=== PATIENT | female | born 1940 | race Caucasian/White ===

== ENCOUNTER 2023-10-02 14:07 | Inpatient (IN) | payer MEDICARE, SELFPAY ==
[2023-10-02] VITALS (11 sets, daily range): BP systolic 123–158; BP diastolic 64–101; PULSE 69–107; RESP 19–26; TEMP 35.8–36.5; O2SAT 94–100; BMI 35.7; BMI 34.8
--- NOTE | 2023-10-02 14:15 | EKG12_ITS ---
Test Reason : Blood Pressure : / mmHG Vent. Rate : 092 BPM Atrial Rate : 092 BPM P-R Int : 188 ms QRS Dur : 082 ms QT Int : 416 ms P-R-T Axes : 043 000 048 degrees QTc Int : 514 ms Normal sinus rhythm Low voltage QRS Prolonged QT Abnormal ECG When compared with ECG of 26-JAN-2012 13:55, QRS voltage has decreased QT has lengthened Confirmed by MELLY BRUCE, MAYA ([id number]), film editor RAOUL MOREAU ([id number]) on 10/04/2023 11:21:30 AM Referred By: ALIYA Confirmed By:MAYA PICKARD MD
--- NOTE | 2023-10-02 14:15 | RAD_ITS ---
STUDY: XR Chest 1 View 10/02/2023 2:32 PM REASON FOR EXAM: Female, 83 years old. chest pain COMPARISON: None TECHNIQUE: XR Chest 1 View FINDINGS: There is a left pleural effusion. Normal heart size. Normal mediastinum. Normal agnieszka. Prominent appearing increased interstitial lung markings. Normal visualized pulmonary arteries. There is atherosclerotic calcification of the aortic arch with tortuosity. There are diffuse degenerative changes of the visualized thoracic spine. There is degenerative osteoarthritis of the bilateral shoulders. There are no acute findings of the upper abdomen. RAD/Chest 1 View (Portable) IMPRESSION: Large left pleural effusion. Electronically Signed: Oc Oleary MD at 15:08 EST ,
[2023-10-02 14:45] LABS: Absolute Lymphocyte Count 1.22 X10^3/uL (0.83-4.51); Absolute Neutrophil Count 2.1 X10^3/uL (2.0-7.7); Basophil# 0.02 X10^3/uL; Basophil% 0.5 % (0-1); Eosinophil# 0.06 X10^3/uL; Eosinophils% 1.6 % (0-5); Hematocrit 40.4 % (37-47); Lymphocyte # 1.22 X10^3/ul (0.83-4.51); Lymphocyte % 32.1 % (19-41); Mean Corp Hgb Conc 32.2 g/dL (32-36); Mean Corpuscular Hgb 32.9 pg (27.0-32.0); Mean Corpuscular Volume 102.3 fL (81-99); Mean Platelet Vol. 9.7 fl (6.2-12.0); Monocyte# 0.35 X10^3/uL; Monocyte% 9.2 % (0-10); NRBC Flagged by Analyzer 0 % (0-5); Neutrophil # 2.14 X10^3/uL (2.7-7.7); Neutrophil % 56.3 % (47-70); POSITIVE MORPHOLOGY YES; Platelet Count 106 K/mm3 (150-450); RBC Distribution Width SD 67.1 fl (35.1-43.9); Red Blood Count 3.95 M/mm3 (4.2-5.4); White Blood Count 3.8 K/mm3 (4.4-11.0)
[2023-10-02 14:46] LABS: Differential Indicated SCAN CRITERIA MET
[2023-10-02 15:11] LABS: Anion Gap 12 (5-15); BUN 20 mg/dL (7-18); BUN/Creat Ratio 14.4 RATIO (10-20); Calcium,Total 8.3 mg/dL (8.5-10.1); Chloride 104 mmol/L (98-107); Creatinine, Serum 1.39 mg/dL (0.55-1.02); EST Glomerular Filtration Rate 39 mL/min (>60); Est Glom Filt Rate - Afr Amer 47 mL/min (>60); Estimated Creatinine Clearance 26.26 ml/min; Glucose 110 mg/dL (74-106); Potassium 3.1 mmol/L (3.5-5.1); Sodium Level 143 mmol/L (136-145); Troponin-I HS (w/2H Reflex) 21 pg/mL (3.0-54.0)
--- NOTE | 2023-10-02 15:14 | EDS_ITS ---
HPI History of Present Illness Chief Complaint: Shortness of Breath Informant: patient Onset/Context/Timing Onset: Weeks (2) Context: gradual Timing: Continuous Quality: Positive for Dyspnea on exertion Worsened by: Exertion and Lying flat Relieved by: Rest Associated Symptoms cough, subjective and chills; Negative for rhinorrhea, post nasal drip, ear pain, fever, sore throat, sweats, clear sputum, white sputum, yellow sputum or green sputum Chest Pain: Positive for Tightness (Left chest) Narrative Narrative: Patient presents with shortness of breath that has been getting worse over the past 2 weeks. Patient states her breathing is worse with any exertion. Patient states it has been constant for the past 2 weeks. Patient admits to a cough but denies any sputum production. Patient admits to some subjective chills. Patient admits to some tightness in the left side of her chest. Patient admits to some nausea and vomiting. Patient states her pain radiates into her back. PE Risk Factors: Negative for Cancer, OCP + Smoking + > 35, Prior DVT or PE, Recent immobilization, Recent surgery or Recent travel [facility] Medical History (Updated 10/02/23 @ 17:[address] Anish Carrasquillo, ) DM2 (diabetes mellitus, type 2) HTN (hypertension) Home Medications amlodipine 2.5 mg tablet 2.5 mg PO DAILY 07/30/16 [History Last Taken 08/17/16 05:00] enalapril maleate 10 mg tablet (Vasotec) 10 mg PO BID 07/30/16 [History Last Taken 08/17/16 05:00] glipizide 2.5 mg tablet, extended release 24 hr 2.5 mg PO DAILY 07/30/16 [History Last Taken Unknown] hydrochlorothiazide 25 mg tablet 25 mg PO DAILY 07/30/16 [History Last Taken Unknown] lovastatin 10 mg tablet 10 mg PO DAILY 07/30/16 [History Last Taken Unknown] metformin 500 mg tablet 500 mg PO BIDCM 07/30/16 [History Last Taken Unknown] ranitidine HCl 150 mg tablet (Acid Control (ranitidine)) 300 mg PO DAILY 07/30/16 [History Last Taken Unknown] sertraline 50 mg tablet 50 mg PO DAILY 07/30/16 [History Last Taken Unknown] aspirin 325 mg tablet 325 mg PO BID ##30 08/19/16 [Rx Last Taken Unknown] calcium carbonate 600 mg-vitamin D3 12.5 mcg (500 unit) capsule 1 ea PO DAILY 08/09/17 [History Last Taken Unknown] oxycodone-acetaminophen 5 mg-325 mg tablet 1 - 2 tab PO Q4H PRN PRN Pain #12 tabs 08/09/17 [Rx Last Taken Unknown] Allergy/AdvReac Type Severity Reaction Status Date / Time No Known Allergies Allergy Verified 10/02/23 14:08 Surgical History (Updated 10/02/23 @ 14:46 by Abby Mckinney) H/O: hysterectomy History of bilateral knee replacement Social History Smoking Status: Never smoker ROS ROS ED Constitutional Constitutional ED: Denies chills or fever(s) Eyes Eyes: Denies blurry vision or change in vision ENT ENT ED: Denies rhinorrhea or sore throat Cardiovascular Cardiovascular: Reports chest pain; Denies palpitations Respiratory/Chest Respiratory/Chest: Reports cough and dyspnea Gastrointestinal Gastrointestinal: Reports nausea and vomiting Genitourinary Genitourinary ED: Denies dysuria or hematuria Musculoskeletal Musculoskeletal: Reports back pain; Denies neck pain Integumentary Denies abscess or rash Neurologic Neurologic: Denies headache(s) or weakness Allergic/Immunologic Allergic/Immunologic ED: Denies mouth swelling or urticaria EXAM Physical Exam Const Vital Signs: 10/02/23 14:09 10/02/23 14:39 10/02/23 14:48 Temperature 96.4 F L 97.6 F L Temperature Source Temporal Oral Pulse Rate 102 H 83 Respiratory Rate 24 H 19 H Respiratory Effort Short of Breath Respiratory Depth Respiratory Pattern Blood Pressure 158/88 H 131/74 H Blood Pressure Mean 111 93 Pulse Ox 96 96 Oxygen Delivery Method Room Air Room Air 10/02/23 14:50 10/02/23 15:31 Temperature Temperature Source Pulse Rate 85 Respiratory Rate 20 H Respiratory Effort Short of Breath Respiratory Depth Shallow Respiratory Pattern Normal Normal Blood Pressure Blood Pressure Mean Pulse Ox Oxygen Delivery Method Room Air Positive well nourished and well developed General Appearance ED: well developed and NAD HEENT Reports moist mucous membranes Neck supple and no JVD Resp normal respiratory effort Auscultation: wheezes and diminished lung sounds left Cardio regular rate and regular rhythm GI non-tender and non-distended Palpation: soft Neuro oriented x3, CN's II-XII intact bilaterally and no sensory deficits noted N[place]inx Coma Scale: document GCS findings Spontaneous Obeys Commands Oriented 15 Sensorium / Orientation: alert Motor Exam: strength 5/5 throughout Psych mental status grossly normal MDM MDM MDM Narrative Medical decision making narrative: Differential diagnosis includes pneumonia, pneumothorax, pulmonary embolism, congestive heart failure, cardiac dysrhythmia, cardiac ischemia, pleural effusion, and COPD exacerbation. Chest x-ray will be obtained to assess for pneumonia, pneumothorax, and congestive heart failure. CBC will be obtained to assess for leukocytosis and anemia. Basic metabolic profile will be obtained to assess for electrolyte abnormality and renal function. High-sensitivity troponin will be obtained to assess for cardiac ischemia. 2-hour repeat high- sensitivity troponin will be obtained to assess for ongoing cardiac ischemia. D-dimer will be obtained to assess for pulmonary embolism. Lab Data Attestation: I reviewed the patient's lab results. Lab results narrative: CBC was reviewed. White blood cell count was slightly low at 3.8. Platelets were slightly low at 106. Basic metabolic profile was reviewed. BUN was 20 and creatinine was 1.39. Potassium was slightly low at 3.1. High-sensitivity troponin was reviewed and was normal at 21. D-dimer was reviewed and was elevated at 11.88. 2-hour repeat high-sensitivity troponin was reviewed and was normal at 15. Labs: Laboratory Results - last 24 hr 10/02/23 10/02/23 14:20 16:43 WBC 3.8 L RBC 3.95 L Hgb 13.0 Hct 40.4 MCV 102.3 H MCH 32.9 H MCHC 32.2 RDW Std Deviation 67.1 H RDW Coeff of Katherine 18.0 H Plt Count 106 L MPV 9.7 Immature Gran % (Auto) 0.300 Neut % (Auto) 56.3 Lymph % (Auto) 32.1 [place] % (Auto) 9.2 Eos % (Auto) 1.6 Baso % (Auto) 0.5 Absolute Neuts (auto) 2.1 Absolute Lymphs (auto) 1.22 Nucleated RBC % 0 Anisocytosis 2+ Microcytosis 1+ Macrocytosis 1+ D-Dimer Quant (PE/DVT) 11.88 H* Sodium 143 Potassium 3.1 L Chloride 104 Carbon Dioxide 27.0 Anion Gap 12 BUN 20 H Creatinine 1.39 H Estim Creat Clear Calc 26.26 Est GFR (MDRD) Af Amer 47 L Est GFR (MDRD) Non-Af 39 L BUN/Creatinine Ratio 14.4 Glucose 110 H Calcium 8.3 L Troponin I High Sens 21 15 Radiography Chest X-Ray - ED: 1 View, Read by ED Physician, Read by Radiologist and Left Effusion CTA PE Study: No Evidence of PE and No Evidence of Dissection Diagnostic Testing: Clinical Impression(s) from Imaging Studies Chest X-Ray 10/02/23 14:15 IMPRESSION: Large left pleural effusion. Electronically Signed: Oc Oleary MD at 15:08 EST , Chest CTA 10/02/23 15:18 IMPRESSION: No demonstrated pulmonary embolism or arterial dissection. Large left effusion. Small right pleural effusion. Diffuse atelectasis of the left lung. Very minimal aeration of the left lung Ascites. There is diffuse subcutaneous edema. This can suggest anasarca when combined with pleural effusions and ascites. Electronically Signed: Oc Oleary MD at 16:15 EST , Portable 1 view chest x-ray was obtained. On my independent interpretation, lung lux show a large left pleural effusion. There is normal cardiac silhouette. Bony thorax is normal. Radiologist also interpreted the x-ray and agrees. Because of the elevated D-dimer, CTA of the chest was obtained. There is no evidence of pulmonary embolism or aortic dissection. There is a large left pleural effusion and atelectasis of the left lung. EKG Initial EKG: Attestation: I personally reviewed and interpreted this EKG as follows: Interpretation: Sinus Rhythm (92) and No Acute Injury Pattern Comments: EKG was obtained. On my independent interpretation, shows normal sinus rhythm with a rate of 92. SD interval was normal at 188 ms. QRS interval was normal at 82 ms. QTc interval was slightly prolonged at 514 ms. [place] was normal. There is low voltage QRS noted. There are no acute ST or T wave changes noted. Prior EKG tracings: not available for review Prior: No Prior Treatment and Re-Evaluation :: Patient was given a dose of oral potassium. Because of the patient's GFR, patient was given IV fluids prior to the CTA of the chest. Because of the large effusion, patient was given a dose of Lasix. Patient was advised of her findings. Patient advised of the need for admission. Patient will is agreeable with this. Case will be discussed with the hospitalist. Discharge Plan Triage Chief Complaint: Shortness of Breath Other Complaint: Chest Pain ED Provider: Anish Carrasquillo Dx/Rx/DC Orders Clinical Impression: DM2 (diabetes mellitus, type 2), Dyspnea, Pleural effusion, left, HTN (hypertension) Prescriptions: No Action metformin 500 MG tablet 500 mg PO BIDCM Patient Comments: DIABETES enalapril maleate [Vasotec] 10 MG tablet 10 mg PO BID Patient Comments: BP amlodipine 2.5 MG tablet 2.5 mg PO DAILY Patient Comments: BP lovastatin 10 MG tablet 10 mg PO DAILY Patient Comments: CHOLESTEROL glipizide 2.5 MG tablet extended release 24hr 2.5 mg PO DAILY Patient Comments: DIABETES ranitidine HCl [Acid Control (ranitidine)] 150 MG tablet 300 mg PO DAILY Patient Comments: [employer] hydrochlorothiazide 25 MG tablet 25 mg PO DAILY Patient Comments: BP sertraline 50 MG tablet 50 mg PO DAILY Patient Comments: ANTIDEPRESSANT aspirin 325 MG tablet 325 mg PO BID Qty: 30 0RF calcium carbonate-vitamin D3 1 EACH capsule 1 ea PO DAILY oxycodone-acetaminophen 1 TABLET tablet 1 - 2 tab PO Q4H PRN PRN (Reason: Pain) Qty: 12 0RF Primary Care Provider: Sameer Cope Referrals: Sameer Cope MD [Primary Care Provider] - Disposition Disposition: Acute Care Hospital [facility]
[2023-10-02 15:16] LABS: D-Dimer Quantitative (DVT/PE) 11.88 FEU/ug/m (0.27-0.49)
--- NOTE | 2023-10-02 15:18 | CT_ITS ---
STUDY: CTA Chest WO/W Contrast Injection 10/02/2023 4:12 PM REASON FOR EXAM: Female, 83 years old. Shortness of breath for 2 weeks Elevated D-dimer TECHNIQUE: The examination was performed with the intravenous administration of IV 100mL Isovue-370 contrast material. Post-processing of the angiographic images was performed, with axial imaging and 3D reconstruction. MIPS images were obtained. Individualized dose optimization techniques were used for this CT. COMPARISON: None. FINDINGS: There are degenerative changes of the shoulders. There is no pneumothorax. Large left effusion. Small right pleural effusion. Diffuse atelectasis of the left lung. Very minimal aeration of the left lung. There are calcifications of the coronary arteries. Mild shift of the mediastinum to the right side. Normal hilar regions. Normal pulmonary arteries. There is atherosclerotic calcification of the aortic arch with tortuosity and elongation of the aortic arch and descending thoracic aorta. There are multi-level degenerative changes of the thoracic spine. Abdominal ascites. There is subcutaneous edema. CT/CTA Chest W/WO Contrast IMPRESSION: No demonstrated pulmonary embolism or arterial dissection. Large left effusion. Small right pleural effusion. Diffuse atelectasis of the left lung. Very minimal aeration of the left lung Ascites. There is diffuse subcutaneous edema. This can suggest anasarca when combined with pleural effusions and ascites. Electronically Signed: Oc Oleary MD at 16:15 RUST ,
--- OUTSIDE RECORDS SUMMARY | 2023-10-02 15:18 | XMS RPT_ITS | CCD ---
Author Name Unknown Address [address] [place] [address] Organization [facility] Care Team Providers Care Stars Specialist Name Role Phone RUBÉN WERNER) Unavailable Unavailable RUBÉN WERNER) Unavailable Unavailable RANCHO WILLIAM Consulting Unavailable RANCHO WILLIAM Referring Unavailable YUAN ALAN DO Admitting Unavailable YUAN ALAN DO Primary Care Unavailable YUAN ALAN DO Attending Unavailable PROVIDER, UNKNOWN Consulting Unavailable PROVIDER, UNKNOWN Consulting Unavailable PROVIDER, UNKNOWN Consulting Unavailable TIMO CRONIN Admitting Unavailable TIMO CRONIN Primary Care Unavailable TIMO RCONIN Attending Unavailable ANA RUBIN MD Consulting Unavailable PROVIDER, UNKNOWN Consulting Unavailable PROVIDER, UNKNOWN Consulting Unavailable PROVIDER, UNKNOWN Consulting Unavailable Allie BRUCE, Sameer Parks Primary Care Provider [phone] Allie BRUCE, Sameer Parks Primary Care Provider [phone] Allie BRUCE, Sameer Parks Primary Care Provider [phone] SAMEER KELLEY Primary Care Unavailable SAMEER KELLEY Primary Care Unavailable DELMY FERMIN Attending Unavailable SAMEER KELLEY Referring Unavailable SAMEER KELLEY Primary Care Unavailable SAMEER KELLEY Referring Unavailable SAMEER KELLEY Primary Care Unavailable DELMY FERMIN Referring Unavailable SAMEER KELLEY Primary Care Unavailable SAMEER KELLEY Referring Unavailable SAMEER KELLEY Primary Care Unavailable DELMY FERMIN Referring Unavailable SAMEER KELLEY Primary Care Unavailable SAMEER KELLEY Primary Care Unavailable SAMEER KELLEY Attending Unavailable SAMEER KELLEY Referring Unavailable ALLIE, SAMEER Parks Primary Care Unavailable SAMEER KELLEY Referring Unavailable ALLIE, SAMEER Parks Primary Care Unavailable SAMEER KELLEY Referring Unavailable KELLEYSAMEER MCCARTY H Primary Care Unavailable SAMEER KELLEY H Attending Unavailable ALLIE, SAMEER Parks Referring Unavailable ALLIE, HAYLEY Primary Care Unavailable LUX SINGH Referring Unavail able KELLEY, HAYLEY Primary Care Unavailable KELLEY, HAYLEY Referring Unavailable KELLEY, HAYLEY Primary Care Unavailable SAMEER KELLEY H Attending Unavailable ALLIE, HAYLEY Referring Unavailable KELLEY, HAYLEY Primary Care Unavailable Medications Current Medications Medication Drug Class(es) Dates Sig (Normalized) Sig (Original) metoprolol tartrate 25 mg oral tablet (8 sources) beta-Adrenergic Gracia Start: 02-09-2023 End: 06-02-2024 take 1 tablet by mouth twice daily metoprolol tartrate, short acting, (LOPRESSOR) 25 mg tablet Indications: PSVT (paroxysmal supraventricular tachycardia) Take 1 tablet by mouth twice daily. 60 tablet 5 06/03/2023 06/02/2024 Active Completed/Discontinued Medications Medication Drug Class(es) Dates Sig (Normalized) Sig (Original) amLODIPine 2.5 mg oral tablet (14 sources) Dihydropyridine Calcium Channel Gracia Start: 08-26-2021 End: 06-03-2023 take 1 tablet by mouth once daily amLODIPine (NORVASC) 2.5 mg tablet Indications: Essential hypertension Take 1 tablet by mouth once daily. 90 tablet 3 08/26/2021 06/03/2023 Discontinued (Non-Compliance) Problems Active Problems Problem Classification Problem Date Documented Date Episodic/Chronic Adjustment disorders (17 sources) Adjustment disorder with depressed mood; Translations: [Adjustment disorder with depressed mood] Onset: 12-26-2014 12-26-2014 Chronic Cardiac dysrhythmias (2 sources) Paroxysmal supraventricular tachycardia; Translations: [PSVT (paroxysmal supraventricular tachycardia)] Onset: 06-03-2023 06-03-2023 Chronic Diabetes mellitus with complications (3 sources) Type 2 diabetes mellitus; Translations: [Type 2 diabetes mellitus with diabetic nephropathy] Onset: 06-03-2023 09-02-2023 Chronic Diabetes mellitus without complication (19 sources) Type 2 diabetes mellitus without complication; Translations: [Type 2 diabetes mellitus without complications] Onset: 09-20-2006 08-11-2015 Chronic Disorders of lipid metabolism (1 source) Hyperlipidemia; Translations: [Hyperlipidemia, unspecified] Chronic Esophageal disorders (17 sources) Esophageal varices without bleeding; Translations: [Secondary esophageal varices without bleeding] Onset: 09-04-2019 09-04-2019 Chronic Essential hypertension (19 sources) Essential hypertension; Translations: [Essential (primary) hypertension] Onset: 09-20-2006 02-27-2016 Chronic Genitourinary symptoms and ill-defined conditions (15 sources) Genuine stress incontinence; Translations: [Stress incontinence (female) (male)] Onset: 01-13-2011 01-13-2011 Chronic Heart valve disorders (15 sources) Rheumatic mitral valve disease, unspecified; Translations: [Mitral valve disorders] Onset: 09-20-2006 11-07-2006 Chronic Immunizations and screening for infectious disease (7 sources) Contact with or exposure to other viral diseases; Translations: [Exposure to COVID-19 virus] Onset: 09-02-2023 Episodic Osteoarthritis (20 sources) Degenerative joint disease involving multiple joints; Translations: [Polyosteoarthritis, unspecified] Onset: 09-20-2006 06-23-2017 Chronic Other hereditary and degenerative nervous system conditions (17 sources) Impaired cognition; Translations: [Mild cognitive impairment, so stated] Onset: 12-07-2021 12-07-2021 Chronic Other hereditary and degenerative nervous system conditions (1 source) Mild cognitive impairment, so stated; Translations: [Mild cognitive impairment] Onset: 12-07-2021 Chronic Other liver diseases (18 sources) Cirrhosis of liver; Translations: [Unspecified cirrhosis of liver] Onset: 06-30-2017 06-30-2017 Chronic Other liver diseases (16 sources) Portal hypertensive gastropathy; Translations: [Portal hypertension] Onset: 09-04-2019 09-04-2019 Chronic Other liver diseases (2 sources) Unspecified cirrhosis of liver; Translations: [Cirrhosis of liver without ascites, unspecified hepatic cirrhosis type (HCC)] Onset: 06-30-2017 Chronic Other liver diseases (1 source) Portal hypertension; Translations: [Portal hypertensive gastropathy (HCC)] Onset: 09-04-2019 Chronic Other lower respiratory disease (2 sources) Dyspnea on exertion; Translations: [Other forms of dyspnea] Episodic Other nutritional; endocrine; and metabolic disorders (16 sources) Obese class I; Translations: [Obesity, unspecified] Onset: 06-27-2018 06-27-2018 Chronic Other nutritional; endocrine; and metabolic disorders (1 source) Abnormal weight gain; Translations: [Abnormal weight gain] 09-02-2023 Episodic Other nutritional; endocrine; and metabolic disorders (1 source) Abnormal weight gain; Translations: [Abnormal weight gain] Onset: 09-02-2023 Episodic Residual codes; unclassified (16 sources) Obstructive sleep apnea syndrome; Translations: [Obstructive sleep apnea (adult) (pediatric)] Onset: 01-23-2019 04-18-2019 Chronic Residual codes; unclassified (1 source) Edema; Translations: [Edema, unspecified] 09-02-2023 Episodic Residual codes; unclassified (1 source) Edema, unspecified; Translations: [Edema, unspecified type] Onset: 09-02-2023 Episodic Spondylosis; intervertebral disc disorders; other back problems (4 sources) Degeneration of lumbosacral intervertebral disc; Translations: [Other intervertebral disc degeneration, lumbosacral region] Onset: 06-26-2014 06-26-2014 Chronic Unclassified (1 source) Unknown / UNK(Unknown) Onset: 08-18-2017 Viral infection (1 source) Viral disease; Translations: [Viral infection, unspecified] Episodic Past or Other Problems Problem Classification Problem Date Documented Da te Episodic/Chronic Allergic reactions (15 sources) Inflammatory dermatosis; Translations: [Dermatitis, unspecified] Onset: 10-31-2018 10-31-2018 Episodic Cardiac dysrhythmias (3 sources) Palpitations; Translations: [Palpitations] Onset: 02-10-2023 Episodic Conditions associated with dizziness or vertigo (3 sources) Lightheadedness; Translations: [Dizziness and giddiness] Onset: 02-10-2023 Episodic Esophageal disorders (15 sources) Esophagitis; Translations: [Esophagitis] Onset: 06-14-2012 06-23-2017 Episodic Malaise and fatigue (3 sources) Fatigue; Translations: [Other fatigue] Onset: 02-10-2023 Episodic Nonspecific chest pain (3 sources) Chest pain; Translations: [Chest pain, unspecified] Onset: 01-24-2023 Episodic Other disorders of stomach and duodenum (1 source) Other diseases of stomach and duodenum; Translations: [Portal hypertensive gastropathy (HCC)] Onset: 09-04-2019 Episodic Other lower respiratory disease (1 source) Other forms of dyspnea; Translations: [ALLAN (dyspnea on exertion)] Onset: 02-10-2023 Episodic Other non-epithelial cancer of skin (15 sources) History of malignant basal cell neoplasm of skin; Translations: [Personal history of other malignant neoplasm of skin] Onset: 06-27-2018 06-27-2018 Episodic Results Test Name Value Interpretation Reference Range Facil ity Vital Signs Date Time Vital Sign Value Performing Clinician Faci lity 09-02-2023 15:51-0500 Body weight 89.36 kg Sameer Kelley MD Work Phone: [facility] 09-02-2023 15:51-0500 Diastolic blood pressure 70 mm[Hg] Sameer Kelley MD Work Phone: [facility] 09-02-2023 15:51-0500 Heart rate 78 /min Sameer Kelley MD Work Phone: [facility] 09-02-2023 15:51-0500 Respiratory rate 16 /min Sameer Kelley MD Work Phone: [facility] 09-02-2023 15:51-0500 SaO2% (BldA) [Mass fraction] 100 % Sameer Kelley MD Work Phone: [facility] 09-02-2023 15:51-0500 Systolic blood pressure 116 mm[Hg] Sameer Kelley MD Work Phone: [facility] 01-24-2023 12:49-0400 Body weight 80.74 kg Delmy Fermin APRN.CDL B DRIVER Work Phone: [facility] 01-24-2023 12:49-0400 Diastolic blood pressure 78 mm[Hg] Delmy Fermin APRN.CDL B DRIVER Work Phone: [facility] 01-24-2023 12:49-0400 Heart rate 76 /min Delmy Fermin APRN.CDL B DRIVER Work Phone: [facility] 01-24-2023 12:49-0400 SaO2% (BldA) [Mass fraction] 99 % Delmy Fermin APRN.CDL B DRIVER Work Phone: [facility] 01-24-2023 12:49-0400 Systolic blood pressure 134 mm[Hg] Delmy Letha HEARN.CDL B DRIVER Work Phone: [facility] 12-09-2022 17:12-0500 Body height 157.5 cm Sameer Kelley MD Work Phone: [facility] 12-09-2022 17:12-0500 Body temperature 97.7 [degF] Sameer Kelley MD Work Phone: [facility] 12-09-2022 17:12-0500 Body weight 78.47 kg Sameer Kelley MD Work Phone: [facility] 12-09-2022 17:12-0500 Diastolic blood pressure 62 mm[Hg] Sameer Kelley MD Work Phone: [facility] 12-09-2022 17:12-0500 Heart rate 96 /min Sameer Kelley MD Work Phone: [facility] 12-09-2022 17:12-0500 Respiratory rate 16 /min Sameer Kelley MD Work Phone: [facility] 12-09-2022 17:12-0500 SaO2% (BldA) [Mass fraction] 98 % Sameer Kelley MD Work Phone: [facility] 12-09-2022 17:12-0500 Systolic blood pressure 124 mm[Hg] Sameer Kelley MD Work Phone: [facility] 06-07-2022 14:02-0400 Diastolic blood pressure 64 mm[Hg] Sameer Kelley MD Work Phone: [facility] 06-07-2022 14:02-0400 Systolic blood pressure 124 mm[Hg] Sameer Kelley MD Work Phone: [facility] 06-07-2022 13:37-0400 Body temperature 97 [degF] Sameer Kelley MD Work Phone: [facility] 06-07-2022 13:37-0400 Body weight 78.93 kg Sameer Kelley MD Work Phone: [facility] 06-07-2022 13:37-0400 Heart rate 68 /min Sameer Kelley MD Work Phone: [facility] 06-07-2022 13:37-0400 Respiratory rate 12 /min Sameer Kelley MD Work Phone: [facility] 04-23-2022 16:35-0400 Body temperature 98.91 [degF] Delmy Painter CITY TAX AUDITOR.CDL B DRIVER Work Phone: [facility] 04-23-2022 16:35-0400 Body weight 82.37 kg Delmy Painter CITY TAX AUDITOR.CDL B DRIVER Work Phone: [facility] 04-23-2022 16:35-0400 Diastolic blood pressure 80 mm[Hg] Delmy Painter CITY TAX AUDITOR.CDL B DRIVER Work Phone: [facility] 04-23-2022 16:35-0400 Heart rate 115 /min Delmy Painter CITY TAX AUDITOR.CDL B DRIVER Work Phone: [facility] 04-23-2022 16:35-0400 Respiratory rate 20 /min Delmy Painter CITY TAX AUDITOR.CDL B DRIVER Work Phone: [facility] 04-23-2022 16:35-0400 SaO2% (BldA) [Mass fraction] 98 % Delmy Painter CITY TAX AUDITOR.CDL B DRIVER Work Phone: [facility] 04-23-2022 16:35-0400 Systolic blood pressure 150 mm[Hg] Delmy Painter CITY TAX AUDITOR.CDL B DRIVER Work Phone: [facility] Encounters Encounter Date Encounter Type Care Provider Facility Start: 09-02-2023 End: 09-03-2023 ambulatory SAMEER KELLEY Facility:[facility] Start: 09-02-2023 End: 09-02-2023 Patient encounter procedure Sameer Kelley MD Work Phone: [facility] Procedures Date Procedure Procedure Detail Performing Clinician Start: 09-02-2023 [employer] COVI D-19 VACCINE ( SEASON) AGE 12+ YR Sameer Kelley MD Work Phone: Start: 09-02-2023 INFLUENZA VACCINE, P RSV FREE, AGE 65+ YR, HIGH DOSE, QUADRIVALENT (FLUZONE HIGH-DOSE) Sameer Kelley MD Work Phone: Start: 02-10-2023 Echo tthrc r-t 2d w/wom-mode compl spec&colr d Delmy Fermin CITY TAX AUDITOR.CDL B DRIVER Work Phone: Start: 02-10-2023 Duplex scan extracra nial art compl bi study Delmy Fermin CITY TAX AUDITOR.CDL B DRIVER Work Phone: Start: 01-06-2023 Us abdominal real ti me w/image documentation Lux Singh MD Work Phone: Start: 12-09-2022 Ecg routine ecg w/le ast 12 lds i&r only [facility] Provider Start: 12-09-2022 INFLUENZA SEASONAL QUADRIVALENT HIGH DOSE AGE 65+ Sameer Kelley MD Work Phone: Start: 06-07-2022 P[employer]ER[email or web address] COVI D-19 VACCINE, AGE 12+ YR (LEA TOP) Sameer Kelley MD Work Phone: Start: 02-25-2022 Us abdominal real ti me w/image documentation Lux Singh MD Work Phone: Start: 12-07-2021 Adult depression scr eening assessment Us 1 Work Phone: Plan of Treatment Date Care Activity Detail Author Start: 06-03-2024 Hepatitis B screening Urine Albumin:Creatinine Ratio [facility] Start: 05-31-2024 Hepatitis B surface antibody level LDL Cholesterol [facility] Start: 02-20-2024 Hemoglobin A1c/Hemoglobin.total in Blood HbA1C [facility] Start: 12-09-2023 3 comp foot exam completed DIABETIC FOOT EXAM [facility] Start: 12-09-2023 ANNUAL PCP TEAM CHRONIC DISEASE VISIT ANNUAL PCP TEAM CHRONIC DISEASE VISIT [facility] Start: 12-09-2023 BP CONTROLLED (<130/80) BP CONTROLLED (<130/80) [facility] Start: 12-03-2023 End: 03-03-2024 Comprehensive metabolic 2000 panel - Serum or Plasma COMP METABOLIC PANEL Lab Routine Cirrhosis of liver without ascites, unspecified hepatic cirrhosis type (HCC) Expected: 12/03/2023, Expires: 03/03/2024 [facility] Work Phone: Immunizations Immunization Date Immunization Notes Care Provider Fa cili 09-02-2023 COVID-19 vaccine, ag e 12+ yr, season (Aidin) Sameer Kelley MD Work Phone: [facility] 09-02-2023 influenza (HD-IIV4) vaccine, age 65+ yr, high dose, quadrivalent, PF (FLUZONE HIGH-DOSE) Sameer Kelley MD Work Phone: [facility] 12-09-2022 influenza, high-dose , quadrivalent vaccine (FLUZONE HIGH DOSE QUADRIVALENT) Sameer Kelley MD Work Phone: [facility] Work Phone: 12-09-2022 influenza virus vacc ine, unspecified formulation Us 2 Work Phone: [facility] 06-07-2022 COVID-19 vaccine, ag e 12+ yr (Sapheneia-BIONTECH - LEA TOP) Sameer Kelley MD Work Phone: [facility] Work Phone: 01-18-2022 pneumococcal (PCV20) vaccine, 20 valent (PREVNAR 20) Sameer Kelley MD Work Phone: [facility] Work Phone: 08-26-2021 influenza, high-dose , quadrivalent vaccine (FLUZONE HIGH DOSE QUADRIVALENT) Us 1 Work Phone: [facility] Work Phone: 02-24-2021 COVID-19 vaccine, fu ll dose (MODERNA) Us 1 Work Phone: [facility] Work Phone: 10-15-2020 influenza, high-dose , quadrivalent vaccine (FLUZONE HIGH DOSE QUADRIVALENT) Us 1 Work Phone: [facility] Work Phone: 12-18-2019 hepatitis A and hepatitis B vaccine Us 1 Work Phone: [facility] Work Phone: 09-04-2019 hepatitis A and hepatitis B vaccine Us 1 Work Phone: [facility] Work Phone: 09-04-2019 influenza, high dose seasonal, preservative-free Us 1 Work Phone: [facility] Work Phone: 08-24-2018 hepatitis B vaccine, adult dosage Us 1 Work Phone: [facility] Work Phone: 06-27-2018 influenza, high dose seasonal, preservative-free Us 1 Work Phone: [facility] Work Phone: 03-01-2018 hepatitis B vaccine, adult dosage Us 1 Work Phone: [facility] 01-23-2018 hepatitis B vaccine, adult dosage Us 1 Work Phone: [facility] Work Phone: 06-23-2017 influenza, high dose seasonal, preservative-free Us 1 Work Phone: [facility] 09-29-2016 influenza, high dose seasonal, preservative-free Us 1 Work Phone: [facility] 08-18-2016 influenza, seasonal, injectable, preservative free Us 1 Work Phone: [facility] Work Phone: 12-26-2014 pneumococcal conjuga te vaccine, 13 valent Us 1 Work Phone: [facility] 07-11-2013 influenza virus vacc ine, unspecified formulation Us 1 Work Phone: [facility] 07-31-2009 influenza virus vacc ine, unspecified formulation Us 1 Work Phone: [facility] 08-29-2008 influenza virus vacc ine, unspecified formulation Us 1 Work Phone: [facility] Work Phone: 04-23-2008 tetanus and diphther ia toxoids, adsorbed, preservative free, for adult use (2 Lf of tetanus toxoid and 2 Lf of diphtheria toxoid) Us 1 Work Phone: [facility] Work Phone: 10-24-2007 pneumococcal polysaccharide vaccine, 23 valent Us 1 Work Phone: [facility] Work Phone: 08-17-2006 influenza virus vacc ine, unspecified formulation Us 1 Work Phone: [facility] Work Phone: Payers Date Payer Category Payer Unknown [id number] 2021 Unknown [facility] ANTHEM MED[employer]LUE HMO [id number] 2021-Present [phone] [address] [place] [address] HMO [id number] 2021 Unknown HOSPITAL/MEDICAL GENERIC MEDICAL GENERIC [id number] 2021-Present [phone] [address] [place] [address] Indemnity [id number] 2021 Unknown [id number] 2021 Unknown [id number] 1940 Unknown [id number] 1940 Unknown [id number] Medicare [id number] Social History Date Type Detail Facility Start: 06-07-2022 Tobacco smoking stat us MEIS Ex-smoker [facility] Work Phone: End: [birth year]17-1960 History of tobacco use Current smoker [facility] Work Phone: Start: 12-07-2021 End: 06-03-2023 Alcohol intake Current drinker of alcohol (finding) [facility] Start: 12-07-2021 End: 12-09-2022 History SDOH Alcohol Frequency 2 [facility] Start: 03-18-2021 End: 12-07-2021 History SDOH Alcohol Std Drinks 1 [facility] Start: 12-07-2021 History SDOH Alcohol Comment 1 glass of wine per year [facility] Start: 12-07-2021 History SDOH Social Connections Phone 5 [facility] Start: 03-18-2021 End: 12-07-2021 History SDOH Social Connections Get Together 4 [facility] Start: 12-07-2021 End: 12-09-2022 History SDOH Social Connections Ep[employer] 3 [facility] Start: 03-18-2021 Education 15 [facility] Start: 1940 Sex Assigned At Female [facility] Start: 04-13-2022 End: 06-07-2022 Exposure to SARS-CoV-2 (event) Not sure [facility] End: [birth year]17-1960 History of tobacco use Cigarette Smoker [facility] Work Phone: Start: 06-07-2022 Tobacco use and exposure Smoke less tobacco non-user [facility] Work Phone: Start: 06-07-2022 Tobacco Comment quit 40 yrs ago [facility] Start: 09-21-2020 End: 12-07-2021 History of Social function [facility] Work Phone: Start: 09-21-2020 End: 12-07-2021 Social connection and isolation panel [facility] Work Phone: Do you belong to any clubs or organizations such as faith groups, unions, fraternal or athletic groups, or school groups? No [facility] Work Phone: Are you now , , , , never or living with a partner? [facility] Work Phone: How often to you hav e a drink containing alcohol? Monthly or less [facility] Work Phone: How many standard dr inks containing alcohol do you have on a typical day? 1 or 2 [facility] Work Phone: How often do you hav e 6 or more drinks on 1 occasion? Less than monthly [facility] Work Phone: How hard is it for y ou to pay for the very basics like food, housing, medical care, and heating Not very hard [facility] Adult Depression Screening Assessment 0 [facility] Work Phone: Do you feel stress - tense, restless, nervous, or anxious, or unable to sleep at night because your mind is troubled all the time - these days [OSQ] Not at all [facility] Work Phone: (I/We) worried wheth er (my/our) food would run out before (I/we) got money to buy more. Never true [facility] Start: 04-12-2021 Gender identity Identifies as female gender (finding) [facility] Do you belong to any clubs or organizations such as faith groups, unions, fraternal or athletic groups, or school groups? Yes [facility] How often to you hav e a drink containing alcohol? Never [facility] Medical Equipment Procedure Code Equipment Code Equipment Origin al Text Equipment Identifier Dates Start: 08-26-2021 End: 06-03-2023 Clinical Notes 01-23-2019 to 09-02-2023 Sameer Kelley MD - 09/02/2023 4:07 PM ESTTelephone Encounter - Kathia Pedraza APRN.CNP - 05/23/2023 2:39 PM EDTTelephone Encounter - Liss Coto LPN - 05/23/2023 2:03 PM EDTPatient Instructions Note Date & Type Note Facility 09-02-2023 Note HNO ID: [id number] Author: Sameer Kelley MD Service: ? Author Type: Physician Type: Progress Notes Filed: 09/04/2023 11:24 AM Note Text: This note was created using [employer]. Subjective Carmina Bonds is a 83 year old female. We were concerned about cognitive decline last visit, but she was dealing with significant stressors. She felt she was managing okay. She still managed her bills and finances. She still drove. She had confusion coordinating her medications, and was doing better now that [facility] was packaging them. We stopped her diuretics due to low blood pressure and was showing fluid retention now. Review of Systems Constitutional: Positive for unexpected weight change. Negative for fatigue and fever. HENT: Negative for congestion. Respiratory: Negative for cough, shortness of breath and wheezing. Gastrointestinal: Negative for abdominal distention and abdominal pain. Genitourinary: Negative for difficulty urinating and dysuria. Neurological: Negative for dizziness and headaches. 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 Stress Incontinence Esophagitis Adjustment Disorder With Depressed Mood Primary Osteoarthritis of Left Knee Cirrhosis of Liver Without Ascites (Hcc) Obesity, Class I, Bmi 30-34.9 History of Basal Cell Carcinoma (Bcc) of Skin Dermatitis Jayda (Obstructive Sleep Apnea) Secondary Esophageal Varices Without Bleeding (Hcc) Portal Hypertensive Gastropathy (Hcc) Mild Cognitive Impairment Psvt (Paroxysmal Supraventricular Tachycardia) Type 2 Diabetes Mellitus With Diabetic Nephropathy, Without Long-Term Current Use of Insulin (Hcc) Social History Tobacco Use Smoking status: Former Years: .5 Types: Cigarettes Quit date: 10/17/1962 Years since quittin.9 Smokeless tobacco: Never Tobacco comments: quit 40 yrs ago Substance Use Topics Alcohol use: Yes Comment: 1 glass of wine per year Drug use: No Current Outpatient Medications Medication Sig liraglutide (VICTOZA) 0.6 mg/ 0.1 ml subcutaneous pen injector Inject 1.2 mg subcutaneously once daily. metoprolol tartrate, short acting, (LOPRESSOR) 25 mg tablet Take 1 tablet by mouth twice daily. insulin needles, DISPOSABLE, (PEN NEEDLE) 31 gauge x 5/16 1 Each once daily. metFORMIN (GLUCOPHAGE) 500 mg tablet Take 1 tablet by mouth twice daily with meals. blood sugar diagnostic (BLOOD GLUCOSE TEST) test strip Test blood sugar(s) 2 times daily. Dx: Type 2 DM - Controlled E11.9 Insulin: Yes CPAP Service machine. Settings changed in office 5 - 13 cm H2O, Send heated tubing (WILLIAM) suitable mask per pt preference (nasal pillow), chin strap, head gear, humidity, heated tubing, filters, lifetime supplies. G47.33 JAYDA CALCIUM + D 600 MG-200 UNIT TAB Take one(1) tablet daily. No current facility-administered medications for this visit. Objective BP 116/70 (BP Site: Left Arm, BP Position: Sitting, BP Cuff Size: Large Adult) Pulse 78 Resp 16 Wt 89.4 kg (197 lb) SpO2 100% BMI 36.03 kg/m? Physical Exam Constitutional: Appearance: She is not ill-appearing. HENT: Head: Normocephalic. Eyes: General: No scleral icterus. Conjunctiva/sclera: Conjunctivae normal. Cardiovascular: Rate and Rhythm: Normal rate and regular rhythm. Pulmonary: Breath sounds: No wheezing or rales. Abdominal: General: There is no distension. Palpations: There is no fluid wave. Tenderness: There is no abdominal tenderness. Musculoskeletal: Right lower le+ Pitting Edema present. Left lower le+ Pitting Edema present. Neurological: General: No focal deficit present. Mental Status: She is oriented to person, place, and time. [facility] 09/02/[address] 5 REGISTRATION 3 ATTENTION AND CALCULATION 2 RECALL 2 LANGUAGE 2 REPEAT 1 FOLLOW 3-STEP COMMAND 2 READ AND OBEY 1 WRITE A SENTENCE 1 COPY 1 SCORE 25 HEARING IMPAIRED Component Latest Ref Rng AND Units 08/22/2023 WBC 3.70 - 11.00 k/uL 4.31 RBC 3.90 - 5.20 m/uL 4.10 Hemoglobin 11.5 - 15.5 g/dL 13.1 Hematocrit 36.0 - 46.0 % 41.4 MCV 80.0 - 100.0 fL 101.0 (H) MCH 26.0 - 34.0 pg 32.0 MCHC 30.5 - 36.0 g/dL 31.6 RDW-CV 11.5 - 15.0 % 15.2 (H) Platelet Count 150 - 400 k/uL 123 (L) MPV 9.0 - 12.7 fL 10.9 Absolute nRBC <0.01 k/uL <0.01 Glucose 74 - 99 mg/dL 106 (H) BUN 7 - 21 mg/dL 13 Creatinine 0.58 - 0.96 mg/dL 1.01 (H) Sodium 136 - 144 mmol/L 143 Potassium 3.7 - 5.1 mmol/L 3.6 (L) Chloride 97 - 105 mmol/L 102 CO2 22 - 30 mmol/L 27 Anion Gap 9 - 18 mmol/L 14 Calcium 8.5 - 10.2 mg/dL 8.8 eGFR >=60 mL/min/1.73mA? 56 (L) Hemoglobin A1C 4.3 - 5.6 % 5.2 Estimated Average Glucose mg/dL 103 Vitamin B12 232 - 1,245 pg/mL Assessment and Plan 1. Mild cognitive impairment - ICD9: 331.83, ICD10: G31.84 (primary diagnosis) Risk factor modification. 2. Need for influenza vaccination - IC (more content not included)... [facility] 09-02-2023 History of Presen t illness Narrative This note was created using [employer]. Subjective Carmina Bonds is a 83 year old female. We were concerned about cognitive decline last visit, but she was dealing with significant stressors. She felt she was managing okay. She still managed her bills and finances. She still drove. She had confusion coordinating her medications, and was doing better now that [facility] was packaging them. We stopped her diuretics due to low blood pressure and was showing fluid retention now. Review of Systems Constitutional: Positive for unexpected weight change. Negative for fatigue and fever. HENT: Negative for congestion. Respiratory: Negative for cough, shortness of breath and wheezing. Gastrointestinal: Negative for abdominal distention and abdominal pain. Genitourinary: Negative for difficulty urinating and dysuria. Neurological: Negative for dizziness and headaches. 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 Stress Incontinence Esophagitis Adjustment Disorder With Depressed Mood Primary Osteoarthritis of Left Knee Cirrhosis of Liver Without Ascites (Hcc) Obesity, Class I, Bmi 30-34.9 History of Basal Cell Carcinoma (Bcc) of Skin Dermatitis Jayda (Obstructive Sleep Apnea) Secondary Esophageal Varices Without Bleeding (Hcc) Portal Hypertensive Gastropathy (Hcc) Mild Cognitive Impairment Psvt (Paroxysmal Supraventricular Tachycardia) Type 2 Diabetes Mellitus With Diabetic Nephropathy, Without Long-Term Current Use of Insulin (Hcc) Social History Tobacco Use Smoking status: Former Years: .5 Types: Cigarettes Quit date: 10/17/1962 Years since quittin.9 Smokeless tobacco: Never Tobacco comments: quit 40 yrs ago Substance Use Topics Alcohol use: Yes Comment: 1 glass of wine per year Drug use: No Current Outpatient Medications Medication Sig liraglutide (VICTOZA) 0.6 mg/ 0.1 ml subcutaneous pen injector Inject 1.2 mg subcutaneously once daily. metoprolol tartrate, short acting, (LOPRESSOR) 25 mg tablet Take 1 tablet by mouth twice daily. insulin needles, DISPOSABLE, (PEN NEEDLE) 31 gauge x 5/16 1 Each once daily. metFORMIN (GLUCOPHAGE) 500 mg tablet Take 1 tablet by mouth twice daily with meals. blood sugar diagnostic (BLOOD GLUCOSE TEST) test strip Test blood sugar(s) 2 times daily. Dx: Type 2 DM - Controlled E11.9 Insulin: Yes CPAP Service machine. Settings changed in office 5 - 13 cm H2O, Send heated tubing (WILLIAM) suitable mask per pt preference (nasal pillow), chin strap, head gear, humidity, heated tubing, filters, lifetime supplies. G47.33 JAYDA CALCIUM + D 600 MG-200 UNIT TAB Take one(1) tablet daily. No current facility-administered medications for this visit. Objective BP 116/70 (BP Site: Left Arm, BP Position: Sitting, BP Cuff Size: Large Adult) Pulse 78 Resp 16 Wt 89.4 kg (197 lb) SpO2 100% BMI 36.03 kg/m Physical Exam Constitutional: Appearance: She is not ill-appearing. HENT: Head: Normocephalic. Eyes: General: No scleral icterus. Conjunctiva/sclera: Conjunctivae normal. Cardiovascular: Rate and Rhythm: Normal rate and regular rhythm. Pulmonary: Breath sounds: No wheezing or rales. Abdominal: General: There is no distension. Palpations: There is no fluid wave. Tenderness: There is no abdominal tenderness. Musculoskeletal: Right lower le+ Pitting Edema present. Left lower le+ Pitting Edema present. Neurological: General: No focal deficit present. Mental Status: She is oriented to person, place, and time. [facility] 09/02/[address] 5 REGISTRATION 3 ATTENTION & CALCULATION 2 RECALL 2 LANGUAGE 2 REPEAT 1 FOLLOW 3-STEP COMMAND 2 READ AND OBEY 1 WRITE A SENTENCE 1 COPY 1 SCORE 25 HEARING IMPAIRED Component Latest Ref Rng & Units 08/22/2023 WBC 3.70 - 11.00 k/uL 4.31 RBC 3.90 - 5.20 m/uL 4.10 Hemoglobin 11.5 - 15.5 g/dL 13.1 Hematocrit 36.0 - 46.0 % 41.4 MCV 80.0 - 100.0 fL 101.0 (H) MCH 26.0 - 34.0 pg 32.0 MCHC 30.5 - 36.0 g/dL 31.6 RDW-CV 11.5 - 15.0 % 15.2 (H) Platelet Count 150 - 400 k/uL 123 (L) MPV 9.0 - 12.7 fL 10.9 Absolute nRBC <0.01 k/uL <0.01 Glucose 74 - 99 mg/dL 106 (H) BUN 7 - 21 mg/dL 13 Creatinine 0.58 - 0.96 mg/dL 1.01 (H) Sodium 136 - 144 mmol/L 143 Potassium 3.7 - 5.1 mmol/L 3.6 (L) Chloride 97 - 105 mmol/L 102 CO2 22 - 30 mmol/L 27 Anion Gap 9 - 18 mmol/L 14 Calcium 8.5 - 10.2 mg/dL 8.8 eGFR >=60 mL/min/1.73m 56 (L) Hemoglobin A1C 4.3 - 5.6 % 5.2 Estimated Average Glucose mg/dL 103 Vitamin B12 232 - 1,245 pg/mL Assessment and Plan 1. Mild cognitive impairment - ICD9: 331.83, ICD10: G31.84 (primary diagnosis) Risk factor modification. 2. Need for influenza vaccination - ICD9: V04.81, ICD10: Z23 - INFLUENZA VACCINE, PRSV FREE, AGE 65+ YR, HIGH DOSE, QUADRIVALENT (FLUZONE HIGH-DOSE) 3. Edema, unspecified type - ICD9: 782.3, ICD10: R60.9 Restart furosemide, but not spironolactone. - FUROSEMIDE 20 MG TABLET 4. Abnormal weight gain - ICD9: 783.1, ICD10: R63.5 See above. 5. Type 2 diabetes mellitus with diabetic nephropathy, without long-term current use of insulin (HCC) - ICD9: 250.40, 583.81, ICD10: E11.21 - Controlled - Continue current medications 6. Need for COVID-19 vaccine - ICD9: V04.89, ICD10: Z23 - PFIZER-BIONTECH COVID-19 VACCINE (2022- [place]) AGE 12+ YR 7. Cirrhosis of liver without ascites, unspecified hepatic cirrhosis type (HCC) - ICD9: 571.5, ICD10: K74.60 Followed by GI. - COMP METABOLIC PANEL Sameer Kelley MD documented in this encounter [facility] 06-03-2023 Note HNO ID: [id number] Author: Sameer Kelley MD Service: ? Author Type: Physician Type: Progress Notes Filed: 06/03/2023 3:00 PM Note Text: This note was created using [employer]. Elma Bonds is a 82 year old female with son. She lived alone and inconsistencies in medications were noted. We are now sending prescriptions to [facility] for packaging. Overall condition is consistent with dementia. She saw cardiology and beta gracia was added. Review of Systems Constitutional: Negative for appetite change and fever. Respiratory: Negative for shortness of breath. Cardiovascular: Positive for chest pain and palpitations. Negative for leg swelling. Gastrointestinal: Negative for abdominal distention, abdominal pain, diarrhea, nausea and vomiting. Genitourinary: Negative for difficulty urinating. Neurological: Negative for dizziness and headaches. Psychiatric/Behavioral: Positive for confusion. 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 blood sugar diagnostic (BLOOD GLUCOSE TEST) test strip Test blood sugar(s) 2 times daily. Dx: Type 2 DM - Controlled E11.9 Insulin: Yes metFORMIN (GLUCOPHAGE) 500 mg tablet TAKE 2 TABLETS BY MOUTH TWICE A DAY WITH MEALS metoprolol tartrate, short acting, (LOPRESSOR) 25 mg tablet Take 1 tablet by mouth twice daily. insulin needles, DISPOSABLE, (PEN NEEDLE) 31 gauge x 5/16 1 Each twice daily. sertraline (ZOLOFT) 50 mg tablet Take 1 tablet by mouth once daily. amLODIPine (NORVASC) 2.5 mg tablet Take 1 tablet by mouth once daily. lovastatin (MEVACOR) 10 mg tablet Take 1 tablet by mouth once daily. enalapril (VASOTEC) 20 mg tablet Take 1 tablet by mouth twice daily. CPAP Service machine. Settings changed in office 5 - 13 cm H2O, Send heated tubing (WILLIAM) suitable mask per pt preference (nasal pillow), chin strap, head gear, humidity, heated tubing, filters, lifetime supplies. G47.33 JAYDA furosemide (LASIX) 20 mg tablet Take 40 mg by mouth once daily. spironolactone (ALDACTONE) 50 mg tablet Take 100 mg by mouth once daily. clotrimazole (LOTRIMIN, CLOTRIM) 1 % cream Apply 1 application to affected area twice daily as needed. CALCIUM + D 600 MG-200 UNIT TAB Take one(1) tablet daily. rifAXIMin (XIFAXAN) 550 mg tablet Take 550 mg by mouth twice daily. Omeprazole 40 mg capsule Take 40 mg by mouth twice daily. (Patient not taking: Reported on 06/03/2023) Current Facility-Administered Medications Medication Dose Route Frequency perflutren lipid microspheres 1.3 mL in NaCl (PF) 0.9% 10 mL injection (DEFINITY) INTRAVENOUS DIRECTED PRN sodium chloride 0.9 % (flush) 10 mL (BD POSIFLUSH) 10 mL INTRAVENOUS DIRECTED PRN Objective BP 98/58 Pulse 73 Resp 16 Wt 75.8 kg (167 lb) SpO2 97% BMI 30.54 kg/m? Physical Exam Constitutional: General: She is not in acute distress. Eyes: Conjunctiva/sclera: Conjunctivae normal. Cardiovascular: Rate and Rhythm: Rhythm irregular. Heart sounds: S1 normal and S2 normal. No murmur heard. Pulmonary: Breath sounds: Normal breath sounds. No wheezing or rales. Abdominal: General: There is no distension. Palpations: Abdomen is soft. There is no mass. Tenderness: There is no abdominal tenderness. Musculoskeletal: Cervical back: Neck supple. Right lower leg: No edema. Left lower leg: No edema. Neurological: General: No focal deficit present. Mental Status: She is alert. Mental status is at baseline. Psychiatric: Mood and Affect: Mood normal. Component Latest Ref Rng AND Units 05/31/2023 WBC 3.70 - 11.00 k/uL 4.29 RBC 3.90 - 5.20 m/uL 3.89 (L) Hemoglobin 11.5 - 15.5 g/dL 12.5 Hematocrit 36.0 - 46.0 % 39.5 MCV 80.0 - 100.0 fL 101.5 (H) MCH 26.0 - 34.0 pg 32.1 MCHC 30.5 - 36.0 g/dL 31.6 RDW-CV 11.5 - 15.0 % 15.3 (H) Platelet Count 150 - 400 k/uL 115 (L) MPV 9.0 - 12.7 fL 11.0 Neut% % 38.0 Abs Neut (ANC) 1.45 - 7.50 k/uL 1.63 Lymph% % 48.5 Abs Lymph 1.00 - 4.00 k/uL 2.08 Lipscomb% % 10.5 Abs Lipscomb <0.87 k/uL 0.45 Eosin% % 2.3 Abs Eosin <0.46 k/uL 0.10 Baso% % 0.5 Abs Baso <0.11 k/uL <0.03 Immature Gran % % 0.2 IMMATURE GRANS (ABS) <0.10 k/uL <0.03 NRBC /100 WBC 0.0 Absolute nRBC <0.01 k/uL <0.01 DTYPE Auto Protein, Total 6.3 - 8.0 g/dL 6.8 Albumin 3.9 - 4.9 g/dL 3.4 (L) (more content not included)... [facility] 05-23-2023 Miscellaneous Notes The following approved medication requests have been transmitted electronically. Requested Prescriptions Signed Prescriptions Disp Refills liraglutide (VICTOZA) 0.6 mg/ 0.1 ml subcutaneous pen injector 2 Each 5 Sig: Inject 1.2 mg subcutaneously once daily. Authorizing Provider: KATHIA PEDRAZA APRN.CNP Called pt again and she needed the victoza to [facility]. She will review everything else at 06/03/23 appt. Sw spoke with both patient and patient son. Patient reports that she used her last victoza pen last night. Wanting to know status of refill on Victoza. Sw notes that she will send message to Dr. Kelley to see what status of patient victoza refill. Patient son and Sw discussed [facility]. Patient had told this Sw to talk with son about pre pill pack. Ray notes that his plan is to bring patient to her appt on 06/[address] Kelley with her medications. Mc states that the plan was to then update medications in system and send information to [facility] to see about pre pill pack. Mc notes that he feels that patient would benefit from the pre pill pack. Mc also notes that the nurse he spoke with noted that [facility] would do home delivery to [place]. Sw called and left patient message to return Sw call. Not sure if it would be better to speak with son. Sw received message in regards to questions about pre pack pills and medication cost issues. Called pt back to let her know that I spoke with her son Fabian and that he will come over and look over her meds and write everything down. Instructed her to take her BP daily and keep track of it. And then notified her of new appt date and time and that I was going to forward this msg to our social group worker as well to help them get started with maybe getting her medications set up with [facility]. Pt verbalizes understanding. Pt also concerned because her insulin keeps going up in cost. Was $44, then $165 and now she was told it was going to be $200. Pt called asking for refills on two medications Enalapril and Lovastatin. In looking at medications, the last time these two meds were filled was 08/26/2021. Had patient look at the bottles and the date on the one bottle was 02/2022. Then I had her look for other medications and she couldn't find the Amlodipine. That was last ordered on 08/26/21 as well. Pt very alert and appears very oriented. States she feels she has been taking her meds daily. Another bottle she found for a daily med was dated 08/2022. Pt states she lost her 49 y/o son in March-a tree fell on him broke his ankles and then he from blood clots. She also states her younger brother just got diagnosed with a form of cancer and has 2 months to live. It appears in talking with patient and having her look at her med bottles that somehow she has not been taking them correctly. Asked pt if she knows what her BP has been running and she said it has been great. Also spoke with pt to see if she had anyone that can help her out with her pills. She said her other son Fabian lives right down the road from her. I asked her if it was okay to speak with Fabian about any of her medical information and she said yes. Added note to appt desk. Called and spoke with her son about the medication problems. He will go over this weekend and write down all her medications she has, dosages, and how she is to take them. He will look at all the bottles for out dates. Spoke with both he and his mom about using something like [facility] to help them out with her medications. Pt also concerned about finding a new wash driller. She had an appt on 06/07. Spoke with son Fabian and encouraged for him to come with her to next appt, bring a copy of her medications and BP's. Appt changed to 06/03 to accomodate his schedule. documented in this encounter [facility] 03-24-2023 Miscellaneous Notes Patient has been identified by name and date of : Patient phones for refill(s): Requested Prescriptions Pending Prescriptions Disp Refills blood sugar diagnostic (BLOOD GLUCOSE TEST) test strip 100 Strip 5 Sig: Test blood sugar(s) 2 times daily. Dx: Type 2 DM - Controlled E11.9 Insulin: Yes Date of last office visit in primary care: 12/09/2022, has appt 06/07/2023 Last 2 Encounter Wt Readings: Date: Wt: 01/24/2023 80.7 kg (178 lb) 12/09/2022 78.5 kg (173 lb) Previous labs/tests for medication: Blood Pressure: BUN (mg/dL) Date Value 03/15/2023 22 12/02/2021 11 Sodium (mmol/L) Date Value 03/15/2023 139 12/02/2021 138 Last 1 Encounter BP Readings: Date: BP: 01/24/2023 134/78 Please advise. Thank you. Radha Mendoza LPN documented in this encounter [facility] 03-16-2023 Miscellaneous Notes Called and left detailed message on verified VM giving the below results. Malika Jaime RN ----- Message from Delmy Fermin APRN.CDL B DRIVER sent at 03/16/2023 9:35 AM EDT ----- Please call patient and notify her of lab results. TSH within normal limits. Thank you! documented in this encounter [facility] 02-11-2023 Miscellaneous Notes Left detailed message on son's identified voicemail to inform. Results also on mychart result note. Elizabeth Shaw ----- Message from Delmy Fermin APRN.CNP sent at 02/11/2023 12:52 PM EDT ----- Please call patient and notify her of results. Echo looks good. Normal LV function, EF 63%, normal chamber sizes, mild aortic stenosis. Thank you! Spoke with patient's child Fabian about test results. Fabian verbalizes understanding, will relay msg to patient. Hemalatha Wiseman LPN ----- Message from Delmy Fermin APRN.CNP sent at 02/10/2023 9:55 AM EDT ----- Please call patient and notify her of carotid US results. No significant blockage on either side. Thank you! documented in this encounter [facility] 02-11-2023 Miscellaneous Notes Please call patient and notify her of results. Echo looks good. Normal LV function, EF 63%, normal chamber sizes, mild aortic stenosis. Thank you! documented in this encounter [facility] 02-10-2023 Miscellaneous Notes Please call patient and notify her of carotid US results. No significant blockage on either side. Thank you! documented in this encounter [facility] 02-09-2023 Miscellaneous Notes Called and left detailed message on verified VM giving the below message from Delmy Fermin. Malika Jaime RN ----- Message from Delmy Fermin APRN.CNP sent at 02/09/2023 9:09 AM EDT ----- Please call patient and notify her of monitor results. Monitor captured many runs of SVT. She would benefit from taking a low dose beta gracia such as metoprolol 25 mg BID to suppress episodes. I will send to her pharmacy. Complete echocardiogram as planned for further evaluation. Thank you! documented in this encounter [facility] 01-24-2023 Note HNO ID: [id number] Author: Trina Troy RN Service: ? Author Type: Registered Nurse Type: Progress Notes Filed: 01/24/2023 1:40 PM Note Text: EVENT MONITOR DISPOSABLE PATCH INSTRUCTIONS Patient Name: Carmina Bonds Clinic Number: [id number] Skin prepped and cleansed with alcohol Patch secured to prepped area Monitor Activated Serial #: [id number] Patient Instructed: Prescribed order timeframe Bathing guidelines Usage of event button and diary documentation Return of monitor at the end of prescribed order Call with problems [phone] or [phone]. [phone] Patient expresses a good understanding of instructions Trina Troy RN [facility] 01-24-2023 Note HNO ID: [id number] Author: Delmy Fermin APRN.CNP Service: ? Author Type: Nurse Practitioner Type: Progress Notes Filed: 01/24/2023 1:40 PM Note Text: [facility] ([facility]) [address] [facility] [id number] OUTPATIENT VISIT January 24, 2023 1:00 PM Chief Complaint Patient presents with: Consult Chest Pain Shortness of Breath History of Present Illness: Carmina Bonds is a 82 year old female who presents for cardiology evaluation. She has a PMhx of CAD (seen on CT scan), HTN, HLD, MVP, DM2. Today, she explains her primary care physician referred her for further evaluation of shortness of breath, fatigue and palpitations she has been experiencing. She states she has been very fatigued spends most of her days napping. Her fatigue has been progressive over the past year or more. She does continue to live independently with the help of her sons who live close nearby. She is able to run errands and is independent in housework and ADLs. She has more energy some days more than others. She has not experienced exertional chest pain. She does have intermittent lightheadedness. She walks with a cane to avoid falls. We reviewed cardiac risk factors and modifications. She has several risk factors for heart disease that appear well controlled. She has a family history of heart disease as well. I recommend we start evaluation with an echocardiogram, Holter monitor and carotid ultrasound. She is agreeable. 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 Generalized osteoarthrosis, unspecified site History of basal cell carcinoma (BCC) of skin 06/27/2018 Dr. Najera, [facility]. Internal hemorrhoids without mention of complication Lumbago Chronic low back pain Mild cognitive impairment 12/07/2021 Mitral valve disorders(424.0) 09/20/2006 MVP with regurgitation Nocturnal hypoxemia 01/23/2019 JAYDA (obstructive sleep apnea) NOLAN Parry Other dyspnea and respiratory abnormality Reactive airway Other malignant neoplasm of skin, site unspecified Basal cell Ca, nose, back Portal hypertensive gastropathy (HCC) 09/04/2019 Secondary esophageal varices without bleeding (HCC) 09/04/2019 Traumatic closed displaced fracture of left shoulder with anterior dislocation with delayed healing 08/09/2017 Dr. 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 test reactor Type 2 diabetes mellitus (HCC) Type II or unspecified type diabetes mellitus without mention of complication, uncontrolled 09/20/2006 Unspecified asthma(493.90) 09/20/2006 Unspecified essential hypertension 09/20/2006 PAST SURGICAL HISTORY Procedure Laterality Date ANTERIOR COLPORRAPHY RPR CYSTOCELE W/CYSTO 02/03/2012 ARTHROSCOPY KNEE DIAGNOSTIC W/WO SYNOVIAL BX SPX 09/22/2007 Arthroscopy, knee ARTHRP KNE CONDYLEANDPLATU MEDIALANDLAT COMPARTMENTS Left 03/19/2019 BX BREAST NEEDLE CORE W/O IMAGING GUIDANCE SPX 1992 COLONOSCOPY FLX DX W/COLLJ SPEC WHEN PFRMD 05/17/2007 COLONOSCOPY FLX DX W/COLLJ SPEC WHEN PFRMD 06/15/2017 Colonoscopy EGD 07/23/2019 EGD 12/25/2019 EGD 05/06/2020 EGD BANDING 03/31/2020 ESOPHAGOGASTRODUODENOSCOPY TRANSORAL DIAGNOSTIC 1995 EGD ESOPHAGOGASTRODUODENOSCOPY TRANSORAL DIAGNOSTIC 06/14/2012 EGD ESOPHAGOGASTRODUODENOSCOPY TRANSORAL DIAGNOSTIC 06/15/2017 EGD ESOPHAGUS ENDOSCOPY W VARICES BANDING 08/13/2019 NEUROPLASTY AND/TRANSPOS MEDIAN NRV CARPAL TUNNE 08/29/1999 Carpal tunnel decomp, bilateral PAST SURGICAL HISTORY OF 04/15/1999 Skin and back basal cell REPAIR PRIMARY OPEN/PRQ RUPTURED ACHILLES TENDON 05/2008 Right ankle KISHAN W/WO REMOVAL TUBE OVARY 1979 ruptured tubal TONSILLECTOMY PRIMARY/SECONDARY Tonsillectomy TOTAL ABDOMINAL HYSTERECT W/WO RMVL TUBE OVARY 1982 KISHAN, LSO, Yehuda Kaylen FAMILY HISTORY Problem Relation Age of Onset Diabetes Mother Cancer Mother skin Stroke Mother Heart Mother Coronary Artery Disease Mother Heart Father MD Diabetes Brother None Brother None Sister Emphysema Paternal Grandmother Di (more content not included)... [facility] 01-24-2023 Note HNO ID: [id number] Author: Kailyn Gilliland MD Service: Cardiovascular Surgery Author Type: Physician Type: Procedures Filed: 02/08/2023 1:34 PM Note Text: Patient Name: Carmina Bonds : 1940 Ordering Provider: DELMY FERMIN Indication: R06.09 Other forms of dyspnea Type of Monitor: Extended Monitoring-Zio Patch Enrollment Dates: 01/24/2023-01/31/2023 [facility] 01-24-2023 History of Presen t illness Narrative EVENT MONITOR DISPOSABLE PATCH INSTRUCTIONS Patient Name: Carmina Bonds Clinic Number: [id number] Skin prepped and cleansed with alcohol Patch secured to prepped area Monitor Activated Serial #: [id number] Patient Instructed: Prescribed order timeframe Bathing guidelines Usage of event button and diary documentation Return of monitor at the end of prescribed order Call with problems [phone] or [phone] ext. [phone] Patient expresses a good understanding of instructions Trina Troy RN Images from the original note were not included. [facility] Card[facility] [address] [facility] [id number] OUTPATIENT VISIT January 24, 2023 1:00 PM Chief Complaint Patient presents with: Consult Chest Pain Shortness of Breath History of Present Illness: Carmina Bonds is a 82 year old female who presents for cardiology evaluation. She has a PMhx of CAD (seen on CT scan), HTN, HLD, MVP, DM2. Today, she explains her primary care physician referred her for further evaluation of shortness of breath, fatigue and palpitations she has been experiencing. She states she has been very fatigued spends most of her days napping. Her fatigue has been progressive over the past year or more. She does continue to live independently with the help of her sons who live close nearby. She is able to run errands and is independent in housework and ADLs. She has more energy some days more than others. She has not experienced exertional chest pain. She does have intermittent lightheadedness. She walks with a cane to avoid falls. We reviewed cardiac risk factors and modifications. She has several risk factors for heart disease that appear well controlled. She has a family history of heart disease as well. I recommend we start evaluation with an echocardiogram, Holter monitor and carotid ultrasound. She is agreeable. 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 Generalized osteoarthrosis, unspecified site History of basal cell carcinoma (BCC) of skin 06/27/2018 Dr. Najera, [facility] D[facility]. Internal hemorrhoids without mention of complication Lumbago Chronic low back pain Mild cognitive impairment 12/07/2021 Mitral valve disorders(424.0) 09/20/2006 MVP with regurgitation Nocturnal hypoxemia 01/23/2019 JAYDA (obstructive sleep apnea) D[facility] Other dyspnea and respiratory abnormality Reactive airway Other malignant neoplasm of skin, site unspecified Basal cell Ca, nose, back Portal hypertensive gastropathy (HCC) 09/04/2019 Secondary esophageal varices without bleeding (HCC) 09/04/2019 Traumatic closed displaced fracture of left shoulder with anterior dislocation with delayed healing 08/09/2017 Dr. 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 test reactor Type 2 diabetes mellitus (HCC) Type II or unspecified type diabetes mellitus without mention of complication, uncontrolled 09/20/2006 Unspecified asthma(493.90) 09/20/2006 Unspecified essential hypertension 09/20/2006 PAST SURGICAL HISTORY Procedure Laterality Date ANTERIOR COLPORRAPHY RPR CYSTOCELE W/CYSTO 02/03/2012 ARTHROSCOPY KNEE DIAGNOSTIC W/WO SYNOVIAL BX SPX 09/22/2007 Arthroscopy, knee ARTHRP KNE CONDYLE&PLATU MEDIAL&LAT COMPARTMENTS Left 03/19/2019 BX BREAST NEEDLE CORE W/O IMAGING GUIDANCE SPX 1992 COLONOSCOPY FLX DX W/COLLJ SPEC WHEN PFRMD 05/17/2007 COLONOSCOPY FLX DX W/COLLJ SPEC WHEN PFRMD 06/15/2017 Colonoscopy EGD 07/23/2019 EGD 12/25/2019 EGD 05/06/2020 EGD BANDING 03/31/2020 ESOPHAGOGASTRODUODENOSCOPY TRANSORAL DIAGNOSTIC 1995 EGD ESOPHAGOGASTRODUODENOSCOPY TRANSORAL DIAGNOSTIC 06/14/2012 EGD ESOPHAGOGASTRODUODENOSCOPY TRANSORAL DIAGNOSTIC 06/15/2017 EGD ESOPHAGUS ENDOSCOPY W VARICES BANDING 08/13/2019 NEUROPLASTY &/TRANSPOS MEDIAN NRV CARPAL TUNNE 08/29/1999 Carpal tunnel decomp, bilateral PAST SURGICAL HISTORY OF 04/15/1999 Skin and back basal cell REPAIR PRIMARY OPEN/PRQ RUPTURED ACHILLES TENDON 05/2008 Right ankle KISHAN W/WO REMOVAL TUBE OVARY 1979 ruptured tubal TONSILLECTOMY PRIMARY/SECONDARY <AGE 14 1951 Tonsillectomy TOTAL ABDOMINAL HYSTERECT W/WO RMVL TUBE OVARY 1982 KISHAN, LSO, Yehuda Abdullahi FAMILY HISTORY Problem Relation Age of Onset Diabetes Mother Cancer Mother skin Stroke Mother Heart Mother Coronary Artery Disease Mother Heart Father MD Diabetes Brother None Brother None Sister Emphysema Paternal Grandmother Diabetes Paternal Grandmother Diabetes Maternal Aunt Cancer Maternal Uncle Cancer Maternal Aunt Social History Tobacco Use Smoking status: Former Years: 0.50 Types: Cigarettes Quit date: 10/17/1962 Years since quittin.3 Smokeless tobacco: Never Tobacco comments: quit 40 yrs ago Substance Use Topics Alcohol use: Yes Comment: 1 glass of wine per year Drug use: No Cardiac Risk Factors: age (male over 45, female over 55), hyperlipidemia, obesity, diabetes, hypertension, family history of CAD ALLERGIES No Known Allergies Medications: Current Outpatient Medications Medication Sig Dispense Refill insulin needles, DISPOSABLE, (PEN NEEDLE) 31 gauge x 5/16 1 Each twice daily. 100 Each 1 liraglutide (VICTOZA) 0.6 mg/ 0.1 ml subcutaneous pen injector Inject 1.2 mg subcutaneously once daily. 2 Each 5 blood sugar diagnostic (BLOOD GLUCOSE TEST) test strip Test blood sugar(s) 2 times daily. Dx: Type 2 DM - Controlled E11.9 Insulin: Yes 100 Strip 5 sertraline (ZOLOFT) 50 mg tablet Take 1 tablet by mouth once daily. 90 tablet 3 amLODIPine (NORVASC) 2.5 mg tablet Take 1 tablet by mouth once daily. 90 tablet 3 lovastatin (MEVACOR) 10 mg tablet Take 1 tablet by mouth once daily. 90 tablet 3 metFORMIN (GLUCOPHAGE) 500 mg tablet TAKE 2 TABLETS BY MOUTH TWICE A DAY WITH MEALS 360 tablet 3 enalapril (VASOTEC) 20 mg tablet Take 1 tablet by mouth twice daily. 180 tablet 3 CPAP Service machine. Settings changed in office 5 - 13 cm H2O, Send heated tubing (WILLIAM) suitable mask per pt preference (nasal pillow), chin strap, head gear, humidity, heated tubing, filters, lifetime supplies. G47.33 JAYDA 1 Device 11 Omeprazole 40 mg capsule Take 40 mg by mouth twice daily. furosemide (LASIX) 20 mg tablet Take 40 mg by mouth once daily. spironolactone (ALDACTONE) 50 mg tablet Take 100 mg by mouth once daily. clotrimazole (LOTRIMIN, CLOTRIM) 1 % cream Apply 1 application to affected area twice daily as needed. 45 g 3 CALCIUM + D 600 MG-200 UNIT TAB Take one(1) tablet daily. 0 rifAXIMin (XIFAXAN) 550 mg tablet Take 550 mg by mouth twice daily. Current Facility-Administered Medications Medication Dose Route Frequency Provider Last Rate Last Admin perflutren lipid microspheres 1.3 mL in NaCl (PF) 0.9% 10 mL injection (DEFINITY) INTRAVENOUS DIRECTED PRN Delmy Fermin APRN.CDL B DRIVER sodium chloride 0.9 % (flush) 10 mL (BD POSIFLUSH) 10 mL INTRAVENOUS DIRECTED PRN Demly Fermin, [employer] AUDITOR.CDL B DRIVER Review of Systems Constitutional: Positive for malaise/fatigue. Negative for chills, diaphoresis, fever and weight loss. HENT: Negative for congestion, ear pain, nosebleeds, sinus pain and sore throat. Eyes: Negative for pain. Respiratory: Positive for shortness of breath. Negative for cough and wheezing. Cardiovascular: Positive for palpitations. Negative for chest pain and leg swelling. Gastrointestinal: Negative for abdominal pain, blood in stool and melena. Genitourinary: Negative for hematuria. Musculoskeletal: Positive for joint pain. Negative for falls. Neurological: Positive for dizziness (lightheadedness). Negative for tingling, sensory change, speech change, focal weakness, loss of consciousness, weakness and headaches. Endo/Heme/Allergies: Does not bruise/bleed easily. Psychiatric/Behavioral: Negative for depression, memory loss and suicidal ideas. The patient is not nervous/anxious and does not have insomnia. Physical Examination: Vitals:BP 134/78 Pulse 76 Wt 178 lb (80.7kg) SpO2 99% Last 2 Encounter Wt Readings: Date: Wt: 12/09/2022 173 lb (78.5 kg) 06/07/2022 174 lb (78.9 kg) Physical Exam HENT: Head: Normocephalic. Eyes: Pupils: Pupils are equal, round, and reactive to light. Cardiovascular: Rate and Rhythm: Normal rate and regular rhythm. Pulses: Radial pulses are 2+ on the right side and 2+ on the left side. Dorsalis pedis pulses are 2+ on the right side and 2+ on the left side. Heart sounds: S1 normal and S2 normal. Murmur heard. Systolic murmur is present. Pulmonary: Effort: Pulmonary effort is normal. No accessory muscle usage or respiratory distress. Breath sounds: Normal breath sounds. Abdominal: General: Bowel sounds are normal. Palpations: Abdomen is soft. Musculoskeletal: General: Normal range of motion. Cervical back: Normal range of motion. Right lower leg: No edema. Left lower leg: No edema. Skin: General: Skin is warm and dry. Neurological: Mental Status: She is alert and oriented to person, place, and time. Gait: Gait is intact. Psychiatric: Mood and Affect: Affect normal. Cognition and Memory: Memory normal. Judgment: Judgment normal. Most Recent Cardiac Testing Echo 07/15/2016 CONCLUSIONS: - Exam indication: Pre Op - The left ventricle is normal in size. There is moderate left ventricular hypertrophy. Left ventricular systolic function is normal. EF = 59 5% (2D biplane) Baseline left ventricular diastolic function is consistent with abnormal relaxation (stage 1). - The right ventricle is normal in size. Right ventricular systolic function is normal. - Trivial MR, no stenosis. - Trivial TR RVSP 19mmHg C/W normal pulmonary pressure. - Mild aortic sclerosis, no AI,no stenosis. - The patient has not had a prior CC echocardiographic exam for comparison. Assessment and Plan: Palpitations -intermittent, brief, daily feels on the left side of her chest -check echocardiogram -7 day monitor -not currently on bb or ccb -recommended conservative measures: stay hydrated, limit stimulants/caffeine, limit stress ALLAN/Murmur -noted on exam, most recent echocardiogram 2016 without significant valve disease. Moderate LVH -repeat echocardiogram Fatigue -TSH Lightheadedness -carotid US CAD -seen on CT scan -without chest discomfort angina -continue statin -encouraged routine activity and heart healthy diet for risk factor modification HTN -134/78 -Continue current medication(s) -Encouraged dietary sodium restriction/DASH diet -Recommended regular aerobic exercise. -Recommend home blood pressure monitoring, to bring results in on next visit -Discussed need and benefit for weight loss. -Goal of BP <130/80 HLD -lipid panel May 2022 LDL 52 -continue Lovastatin DM2 -A1C November 2022 5.5 Obesity -lifestyle modifications -encouraged a heart healthy diet, routine exercise and weight loss Follow up in 6 months. Sooner for abnormal testing results. Patient to call with any issues or concerns prior to then. Electronically signed by Delmy Fermin APRN.CNP on January 24, 2023, 12:50 PM documented in this encounter [facility] 01-24-2023 Instructions Delmy Fermin APRN.CNP - 01/24/2023 1:15 PM EDT Heart Disease in Women Is heart disease a problem for women? Heart disease is the leading cause of of [place] women. More women from heart disease than from cancer. A heart attack can happen when there are problems with the blood vessels that bring blood to the heart (the coronary arteries). For example, fatty deposits called plaque may build up in the coronary arteries and make them narrower. The narrowing decreases blood flow to the heart. Plaque also increases the chance that blood clots may form and block a blood vessel, which can cause a heart attack or stroke. In the first year after a heart attack, women have an increased risk of . In the first 6 years after a heart attack, they also have a higher risk of a second heart attack. Women are at high risk often because they are older at the time of the heart attack and have other medical problems. Not everyone has the same symptoms. The most common symptoms of a heart attack include: Chest pain or pressure, squeezing, or fullness in the center of your chest that lasts more than a few minutes, or goes away and comes back (may feel like indigestion or heartburn) Pain or discomfort in one or both arms or shoulders, or in your back, neck, jaw, or stomach Trouble breathing Breaking out in a cold sweat for no known reason Along with these symptoms, you may also feel very tired, faint, or be sick to your stomach. Sometimes you can be having a heart attack and not know it. Many women have chest pain or pressure, but sometimes symptoms in women are different from men s symptoms. Or women may have additional symptoms, such as: Unexplained anxiety and nervousness Swelling of the ankles or lower legs Because they may not feel the typical pain in the left side of their chest, many women may ignore the symptoms of a heart attack. Call 911 for emergency help right away if you have these symptoms. Do not drive yourself to the hospital. Immediate emergency care improves your chances of survival and may help avoid damage to your heart. How can women lower their risk for heart disease? If you have high blood pressure, carefully follow your healthcare provider's instructions for keeping it under control. If you are a smoker, stop smoking. Try to keep a healthy weight. If you are overweight, talk to your provider about ways to lose weight. Eat a healthy diet that includes: ?Avoiding salty foods and not adding salt to food ?Increasing fiber, fruits, and vegetables ?Avoiding foods high in fat, cholesterol, and sugar Exercise according to your healthcare provider's instructions. Get enough rest and learn to use relaxation methods to help reduce stress. Treat and control medical conditions such as diabetes and high cholesterol. If you are taking hormone therapy, you and your healthcare provider should discuss the risks and benefits. Hormone therapy may increase the risk for heart disease or stroke. Talk with your provider about taking aspirin. Low-dose aspirin therapy reduces the risk of stroke for women. But it helps to lower a woman s risk of heart attack and other heart problems only if she is 65 or older. Make sure that your provider knows about any other medicines you are taking. If you decide you need to make changes in the way you live, you probably won't be able to turn your life around all at once. Try to develop healthy habits that incorporate your lifestyle goals. If you do, you will greatly decrease your chances for developing heart disease. You can get more information from: [place] [facility] Bgvrgfgypqm6-603-TOH-USA-1 ( )www.heart.org Developed by [employer]. Published by [employer]. Copyright 2014 [employer] and/or one of its subsidiaries. All rights reserved. documented in this encounter [facility] 01-06-2023 Note HNO ID: [id number] Author: Marivel Dailey RDMS Service: ? Author Type: Load Dropper Type: Progress Notes Filed: 01/06/2023 1:42 PM Note Text: Radiology Service Progress Note PATIENT NAME: Carmina Bonds DATE OF SERVICE: January 06, 2023 TIME: 1:42 PM PATIENT IDENTITY VERIFICATION COMPLETED USING TWO (2) IDENTIFIERS: Name and Date of confirmed by patient verbally. FALL SCREENING: Has the patient had 2 falls in the last year or 1 fall with injury or currently using an Ambulatory Assistive Device (Walker, Cane, Wheelchair, Crutches, etc.)? No PATIENT GENDER DATA: Female. status: : No status: NO. PATIENT RELEVANT IMPLANT DATA REVIEWED: Not Applicable RADIOLOGY DEPARTMENT: Ultrasound PERIPHERAL IV DATA: Not applicable SIGNED BY: Marivel Dailey RDMS January 06, 2023 1:42 PM [facility] 01-06-2023 History of Presen t illness Narrative Radiology Service Progress Note PATIENT NAME: Carmina Bonds DATE OF SERVICE: January 06, 2023 TIME: 1:42 PM PATIENT IDENTITY VERIFICATION COMPLETED USING TWO (2) IDENTIFIERS: Name and Date of confirmed by patient verbally. FALL SCREENING: Has the patient had 2 falls in the last year or 1 fall with injury or currently using an Ambulatory Assistive Device (Walker, Cane, Wheelchair, Crutches, etc.)? No PATIENT GENDER DATA: Female. status: : No status: NO. PATIENT RELEVANT IMPLANT DATA REVIEWED: Not Applicable RADIOLOGY DEPARTMENT: Ultrasound PERIPHERAL IV DATA: Not applicable SIGNED BY: Marivel Dailey RDMS January 06, 2023 1:42 PM documented in this encounter [facility] 12-23-2022 Note HNO ID: [id number] Author: Raoul [employer]) Service: ? Author Type: ? Type: Progress Notes Filed: 12/23/2022 12:54 PM Note Text: Carmina Bonds is identified through a medication adherence outreach initiative based on pharmacy claims data from [employer] (insurer) for Non-insulin DM medication(s). Patient is reviewed 12/23/22 due to medication adherence concerns with the following medications (name, strength, sig): Victoza 18mg/3ml; Inject 1.2 mg daily. Per reconcile dispense, last fill date and days supply: Filled 12/15/22 for 30 day supply Outcome of review/outreach: (choose outcome source and status) - Filled before Next fill date per reconcile dispense Raoul Nam ([employer]) [facility] 12-23-2022 Note Patient Outreach ([facility]) CARMINA BONDS ([id number]) 1940 F Date Time Provider Department 12/23/22 SAMEER KELLEY During your visit today, we recorded the following information about you: Raoul Nam ([employer]) 12/23/2022 12:54 PM Signed Carmina Bonds is identified through a medication adherence outreach initiative based on pharmacy claims data from [employer] (insurer) for Non-insulin DM medication(s). Patient is reviewed 12/23/22 due to medication adherence concerns with the following medications (name, strength, sig): Victoza 18mg/3ml; Inject 1.2 mg daily. Per reconcile dispense, last fill date and days supply: Filled 12/15/22 for 30 day supply Outcome of review/outreach: (choose outcome source and status) - Filled before Next fill date per reconcile dispense Raoul Nam [employer]) Allergies As of Date: 12/23/2022 (No Known Allergies) Date Reviewed: 12/09/2022 Reviewed by: Talita Lal LPN - Fully Assessed Reason for Visit: Allied Health Visit [5] Cmt: Medication Adherence Outreach Prescriptions as of 12/23/2022 - insulin needles, DISPOSABLE, (PEN NEEDLE) 31 gauge x 5/16 1 Each twice daily. - liraglutide (VICTOZA) 0.6 mg/ 0.1 ml subcutaneous pen injector Inject 1.2 mg subcutaneously once daily. - blood sugar diagnostic (BLOOD GLUCOSE TEST) test strip Test blood sugar(s) 2 times daily. Dx: Type 2 DM - Controlled E11.9 Insulin: Yes - sertraline (ZOLOFT) 50 mg tablet Take 1 tablet by mouth once daily. - amLODIPine (NORVASC) 2.5 mg tablet Take 1 tablet by mouth once daily. - lovastatin (MEVACOR) 10 mg tablet Take 1 tablet by mouth once daily. - metFORMIN (GLUCOPHAGE) 500 mg tablet TAKE 2 TABLETS BY MOUTH TWICE A DAY WITH MEALS - enalapril (VASOTEC) 20 mg tablet Take 1 tablet by mouth twice daily. - rifAXIMin (XIFAXAN) 550 mg tablet Take 550 mg by mouth twice daily. - CPAP Service machine. Settings changed in office 5 - 13 cm H2O, Send heated tubing (WILLIAM) suitable mask per pt preference (nasal pillow), chin strap, head gear, humidity, heated tubing, filters, lifetime supplies. G47.33 JAYDA - Omeprazole 40 mg capsule Take 40 mg by mouth twice daily. - furosemide (LASIX) 20 mg tablet Take 20 mg by mouth once daily. - spironolactone (ALDACTONE) 50 mg tablet Take 50 mg by mouth once daily. - clotrimazole (LOTRIMIN, CLOTRIM) 1 % cream Apply 1 application to affected area twice daily as needed. - CALCIUM + D 600 MG-200 UNIT TAB Take one(1) tablet daily. Problem List As Of Date 12/23/2022 Noted Resolved Essential hypertension [I10] 09/20/2006 Diabetes mellitus type 2, controlled, without c*09/20/2006 Unspecified asthma [J45.909] 09/20/2006 12/16/2010 Diaphragmatic hernia without mention of obstruc*09/20/2006 01/23/2018 MITRAL VALVE DISORDER [I05.9] 09/20/2006 Generalized osteoarthritis [M15.9] 09/20/2006 Contact dermatitis and other eczema, due to uns*02/27/2008 12/16/2010 Adjustment disorder with mixed anxiety and depr*06/23/2010 12/16/2010 Stress incontinence [N39.3] 01/13/2011 Urgency incontinence [N39.41] 01/13/2011 01/23/2018 Urinary frequency [R35.0] 01/13/2011 01/23/2018 Cystocele, unspecified (CODE) [N81.10] 01/13/2011 01/23/2018 Esophagitis [K20.90] 06/14/2012 Degeneration of lumbar or lumbosacral intervert*06/26/2014 12/09/2022 Adjustment disorder with depressed mood [F43.21]12/26/2014 Primary osteoarthritis of left knee [M17.12] 06/27/2018 Colon cancer screening [Z12.11] 06/03/2017 01/23/2018 Dysphagia [R13.10] 06/03/2017 01/23/2018 Cirrhosis of liver without ascites (HCC) [K74.6*06/30/2017 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.*08/25/2017 01/23/2018 Obesity, Class I, BMI 30-34.9 [E66.9] 06/27/2018 History of basal cell carcinoma (BCC) of skin [*06/27/2018 Dermatitis [L30.9] 10/31/2018 Cervicogenic headache [G44.86] 01/20/2019 09/04/2019 JAYDA (obstructive sleep apnea) [G47.33] 01/23/2019 Nocturnal hypoxemia [G47.34] 01/23/2019 09/04/2019 Secondary esophageal varices without bleeding (*09/04/2019 Portal hypertensive gastropathy (HCC) [K76.6, K*09/04/2019 Mild cognitive impairment [G31.84] 12/07/2021 Encounter Status:Closed by BERTA ([email or web address])RAOUL on 12/23/22 [facility] 12-09-2022 Note HNO ID: [id number] Author: Sameer Kelley MD Service: ? Author Type: Physician Type: Progress Notes Filed: 12/09/2022 6:42 PM Note Text: This note was created using [employer]. Elma Bonds is a 82 year old female. She was doing reasonably well and had no new concerns. Her diabetes mellitus was controlled. Her memory was about the same, and she still drove to familiar places, and still managed her finances with some assistance from her children. On ROS, she noted intermittent chest pains, depending on her activity, but not concerning to her. Review of Systems Constitutional: Negative for appetite change, fatigue and unexpected weight change. HENT: Negative. Eyes: Negative. Respiratory: Negative for cough, chest tightness, shortness of breath and wheezing. Cardiovascular: Positive for chest pain and leg swelling. Negative for palpitations. Gastrointestinal: Negative for abdominal pain. Genitourinary: Positive for urgency. Negative for difficulty urinating and dysuria. ACTIVE PROBLEM LIST Essential Hypertension Diabetes Mellitus Type 2, Controlled, Without Complications (Hcc) Mitral Valve Disorders(424.0) Generalized Osteoarthritis Stress Incontinence Esophagitis Adjustment Disorder With Depressed Mood Primary Osteoarthritis of Left Knee Cirrhosis of Liver Without Ascites (Hcc) Obesity, Class I, Bmi 30-34.9 History of Basal Cell Carcinoma (Bcc) of Skin Dermatitis Jayda (Obstructive Sleep Apnea) Secondary Esophageal Varices Without Bleeding (Hcc) Portal Hypertensive Gastropathy (Hcc) Mild Cognitive Impairment Current Outpatient Medications Medication Sig insulin needles, DISPOSABLE, (PEN NEEDLE) 31 gauge x 5/16 1 Each twice daily. liraglutide (VICTOZA) 0.6 mg/ 0.1 ml subcutaneous pen injector Inject 1.2 mg subcutaneously once daily. blood sugar diagnostic (BLOOD GLUCOSE TEST) test strip Test blood sugar(s) 2 times daily. Dx: Type 2 DM - Controlled E11.9 Insulin: Yes sertraline (ZOLOFT) 50 mg tablet Take 1 tablet by mouth once daily. amLODIPine (NORVASC) 2.5 mg tablet Take 1 tablet by mouth once daily. lovastatin (MEVACOR) 10 mg tablet Take 1 tablet by mouth once daily. metFORMIN (GLUCOPHAGE) 500 mg tablet TAKE 2 TABLETS BY MOUTH TWICE A DAY WITH MEALS enalapril (VASOTEC) 20 mg tablet Take 1 tablet by mouth twice daily. rifAXIMin (XIFAXAN) 550 mg tablet Take 550 mg by mouth twice daily. CPAP Service machine. Settings changed in office 5 - 13 cm H2O, Send heated tubing (WILLIAM) suitable mask per pt preference (nasal pillow), chin strap, head gear, humidity, heated tubing, filters, lifetime supplies. G47.33 JAYDA Omeprazole 40 mg capsule Take 40 mg by mouth twice daily. furosemide (LASIX) 20 mg tablet Take 20 mg by mouth once daily. spironolactone (ALDACTONE) 50 mg tablet Take 50 mg by mouth once daily. clotrimazole (LOTRIMIN, CLOTRIM) 1 % cream Apply 1 application to affected area twice daily as needed. CALCIUM + D 600 MG-200 UNIT TAB Take one(1) tablet daily. No current facility-administered medications for this visit. Objective BP 124/62 Pulse 96 Temp 36.5 ?C (97.7 ?F) Resp 16 Ht 157.5 cm (5' 2 ) Wt 78.5 kg (173 lb) SpO2 98% BMI 31.64 kg/m? Physical Exam Constitutional: General: She is not in acute distress. Appearance: She is not ill-appearing. Comments: Less groomed. HENT: Head: Normocephalic. Eyes: Extraocular Movements: Extraocular movements intact. Conjunctiva/sclera: Conjunctivae normal. Neck: Vascular: No carotid bruit. Cardiovascular: Rate and Rhythm: Normal rate and regular rhythm. Heart sounds: No murmur heard. No gallop. Pulmonary: Effort: Pulmonary effort is normal. Breath sounds: Normal breath sounds. No wheezing or rales. Abdominal: General: There is no distension. Palpations: Abdomen is soft. Tenderness: There is no abdominal tenderness. Musculoskeletal: Right lower leg: No edema. Left lower leg: No edema. Lymphadenopathy: Cervical: No cervical adenopathy. Neurological: General: No focal deficit present. Mental Status: She is alert and oriented to person, place, and time. Comments: Occasional word finding difficulty. Psychiatric: Attention and Perception: Attention normal. Mood and Affect: Mood normal. Speech: Speech is delayed. Behavior: Behavior normal. Thought Content: Thought content normal. Feet:Shoes and socks removed, No ulcers, calluses, normal distal pulses, not sensitive to monofilament in the toes and forefeet, and nails notable for Deformed or Hypertrophic Component Latest Ref Rng AND Units 12/08/2022 Glucose 74 - 99 mg/dL 108 (H) BUN 7 - 21 mg/dL 12 Creatinine 0.58 - 0.96 mg/dL 0.76 Sodium 136 - 144 mmol/L 142 Potassium 3.7 - 5.1 mmol/L 4.5 Chloride 97 - 105 mmol/L 108 (H) CO2 22 - 30 mmol/L 24 Anion Gap 9 - 18 mmol/L 10 Calcium 8.5 - 10.2 mg/dL 9.2 eGFR >=60 mL/min/1.73mA? 79 Hemoglobin A1C 4.3 - 5.6 % 5.5 Estima (more content not included)... [facility] 12-09-2022 Note HNO ID: [id number] Author: Sameer Kelley MD Service: ? Author Type: Physician Type: Progress Notes Filed: 12/09/2022 6:42 PM Note Text: Carmina Bonds is a 82 year old female here for a Medicare Subsequent Annual Wellness Visit Health Risk Assessment In general, health is: Good Concerns with balance:Not at all Concerns with teeth or dentures:Not at all Concerns with sexual function:Not at all [place] anxious, stressed, angry, irritable, lonely, isolated, or had thoughts of hurting themself: Not at all Has little interest or pleasure in doing things: Not at all Bothered by feeling down, depressed, or hopeless: Not at all Needs help with grocery shopping, cooking, housework, bathing, grooming, dressing, eating, sitting or standing, walking, using the toilet, handling finances, taking medications, using the telephone, or driving: No Following safety precautions in the home environment and vehicle: removed throw rugs from floors, installed grab bars in the bathroom, handrails in stairwells, having adequate lighting, wearing seatbelt at all times?: Yes Smokes cigarettes, vapes, or chew tobacco: No Eats healthy foods including fruits, vegetables, whole grains, and fiber-rich foods: Nearly every day Number of days per week engages in exercise: 3 days Average alcohol consumption: Monthly or less Current Providers Specialists: I have reviewed specialist-related care of the patient in the medical record. Current care team: Patient Care Team: Sameer Kelley MD as PCP - General Outside specialists seen: Dr. Lux Singh, [facility]. Dr. Cristian Parra, ophthalmology. Medical/Family history review Reviewed and updated problem list, medical/surgical/family/social history, medications, and allergies. Opioid use review Patient is not currently using opioids. Depression screening Depression Screening PHQ-2 Score BRAYDON-2 Total Score 12/07/2021 0 - Depression screening tool completed and reviewed. Based on score and interview, patient is not at risk for depression. Screening tool discussed with patient, and I recommended no further intervention at this time. Cognitive screening Mini Cog Score: Score: 5 Cognitive screening reviewed and no further action needed (score 3-5) Functional Observation Was the patient's timed Up AND Go test unsteady or ? 12 seconds? No Advance Care Planning End of Life planning discussed, including patient's advanced directive wishes: Yes Copy needed. Measurements BP 124/62 Pulse 96 Temp 97.7 Resp 16 Ht 5' 2 (1.58m) Wt 173 lb (78.5kg) SpO2 98% BMI 31.63 kg/(m2). Visual acuity (required for Welcome to Medicare): follows with optometry/ophthalmology and Right: 20/40 Left: 20/ 40 Both: 20/40 Hearing Evaluation: wears hearing aids Assessment/Plan - Counseled on healthy diet and regular exercise - Fall avoidance - Vaccines recommended COVID-19, Influenza, and Tdap at pharmacy - Depression screening [facility] 12-09-2022 Instructions Sameer Kelley MD - 12/09/2022 6:04 PM EST VACCINES TO GET AT YOUR PHARMACY SHINGRIX VACCINE(1 of 2) Never done DTAP,TDAP,TD(1 - Tdap) due on 04/24/2008 COVID-19 VACCINE(4 - Booster for Moderna series) due on 08/02/2022 COPY OF YOUR ADVANCED DIRECTIVE FOR YOUR FILE HERE. documented in this encounter [facility] 12-09-2022 History of Presen t illness Narrative This note was created using [employer]. Elma Bonds is a 82 year old female. She was doing reasonably well and had no new concerns. Her diabetes mellitus was controlled. Her memory was about the same, and she still drove to familiar places, and still managed her finances with some assistance from her children. On ROS, she noted intermittent chest pains, depending on her activity, but not concerning to her. Review of Systems Constitutional: Negative for appetite change, fatigue and unexpected weight change. HENT: Negative. Eyes: Negative. Respiratory: Negative for cough, chest tightness, shortness of breath and wheezing. Cardiovascular: Positive for chest pain and leg swelling. Negative for palpitations. Gastrointestinal: Negative for abdominal pain. Genitourinary: Positive for urgency. Negative for difficulty urinating and dysuria. ACTIVE PROBLEM LIST Essential Hypertension Diabetes Mellitus Type 2, Controlled, Without Complications (Hcc) Mitral Valve Disorders(424.0) Generalized Osteoarthritis Stress Incontinence Esophagitis Adjustment Disorder With Depressed Mood Primary Osteoarthritis of Left Knee Cirrhosis of Liver Without Ascites (Hcc) Obesity, Class I, Bmi 30-34.9 History of Basal Cell Carcinoma (Bcc) of Skin Dermatitis Jayda (Obstructive Sleep Apnea) Secondary Esophageal Varices Without Bleeding (Hcc) Portal Hypertensive Gastropathy (Hcc) Mild Cognitive Impairment Current Outpatient Medications Medication Sig insulin needles, DISPOSABLE, (PEN NEEDLE) 31 gauge x 5/16 1 Each twice daily. liraglutide (VICTOZA) 0.6 mg/ 0.1 ml subcutaneous pen injector Inject 1.2 mg subcutaneously once daily. blood sugar diagnostic (BLOOD GLUCOSE TEST) test strip Test blood sugar(s) 2 times daily. Dx: Type 2 DM - Controlled E11.9 Insulin: Yes sertraline (ZOLOFT) 50 mg tablet Take 1 tablet by mouth once daily. amLODIPine (NORVASC) 2.5 mg tablet Take 1 tablet by mouth once daily. lovastatin (MEVACOR) 10 mg tablet Take 1 tablet by mouth once daily. metFORMIN (GLUCOPHAGE) 500 mg tablet TAKE 2 TABLETS BY MOUTH TWICE A DAY WITH MEALS enalapril (VASOTEC) 20 mg tablet Take 1 tablet by mouth twice daily. rifAXIMin (XIFAXAN) 550 mg tablet Take 550 mg by mouth twice daily. CPAP Service machine. Settings changed in office 5 - 13 cm H2O, Send heated tubing (WILLIAM) suitable mask per pt preference (nasal pillow), chin strap, head gear, humidity, heated tubing, filters, lifetime supplies. G47.33 JAYDA Omeprazole 40 mg capsule Take 40 mg by mouth twice daily. furosemide (LASIX) 20 mg tablet Take 20 mg by mouth once daily. spironolactone (ALDACTONE) 50 mg tablet Take 50 mg by mouth once daily. clotrimazole (LOTRIMIN, CLOTRIM) 1 % cream Apply 1 application to affected area twice daily as needed. CALCIUM + D 600 MG-200 UNIT TAB Take one(1) tablet daily. No current facility-administered medications for this visit. Objective BP 124/62 Pulse 96 Temp 36.5 C (97.7 F) Resp 16 Ht 157.5 cm (5' 2 ) Wt 78.5 kg (173 lb) SpO2 98% BMI 31.64 kg/m Physical Exam Constitutional: General: She is not in acute distress. Appearance: She is not ill-appearing. Comments: Less groomed. HENT: Head: Normocephalic. Eyes: Extraocular Movements: Extraocular movements intact. Conjunctiva/sclera: Conjunctivae normal. Neck: Vascular: No carotid bruit. Cardiovascular: Rate and Rhythm: Normal rate and regular rhythm. Heart sounds: No murmur heard. No gallop. Pulmonary: Effort: Pulmonary effort is normal. Breath sounds: Normal breath sounds. No wheezing or rales. Abdominal: General: There is no distension. Palpations: Abdomen is soft. Tenderness: There is no abdominal tenderness. Musculoskeletal: Right lower leg: No edema. Left lower leg: No edema. Lymphadenopathy: Cervical: No cervical adenopathy. Neurological: General: No focal deficit present. Mental Status: She is alert and oriented to person, place, and time. Comments: Occasional word finding difficulty. Psychiatric: Attention and Perception: Attention normal. Mood and Affect: Mood normal. Speech: Speech is delayed. Behavior: Behavior normal. Thought Content: Thought content normal. Feet:Shoes and socks removed, No ulcers, calluses, normal distal pulses, not sensitive to monofilament in the toes and forefeet, and nails notable for Deformed or Hypertrophic Component Latest Ref Rng & Units 12/08/2022 Glucose 74 - 99 mg/dL 108 (H) BUN 7 - 21 mg/dL 12 Creatinine 0.58 - 0.96 mg/dL 0.76 Sodium 136 - 144 mmol/L 142 Potassium 3.7 - 5.1 mmol/L 4.5 Chloride 97 - 105 mmol/L 108 (H) CO2 22 - 30 mmol/L 24 Anion Gap 9 - 18 mmol/L 10 Calcium 8.5 - 10.2 mg/dL 9.2 eGFR >=60 mL/min/1.73m 79 Hemoglobin A1C 4.3 - 5.6 % 5.5 Estimated Average Glucose mg/dL 111 EKG RESULTS: normal sinus rhythm and LVH, borderline EKG, poor R progression compared to previous EKG. Assessment and Plan 1. Medicare annual wellness visit, subsequent - ICD9: V70.0, ICD10: Z00.00 (primary diagnosis) See wellness note. 2. Need for influenza vaccination - ICD9: V04.81, ICD10: Z23 - INFLUENZA SEASONAL QUADRIVALENT HIGH DOSE AGE 65+ 3. Mild cognitive impairment - ICD9: 331.83, ICD10: G31.84 Reviewed. 4. Cirrhosis of liver without ascites, unspecified hepatic cirrhosis type (HCC) - ICD9: 571.5, ICD10: K74.60 Per GI. 5. Portal hypertensive gastropathy (HCC) - ICD9: 572.3, 537.89, ICD10: K76.6, K31.89 Per GI. 6. Secondary esophageal varices without bleeding (HCC) - ICD9: 456.21, ICD10: I85.10 Per GI. 7. Controlled type 2 diabetes mellitus without complication, without long-term current use of insulin (HCC) - ICD9: 250.00, ICD10: E11.9 Controlled. - Continue current medications - COMP METABOLIC PANEL - LIPID PANEL BASIC - HGB A1C - ALBUMIN/CREAT RATIO RND UR 8. Chest pain, unspecified type - ICD9: 786.50, ICD10: R07.9 Chest pain of unclear etiology, patient with significant risk factor(s) of Diabetes Mellitus, Hypertension, and Hyperlipidemia - ECG COMPLETE - CONSULT TO CARDIOLOGY 9. Adjustment disorder with depressed mood - ICD9: 309.0, ICD10: F43.21 Controlled on medication. 10. Essential hypertension - ICD9: 401.9, ICD10: I10 - good control Sameer Kelley MD Carmina Bonds is a 82 year old female here for a Medicare Subsequent Annual Wellness Visit Health Risk Assessment In general, health is: Good Concerns with balance:Not at all Concerns with teeth or dentures:Not at all Concerns with sexual function:Not at all [place] anxious, stressed, angry, irritable, lonely, isolated, or had thoughts of hurting themself: Not at all Has little interest or pleasure in doing things: Not at all Bothered by feeling down, depressed, or hopeless: Not at all Needs help with grocery shopping, cooking, housework, bathing, grooming, dressing, eating, sitting or standing, walking, using the toilet, handling finances, taking medications, using the telephone, or driving: No Following safety precautions in the home environment and vehicle: removed throw rugs from floors, installed grab bars in the bathroom, handrails in stairwells, having adequate lighting, wearing seatbelt at all times?: Yes Smokes cigarettes, vapes, or chew tobacco: No Eats healthy foods including fruits, vegetables, whole grains, and fiber-rich foods: Nearly every day Number of days per week engages in exercise: 3 days Average alcohol consumption: Monthly or less Current Providers Specialists: I have reviewed specialist-related care of the patient in the medical record. Current care team: Patient Care Team: Sameer Kelley MD as PCP - General Outside specialists seen: Dr. Lux Singh, [facility]. Dr. Cristian Parra, ophthalmology. Medical/Family history review Reviewed and updated problem list, medical/surgical/family/social history, medications, and allergies. Opioid use review Patient is not currently using opioids. Depression screening Depression Screening PHQ-2 Score BRAYDON-2 Total Score 12/07/2021 0 - Depression screening tool completed and reviewed. Based on score and interview, patient is not at risk for depression. Screening tool discussed with patient, and I recommended no further intervention at this time. Cognitive screening Mini Cog Score: Score: 5 Cognitive screening reviewed and no further action needed (score 3-5) Functional Observation Was the patient's timed Up & Go test unsteady or ? 12 seconds? No Advance Care Planning End of Life planning discussed, including patient's advanced directive wishes: Yes Copy needed. Measurements BP 124/62 Pulse 96 Temp 97.7 Resp 16 Ht 5' 2 (1.58m) Wt 173 lb (78.5kg) SpO2 98% BMI 31.63 kg/(m^2). Visual acuity (required for Welcome to Medicare): follows with optometry/ophthalmology and Right: 20/40 Left: 20/ 40 Both: 20/40 Hearing Evaluation: wears hearing aids Assessment/Plan - Counseled on healthy diet and regular exercise - Fall avoidance - Vaccines recommended COVID-19, Influenza, and Tdap at pharmacy - Depression screening documented in this encounter [facility] 06-07-2022 History of Presen t illness Narrative This note was created using [employer]. Elma Bonds is a 81 year old female. She was doing reasonably well and conditions were stable. She had no concerns. Her obstructive sleep apnea was well controlled, and she used her CPAP nightly with a nasal mask with good results. Review of Systems Constitutional: Negative. Respiratory: Negative. Cardiovascular: Negative. Gastrointestinal: Negative. Psychiatric/Behavioral: Negative. Negative for sleep disturbance. 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 Dx: Type 2 DM - Controlled E11.9 Insulin: Yes liraglutide (VICTOZA) 0.6 mg/ 0.1 ml subcutaneous pen injector Inject 1.2 mg subcutaneously once daily. insulin needles, DISPOSABLE, (PEN NEEDLE) 31 gauge x 5/16 1 Each twice daily. sertraline (ZOLOFT) 50 mg tablet Take 1 tablet by mouth once daily. amLODIPine (NORVASC) 2.5 mg tablet Take 1 tablet by mouth once daily. lovastatin (MEVACOR) 10 mg tablet Take 1 tablet by mouth once daily. metFORMIN (GLUCOPHAGE) 500 mg tablet TAKE 2 TABLETS BY MOUTH TWICE A DAY WITH MEALS enalapril (VASOTEC) 20 mg tablet Take 1 tablet by mouth twice daily. rifAXIMin (XIFAXAN) 550 mg tablet Take 550 mg by mouth twice daily. CPAP Service machine. Settings changed in office 5 - 13 cm H2O, Send heated tubing (WILLIAM) suitable mask per pt preference (nasal pillow), chin strap, head gear, humidity, heated tubing, filters, lifetime supplies. G47.33 JAYDA Omeprazole 40 mg capsule Take 40 mg by mouth twice daily. furosemide (LASIX) 20 mg tablet Take 20 mg by mouth once daily. spironolactone (ALDACTONE) 50 mg tablet Take 50 mg by mouth once daily. clotrimazole (LOTRIMIN, CLOTRIM) 1 % cream Apply 1 application to affected area twice daily as needed. CALCIUM + D 600 MG-200 UNIT TAB Take one(1) tablet daily. No current facility-administered medications for this visit. Objective BP 124/64 (BP Site: Left Arm, BP Position: Sitting) Pulse 68 Temp 36.1 C (97 F) (Temporal) Resp 12 Wt 78.9 kg (174 lb) BMI 31.83 kg/m Physical Exam Constitutional: General: She is not in acute distress. Cardiovascular: Rate and Rhythm: Normal rate and regular rhythm. Heart sounds: No murmur heard. No gallop. Neurological: Mental Status: She is alert. Component Latest Ref Rng & Units 05/28/2022 WBC 3.70 - 11.00 k/uL 2.83 (L) RBC 3.90 - 5.20 m/uL 3.52 (L) Hemoglobin 11.5 - 15.5 g/dL 11.1 (L) Hematocrit 36.0 - 46.0 % 35.3 (L) MCV 80.0 - 100.0 fL 100.3 (H) MCH 26.0 - 34.0 pg 31.5 MCHC 30.5 - 36.0 g/dL 31.4 RDW-CV 11.5 - 15.0 % 17.2 (H) Platelet Count 150 - 400 k/uL 102 (L) MPV 9.0 - 12.7 fL 11.2 Neut% % 50.1 Abs Neut (ANC) 1.45 - 7.50 k/uL 1.42 (L) Lymph% % 37.5 Abs Lymph 1.00 - 4.00 k/uL 1.06 Lipscomb% % 8.5 Abs Lipscomb <0.87 k/uL 0.24 Eosin% % 3.2 Abs Eosin <0.46 k/uL 0.09 Baso% % 0.7 Abs Baso <0.11 k/uL <0.03 Immature Gran % % 0.0 IMMATURE GRANS (ABS) <0.10 k/uL <0.03 NRBC /100 WBC 0.0 Absolute nRBC <0.01 k/uL <0.01 DTYPE Auto Protein, Total 6.3 - 8.0 g/dL 6.9 Albumin 3.9 - 4.9 g/dL 2.9 (L) Calcium 8.5 - 10.2 mg/dL 9.3 Bilirubin, Total 0.2 - 1.3 mg/dL 2.2 (H) Alkaline Phosphatase 34 - 123 U/L 156 (H) AST 13 - 35 U/L 61 (H) ALT 7 - 38 U/L 24 Glucose 74 - 99 mg/dL 104 (H) BUN 7 - 21 mg/dL 12 Creatinine 0.58 - 0.96 mg/dL 0.80 Sodium 136 - 144 mmol/L 141 Potassium 3.7 - 5.1 mmol/L 4.2 Chloride 97 - 105 mmol/L 107 (H) CO2 22 - 30 mmol/L 25 Anion Gap 9 - 18 mmol/L 9 eGFR >=60 mL/min/1.73m 75 Cholesterol, Total <200 mg/dL 131 Triglyceride <150 mg/dL 78 HDL Cholesterol >39 mg/dL 63 Non HDL Cholesterol <130 mg/dL 68 Fasting Time hrs 12 VLDL Cholesterol <30 mg/dL 16 TC:HDL Ratio <5.10 2.08 LDL Cholesterol <100 mg/dL 52 LDL:HDL Ratio <2.54 0.83 Creatinine, Ur Random (UCRR) 20.0 - 300.0 mg/dL Albumin, Urine Random mg/L Albumin/Creat Ratio <30 mg/g Protein, Urine Random 0 - 20 mg/dL Protein/Creat Ratio <0.2 Hemoglobin A1C 4.3 - 5.6 % 5.4 Estimated Average Glucose mg/dL 108 PT Sec 9.7 - 13.0 sec 14.4 (H) PT INR 0.9 - 1.3 1.4 (H) Assessment and Plan 1. Controlled type 2 diabetes mellitus without complication, without long-term current use of insulin (HCC) - ICD9: 250.00, ICD10: E11.9 (primary diagnosis) Controlled. - Continue current medications - BASIC METABOLIC PNL - HGB A1C - Diabetic eye exam due. Patient indicated understanding and willingness to follow recommendations. 2. Essential hypertension - ICD9: 401.9, ICD10: I10 - good control - Continue current medication(s) 3. Cirrhosis of liver without ascites, unspecified hepatic cirrhosis type (HCC) - ICD9: 571.5, ICD10: K74.60 Followed by GI. 4. Need for COVID-19 vaccine - ICD9: V04.89, ICD10: Z23 - PFIZER-BIONTECH COVID-19 VACCINE, AGE 12+ YR (LEA TOP) 5. JAYDA (obstructive sleep apnea) - ICD9: 327.23, ICD10: G47.33 Patient using and benefiting from nightly CPAP use. Sameer Kelley MD documented in this encounter [facility] 05-17-2022 Miscellaneous Notes rx from January says not taking insulin. Lets start with an update with a new rx. She is taking victoza daily.since she is taking insulin daily she insurance will cover testing 3 times daily. Noting that update also. Patient calling said she can not get any test strips pharmacy had told her something about part D. I phoned pharmacy and was told PA needs done. Attempted to call patient she has call gracia on her phone could not leave a message. PRIOR AUTHORIZATION Medication for Prior Authorization: Freestyle test strips Other formulary meds available : NO Insurance Company: [x+1] phone number: [phone] Patient insurance ID number: [id number] Radha Mendoza LPN Patient said she tests twice daily. documented in this encounter [facility] 04-23-2022 Instructions Delmy Painter APRN.CDL B DRIVER - 04/23/2022 4:43 PM EDT Beginning Home Isolation Isolation is used to separate people infected with SARS-CoV-2, the virus that causes COVID-19, from people who are not infected. People who are in isolation should stay home until it s safe for them to be around others. In the home, anyone sick or infected should separate themselves from others by staying in a specific sick room or area and using a separate bathroom (if available). Isolation or Quarantine: What's the difference? Quarantine keeps someone who might have been exposed to the virus away from others. Isolation keeps someone who is infected with the virus away from others, even in their home. Who needs to isolate People who have COVID-19 People who have symptoms of COVID-19 and are able to recover at home People who have no symptoms (are asymptomatic) but have tested positive for infection with SARS-CoV-2 Steps to take Stay home except to get medical care Monitor your symptoms. Stay in a separate room from other household members, if possible Use a separate bathroom, if possible Avoid contact with other members of the household and pets Don t share personal household items, like cups, towels, and utensils Wear a mask when around other people, if you are able to When to seek emergency medical attention Look for emergency warning signs* for COVID-19. If someone is showing any of these signs, seek emergency medical care immediately: Trouble breathing Persistent pain or pressure in the chest New confusion Inability to wake or stay awake Bluish lips or face *This list is not all possible symptoms. Please call your medical provider for any other symptoms that are severe or concerning to you. Call 911 or call ahead to your local emergency facility: Notify the blow pit operator that you are seeking care for someone who has or may have COVID-19. Ending Home Isolation - When you can be around others after you had or likely had COVID-19 When you can be around others after you had or likely had COVID-19 If You Test Positive for COVID-19 (Isolation) Everyone, regardless of vaccination status: 1. Stay home for 5 days. Note: Day 0 is your first day of symptoms or the date of collection of a positive viral test if no symptoms. Day 1 is the first full day after symptoms developed or test specimen was collected. 2. If you have no symptoms or your symptoms are resolving after 5 days, you can leave your house. 3. Continue to wear a mask around others for 5 additional days. If you have a fever, continue to stay home until your fever resolves, even if it is longer than 5 days. If You Were Exposed to Someone with COVID-19 (Quarantine) If you: 1. Have been boosted OR 2. Completed the primary series of Pfizer or Moderna vaccine within the last 6 months OR 3. Completed the primary series of J&J vaccine within the last 2 months THEN: 1. Wear a mask around others for 10 days. 2. Test on day 5, if possible. If you develop symptoms get a test and stay home. If You Were Exposed to Someone with COVID-19 (Quarantine) If you: 1. Completed the primary series of Pfizer or Moderna vaccine over 6 months ago and are not boosted OR 2. Completed the primary series of J&J over 2 months ago and are not boosted OR 3. Are unvaccinated THEN: 1. Stay home for 5 days. After that continue to wear a mask around others for 5 additional days. 2. If you can't quarantine you must wear a mask for 10 days. 3. Test on day 5 if possible. If you develop symptoms get a test and stay home. I had COVID-19 or I tested positive for COVID-19 and I have a weakened immune system If you have a weakened immune system (immunocompromised) due to a health condition or medication, you might need to stay home and isolate longer than 10 days. Talk to your healthcare provider for more information. Your doctor may work with an infectious disease expert at your local health department to determine when you can be around others. documented in this encounter [facility] 04-23-2022 History of Presen t illness Narrative This note was created using [employer]. Subjective Carmina Bonds is a 81 year old female. 81 year old female with PMH CAD, HTN, JAYDA, cirrhosis, presents with complaints of think I have COVID Acute onset of symptoms was . States that her son tested positive a week prior. States she had been around him. +headache + chills + fatigue Denies CP. Denies SOB or dyspnea. Denies N/V/D Denies skin rash or lesions. The history is provided by the patient. No mica inspector was used. URI There is no chest tightness, cough, difficulty breathing, frequent throat clearing, hemoptysis, hoarse voice, shortness of breath, sputum production or wheezing. This is a new problem. The current episode started in the past 7 days. The problem occurs constantly. The problem has been unchanged. Associated symptoms include headaches and malaise/fatigue. Pertinent negatives include no appetite change, chest pain, dyspnea on exertion, ear congestion, ear pain, fever, heartburn, myalgias, nasal congestion, orthopnea, PND, postnasal drip, rhinorrhea, sneezing, sore throat, sweats, trouble swallowing or weight loss. Her symptoms are aggravated by nothing. Her symptoms are alleviated by nothing. She reports no improvement on treatment. There are no known risk factors for lung disease. There is no history of asthma, bronchiectasis, bronchitis, COPD, emphysema or pneumonia. 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 Generalized osteoarthrosis, unspecified site History of basal cell carcinoma (BCC) of skin 06/27/2018 Dr. Najera, [facility]. Internal hemorrhoids without mention of complication Lumbago Chronic low back pain Mitral valve disorders(424.0) 09/20/2006 MVP with regurgitation Nocturnal hypoxemia 01/23/2019 JAYDA (obstructive sleep apnea) DME [facility] Other dyspnea and respiratory abnormality Reactive airway Other malignant neoplasm of skin, site unspecified Basal cell Ca, nose, back Portal hypertensive gastropathy (HCC) 09/04/2019 Secondary esophageal varices without bleeding (HCC) 09/04/2019 Traumatic closed displaced fracture of left shoulder with anterior dislocation with delayed healing 08/09/2017 Dr. 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 test reactor Type 2 diabetes mellitus (HCC) Type II or unspecified type diabetes mellitus without mention of complication, uncontrolled 09/20/2006 Unspecified asthma(493.90) 09/20/2006 Unspecified essential hypertension 09/20/2006 PAST SURGICAL HISTORY Procedure Laterality Date ANTERIOR COLPORRAPHY RPR CYSTOCELE W/CYSTO 02/03/2012 ARTHROSCOPY KNEE DIAGNOSTIC W/WO SYNOVIAL BX SPX 09/22/2007 Arthroscopy, knee ARTHRP KNE CONDYLE&PLATU MEDIAL&LAT COMPARTMENTS Left 03/19/2019 BX BREAST NEEDLE CORE W/O IMAGING GUIDANCE SPX 1992 COLONOSCOPY FLX DX W/COLLJ SPEC WHEN PFRMD 05/17/2007 COLONOSCOPY FLX DX W/COLLJ SPEC WHEN PFRMD 06/15/2017 Colonoscopy EGD 07/23/2019 EGD 12/25/2019 EGD 05/06/2020 EGD BANDING 03/31/2020 ESOPHAGOGASTRODUODENOSCOPY TRANSORAL DIAGNOSTIC 1995 EGD ESOPHAGOGASTRODUODENOSCOPY TRANSORAL DIAGNOSTIC 06/14/2012 EGD ESOPHAGOGASTRODUODENOSCOPY TRANSORAL DIAGNOSTIC 06/15/2017 EGD ESOPHAGUS ENDOSCOPY W VARICES BANDING 08/13/2019 NEUROPLASTY &/TRANSPOS MEDIAN NRV CARPAL TUNNE 08/29/1999 Carpal tunnel decomp, bilateral PAST SURGICAL HISTORY OF 04/15/1999 Skin and back basal cell REPAIR PRIMARY OPEN/PRQ RUPTURED ACHILLES TENDON 05/2008 Right ankle KISHAN W/WO REMOVAL TUBE OVARY 1979 ruptured tubal TONSILLECTOMY PRIMARY/SECONDARY <AGE 14 1951 Tonsillectomy TOTAL ABDOMINAL HYSTERECT W/WO RMVL TUBE OVARY 1982 IKSHAN, LSO, Yehuda Kaylen ALLERGIES Patient has no known allergies. MEDICATIONS blood sugar diagnostic (FREESTYLE LITE STRIPS) test strip Test blood sugar(s) 2 times daily. Dx: Type 2 DM - Controlled E11.9 Insulin: No sertraline (ZOLOFT) 50 mg tablet Take 1 tablet by mouth once daily. liraglutide (VICTOZA) 0.6 mg/ 0.1 ml subcutaneous pen injector Inject 1.2 mg subcutaneously once daily. amLODIPine (NORVASC) 2.5 mg tablet Take 1 tablet by mouth once daily. lovastatin (MEVACOR) 10 mg tablet Take 1 tablet by mouth once daily. metFORMIN (GLUCOPHAGE) 500 mg tablet TAKE 2 TABLETS BY MOUTH TWICE A DAY WITH MEALS enalapril (VASOTEC) 20 mg tablet Take 1 tablet by mouth twice daily. insulin needles, DISPOSABLE, (PEN NEEDLE) 31 gauge x 5/16 1 Each twice daily. rifAXIMin (XIFAXAN) 550 mg tablet Take 550 mg by mouth twice daily. CPAP Service machine. Settings changed in office 5 - 13 cm H2O, Send heated tubing (WILLIAM) suitable mask per pt preference (nasal pillow), chin strap, head gear, humidity, heated tubing, filters, lifetime supplies. G47.33 JAYDA Omeprazole 40 mg capsule Take 40 mg by mouth twice daily. furosemide (LASIX) 20 mg tablet Take 20 mg by mouth once daily. spironolactone (ALDACTONE) 50 mg tablet Take 50 mg by mouth once daily. clotrimazole (LOTRIMIN, CLOTRIM) 1 % cream Apply 1 application to affected area twice daily as needed. CALCIUM + D 600 MG-200 UNIT TAB Take one(1) tablet daily. FAMILY HISTORY Problem Relation Age of Onset Diabetes Mother Cancer Mother skin Stroke Mother Heart Mother Coronary Artery Disease Mother Heart Father MD Diabetes Brother None Brother None Sister Emphysema Paternal Grandmother Diabetes Paternal Grandmother Diabetes Maternal Aunt Cancer Maternal Uncle Cancer Maternal Aunt Social History Tobacco Use Smoking status: Former Smoker Years: 0.50 Quit date: 10/17/1962 Years since quittin.5 Smokeless tobacco: Never Used Tobacco comment: quit 40 yrs ago Substance Use Topics Alcohol use: Yes Comment: 1 glass of wine per year Drug use: No Review of Systems Constitutional: Positive for chills, fatigue and malaise/fatigue. Negative for appetite change, diaphoresis, fever and weight loss. HENT: Negative for ear pain, hoarse voice, postnasal drip, rhinorrhea, sneezing, sore throat and trouble swallowing. Eyes: Negative for photophobia, pain, discharge, redness, itching and visual disturbance. Respiratory: Negative for apnea, cough, hemoptysis, sputum production, choking, chest tightness, shortness of breath and wheezing. Cardiovascular: Negative for chest pain, dyspnea on exertion, palpitations, leg swelling and PND. Gastrointestinal: Negative for abdominal pain, diarrhea, heartburn, nausea and vomiting. Musculoskeletal: Negative for arthralgias, back pain and myalgias. Skin: Negative for color change, pallor, rash and wound. Allergic/Immunologic: Negative for environmental allergies, food allergies and immunocompromised state. Neurological: Positive for headaches. Hematological: Negative for adenopathy. Does not bruise/bleed easily. Psychiatric/Behavioral: Negative for agitation and behavioral problems. Objective BP 150/80 Pulse 115 Temp 37.2 C (98.9 F) Resp 20 Wt 82.4 kg (181 lb 9.6 oz) SpO2 98% BMI 33.22 kg/m Physical Exam Vitals and nursing note reviewed. Constitutional: General: She is not in acute distress. Appearance: Normal appearance. She is normal weight. She is not ill-appearing, toxic-appearing or diaphoretic. HENT: Head: Normocephalic and atraumatic. Right Ear: Ear canal and external ear normal. Left Ear: Ear canal and external ear normal. Nose: Nose normal. No congestion or rhinorrhea. Mouth/Throat: Mouth: Mucous membranes are moist. Pharynx: No oropharyngeal exudate or posterior oropharyngeal erythema. Eyes: General: Right eye: No discharge. Left eye: No discharge. Extraocular Movements: Extraocular movements intact. Conjunctiva/sclera: Conjunctivae normal. Pupils: Pupils are equal, round, and reactive to light. Cardiovascular: Rate and Rhythm: Normal rate and regular rhythm. Pulses: Normal pulses. Heart sounds: Normal heart sounds. No murmur heard. No friction rub. Pulmonary: Effort: Pulmonary effort is normal. No respiratory distress. Breath sounds: Normal breath sounds. No stridor. No wheezing, rhonchi or rales. Chest: Chest wall: No tenderness. Abdominal: General: Abdomen is flat. There is no distension. Palpations: Abdomen is soft. There is no mass. Tenderness: There is no abdominal tenderness. There is no right CVA tenderness, left CVA tenderness, guarding or rebound. Hernia: No hernia is present. Musculoskeletal: General: No swelling, tenderness, deformity or signs of injury. Normal range of motion. Cervical back: Normal range of motion and neck supple. No rigidity. Right lower leg: No edema. Left lower leg: No edema. Lymphadenopathy: Cervical: No cervical adenopathy. Skin: General: Skin is warm and dry. Capillary Refill: Capillary refill takes less than 2 seconds. Coloration: Skin is not jaundiced or pale. Findings: No bruising, erythema, lesion or rash. Neurological: General: No focal deficit present. Mental Status: She is alert and oriented to person, place, and time. Cranial Nerves: No cranial nerve deficit. Sensory: No sensory deficit. Motor: No weakness. Coordination: Coordination normal. Gait: Gait normal. Psychiatric: Mood and Affect: Mood normal. Behavior: Behavior normal. Thought Content: Thought content normal. Judgment: Judgment normal. Assessment and Plan ASSESSMENT/PLAN: 1. Viral illness - ICD9: 079.99, ICD10: B34.9 (primary diagnosis) - Discussed viral etiology and rationale for treatment. - Symptomatic treatment with prn analgesia - Supportive care with fluids and rest - The patient may also use OTC cough and cold meds as needed, warm salt water gargles, throat lozenges and/or OTC throat spray as needed and nasal saline gtts and suction prn. - Follow up in 3-5 days if symptoms persist or sooner if worsening of symptoms - COVID WITH FLUA+B, ROUTINE 2. Exposure to COVID-19 virus - ICD9: V01.79, ICD10: Z20.822 Son tested positive Has bee having symptoms since last Tuesday. Delmy Painter APRN.CDL B DRIVER documented in this encounter [facility] 02-25-2022 History of Presen t illness Narrative Radiology Service Progress Note PATIENT NAME: Carmina Bonds DATE OF SERVICE: February 25, 2022 TIME: 11:06 AM PATIENT IDENTITY VERIFICATION COMPLETED USING TWO (2) IDENTIFIERS: Name and Date of confirmed by patient verbally. FALL SCREENING: Has the patient had 2 falls in the last year or 1 fall with injury or currently using an Ambulatory Assistive Device (Walker, Cane, Wheelchair, Crutches, etc.)? No PATIENT GENDER DATA: Female. 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 Colon cancer screening 06/03/2017 8 Overview: Added automatically from request for surgery [id number] Dysphagia 06/03/2017 01/23/2018 Overview: Added automatically from request for surgery [id number] Urgency incontinence 01/13/2011 01/23/2018 Urinary frequency 01/13/2011 01/23/2018 Cystocele, unspecified (CODE) 01/13/2011 Adjustment disorder with mixed anxiety and depre ssed mood 06/23/2010 12/16/2010 Overview: +[facility] Contact dermatitis and other eczema, due to unspecified cause 02/27/2008 12/16/2010 Overview: intertrigo Unspecified asthma(493.90) 09/20/200612/16 Diaphragmatic hernia without mention of obstruction or gangrene 09/20/2006 01/23/2018 documented as of this encounter (statuses as of 04/23/2022) [facility] History of Past illness Narrative* Problem Noted Date Resolved Date Nocturnal hypoxemia 01/23/2019 09/04/2019 Cervicogenic headache 01/20/2019 09/04/2019 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 Colon cancer screening 06/03/2017 8 Overview: Added automatically from request for surgery [id number] Dysphagia 06/03/2017 01/23/2018 Overview: Added automatically from request for surgery [id number] Urgency incontinence 01/13/2011 01/23/2018 Urinary frequency 01/13/2011 01/23/2018 Cystocele, unspecified (CODE) 01/13/2011 Adjustment disorder with mixed anxiety and depre ssed mood 06/23/2010 12/16/2010 Overview: +[facility] Contact dermatitis and other eczema, due to unspecified cause 02/27/2008 12/16/2010 Overview: intertrigo Unspecified asthma(493.90) 09/20/200612/16 Diaphragmatic hernia without mention of obstruction or gangrene 09/20/2006 01/23/2018 documented as of this encounter (statuses as of 05/17/2022) [facility] History of Past illness Narrative* Problem Noted Date Resolved Date Nocturnal hypoxemia 01/23/2019 09/04/2019 Cervicogenic headache 01/20/2019 09/04/2019 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 Colon cancer screening 06/03/2017 8 Overview: Added automatically from request for surgery [id number] Dysphagia 06/03/2017 01/23/2018 Overview: Added automatically from request for surgery [id number] Urgency incontinence 01/13/2011 01/23/2018 Urinary frequency 01/13/2011 01/23/2018 Cystocele, unspecified (CODE) 01/13/2011 Adjustment disorder with mixed anxiety and depre ssed mood 06/23/2010 12/16/2010 Overview: +[facility] Contact dermatitis and other eczema, due to unspecified cause 02/27/2008 12/16/2010 Overview: intertrigo Unspecified asthma(493.90) 09/20/200612/16 Diaphragmatic hernia without mention of obstruction or gangrene 09/20/2006 01/23/2018 documented as of this encounter (statuses as of 06/07/2022) [facility] History of Past illness Narrative* Problem Noted Date Resolved Date Nocturnal hypoxemia 01/23/2019 09/04/2019 Cervicogenic headache 01/20/2019 09/04/2019 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 Colon cancer screening 06/03/2017 8 Overview: Added automatically from request for surgery [id number] Dysphagia 06/03/2017 01/23/2018 Overview: Added automatically from request for surgery [id number] 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 disc 06/26/2014 12/09/2022 Urgency incontinence 01/13/2011 01/23/2018 Urinary frequency 01/13/2011 01/23/2018 Cystocele, unspecified (CODE) 01/13/2011 Adjustment disorder with mixed anxiety and depre ssed mood 06/23/2010 12/16/2010 Overview: +[facility] Contact dermatitis and other eczema, due to unspecified cause 02/27/2008 12/16/2010 Overview: intertrigo Unspecified asthma(493.90) 09/20/200612/16 Diaphragmatic hernia without mention of obstruction or gangrene 09/20/2006 01/23/2018 documented as of this encounter (statuses as of 12/10/2022) [facility] History of Past illness Narrative* Problem Noted Date Resolved Date Nocturnal hypoxemia 01/23/2019 09/04/2019 Cervicogenic headache 01/20/2019 09/04/2019 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 Colon cancer screening 06/03/2017 8 Overview: Added automatically from request for surgery [id number] Dysphagia 06/03/2017 01/23/2018 Overview: Added automatically from request for surgery [id number] 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 disc 06/26/2014 12/09/2022 Urgency incontinence 01/13/2011 01/23/2018 Urinary frequency 01/13/2011 01/23/2018 Cystocele, unspecified (CODE) 01/13/2011 Adjustment disorder with mixed anxiety and depre ssed mood 06/23/2010 12/16/2010 Overview: +[facility] Contact dermatitis and other eczema, due to unspecified cause 02/27/2008 12/16/2010 Overview: intertrigo Unspecified asthma(493.90) 09/20/200612/16 Diaphragmatic hernia without mention of obstruction or gangrene 09/20/2006 01/23/2018 documented as of this encounter (statuses as of 01/24/2023) [facility] History of Past illness Narrative* Problem Noted Date Resolved Date Nocturnal hypoxemia 01/23/2019 09/04/2019 Cervicogenic headache 01/20/2019 09/04/2019 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 Colon cancer screening 06/03/2017 8 Overview: Added automatically from request for surgery [id number] Dysphagia 06/03/2017 01/23/2018 Overview: Added automatically from request for surgery [id number] 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 disc 06/26/2014 12/09/2022 Urgency incontinence 01/13/2011 01/23/2018 Urinary frequency 01/13/2011 01/23/2018 Cystocele, unspecified (CODE) 01/13/2011 Adjustment disorder with mixed anxiety and depre ssed mood 06/23/2010 12/16/2010 Overview: +[facility] Contact dermatitis and other eczema, due to unspecified cause 02/27/2008 12/16/2010 Overview: intertrigo Unspecified asthma(493.90) 09/20/200612/16 Diaphragmatic hernia without mention of obstruction or gangrene 09/20/2006 01/23/2018 documented as of this encounter (statuses as of 02/09/2023) [facility] History of Past illness Narrative* Problem Noted Date Resolved Date Nocturnal hypoxemia 01/23/2019 09/04/2019 Cervicogenic headache 01/20/2019 09/04/2019 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 Colon cancer screening 06/03/2017 8 Overview: Added automatically from request for surgery [id number] Dysphagia 06/03/2017 01/23/2018 Overview: Added automatically from request for surgery [id number] 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 disc 06/26/2014 12/09/2022 Urgency incontinence 01/13/2011 01/23/2018 Urinary frequency 01/13/2011 01/23/2018 Cystocele, unspecified (CODE) 01/13/2011 Adjustment disorder with mixed anxiety and depre ssed mood 06/23/2010 12/16/2010 Overview: +[facility] Contact dermatitis and other eczema, due to unspecified cause 02/27/2008 12/16/2010 Overview: intertrigo Unspecified asthma(493.90) 09/20/200612/16 Diaphragmatic hernia without mention of obstruction or gangrene 09/20/2006 01/23/2018 documented as of this encounter (statuses as of 02/11/2023) [facility] of Past illness Narrative* Problem Noted Date Resolved Date Nocturnal hypoxemia 01/23/2019 09/04/2019 Cervicogenic headache 01/20/2019 09/04/2019 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 Colon cancer screening 06/03/2017 8 Overview: Added automatically from request for surgery [id number] Dysphagia 06/03/2017 01/23/2018 Overview: Added automatically from request for surgery [id number] 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 disc 06/26/2014 12/09/2022 Urgency incontinence 01/13/2011 01/23/2018 Urinary frequency 01/13/2011 01/23/2018 Cystocele, unspecified (CODE) 01/13/2011 Adjustment disorder with mixed anxiety and depre ssed mood 06/23/2010 12/16/2010 Overview: +[facility] Contact dermatitis and other eczema, due to unspecified cause 02/27/2008 12/16/2010 Overview: intertrigo Unspecified asthma(493.90) 09/20/200612/16 Diaphragmatic hernia without mention of obstruction or gangrene 09/20/2006 01/23/2018 documented as of this encounter (statuses as of 02/11/2023) [facility] History of Past illness Narrative* Problem Noted Date Resolved Date Nocturnal hypoxemia 01/23/2019 09/04/2019 Cervicogenic headache 01/20/2019 09/04/2019 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 Colon cancer screening 06/03/2017 8 Overview: Added automatically from request for surgery [id number] Dysphagia 06/03/2017 01/23/2018 Overview: Added automatically from request for surgery [id number] 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 disc 06/26/2014 12/09/2022 Urgency incontinence 01/13/2011 01/23/2018 Urinary frequency 01/13/2011 01/23/2018 Cystocele, unspecified (CODE) 01/13/2011 Adjustment disorder with mixed anxiety and depre ssed mood 06/23/2010 12/16/2010 Overview: +[facility] Contact dermatitis and other eczema, due to unspecified cause 02/27/2008 12/16/2010 Overview: intertrigo Unspecified asthma(493.90) 09/20/200612/16 Diaphragmatic hernia without mention of obstruction or gangrene 09/20/2006 01/23/2018 documented as of this encounter (statuses as of 02/12/2023) [facility]04-09-2019 History of Past illness Narrative* Problem Noted Date Resolved Date Nocturnal hypoxemia 01/23/2019 09/04/2019 Cervicogenic headache 01/20/2019 09/04/2019 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 Colon cancer screening 06/03/2017 8 Overview: Added automatically from request for surgery [id number] Dysphagia 06/03/2017 01/23/2018 Overview: Added automatically from request for surgery [id number] 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 disc 06/26/2014 12/09/2022 Urgency incontinence 01/13/2011 01/23/2018 Urinary frequency 01/13/2011 01/23/2018 Cystocele, unspecified (CODE) 01/13/2011 Adjustment disorder with mixed anxiety and depre ssed mood 06/23/2010 12/16/2010 Overview: +[facility] Contact dermatitis and other eczema, due to unspecified cause 02/27/2008 12/16/2010 Overview: intertrigo Unspecified asthma(493.90) 09/20/200612/16 Diaphragmatic hernia without mention of obstruction or gangrene 09/20/2006 01/23/2018 documented as of this encounter (statuses as of 03/25/2023) [facility] History of Past illness Narrative* Problem Noted Date Resolved Date Nocturnal hypoxemia 01/23/2019 09/04/2019 Cervicogenic headache 01/20/2019 09/04/2019 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 Colon cancer screening 06/03/2017 8 Overview: Added automatically from request for surgery [id number] Dysphagia 06/03/2017 01/23/2018 Overview: Added automatically from request for surgery [id number] 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 disc 06/26/2014 12/09/2022 Urgency incontinence 01/13/2011 01/23/2018 Urinary frequency 01/13/2011 01/23/2018 Cystocele, unspecified (CODE) 01/13/2011 Adjustment disorder with mixed anxiety and depre ssed mood 06/23/2010 12/16/2010 Overview: +[facility] Contact dermatitis and other eczema, due to unspecified cause 02/27/2008 12/16/2010 Overview: intertrigo Unspecified asthma(493.90) 09/20/200612/16 Diaphragmatic hernia without mention of obstruction or gangrene 09/20/2006 01/23/2018 documented as of this encounter (statuses as of 03/16/2023) [facility] History of Past illness Narrative* Problem Noted Date Diagnosed Date Resolved Date Nocturnal hypoxemia 01/23/2019 09/04/20 Cervicogenic headache 01/20/20192018 Nodular regenerative hyperplasia of liver 08/25/2017 01/23/2018 Colon cancer screening 06/03/201701/23 Overview: Added automatically from request for surgery [id number] Dysphagia 06/03/2017 01/23/2018 Overview: Added automatically from request for surgery [id number] 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 06/26/2014 12/09/2022 Urgency incontinence 01/13/2011 018 Urinary frequency 01/13/2011 01/23/2018 Cystocele, unspecified (CODE) 01/13/2011 01/23/2018 Adjustment disorder with mix ed anxiety and depressed mood 06/23/2010 12/16/2010 Overview: +[facility] Contact dermatitis and other eczema, due to unspecified cause 02/27/2008 12/16/2010 Overview: intertrigo Unspecified asthma(493.90) 09/20/2006 0 12/16/2010 Diaphragmatic hernia without mention of obstruction or gangrene 09/20/2006 01/23/2018 documented as of this encounter (statuses as of 05/24/2023) [facility] History of Past illness Narrative* Problem Noted Date Diagnosed Date Resolved Date Nocturnal hypoxemia 01/23/2019 09/04/20 19 Cervicogenic headache 01/20/20192018 Nodular regenerative hyperplasia of liver 08/25/2017 01/23/2018 Colon cancer screening 06/03/201701/23 Overview: Added automatically from request for surgery [id number] Dysphagia 06/03/2017 01/23/2018 Overview: Added automatically from request for surgery [id number] 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 06/26/2014 12/09/2022 Urgency incontinence 01/13/2011 018 Urinary frequency 01/13/2011 01/23/2018 Cystocele, unspecified (CODE) 01/13/2011 01/23/2018 Adjustment disorder with mix ed anxiety and depressed mood 06/23/2010 12/16/2010 Overview: +[facility] Contact dermatitis and other eczema, due to unspecified cause 02/27/2008 12/16/2010 Overview: intertrigo Diabetes mellitus type 2, co ntrolled, without complications 09/20/2006 06/03/2023 Unspecified asthma(493.90) 09/20/2006 0 12/16/2010 Diaphragmatic hernia without mention of obstruction or gangrene 09/20/2006 01/23/2018 documented as of this encounter (statuses as of 08/21/2023) [facility] History of Past illness Narrative* Problem Noted Date Diagnosed Date Resolved Date Nocturnal hypoxemia 01/23/2019 09/04/20 19 Cervicogenic headache 01/20/20192018 Nodular regenerative hyperplasia of liver 08/25/2017 01/23/2018 Colon cancer screening 06/03/201701/23 Overview: Added automatically from request for surgery [id number] Dysphagia 06/03/2017 01/23/2018 Overview: Added automatically from request for surgery [id number] 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 06/26/2014 12/09/2022 Urgency incontinence 01/13/2011 018 Urinary frequency 01/13/2011 01/23/2018 Cystocele, unspecified (CODE) 01/13/2011 01/23/2018 Adjustment disorder with mix ed anxiety and depressed mood 06/23/2010 12/16/2010 Overview: +[facility] issues[facility] Contact dermatitis and other eczema, due to unspecified cause 02/27/2008 12/16/2010 Overview: intertrigo Diabetes mellitus type 2, co ntrolled, without complications 09/20/2006 06/03/2023 Unspecified asthma(493.90) 09/20/2006 0 12/16/2010 Diaphragmatic hernia without mention of obstruction or gangrene 09/20/2006 01/23/2018 documented as of this encounter (statuses as of 09/04/2023) [facility] note* Diagnosis Viral illness- Primary Unspecified viral infection, in conditions classified elsewhere and of unspecified site Exposure to COVID-19 virus documented in this encounter [facility] note* Diagnosis Controlled type 2 diabetes mellitus without complication, without long-term current use of insulin (HCC)- Primary Essential hypertension Unspecified essential hypertension Cirrhosis of liver without ascites, unspecified hepatic cirrhosis type (HCC) Need for COVID-19 vaccine JAYDA (obstructive sleep apnea) Obstructive sleep apnea (adult) (pediatric) documented in this encounter [facility] note* Diagnosis Medicare annual wellness visit, subsequent- Primary Routine general medical examination at a health care facility Need for influenza vaccination Need for prophylactic vaccination and inoculation against influenza Mild cognitive impairment Mild cognitive impairment, so stated Cirrhosis of liver without ascites, unspecified hepatic cirrhosis type (HCC) Portal hypertensive gastropathy (HCC) Other specified disorder of stomach and duodenum Secondary esophageal varices without bleeding (HCC) Esophageal varices without mention of bleeding in diseases classified elsewhere Controlled type 2 diabetes mellitus without complication, without long-term current use of insulin (HCC) Chest pain, unspecified type Adjustment disorder with depressed mood Essential hypertension Unspecified essential hypertension documented in this encounter [facility] note* Diagnosis ALLAN (dyspnea on exertion)- Primary Other dyspnea and respiratory abnormality Chest pain, unspecified type Fatigue, unspecified type Palpitations Lightheadedness Dizziness and giddiness Essential hypertension Unspecified essential hypertension Hyperlipidemia, unspecified hyperlipidemia type Controlled type 2 diabetes mellitus without complication, without long-term current use of insulin (HCC) Obesity, Class I, BMI 30-34.9 Obesity, unspecified [facility] Diagnosis Lightheadedness Dizziness and giddiness documented in this encounter [facility] note* Diagnosis ALLAN (dyspnea on exertion) Other dyspnea and respiratory abnormality Fatigue, unspecified type Palpitations [facility] Diagnosis Controlled type 2 diabetes mellitus without complication, without long-term current use of insulin (HCC) [facility] Diagnosis Controlled type 2 diabetes mellitus without complication, without long-term current use of insulin (HCC) [facility] Diagnosis Mild cognitive impairment- Primary Mild cognitive impairment, so stated Need for influenza vaccination Need for prophylactic vaccination and inoculation against influenza Edema, unspecified type Abnormal weight gain Type 2 diabetes mellitus with diabetic nephropathy, without long-term current use of insulin (HCC) Need for COVID-19 vaccine Cirrhosis of liver without ascites, unspecified hepatic cirrhosis type (HCC) [facility] Outpatient Procedure (Routine) - Authorized Specialty Diagnoses / Procedures Referred By Masha woodard [facility] Diagnoses Lightheadedness Procedures US CAROTID ARTERIES ESTHELA VAS LAB DUPLEX SCAN EXTRACRANIAL ART COMPL BI STUDY Delmy Fermin APRN.CNP [address] [address] [facility] [place] [address] [place] [address] Referral ID Status Reason Start Date Expiration Date Visits Requested Visits Authorized [id number] Authorized Auto-Generat ed Referral 01/24/2023 01/24/2024 1 1 * Outpatient Procedure (Routine) - Authorized Specialty Diagnoses / Procedures Referred By Masha woodard [facility] Diagnoses ALLAN (dyspnea on exertion) Fatigue, unspecified type Palpitations Procedures ECHO ECHO TTHRC R-T 2D W/WOM-MODE COMPL SPEC&COLR D Delmy Fermin APRN.CDL B DRIVER [address] [place] [address] [facility] [place] [address] [place] [address] Referral ID Status Reason Start Date Expiration Date Visits Requested Visits Authorized [id number] Authorized Auto-Generat ed Referral 01/24/2023 01/24/2024 1 1 [facility] for visit Narrative* Outpatient Procedure (Routine) - Closed Specialty Diagnoses / Procedures Referred By Contblake t Referred To Contact [facility] [place] Diagnoses Lightheadedness Procedures US CAROTID ARTERIES ESTHELA VAS LAB DUPLEX SCAN EXTRACRANIAL ART COMPL BI STUDY Delmy Fermin APRN.TRICE [address] [place] [address] [facility] [address] [address] Referral ID Status Reason Start Date Expiration Date V isits Requested Visits Authorized [id number] Closed Auto-Generate d Referral 01/24/2023 01/24/2024 1 1 [facility] for visit Narrative* Outpatient Procedure (Routine) - Closed Specialty Diagnoses / Procedures Referred By Masha woodard Referred To Contact [facility] Diagnoses ALLAN (dyspnea on exertion) Fatigue, unspecified type Palpitations Procedures ECHO ECHO TTHRC R-T 2D W/WOM-MODE COMPL SPEC&COLR D Delmy Fermin APRN.CDL B DRIVER [address] [place] [address] [facility] [place] [address] [place] [address] Referral ID Status Reason Start Date Expiration Date V isits Requested Visits Authorized [id number] Closed Auto-Generate d Referral 01/24/2023 01/24/2024 1 1 [facility] Summary Purpose Family History No Family History Records FoundNo Family History Records FoundNo Family History Records FoundNo Family History Records FoundNo Family History Records FoundNo Family History Records FoundNo Family History Records Found Advance Directives No Advanced Directives Records FoundDocuments on File 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 Advance Directive(s) 06/15/2017 10:37 AM Reason for Referral Specialty Diagnoses / Procedures Referred By Contac t Referred To Contact Cardiology Diagnoses Chest pain, unspecified type Procedures CONSULT TO CARDIOLOGY OFFICE/OUTPATIENT [facility] HIGH MDM 60-74 MINUTES Sameer Kelley MD [address] [place] [address] Referral ID Status Reason Start Date Expiration Date Visits Requested Visits Authorized [id number] Pending Review PCP Requested Referral 12/09/2022 12/09/2023 1 1 Specialty Diagnoses / Procedures Referred By Contac t Referred [facility] Diagnoses Chest pain, unspecified type Procedures ECG COMPLETE ECG ROUTINE ECG W/LEAST 12 LDS W/I&R Sameer Kelley MD [address] [place] [address] [facility] [place] [address] [place] [address] Referral ID Status Reason Start Date Expiration Date V isits Requested Visits Authorized [id number] Closed Auto-Generate d Referral 12/09/2022 12/09/2023 1 1 Additional Source Comments INFORMATION SOURCE (unrecogn ized section and content) DATE CREATED AUTHOR AUTHOR'S ORGANIZ ATION 03/22/2019 [facility] ([place]) DATE CREATED AUTHOR AUTHOR'S ORGANIZ ATION 09/11/2020 [facility] DATE CREATED AUTHOR AUTHOR'S ORGANIZ ATION 12/13/2020 [facility] DATE CREATED AUTHOR AUTHOR'S ORGANIZ ATION 08/16/2021 [facility] DATE CREATED AUTHOR AUTHOR'S ORGANIZ ATION 12/03/2021 [facility] DATE CREATED AUTHOR AUTHOR'S ORGANIZ ATION 09/07/2023 [facility] Source Comments (unrecognize d section and content) In the event this informatio n is protected by the Federal Confidentiality of Alcohol and Drug Abuse Patient Records regulations: The Federal rules restrict any use of the information to criminally investigate or prosecute any alcohol or drug abuse patient.[facility] the event this information is protected by the Federal Confidentiality of Alcohol and Drug Abuse Patient Records regulations: The Federal rules restrict any use of the information to criminally investigate or prosecute any alcohol or drug abuse patient.[facility] the event this information is protected by the Federal Confidentiality of Alcohol and Drug Abuse Patient Records regulations: The Federal rules restrict any use of the information to criminally investigate or prosecute any alcohol or drug abuse patient.[facility] the event this information is protected by the Federal Confidentiality of Alcohol and Drug Abuse Patient Records regulations: The Federal rules restrict any use of the information to criminally investigate or prosecute any alcohol or drug abuse patient.[facility] the event this information is protected by the Federal Confidentiality of Alcohol and Drug Abuse Patient Records regulations: The Federal rules restrict any use of the information to criminally investigate or prosecute any alcohol or drug abuse patient.[facility] Center[facility] the event this information is protected by the Federal Confidentiality of Alcohol and Drug Abuse Patient Records regulations: The Federal rules restrict any use of the information to criminally investigate or prosecute any alcohol or drug abuse patient.[facility] Center[facility] the event this information is protected by the Federal Confidentiality of Alcohol and Drug Abuse Patient Records regulations: The Federal rules restrict any use of the information to criminally investigate or prosecute any alcohol or drug abuse patient.[facility] Center[facility] the event this information is protected by the Federal Confidentiality of Alcohol and Drug Abuse Patient Records regulations: The Federal rules restrict any use of the information to criminally investigate or prosecute any alcohol or drug abuse patient.[facility] Center[facility] the event this information is protected by the Federal Confidentiality of Alcohol and Drug Abuse Patient Records regulations: The Federal rules restrict any use of the information to criminally investigate or prosecute any alcohol or drug abuse patient.[facility] Center[facility] the event this information is protected by the Federal Confidentiality of Alcohol and Drug Abuse Patient Records regulations: The Federal rules restrict any use of the information to criminally investigate or prosecute any alcohol or drug abuse patient.[facility] Center[facility] the event this information is protected by the Federal Confidentiality of Alcohol and Drug Abuse Patient Records regulations: The Federal rules restrict any use of the information to criminally investigate or prosecute any alcohol or drug abuse patient.[facility] Center[facility] the event this information is protected by the Federal Confidentiality of Alcohol and Drug Abuse Patient Records regulations: The Federal rules restrict any use of the information to criminally investigate or prosecute any alcohol or drug abuse patient.[facility] Center[facility] the event this information is protected by the Federal Confidentiality of Alcohol and Drug Abuse Patient Records regulations: The Federal rules restrict any use of the information to criminally investigate or prosecute any alcohol or drug abuse patient.[facility] Center[facility] the event this information is protected by the Federal Confidentiality of Alcohol and Drug Abuse Patient Records regulations: The Federal rules restrict any use of the information to criminally investigate or prosecute any alcohol or drug abuse patient.[facility] Center[facility] the event this information is protected by the Federal Confidentiality of Alcohol and Drug Abuse Patient Records regulations: The Federal rules restrict any use of the information to criminally investigate or prosecute any alcohol or drug abuse patient.[facility] Reason for Visit (unrecogniz ed section and content) Specialty Diagnoses / Procedures Referred By Contac t Referred To Contact Radiology / RADIO ULTRA [facility] Diagnoses unspecified cirrhosis of liver Procedures US ABDOMEN COMPLETE Self Radio Ultra [facility] [address] [place] [address] Referral ID Status Reason Start Date Expiration Date Visits Requested Visits Authorized [id number] Closed Financial Clearance Required - OON Payor OON Notification Letter Patient Cleared - 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 advise to proceed or did not respond 01/06/2023 04/06/2023 1 1 Reason Comments Sore Throat chills, [place], can't sl eep x 3 days Reason Comments Insurance Authorization Freeyle test s trips Reason Comments F/U 6 months Reason Onset Date Comments Medicare Wellness Exam Immunizations 12/09/2022 Flu vaccination Reason Comments Consult Chest Pain Shortness of Breath Specialty Diagnoses / Procedures Referred By Contblake t Referred To Contact Cardiology Diagnoses Chest pain, unspecified type Procedures CONSULT TO CARDIOLOGY OFFICE/OUTPATIENT NEW HIGH MDM 60-74 MINUTES OFFICE/OUTPATIENT NEW MODERATE MDM 45-59 MINUTES Sameer Kelley MD [address] [place] [address] [place] [address] Referral ID Status Reason Start Date Expiration Date V isits Requested Visits Authorized [id number] Closed PCP Requested Referral Financial Clearance Required - OON Payor Patient Cleared - INN Insurance Found 12/09/2022 12/09/2023 1 1 Reason Comments Results Reason Onset Date Comments Refill Request 03/24/2023 Reason Comments Medication Problem Reason Onset Date Comments Recheck 3 month follow u p Immunizations 09/02/2023 Flu vaccination Care Teams (unrecognized sec tion and content) Stars Specialist Relationship Specialty Start Date End Date Sameer Kelley MD [address] [place], [place] [id number] PCP - General 08/23/07 Stars Specialist Relationship Specialty Start Date End Date Smaeer Kelley MD [address] [place], [place] [address] PCP - General 08/23/07 Stars Specialist Relationship Specialty Start Date End Date Sameer Kelley MD [address] [place], [place] [address] PCP - General 08/23/07 Stars Specialist Relationship Specialty Start Date End Date Sameer Kelley MD [address] [place], [place] [address] PCP - General 08/23/07 Stars Specialist Relationship Specialty Start Date End Date Sameer Kelley MD [address] [facility] [place] [address] PCP - General 08/23/07 Stars Specialist Relationship Specialty Start Date End Date Sameer Kelley MD [address] [facility] [place] [address] PCP - General 08/23/07 Stars Specialist Relationship Specialty Start Date End Date Sameer Kelley MD [address] [facility] [place] [address] PCP - General 08/23/07 Stars Specialist Relationship Specialty Start Date End Date Sameer Kelley MD [address] [facility] [address] PCP - General 08/23/07 Stars Specialist Relationship Specialty Start Date End Date Sameer Kelley MD [address] [facility] [place] [address] PCP - General 08/23/07 Stars Specialist Relationship Specialty Start Date End Date Sameer Kelley MD [address] [facility] [address] PCP - General 08/23/07 Stars Specialist Relationship Specialty Start Date End Date Sameer Kelley MD [address] [place] [address] PCP - General 08/23/07 Stars Specialist Relationship Specialty Start Date End Date Sameer Kelley MD [address] [place] [address] PCP - General 08/23/07 FOR RECORDS PERTAINING TO PATIENTS WHO ARE OR HAVE BEEN ENROLLED IN A CHEMICAL DEPENDENCY/SUBSTANCEABUSE PROGRAM, SOME INFORMATION MAY BE OMITTED. This clinical summary was aggregated from multiple sources. Caution should be exercised in using it in the provision of clinical care. This summary normalizes information from multiple sources, and as a consequence, information in this document may materially change the coding, format and clinical context of patient data. In addition, data may be omitted in some cases. CLINICAL DECISIONS SHOULD BE BASED ON THE PRIMARY CLINICAL RECORDS. [facility]. provides no warranty or guarantee of the accuracy or completeness of information in this document.
[2023-10-02 15:25] LABS: Anisocytosis 2+; Macrocytosis 1+; Microcytosis 1+
[2023-10-02] MEDS: 0.9% Normal Saline (1000mL) 1,000 ML 1000 ML IV (15:31)
[2023-10-02] MEDS: Aspirin 81 MG TAB.CHEW 324 MG PO (15:31)
[2023-10-02] MEDS: Ipratropium/Albuterol Sulfate 3 ML AMPUL.NEB INHALATION (15:31)
[2023-10-02] MEDS: Potassium Chloride Oral Tablet 20 MEQ 40 MEQ PO (15:58)
[2023-10-02 16:28] LABS: Reflex Troponin-HS? (from REC) Y
[2023-10-02 17:28] LABS: Troponin-I HS 15 pg/mL (3.0-54.0)
[2023-10-02] MEDS: Furosemide 40 MG/4 ML Vial IV (18:02)
--- NOTE | 2023-10-02 18:29 | PCM.HP.STD ---
HPI - General General Date of Admission: 10/02/23 Date of Service: 10/02/23 Chief Complaint: Progressive increase in shortness of breath for about 2 week. HPI Narrative BLADIMIR KAUR, is a 83 F came to ED for worsening of shortness of breath for about 2 weeks. She felt shortness of breath on exertion progressively getting worse for 2 weeks but last night she felt short of breath even at rest and today even when sitting up she was very short of breath. Patient tried to go to discharge today but she could not go there for came to ED. Patient also has mild left pleuritic chest pain/tightness mainly on coughing and trying to walk with radiation to back. She also has cough but denies any sputum production. Complain of chills but no fever. In ED, her chest x-ray shows left severe pleural effusion filling almost to the apex. She denies any prior history of pleural effusion or thoracocentesis. She states that she follows GI doctor in [place] for a spot in the liver but details not available. She denies chronic liver disease including alcohol intake or cirrhosis. Patient denies any increase in abdominal girth. Patient is hard of hearing and history was contributed by his son who is power of drop man for health near the bedside. Patient also said she has chronic leg swelling almost for about 6 months to 9 months and is on water pill. On med reconciliation patient is on hydrochlorothiazide 25 mg daily. She denies any recent echocardiogram or history of heart failure/CAD. In ED, patient was mildly tachycardic, tachypneic but blood pressure in normal range and not hypoxic. Labs, vitals and imaging reviewed and discussed in assessment and plan. [facility] Medical History DM2 (diabetes mellitus, type 2) HTN (hypertension) Home Medications amlodipine 2.5 mg tablet 2.5 mg PO DAILY 07/30/16 [History Last Taken 08/17/16 05:00] enalapril maleate 10 mg tablet (Vasotec) 10 mg PO BID 07/30/16 [History Last Taken 08/17/16 05:00] glipizide 2.5 mg tablet, extended release 24 hr 2.5 mg PO DAILY 07/30/16 [History Last Taken Unknown] hydrochlorothiazide 25 mg tablet 25 mg PO DAILY 07/30/16 [History Last Taken Unknown] lovastatin 10 mg tablet 10 mg PO DAILY 07/30/16 [History Last Taken Unknown] metformin 500 mg tablet 500 mg PO BIDCM 07/30/16 [History Last Taken Unknown] ranitidine HCl 150 mg tablet (Acid Control (ranitidine)) 300 mg PO DAILY 07/30/16 [History Last Taken Unknown] sertraline 50 mg tablet 50 mg PO DAILY 07/30/16 [History Last Taken Unknown] aspirin 325 mg tablet 325 mg PO BID ##30 08/19/16 [Rx Last Taken Unknown] calcium carbonate 600 mg-vitamin D3 12.5 mcg (500 unit) capsule 1 ea PO DAILY 08/09/17 [History Last Taken Unknown] oxycodone-acetaminophen 5 mg-325 mg tablet 1 - 2 tab PO Q4H PRN PRN Pain #12 tabs 08/09/17 [Rx Last Taken Unknown] Allergy/AdvReac Type Severity Reaction Status Date / Time No Known Allergies Allergy Verified 10/02/23 14:08 Surgical History H/O: hysterectomy History of bilateral knee replacement Social History Smoking Status: Never smoker ROS ROS Narrative Constitutional: Reports fatigue and weakness. No fever. But chills HEENT: Reports systems reviewed and no addt'l complaints, except as documented Respiratory/Chest: As described in HPI. Never been a smoker CVS: Denies CAD. Mild chest tightness on coughing as described in HPI. Gastrointestinal: Denies coffee ground emesis, hematemesis or vomiting Genitourinary: Denies burning urination or new urinary tract symptoms Musculoskeletal: Denies acute joint pain or limited range of motion. No acute injury Neurologic: Denies seizure-like symptoms. skin: No ulcer. No rash Endocrinology: Reports systems reviewed and no addt'l complaints, except as documented Hematologic/Lymphatic: Reports systems reviewed and no addt'l complaints, except as documented Rest 14 ROS are negative except as mentioned in HPI Vital Signs Vital Signs Vital Signs: 10/02/23 14:09 10/02/23 14:39 10/02/23 14:48 Temperature 96.4 F L 97.6 F L Temperature Source Temporal Oral Pulse Rate 102 H 83 Respiratory Rate 24 H 19 H Respiratory Effort Short of Breath Respiratory Depth Respiratory Pattern Blood Pressure 158/88 H 131/74 H Blood Pressure Mean 111 93 Pulse Ox 96 96 Oxygen Delivery Method Room Air Room Air 10/02/23 14:50 10/02/23 15:31 10/02/23 18:13 Temperature 97.7 F L Temperature Source Temporal Pulse Rate 85 69 Respiratory Rate 20 H 26 H Respiratory Effort Short of Breath Respiratory Depth Shallow Respiratory Pattern Normal Normal Blood Pressure 154/101 H Blood Pressure Mean 118 Pulse Ox 95 Oxygen Delivery Method Room Air Room Air 10/02/23 18:14 10/02/23 18:15 Temperature 97.7 F L 97.7 F L Temperature Source Temporal Pulse Rate 101 H 107 H Respiratory Rate 24 H 21 H Respiratory Effort Respiratory Depth Respiratory Pattern Blood Pressure 154/101 H 133/79 H Blood Pressure Mean 118 97 Pulse Ox 95 95 Oxygen Delivery Method Room Air Weight Weight: 201 lb 15.095 oz Body Mass Index (BMI) 35.7 Physical Exam Narrative General: Alert, Oriented x3, Cooperative HEENT: Bilateral hard of hearing. Atraumatic, PERRLA, EOMI, Normocephalic Oral: No Gingival or Mucosal Lesions/ Ulcerations Neck: Supple, No JVD, Negative Carotid Bruits Lungs: Air entry severely diminished almost no air entry on the left side of chest. Large left pleural effusion. No crepitation/rhonchi. No reproducible tenderness. Cardiovascular: Regular rate, Regular Rhythm, Normal S1, Normal S2, No murmurs Abdomen: Bowel Sounds Present, Soft, Non Tender, Non-Distended : No renal angle tenderness. No suprapubic tenderness. Extremities: Bilateral leg edema below knee 2+, Capillary Refill Less than 3 Seconds Skin: No rashes, No breakdown Musculoskeletal: No Tenderness to Palpation of Joints or Extremities Neurological: Cranial nerves II-XII grossly intact, DTR 2+/4. No acute focal neurological deficit. Psych/Mental Status: Flat affect. Results Lab / Micro Data 10/02/23 14:20 10/02/23 16:44 Labs: Laboratory Results - last 24 hr 10/02/23 14:20: WBC 3.8 L, RBC 3.95 L, Hgb 13.0, Hct 40.4, MCV 102.3 H, MCH 32.9 H, MCHC 32.2, RDW Std Deviation 67.1 H, RDW Coeff of Katherine 18.0 H, Plt Count 106 L, MPV 9.7, Immature Gran % (Auto) 0.300, Neut % (Auto) 56.3, Lymph % (Auto) 32.1, Hutchinson % (Auto) 9.2, Eos % (Auto) 1.6, Baso % (Auto) 0.5, Absolute Neuts (auto) 2.1, Absolute Lymphs (auto) 1.22, Nucleated RBC % 0, Anisocytosis 2+, Microcytosis 1+, Macrocytosis 1+, D-Dimer Quant (PE/DVT) 11.88 H*, Sodium 143, Potassium 3.1 L, Chloride 104, Carbon Dioxide 27.0, Anion Gap 12, BUN 20 H, Creatinine 1.39 H, Estim Creat Clear Calc 26.26, Est GFR (MDRD) Af Amer 47 L, Est GFR (MDRD) Non-Af 39 L, BUN/Creatinine Ratio 14.4, Glucose 110 H, Calcium 8.3 L, Troponin I High Sens 21 10/02/23 16:43: Troponin I High Sens 15 Imagaing Radiology Impression Chest X-Ray 10/02/23 14:15 IMPRESSION: Large left pleural effusion. Electronically Signed: Oc Oleary MD at 15:08 EST , Chest CTA 10/02/23 15:18 IMPRESSION: No demonstrated pulmonary embolism or arterial dissection. Large left effusion. Small right pleural effusion. Diffuse atelectasis of the left lung. Very minimal aeration of the left lung Ascites. There is diffuse subcutaneous edema. This can suggest anasarca when combined with pleural effusions and ascites. Electronically Signed: Oc Oleary MD at 16:15 EST , Assessment & Plan Assessment/Plan (1) Pleural effusion, left: PLAN: Plan This 83-year-old female being admitted for progressive worsening shortness of breath for 1 week most likely due to large left pleural effusion. 1. Anasarca, subacute large left pleural effusion, small right pleural effusion, ascites exact etiology unclear: Patient is being admitted in PCU. Chest x-ray initially reviewed and shows large left pleural effusion almost to the apex. Ultrasound-guided therapeutic thoracocentesis ordered. Diagnostic labs ordered. Patient does not have leukocytosis but thrombocytopenia 106,000. DuoNeb as needed. BiPAP as needed for shortness of breath during the night and naps. 2D echo is ordered for suspicion of heart failure as patient having leg swelling 2. BNP ordered. 2 serial troponins are negative therefore ACS unlikely. Clinical history also not suggestive of recent URI or pneumonia. But if patient spikes fever will need antibiotic. D-dimer was elevated but CTA of chest was done which was negative for acute PE but again showed large left pleural effusion with diffuse atelectasis of left lung and minimal aeration, mild right pleural effusion, perihepatic ascites and diffuse subcutaneous edema. 2. Hypertension: Blood pressure is in control. 3. Diabetes melitis type II: Glucose in BMP is 110. Accu-Chek is and cover with Hem-o-martell sliding scale. 4. Kidney dysfunction, unclear acute or chronic but probably CKD stage IIIb: Patient BUNs/creatinine elevated 20/1.39. In our record, last labs available is from 2016 when her BUNs/creatinine was 11/0.52. Patient had IV contrast but had 1 L normal saline given in the ED. For now, hold any diuretic or IV fluid. Reevaluate kidney function tomorrow AM. UA is ordered. Patient denies burning micturition or acute blood related symptoms. 5. Liver spot as per history: Details not available. Rest as mentioned above. Patient states she gets ultrasound for spotting her liver. Advised to continue follow-up with GI in [place]. Liver chemistry ordered. DVT prophylaxis: Enoxaparin 30 mg subcu daily adjusted to creatinine clearance. Living will/advanced directive/end of life care: Patient does have living will or advanced directive. Patient's son near the bedside is power of drop man for health. After discussion of benefits/risks procedures involved with full code, DNR CC arrest and DNR CC, the patient opted for full code and wants to try intubation or all possible resuscitation but if it is prolonged on ventilator or irreversible or terminal, convert to DNR CC arrest Patient does want artificial life support including intubation, tube feed, ventilator and/chest compression, central venous catheter, vasopressor and DC shock if needed Total time spent in [id number] encounter in discussion of advanced directive 17 minutes. Laboratory Results 10/02/23 14:20: WBC 3.8 L, RBC 3.95 L, Hgb 13.0, Hct 40.4, MCV 102.3 H, MCH 32.9 H, MCHC 32.2, RDW Std Deviation 67.1 H, RDW Coeff of Katherine 18.0 H, Plt Count 106 L, MPV 9.7, Immature Gran % (Auto) 0.300, Neut % (Auto) 56.3, Lymph % (Auto) 32.1, Hutchinson % (Auto) 9.2, Eos % (Auto) 1.6, Baso % (Auto) 0.5, Absolute Neuts (auto) 2.1, Absolute Lymphs (auto) 1.22, Nucleated RBC % 0, Anisocytosis 2+, Microcytosis 1+, Macrocytosis 1+, D-Dimer Quant (PE/DVT) 11.88 H*, Sodium 143, Potassium 3.1 L, Chloride 104, Carbon Dioxide 27.0, Anion Gap 12, BUN 20 H, Creatinine 1.39 H, Estim Creat Clear Calc 26.26, Est GFR (MDRD) Af Amer 47 L, Est GFR (MDRD) Non-Af 39 L, BUN/Creatinine Ratio 14.4, Glucose 110 H, Calcium 8.3 L, Troponin I High Sens 21 10/02/23 16:43: Troponin I High Sens 15 Clinical Impression(s) from Imaging Studies Chest X-Ray 10/02/23 14:15 IMPRESSION: Large left pleural effusion. Electronically Signed: Oc Oleary MD at 15:08 EST , Chest CTA 10/02/23 15:18 IMPRESSION: No demonstrated pulmonary embolism or arterial dissection. Large left effusion. Small right pleural effusion. Diffuse atelectasis of the left lung. Very minimal aeration of the left lung Ascites. There is diffuse subcutaneous edema. This can suggest anasarca when combined with pleural effusions and ascites. Charges/Coding Visit Charges Inpatient E&M: 35330 Init Hosp L3 Procedures Hospitalists Procedures: 32592 Advncd Care Plan 30 Min
--- OUTSIDE RECORDS SUMMARY | 2023-10-02 18:59 | XMS RPT_ITS | CCD ---
Author Name Unknown Address [address] [place] [address] Organization [facility] Care Team Providers Care Furniture Associate Name Role Phone RUBÉN WERNER) Unavailable Unavailable RUBÉN WERNER) Unavailable Unavailable RANCHO WILLIAM Consulting Unavailable RANCHO WILLIAM Referring Unavailable YUAN ALAN DO Admitting Unavailable YUAN ALAN DO Primary Care Unavailable YUAN ALAN DO Attending Unavailable PROVIDER, UNKNOWN Consulting Unavailable PROVIDER, UNKNOWN Consulting Unavailable PROVIDER, UNKNOWN Consulting Unavailable TIMO CRONIN Admitting Unavailable TIMO CRONIN Primary Care Unavailable TIMO CRONIN Attending Unavailable ANA RUBIN MD Consulting Unavailable PROVIDER, UNKNOWN Consulting Unavailable PROVIDER, UNKNOWN Consulting Unavailable PROVIDER, UNKNOWN Consulting Unavailable Allie BRUCE, Sameer Parks Primary Care Provider [phone] Allie BRUCE, Sameer Parks Primary Care Provider [phone] Allie BRUCE, Sameer Parks Primary Care Provider [phone] SAMEER KELLEY Primary Care Unavailable SAMEER KELLEY [...] 89.36 kg Sameer Kelley MD Work Phone: [facility] 09-02-2023 15:51-0500 Diastolic blood pressure 70 mm[Hg] Sameer Kelley MD Work Phone: [facility] 09-02-2023 15:51-0500 Heart rate 78 /min Sameer Kelley MD Work Phone: [facility] 09-02-2023 15:51-0500 Respiratory rate 16 /min Sameer Kelley MD Work Phone: [facility] 09-02-2023 15:51-0500 SaO2% (BldA) [Mass fraction] 100 % Sameer Kelley MD Work Phone: [facility] 09-02-2023 15:51-0500 Systolic blood pressure 116 mm[Hg] Sameer Kelley MD Work Phone: [facility] 01-24-2023 12:49-0400 Body weight 80.74 kg Delmy Fermin APRN.REPAIR COIL WINDER Work Phone: [facility] 01-24-2023 12:49-0400 Diastolic blood pressure 78 mm[Hg] Delmy Fermin APRN.REPAIR COIL WINDER Work Phone: [facility] 01-24-2023 12:49-0400 Heart rate 76 /min Delmy Fermin APRN.REPAIR COIL WINDER Work Phone: [facility] 01-24-2023 12:49-0400 SaO2% (BldA) [Mass fraction] 99 % Delmy Fermin APRN.REPAIR COIL WINDER Work Phone: [facility] 01-24-2023 12:49-0400 Systolic blood pressure 134 mm[Hg] Delmy Letha HEARN.REPAIR COIL WINDER Work Phone: [facility] 12-09-2022 17:12-0500 Body height 157.5 cm Sameer Kelley MD Work Phone: [facility] 12-09-2022 17:12-0500 Body temperature 97.7 [degF] Sameer Kelley MD Work Phone: [facility] 12-09-2022 17:12-0500 Body weight 78.47 kg Sameer Kelley MD Work Phone: [facility] 12-09-2022 17:12-0500 Diastolic blood pressure 62 mm[Hg] Sameer Kelley MD Work Phone: [facility] 12-09-2022 17:12-0500 Heart rate 96 /min Sameer Kelley MD Work Phone: [facility] 12-09-2022 17:12-0500 Respiratory rate 16 /min Sameer Kelley MD Work Phone: [facility] 12-09-2022 17:12-0500 SaO2% (BldA) [Mass fraction] 98 % Sameer Kelley MD Work Phone: [facility] 12-09-2022 17:12-0500 Systolic blood pressure 124 mm[Hg] Sameer Kelley MD Work Phone: [facility] 06-07-2022 14:02-0400 Diastolic blood pressure 64 mm[Hg] Sameer Kelley MD Work Phone: [facility] 06-07-2022 14:02-0400 Systolic blood pressure 124 mm[Hg] Sameer Kelley MD Work Phone: [facility] 06-07-2022 13:37-0400 Body temperature 97 [degF] Sameer Kelley MD Work Phone: [facility] 06-07-2022 13:37-0400 Body weight 78.93 kg Sameer Kelley MD Work Phone: [facility] 06-07-2022 13:37-0400 Heart rate 68 /min Sameer Kelley MD Work Phone: [facility] 06-07-2022 13:37-0400 Respiratory rate 12 /min Sameer Kelley MD Work Phone: [facility] 04-23-2022 16:35-0400 Body temperature 98.91 [degF] Delmy Painter SUPERVISOR WHITE SUGAR.REPAIR COIL WINDER Work Phone: [facility] 04-23-2022 16:35-0400 Body weight 82.37 kg Delmy Painter SUPERVISOR WHITE SUGAR.REPAIR COIL WINDER Work Phone: [facility] 04-23-2022 16:35-0400 Diastolic blood pressure 80 mm[Hg] Delmy Painter SUPERVISOR WHITE SUGAR.REPAIR COIL WINDER Work Phone: [facility] 04-23-2022 16:35-0400 Heart rate 115 /min Delmy Painter SUPERVISOR WHITE SUGAR.REPAIR COIL WINDER Work Phone: [facility] 04-23-2022 16:35-0400 Respiratory rate 20 /min Delmy Painter SUPERVISOR WHITE SUGAR.REPAIR COIL WINDER Work Phone: [facility] 04-23-2022 16:35-0400 SaO2% (BldA) [Mass fraction] 98 % Delmy Painter SUPERVISOR WHITE SUGAR.REPAIR COIL WINDER Work Phone: [facility] 04-23-2022 16:35-0400 Systolic blood pressure 150 mm[Hg] Delmy Painter SUPERVISOR WHITE SUGAR.REPAIR COIL WINDER Work Phone: [facility] Encounters Encounter Date Encounter Type Care Provider Facility Start: 09-02-2023 End: 09-03-2023 ambulatory SAMEER KELLEY Facility:[facility] Start: 09-02-2023 End: 09-02-2023 Patient encounter procedure Sameer Kelley MD Work Phone: [facility] Procedures Date Procedure Procedure Detail Performing Clinician Start: 09-02-2023 [employer] COVI D-19 VACCINE ( SEASON) AGE 12+ YR Sameer Kelley MD Work Phone: Start: 09-02-2023 INFLUENZA VACCINE, P RSV FREE, AGE 65+ YR, HIGH DOSE, QUADRIVALENT (FLUZONE HIGH-DOSE) Sameer Kelley MD Work Phone: Start: 02-10-2023 Echo tthrc r-t 2d w/wom-mode compl spec&colr d Delmy Fermin SUPERVISOR WHITE SUGAR.REPAIR COIL WINDER Work Phone: Start: 02-10-2023 Duplex scan extracra nial art compl bi study Delmy Fermin SUPERVISOR WHITE SUGAR.REPAIR COIL WINDER Work Phone: Start: 01-06-2023 Us abdominal real ti me w/image documentation Lux Singh MD Work Phone: Start: 12-09-2022 Ecg routine ecg w/le ast 12 lds i&r only [facility] Provider Start: 12-09-2022 INFLUENZA SEASONAL QUADRIVALENT HIGH DOSE AGE 65+ Sameer Kelley MD Work Phone: Start: 06-07-2022 [employer]ER[employer] COVI D-19 VACCINE, AGE 12+ YR (LEA TOP) Sameer Kelley MD Work Phone: Start: 02-25-2022 Us abdominal real ti me w/image documentation Lux Singh MD Work Phone: Start: 12-07-2021 Adult depression scr eening assessment Us 1 Work Phone: Plan of Treatment Date Care Activity Detail Author Start: 06-03-2024 Hepatitis B screening Urine Albumin:Creatinine Ratio [facility] Start: 05-31-2024 Hepatitis B surface antibody level LDL Cholesterol [facility] Start: 02-20-2024 Hemoglobin A1c/Hemoglobin.total in Blood HbA1C [facility] Start: 12-09-2023 3 comp foot exam completed DIABETIC FOOT EXAM [facility] Start: 12-09-2023 ANNUAL PCP TEAM CHRONIC DISEASE VISIT ANNUAL PCP TEAM CHRONIC DISEASE VISIT [facility] Start: 12-09-2023 BP CONTROLLED (<130/80) BP CONTROLLED (<130/80) [facility] Start: 12-03-2023 End: 03-03-2024 Comprehensive metabolic 2000 panel - Serum or Plasma COMP METABOLIC PANEL Lab Routine Cirrhosis of liver without ascites, unspecified hepatic cirrhosis type (HCC) Expected: 12/03/2023, Expires: 03/03/2024 [facility] Work Phone: Immunizations Immunization Date Immunization Notes Care Provider Fa cili 09-02-2023 COVID-19 vaccine, ag e 12+ yr, season ([place]) Sameer Kelley MD Work Phone: [facility] 09-02-2023 influenza (HD-IIV4) vaccine, age 65+ yr, high dose, quadrivalent, PF (FLUZONE HIGH-DOSE) Sameer Kelley MD Work Phone: [facility] 12-09-2022 influenza, high-dose , quadrivalent vaccine (FLUZONE HIGH DOSE QUADRIVALENT) Sameer Kelley MD Work Phone: [facility] Work Phone: 12-09-2022 influenza virus vacc ine, unspecified formulation Us 2 Work Phone: [facility] 06-07-2022 COVID-19 vaccine, ag e 12+ yr ([employer]-BIONTECH - LEA TOP) Sameer Kelley MD Work Phone: [facility] Work Phone: 01-18-2022 pneumococcal (PCV20) vaccine, 20 valent (PREVNAR 20) Sameer Kelley MD Work Phone: [facility] Work Phone: 08-26-2021 influenza, high-dose , quadrivalent vaccine (FLUZONE HIGH DOSE QUADRIVALENT) Us 1 Work Phone: [facility] Work Phone: 02-24-2021 COVID-19 vaccine, fu ll dose (MODERNA) Us 1 Work Phone: [facility] Work Phone: 10-15-2020 influenza, high-dose , quadrivalent vaccine (FLUZONE HIGH DOSE QUADRIVALENT) Us 1 Work Phone: [facility] Work Phone: 12-18-2019 hepatitis A and hepatitis B vaccine Us 1 Work Phone: [facility] Work Phone: 09-04-2019 hepatitis A and hepatitis B vaccine Us 1 Work Phone: [facility] Work Phone: 09-04-2019 influenza, high dose seasonal, preservative-free Us 1 Work Phone: [facility] Work Phone: 08-24-2018 hepatitis B vaccine, adult dosage Us 1 Work Phone: [facility] Work Phone: 06-27-2018 influenza, high dose seasonal, preservative-free Us 1 Work Phone: [facility] Work Phone: 03-01-2018 hepatitis B vaccine, adult dosage Us 1 Work Phone: [facility] 01-23-2018 hepatitis B vaccine, adult dosage Us 1 Work Phone: [facility] Work Phone: 06-23-2017 influenza, high dose seasonal, preservative-free Us 1 Work Phone: [facility] 09-29-2016 influenza, high dose seasonal, preservative-free Us 1 Work Phone: [facility] 08-18-2016 influenza, seasonal, injectable, preservative free Us 1 Work Phone: [facility] Work Phone: 12-26-2014 pneumococcal conjuga te vaccine, 13 valent Us 1 Work Phone: [facility] 07-11-2013 influenza virus vacc ine, unspecified formulation Us 1 Work Phone: [facility] 07-31-2009 influenza virus vacc ine, unspecified formulation Us 1 Work Phone: [facility] 08-29-2008 influenza virus vacc ine, unspecified formulation Us 1 Work Phone: [facility] Work Phone: 04-23-2008 tetanus and diphther ia toxoids, adsorbed, preservative free, for adult use (2 Lf of tetanus toxoid and 2 Lf of diphtheria toxoid) Us 1 Work Phone: [facility] Work Phone: 10-24-2007 pneumococcal polysaccharide vaccine, 23 valent Us 1 Work Phone: [facility] Work Phone: 08-17-2006 influenza virus vacc ine, unspecified formulation Us 1 Work Phone: [facility] Work Phone: Payers Date Payer Category Payer Unknown [id number] 2021 Unknown ANTHEM BLUE [facility] AND BLUE [facility] ANTHEM MEDIBLUE HMO [id number] 2021-Present [phone] [address] [place] [address] HMO [id number] 2021 Unknown HOSPITAL/MEDICAL GENERIC MEDICAL GENERIC [id number] 2021-Present [phone] [address] [place] [address] Indemnity [id number] 2021 Unknown [id number] 2021 Unknown [id number] 1940 Unknown [id number] 1940 Unknown [id number] Medicare [id number] Social History Date Type Detail Facility Start: 06-07-2022 Tobacco smoking stat us IAIS Ex-smoker [facility] Work Phone: End: 10-17-1962 History of tobacco use Current smoker [facility] Work Phone: Start: 12-07-2021 End: 06-03-2023 Alcohol intake Current drinker of alcohol (finding) [facility] Start: 12-07-2021 End: 12-09-2022 History SDOH Alcohol Frequency 2 [facility] Start: 03-18-2021 End: 12-07-2021 History SDOH Alcohol Std Drinks 1 [facility] Start: 12-07-2021 History SDOH Alcohol Comment 1 glass of wine per year [facility] Start: 12-07-2021 History SDOH Social Connections Phone 5 [facility] Start: 03-18-2021 End: 12-07-2021 History SDOH Social Connections Get Together 4 [facility] Start: 12-07-2021 End: 12-09-2022 History SDOH Social Connections Taoist 3 [facility] Start: 03-18-2021 Education 15 [facility] Start: 1940 Sex Assigned At Female [facility] Start: 04-13-2022 End: 06-07-2022 Exposure to SARS-CoV-2 (event) Not sure [facility] End: 10-17-1962 History of tobacco use Cigarette Smoker [facility] Work Phone: Start: 06-07-2022 Tobacco use and exposure Smoke less tobacco non-user [facility] Work Phone: Start: 06-07-2022 Tobacco Comment quit 40 yrs ago [facility] Start: 09-21-2020 End: 12-07-2021 History of Social function [facility] Work Phone: Start: 09-21-2020 End: 12-07-2021 Social connection and isolation panel [facility] Work Phone: Do you belong to any clubs or organizations such as buddhism groups, unions, fraternal or athletic groups, or school groups? No [facility] Work Phone: Are you now , , , , never or living with a partner? [facility] Work Phone: How often to you hav e a drink containing alcohol? Monthly or less [facility] Work Phone: How many standard dr inks containing alcohol do you have on a typical day? 1 or 2 [facility] Work Phone: How often do you hav e 6 or more drinks on 1 occasion? Less than monthly [facility] Work Phone: How hard is it for y ou to pay for the very basics like food, housing, medical care, and heating Not very hard [facility] Adult Depression Screening Assessment 0 [facility] Work Phone: Do you feel stress - tense, restless, nervous, or anxious, or unable to sleep at night because your mind is troubled all the time - these days [OSQ] Not at all [facility] Work Phone: (I/We) worried wheth er (my/our) food would run out before (I/we) got money to buy more. Never true [facility] Start: 04-12-2021 Gender identity Identifies as female gender (finding) [facility] Do you belong to any clubs or organizations such as buddhism groups, unions, fraternal or athletic groups, or school groups? Yes [facility] How often to you hav e a drink containing alcohol? Never [facility] Medical Equipment Procedure Code Equipment Code Equipment Origin al Text Equipment Identifier Dates Start: 08-26-2021 End: 06-03-2023 Clinical Notes 01-23-2019 to 09-02-2023 Sameer Kelley MD - 09/02/2023 4:07 PM ESTTelephone Encounter - Kathia Pedraza APRN.CNP - 05/23/2023 2:39 PM EDTTelephone Encounter - Liss Coto LPN - 05/23/2023 2:03 PM EDTPatient Instructions Note Date & Type Note Facility 09-02-2023 Note HNO ID: [id number] Author: Sameer Kelley MD Service: ? Author Type: Physician Type: Progress Notes Filed: 09/04/2023 11:24 AM Note Text: This note was created using [employer]. Subjective Carmina Bonds is a 83 year old female. We were concerned about cognitive decline last visit, but she was dealing with significant stressors. She felt she was managing okay. She still managed her bills and finances. She still drove. She had confusion coordinating her medications, and was doing better now that [facility] was packaging them. We stopped her [...] vaccination - IC (more content not included)... [facility] 09-02-2023 History of Presen t illness Narrative This note was created using [employer]. Subjective Carmina Bonds is a 83 year old female. We were concerned about cognitive decline last visit, but she was dealing with significant stressors. She felt she was managing okay. She still managed her bills and finances. She still drove. She had confusion coordinating her medications, and was doing better now that [facility] was packaging them. We stopped her [...] Sameer Kelley MD documented in this encounter [facility] 06-03-2023 Note HNO ID: [id number] Author: Sameer Kelley MD Service: ? Author Type: Physician Type: Progress Notes Filed: 06/03/2023 3:00 PM Note Text: This note was created using [employer]. Elma Bonds is a 82 year old female with son. She lived alone and inconsistencies in medications were noted. We are now sending prescriptions to [facility] for packaging. Overall condition is consistent with [...] Abs Lymph 1.00 - 4.00 k/uL 2.08 Parker% % 10.5 Abs Parker <0.87 k/uL 0.45 Eosin% % 2.3 Abs Eosin <0.46 k/uL 0.10 Baso% % 0.5 Abs Baso <0.11 k/uL <0.03 Immature Gran % % 0.2 IMMATURE GRANS (ABS) <0.10 k/uL <0.03 NRBC /100 WBC 0.0 Absolute nRBC <0.01 k/uL <0.01 DTYPE Auto Protein, Total 6.3 - 8.0 g/dL 6.8 Albumin 3.9 - 4.9 g/dL 3.4 (L) (more content not included)... [facility] 05-23-2023 Miscellaneous Notes The following approved medication requests have been transmitted electronically. Requested Prescriptions Signed Prescriptions Disp Refills liraglutide (VICTOZA) 0.6 mg/ 0.1 ml subcutaneous pen injector 2 Each 5 Sig: Inject 1.2 mg subcutaneously once daily. Authorizing Provider: KATHIA PEDRAZA APRN.CNP Called pt again and she needed the victoza to [facility]. She will review everything else at 06/03/23 appt. Sw spoke with both patient and patient son. Patient reports that she used her last victoza pen last night. Wanting to know status of refill on Victoza. Sw notes that she will send message to Dr. Kelley to see what status of patient victoza refill. Patient son and Sw discussed [facility]. Patient had told this Sw to talk with son about pre pill pack. Ray notes that his plan is to bring patient to her appt on 06/[address] Kelley with her medications. Mc states that the plan was to then update medications in system and send information to [facility] to see about pre pill pack. Mc notes that he feels that patient would benefit from the pre pill pack. Mc also notes that the nurse he spoke with noted that [facility] would do home delivery to [facility]. Sw called and left patient message to [...] going to forward this msg to our high school social studies teacher as well to help them get started with maybe getting her medications set up with [facility]. Pt verbalizes understanding. Pt also concerned [...] and his mom about using something like [facility] to help them out with her medications. Pt also concerned about finding a new parts cataloguer. She had an appt on 06/07. Spoke with son Fabian and encouraged for him to come with her to next appt, bring a copy of her medications and BP's. Appt changed to 06/03 to accomodate his schedule. documented in this encounter [facility] 03-24-2023 Miscellaneous Notes Patient has been identified [...] Radha Mendoza LPN documented in this encounter [facility] 03-16-2023 Miscellaneous Notes Called and left detailed message on verified VM giving the below results. Malika Jaime RN ----- Message from Delmy Fermin APRN.REPAIR COIL WINDER sent at 03/16/2023 9:35 AM EDT ----- Please call patient and notify her of lab results. TSH within normal limits. Thank you! documented in this encounter [facility] 02-11-2023 Miscellaneous Notes Left detailed message on [...] side. Thank you! documented in this encounter [facility] 02-11-2023 Miscellaneous Notes Please call patient and notify her of results. Echo looks good. Normal LV function, EF 63%, normal chamber sizes, mild aortic stenosis. Thank you! documented in this encounter [facility] 02-10-2023 Miscellaneous Notes Please call patient and notify her of carotid US results. No significant blockage on either side. Thank you! documented in this encounter [facility] 02-09-2023 Miscellaneous Notes Called and left detailed [...] evaluation. Thank you! documented in this encounter [facility] 01-24-2023 Note HNO ID: [id number] Author: Trina Troy RN Service: ? Author Type: Registered Nurse Type: Progress Notes Filed: 01/24/2023 1:40 PM Note Text: EVENT MONITOR DISPOSABLE PATCH INSTRUCTIONS Patient Name: Carmina Bonds Clinic Number: [id number] Skin prepped and cleansed with alcohol Patch secured to prepped area Monitor Activated Serial #: [id number] Patient Instructed: Prescribed order timeframe Bathing guidelines Usage of event button and diary documentation Return of monitor at the end of prescribed order Call with problems [phone] or [phone]. [phone] Patient expresses a good understanding of instructions Trina Troy RN [facility] 01-24-2023 Note HNO ID: [id number] Author: Delmy Fermin APRN.CNP Service: ? Author Type: Nurse Practitioner Type: Progress Notes Filed: 01/24/2023 1:40 PM Note Text: [facility] ([facility]) [address] [facility] [address] OUTPATIENT VISIT January 24, 2023 1:00 PM [...] carcinoma (BCC) of skin 06/27/2018 Dr. Najera, [facility] D[facility]. Internal hemorrhoids without mention of complication [...] Mother Coronary Artery Disease Mother Heart Father OR Diabetes Brother None Brother None Sister Emphysema Paternal Grandmother Di (more content not included)... [facility] 01-24-2023 Note HNO ID: [id number] Author: Kailyn Gilliland MD Service: Cardiovascular Surgery Author Type: Physician Type: Procedures Filed: 02/08/2023 1:34 PM Note Text: Patient Name: Carmina Bonds : 1940 Ordering Provider: DELMY FERMIN Indication: R06.09 Other forms of dyspnea Type of Monitor: Extended Monitoring-[employer]io Patch Enrollment Dates: 01/24/2023-01/31/2023 [facility] 01-24-2023 History of Presen t illness Narrative EVENT MONITOR DISPOSABLE PATCH INSTRUCTIONS Patient Name: Carmina Bonds Clinic Number: [id number] Skin prepped and cleansed with alcohol Patch secured to prepped area Monitor Activated Serial #: [id number] Patient Instructed: Prescribed order timeframe Bathing guidelines Usage of event button and diary documentation Return of monitor at the end of prescribed order Call with problems [phone] or [phone]. [phone] Patient expresses a good understanding of instructions Trina Troy RN Images from the original note were not included. [facility] Card[facility] [address] [facility] [address] OUTPATIENT VISIT January 24, 2023 1:00 PM [...] carcinoma (BCC) of skin 06/27/2018 Dr. Najera, [facility]. Internal hemorrhoids without mention of complication Lumbago Chronic low back pain Mild cognitive impairment 12/07/2021 Mitral valve disorders(424.0) 09/20/2006 MVP with regurgitation Nocturnal hypoxemia 01/23/2019 JAYDA (obstructive sleep apnea) DME [facility] Other dyspnea and respiratory abnormality Reactive airway [...] OPEN/PRQ RUPTURED ACHILLES TENDON 05/2008 Right ankle KISAHN W/WO REMOVAL TUBE OVARY 1979 ruptured tubal TONSILLECTOMY PRIMARY/SECONDARY <AGE 12 1951 Tonsillectomy TOTAL ABDOMINAL HYSTERECT W/WO RMVL TUBE OVARY 1982 KISHAN, LSO, Yehuda Abdullahi FAMILY HISTORY Problem Relation Age of Onset Diabetes Mother Cancer Mother skin Stroke Mother Heart Mother Coronary Artery Disease Mother Heart Father OR Diabetes Brother None Brother None Sister Emphysema [...] injection (DEFINITY) INTRAVENOUS DIRECTED PRN Delmy Fermin APRN.REPAIR COIL WINDER sodium chloride 0.9 % (flush) 10 mL (BD POSIFLUSH) 10 mL INTRAVENOUS DIRECTED PRN Delmy Fermin, SUPERVISOR WHITE [employer]GAR.REPAIR COIL WINDER Review of Systems Constitutional: Positive for malaise/fatigue. [...] 2023, 12:50 PM documented in this encounter [facility] 01-24-2023 Instructions Delmy Fermin APRN.CNP - 01/24/2023 1:15 PM EDT Heart Disease in Women Is heart disease a problem for women? Heart disease is the leading cause of of [place] women. More women from heart disease than [...] disease. You can get more information from: [place] Heart [email or web address] ( )www.heart.org Developed by [employer]. Published by [employer]. Copyright 2014 Jaco Solarsi and/or one of its subsidiaries. All rights reserved. documented in this encounter [facility] 01-06-2023 Note HNO ID: [id number] Author: Marivel Dailey RDMS Service: ? Author Type: Direct Support Worker Type: Progress Notes Filed: 01/06/2023 1:42 PM [...] Dailey RDMS January 06, 2023 1:42 PM [facility] 01-06-2023 History of Presen t illness Narrative [...] 2023 1:42 PM documented in this encounter [facility] 12-23-2022 Note HNO ID: [id number] Author: Raoul TrinidadYellowKorner) Service: ? Author Type: ? Type: Progress Notes Filed: 12/23/2022 12:54 PM Note Text: Carmina Bonds is identified through a medication adherence outreach initiative based on pharmacy claims data from [employer] (insurer) for Non-insulin DM medication(s). Patient is reviewed 12/23/22 due to medication adherence concerns with the following medications (name, strength, sig): Victoza 18mg/3ml; Inject 1.2 mg daily. Per reconcile dispense, last fill date and days supply: Filled 12/15/22 for 30 day supply Outcome of review/outreach: (choose outcome source and status) - Filled before Next fill date per reconcile dispense Raoul Nam (YellowKorner) [facility] 12-23-2022 Note Patient Outreach ([facility]) CARMINA BONDS ([id number]) 1940 F Date Time Provider Department 12/23/22 SAMEER KELLEY During your visit today, we recorded the following information about you: Raoul Nam ([employer]orner) 12/23/2022 12:54 PM Signed Carmina Bonds is identified through a medication adherence outreach initiative based on pharmacy claims data from [employer] (insurer) for Non-insulin DM medication(s). Patient is reviewed 12/23/22 due to medication adherence concerns with the following medications (name, strength, sig): Victoza 18mg/3ml; Inject 1.2 mg daily. Per reconcile dispense, last fill date and days supply: Filled 12/15/22 for 30 day supply Outcome of review/outreach: (choose outcome source and status) - Filled before Next fill date per reconcile dispense Raoul Nam [employer]) Allergies As of Date: 12/23/2022 (No Known [...] impairment [G31.84] 12/07/2021 Encounter Status:Closed by BERTA ([place])RAOUL on 12/23/22 [facility] 12-09-2022 Note HNO ID: [id number] Author: Sameer Kelley MD Service: ? Author Type: Physician Type: Progress Notes Filed: 12/09/2022 6:42 PM Note Text: This note was created using [employer]. Elma Bonds is a 82 year old [...] % 5.5 Estima (more content not included)... [facility] 12-09-2022 Note HNO ID: [id number] Author: Sameer Kelley MD Service: ? Author Type: Physician Type: Progress Notes Filed: 12/09/2022 6:42 PM Note Text: Carmina Bonds is a 82 year old female here for a Medicare Subsequent Annual Wellness Visit Health Risk Assessment In general, health is: Good Concerns with balance:Not at all Concerns with teeth or dentures:Not at all Concerns with sexual function:Not at all Howell anxious, stressed, angry, irritable, lonely, isolated, or [...] General Outside specialists seen: Dr. Lux Singh, [facility] Gastroenterology. Dr. Cristian Parra, ophthalmology. [...] and Tdap at pharmacy - Depression screening [facility] 12-09-2022 Instructions Sameer Kelley MD - 12/09/2022 6:04 PM EST VACCINES TO GET AT YOUR PHARMACY SHINGRIX VACCINE(1 of 2) Never done DTAP,TDAP,TD(1 - Tdap) due on 04/24/2008 COVID-19 VACCINE(4 - Booster for Moderna series) due on 08/02/2022 COPY OF YOUR ADVANCED DIRECTIVE FOR YOUR FILE HERE. documented in this encounter [facility] 12-09-2022 History of Presen t illness Narrative This note was created using [employer]. Elma Bonds is a 82 year old [...] all Concerns with sexual function:Not at all Howell anxious, stressed, angry, irritable, lonely, isolated, or [...] General Outside specialists seen: Dr. Lux Singh, [facility] Gastroenterology. Dr. Cristian Parra, ophthalmology. [...] - Depression screening documented in this encounter [facility] 06-07-2022 History of Presen t illness Narrative This note was created using [employer]. Elma Bonds is a 81 year old [...] Abs Lymph 1.00 - 4.00 k/uL 1.06 Parker% % 8.5 Abs Parker <0.87 k/uL 0.24 Eosin% % 3.2 Abs [...] Sameer Kelley MD documented in this encounter [facility] 05-17-2022 Miscellaneous Notes rx from January says [...] formulary meds available : NO Insurance Company: [employer] phone number: [phone] Patient insurance ID number: [id number] Radha Mendoza LPN Patient said she tests twice daily. documented in this encounter [facility] 04-23-2022 Instructions Delmy Painter APRN.REPAIR COIL WINDER - 04/23/2022 4:43 PM EDT Beginning Home [...] to your local emergency facility: Notify the commuter train operator that you are seeking care for [...] be around others. documented in this encounter [facility] 04-23-2022 History of Presen t illness Narrative This note was created using [employer]. Subjective Carmina Bonds is a 81 year [...] history is provided by the patient. No site head was used. URI There is no chest [...] carcinoma (BCC) of skin 06/27/2018 Dr. Najera, [facility]at[facility]. Internal hemorrhoids without mention of complication [...] TUBE OVARY 1982 KISHAN, LSO, Yehuda Kaylen ALLERGIES Patient has no [...] Mother Coronary Artery Disease Mother Heart Father OR Diabetes Brother None Brother None Sister Emphysema [...] having symptoms since last Tuesday. 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 Colon cancer screening 06/03/2017 8 Overview: Added automatically from request for surgery [id number] Dysphagia 06/03/2017 01/23/2018 Overview: Added automatically from request for surgery [id number] Urgency incontinence 01/13/2011 01/23/2018 Urinary frequency 01/13/2011 [...] of this encounter (statuses as of 04/23/2022) [facility] History of Past illness Narrative* Problem Noted Date Resolved Date Nocturnal hypoxemia 01/23/2019 09/04/2019 Cervicogenic headache 01/20/2019 09/04/2019 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 Colon cancer screening 06/03/2017 8 Overview: Added automatically from request for surgery [id number] Dysphagia 06/03/2017 01/23/2018 Overview: Added automatically from request for surgery [id number] Urgency incontinence 01/13/2011 01/23/2018 Urinary frequency 01/13/2011 [...] of this encounter (statuses as of 05/17/2022) [facility] of Past illness Narrative* Problem Noted Date Resolved Date Nocturnal hypoxemia 01/23/2019 09/04/2019 Cervicogenic headache 01/20/2019 09/04/2019 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 Colon cancer screening 06/03/2017 8 Overview: Added automatically from request for surgery [id number] Dysphagia 06/03/2017 01/23/2018 Overview: Added automatically from request for surgery [id number] Urgency incontinence 01/13/2011 01/23/2018 Urinary frequency 01/13/2011 [...] of this encounter (statuses as of 06/07/2022) [facility] of Past illness Narrative* Problem Noted Date Resolved Date Nocturnal hypoxemia 01/23/2019 09/04/2019 Cervicogenic headache 01/20/2019 09/04/2019 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 Colon cancer screening 06/03/2017 8 Overview: Added automatically from request for surgery [id number] Dysphagia 06/03/2017 01/23/2018 Overview: Added automatically from request for surgery [id number] 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 [...] of this encounter (statuses as of 12/10/2022) [facility] of Past illness Narrative* Problem Noted Date Resolved Date Nocturnal hypoxemia 01/23/2019 09/04/2019 Cervicogenic headache 01/20/2019 09/04/2019 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 Colon cancer screening 06/03/2017 8 Overview: Added automatically from request for surgery [id number] Dysphagia 06/03/2017 01/23/2018 Overview: Added automatically from request for surgery [id number] 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 [...] of this encounter (statuses as of 01/24/2023) [facility] of Past illness Narrative* Problem Noted Date Resolved Date Nocturnal hypoxemia 01/23/2019 09/04/2019 Cervicogenic headache 01/20/2019 09/04/2019 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 Colon cancer screening 06/03/2017 8 Overview: Added automatically from request for surgery [id number] Dysphagia 06/03/2017 01/23/2018 Overview: Added automatically from request for surgery [id number] 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 [...] of this encounter (statuses as of 02/09/2023) [facility] of [facility] Narrative* Problem Noted Date Resolved Date Nocturnal hypoxemia 01/23/2019 09/04/2019 Cervicogenic headache 01/20/2019 09/04/2019 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 Colon cancer screening 06/03/2017 8 Overview: Added automatically from request for surgery [id number] Dysphagia 06/03/2017 01/23/2018 Overview: Added automatically from request for surgery [id number] 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 [...] of this encounter (statuses as of 02/11/2023) [facility] of Past illness Narrative* Problem Noted Date Resolved Date Nocturnal hypoxemia 01/23/2019 09/04/2019 Cervicogenic headache 01/20/2019 09/04/2019 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 Colon cancer screening 06/03/2017 8 Overview: Added automatically from request for surgery [id number] Dysphagia 06/03/2017 01/23/2018 Overview: Added automatically from request for surgery [id number] 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 [...] of this encounter (statuses as of 02/11/2023) [facility] of Past illness Narrative* Problem Noted Date Resolved Date Nocturnal hypoxemia 01/23/2019 09/04/2019 Cervicogenic headache 01/20/2019 09/04/2019 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 Colon cancer screening 06/03/2017 8 Overview: Added automatically from request for surgery [id number] Dysphagia 06/03/2017 01/23/2018 Overview: Added automatically from request for surgery [id number] 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 [...] of this encounter (statuses as of 02/12/2023) [facility] of [facility] Narrative* Problem Noted Date Resolved Date Nocturnal hypoxemia 01/23/2019 09/04/2019 Cervicogenic headache 01/20/2019 09/04/2019 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 Colon cancer screening 06/03/2017 8 Overview: Added automatically from request for surgery [id number] Dysphagia 06/03/2017 01/23/2018 Overview: Added automatically from request for surgery [id number] 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 [...] of this encounter (statuses as of 03/25/2023) [facility] of [facility] Narrative* Problem Noted Date Resolved Date Nocturnal hypoxemia 01/23/2019 09/04/2019 Cervicogenic headache 01/20/2019 09/04/2019 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 Colon cancer screening 06/03/2017 8 Overview: Added automatically from request for surgery [id number] Dysphagia 06/03/2017 01/23/2018 Overview: Added automatically from request for surgery [id number] 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 [...] of this encounter (statuses as of 03/16/2023) [facility] of [facility] Narrative* Problem Noted Date Diagnosed Date Resolved Date Nocturnal hypoxemia 01/23/2019 09/04/20 Cervicogenic headache 01/20/20192018 Nodular regenerative hyperplasia of liver 08/25/2017 01/23/2018 Colon cancer screening 06/03/201701/23 Overview: Added automatically from request for surgery [id number] Dysphagia 06/03/2017 01/23/2018 Overview: Added automatically from request for surgery [id number] 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 [...] of this encounter (statuses as of 05/24/2023) [facility] of Past illness Narrative* Problem Noted Date Diagnosed Date Resolved Date Nocturnal hypoxemia 01/23/2019 09/04/20 19 Cervicogenic headache 01/20/20192018 Nodular regenerative hyperplasia of liver 08/25/2017 01/23/2018 Colon cancer screening 06/03/201701/23 Overview: Added automatically from request for surgery [id number] Dysphagia 06/03/2017 01/23/2018 Overview: Added automatically from request for surgery [id number] 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 [...] of this encounter (statuses as of 08/21/2023) [facility] of Past illness Narrative* Problem Noted Date Diagnosed Date Resolved Date Nocturnal hypoxemia 01/23/2019 09/04/20 19 Cervicogenic headache 01/20/20192018 Nodular regenerative hyperplasia of liver 08/25/2017 01/23/2018 Colon cancer screening 06/03/201701/23 Overview: Added automatically from request for surgery [id number] Dysphagia 06/03/2017 01/23/2018 Overview: Added automatically from request for surgery [id number] 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 note* Diagnosis Viral illness- Primary Unspecified viral infection, in conditions classified elsewhere and of unspecified site Exposure to COVID-19 virus documented in this encounter [facility] note* Diagnosis Controlled type 2 diabetes mellitus without complication, without long-term current use of insulin (HCC)- Primary Essential hypertension Unspecified essential hypertension Cirrhosis of liver without ascites, unspecified hepatic cirrhosis type (HCC) Need for COVID-19 vaccine JAYDA (obstructive sleep apnea) Obstructive sleep apnea (adult) (pediatric) documented in this encounter [facility] note* Diagnosis Medicare annual wellness visit, [...] Unspecified essential hypertension documented in this encounter [facility] note* Diagnosis ALLAN (dyspnea on exertion)- Primary Other dyspnea and respiratory abnormality Chest pain, unspecified type Fatigue, unspecified type Palpitations Lightheadedness Dizziness and giddiness Essential hypertension Unspecified essential hypertension Hyperlipidemia, unspecified hyperlipidemia type Controlled type 2 diabetes mellitus without complication, without long-term current use of insulin (HCC) Obesity, Class I, BMI 30-34.9 Obesity, unspecified [facility] Diagnosis Lightheadedness Dizziness and giddiness documented in this encounter [facility] note* Diagnosis ALLAN (dyspnea on exertion) Other dyspnea and respiratory abnormality Fatigue, unspecified type Palpitations [facility]* Diagnosis Controlled type 2 diabetes mellitus without complication, without long-term current use of insulin (HCC) [facility]* Diagnosis Controlled type 2 diabetes mellitus without complication, without long-term current use of insulin (HCC) [facility]* Diagnosis Mild cognitive impairment- Primary Mild cognitive impairment, so stated Need for influenza vaccination Need for prophylactic vaccination and inoculation against influenza Edema, unspecified type Abnormal weight gain Type 2 diabetes mellitus with diabetic nephropathy, without long-term current use of insulin (HCC) Need for COVID-19 vaccine Cirrhosis of liver without ascites, unspecified hepatic cirrhosis type (HCC) [facility] Outpatient Procedure (Routine) - Authorized Specialty Diagnoses / Procedures Referred By Masha woodard [facility] Diagnoses Lightheadedness Procedures US CAROTID ARTERIES ESTHELA V[facility] LAB DUPLEX SCAN EXTRACRANIAL ART COMPL BI STUDY Delmy Fermin APRN.CNP [address] [address] [facility] [place] [address] [place] [address] Referral ID Status Reason Start Date Expiration Date Visits Requested Visits Authorized [id number] Authorized Auto-Generat ed Referral 01/24/2023 01/24/2024 1 1 * Outpatient Procedure (Routine) - Authorized Specialty Diagnoses / Procedures Referred By Masha woodard [facility] Diagnoses ALLAN (dyspnea on exertion) Fatigue, unspecified type Palpitations Procedures ECHO ECHO TTHRC R-T 2D W/WOM-MODE COMPL SPEC&COLR D Delmy Fermin APRN.REPAIR COIL WINDER [address] [place] [address] [place] [address] [facility] [place] [address] [place] [id number] Referral ID Status Reason Start Date Expiration Date Visits Requested Visits Authorized [id number] Authorized Auto-Generat ed Referral 01/24/2023 01/24/2024 1 1 [facility] for visit Narrative* Outpatient Procedure (Routine) - Closed Specialty Diagnoses / Procedures Referred By Contblake t Referred To Contact [facility] Diagnoses Lightheadedness Procedures US CAROTID ARTERIES ESTHELA VAS LAB DUPLEX SCAN EXTRACRANIAL ART COMPL BI STUDY Delmy Fermin APRN.TRICE [address] [place] [address] [place] [address] [facility] [address] [address] Referral ID Status Reason Start Date Expiration Date V isits Requested Visits Authorized [id number] Closed Auto-Generate d Referral 01/24/2023 01/24/2024 1 1 [facility] for visit Narrative* Outpatient Procedure (Routine) - Closed Specialty Diagnoses / Procedures Referred By Masha woodard Referred To Contact [facility] Diagnoses ALLAN (dyspnea on exertion) Fatigue, unspecified type Palpitations Procedures ECHO ECHO TTHRC R-T 2D W/WOM-MODE COMPL SPEC&COLR D Delmy Fermin APRN.REPAIR COIL WINDER [address] [place] [address] [place] [address] 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 Advance Directive(s) 06/15/2017 10:37 AM Reason for Referral Specialty Diagnoses / Procedures Referred By Contac t Referred To Contact Cardiology Diagnoses Chest pain, unspecified type Procedures CONSULT TO CARDIOLOGY OFFICE/OUTPATIENT [facility] HIGH MDM 60-74 MINUTES Sameer Kelley MD [address] [place] [address] Referral ID Status Reason Start Date Expiration Date Visits Requested Visits Authorized [id number] Pending Review PCP Requested Referral 12/09/2022 12/09/2023 1 1 Specialty Diagnoses / Procedures Referred By Contac t Referred [facility] Diagnoses Chest pain, unspecified type Procedures ECG COMPLETE ECG ROUTINE ECG W/LEAST 12 LDS W/I&R Sameer Kelley MD [address] [place] [address] [facility] [address] [place] [address] Referral ID Status Reason Start Date Expiration Date V isits Requested Visits Authorized [id number] Closed Auto-Generate d Referral 12/09/2022 12/09/2023 1 1 Additional Source Comments INFORMATION SOURCE (unrecogn ized section and content) DATE CREATED AUTHOR AUTHOR'S ORGANIZ ATION 03/22/2019 [facility] ([place]) DATE CREATED AUTHOR AUTHOR'S ORGANIZ ATION 09/11/2020 [facility] DATE CREATED AUTHOR AUTHOR'S ORGANIZ ATION 12/13/2020 [facility] DATE CREATED AUTHOR AUTHOR'S ORGANIZ ATION 08/16/2021 [facility] DATE CREATED AUTHOR AUTHOR'S ORGANIZ ATION 12/03/2021 [facility] DATE CREATED AUTHOR AUTHOR'S ORGANIZ ATION 09/07/2023 [facility] Source Comments (unrecognize d section and content) In the event this informatio n is protected by the Federal Confidentiality of Alcohol and Drug Abuse Patient Records regulations: The Federal rules restrict any use of the information to criminally investigate or prosecute any alcohol or drug abuse patient.[facility] the event this information is protected by the Federal Confidentiality of Alcohol and Drug Abuse Patient Records regulations: The Federal rules restrict any use of the information to criminally investigate or prosecute any alcohol or drug abuse patient.[facility] the event this information is protected by the Federal Confidentiality of Alcohol and Drug Abuse Patient Records regulations: The Federal rules restrict any use of the information to criminally investigate or prosecute any alcohol or drug abuse patient.[facility] the event this information is protected by the Federal Confidentiality of Alcohol and Drug Abuse Patient Records regulations: The Federal rules restrict any use of the information to criminally investigate or prosecute any alcohol or drug abuse patient.[facility] the event this information is protected by the Federal Confidentiality of Alcohol and Drug Abuse Patient Records regulations: The Federal rules restrict any use of the information to criminally investigate or prosecute any alcohol or drug abuse patient.[facility] the event this information is protected by the Federal Confidentiality of Alcohol and Drug Abuse Patient Records regulations: The Federal rules restrict any use of the information to criminally investigate or prosecute any alcohol or drug abuse patient.[facility] the event this information is protected by the Federal Confidentiality of Alcohol and Drug Abuse Patient Records regulations: The Federal rules restrict any use of the information to criminally investigate or prosecute any alcohol or drug abuse patient.[facility] the event this information is protected by the Federal Confidentiality of Alcohol and Drug Abuse Patient Records regulations: The Federal rules restrict any use of the information to criminally investigate or prosecute any alcohol or drug abuse patient.[facility] the event this information is protected by the Federal Confidentiality of Alcohol and Drug Abuse Patient Records regulations: The Federal rules restrict any use of the information to criminally investigate or prosecute any alcohol or drug abuse patient.[facility] the event this information is protected by the Federal Confidentiality of Alcohol and Drug Abuse Patient Records regulations: The Federal rules restrict any use of the information to criminally investigate or prosecute any alcohol or drug abuse patient.[facility] the event this information is protected by the Federal Confidentiality of Alcohol and Drug Abuse Patient Records regulations: The Federal rules restrict any use of the information to criminally investigate or prosecute any alcohol or drug abuse patient.[facility] HospitalIn the event this information is protected by the Federal Confidentiality of Alcohol and Drug Abuse Patient Records regulations: The Federal rules restrict any use of the information to criminally investigate or prosecute any alcohol or drug abuse patient.[facility] the event this information is protected by the Federal Confidentiality of Alcohol and Drug Abuse Patient Records regulations: The Federal rules restrict any use of the information to criminally investigate or prosecute any alcohol or drug abuse patient.[facility] the event this information is protected by the Federal Confidentiality of Alcohol and Drug Abuse Patient Records regulations: The Federal rules restrict any use of the information to criminally investigate or prosecute any alcohol or drug abuse patient.[facility] HospitalIn the event this information is protected by the Federal Confidentiality of Alcohol and Drug Abuse Patient Records regulations: The Federal rules restrict any use of the information to criminally investigate or prosecute any alcohol or drug abuse patient.[facility] Reason for Visit (unrecogniz ed section and content) Specialty Diagnoses / Procedures Referred By Contac t Referred To Contact Radiology / RADIO ULTRA [facility] Diagnoses unspecified cirrhosis of liver Procedures US ABDOMEN COMPLETE Self Radio Ultra [facility] [address] [place] [address] Referral ID Status Reason Start Date Expiration Date Visits Requested Visits Authorized [id number] Closed Financial Clearance Required - OON Payor OON Notification Letter Patient Cleared - Admin/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/D irector advise to proceed or [...] MDM 45-59 MINUTES Sameer Kelley MD [address] [place] [address] [place] [address] Referral ID Status Reason Start Date Expiration Date V isits Requested Visits Authorized [id number] Closed PCP Requested Referral Financial Clearance Required - OON Payor Patient Cleared - INN Insurance Found 12/09/2022 12/09/2023 1 1 Reason Comments Results Reason Onset Date Comments Refill Request 03/24/2023 Reason Comments Medication Problem Reason Onset Date Comments Recheck 3 month follow u p Immunizations 09/02/2023 Flu vaccination Care Teams (unrecognized sec tion and content) Furniture Associate Relationship Specialty Start Date End Date Sameer Kelley MD [address], [place] [id number] PCP - General 08/23/07 Furniture Associate Relationship Specialty Start Date End Date Sameer Kelley MD [address], [place] [address] PCP - General 08/23/07 Furniture Associate Relationship Specialty Start Date End Date Sameer Kelley MD [address], [place] [address] PCP - General 08/23/07 Furniture Associate Relationship Specialty Start Date End Date Sameer Kelley MD [address] [place], [place] [id number] PCP - General 08/23/07 Furniture Associate Relationship Specialty Start Date End Date Sameer Kelley MD [address] [place] [address] PCP - General 08/23/07 Furniture Associate Relationship Specialty Start Date End Date Sameer Kelley MD [address] [place] [address] PCP - General 08/23/07 Furniture Associate Relationship Specialty Start Date End Date Sameer Kelley MD [address] [place] [address] PCP - General 08/23/07 Furniture Associate Relationship Specialty Start Date End Date Sameer Kelley MD [address] [place] [address] PCP - General 08/23/07 Furniture Associate Relationship Specialty Start Date End Date Sameer Kelley MD [address] [place] [address] PCP - General 08/23/07 Furniture Associate Relationship Specialty Start Date End Date Sameer Kelley MD [address] [place] [address] PCP - General 08/23/07 Furniture Associate Relationship Specialty Start Date End Date Sameer Kelley MD [address] [place] [address] PCP - General 08/23/07 Furniture Associate Relationship Specialty Start Date End Date Sameer Kelley MD [address] [place] [address] PCP - General 08/23/07 FOR RECORDS PERTAINING [...] BE BASED ON THE PRIMARY CLINICAL RECORDS. [facility] [employer] [facility]. provides no warranty or guarantee of the accuracy or completeness of information in this document.
[2023-10-02 19:20] LABS: ALB/GLOB Ratio 0.5 RATIO (0.9-2.4); AST(SGOT) 94 U/L (15-37); Alanine Aminotransfer ALT/SGPT 43 U/L (13-56); Albumin, Serum 2.4 g/dL (3.2-5.0); Alkaline Phosphatase 121 U/L (45-117); Anion Gap 12 (5-15); BUN 21 mg/dL (7-18); BUN/Creat Ratio 15.2 RATIO (10-20); Calcium,Total 8.6 mg/dL (8.5-10.1); Chloride 103 mmol/L (98-107); Creatinine, Serum 1.38 mg/dL (0.55-1.02); EST Glomerular Filtration Rate 39 mL/min (>60); Est Glom Filt Rate - Afr Amer 47 mL/min (>60); Estimated Creatinine Clearance 26.45 ml/min; Globulin 4.9 g/dL (2.2-4.2); Glucose 112 mg/dL (74-106); Magnesium 1.7 mg/dL (1.6-2.6); Phosphorus 2.7 mg/dL (2.5-4.9); Potassium 3.1 mmol/L (3.5-5.1); Protein, Total 7.3 g/dL (6.4-8.2); Sodium Level 141 mmol/L (136-145)
[2023-10-02 19:22] LABS: BNP,B-Type NATRIURETIC PEPTIDE 151.3 pg/mL (0-100)
[2023-10-02 20:09] LABS: AST(SGOT) 84 U/L (15-37); Alanine Aminotransfer ALT/SGPT 40 U/L (13-56); Albumin, Serum 2.2 g/dL (3.2-5.0); Alkaline Phosphatase 109 U/L (45-117); Bilirubin, Direct 2.23 mg/dL (0.00-0.30); Globulin 4.5 g/dL (2.2-4.2); Protein, Total 6.7 g/dL (6.4-8.2)
[2023-10-02 21:01] LABS: BNP,B-Type NATRIURETIC PEPTIDE 139.8 pg/mL (0-100)
[2023-10-02] MEDS: Metoprolol Tartrate 25 MG Tablet PO (22:47)
[2023-10-02] MEDS: Enoxaparin 30 MG/0.3 ML Syringe SC (22:47)
[2023-10-02 23:21] LABS: Bedside Glucose 76 mg/dL (74-106)
[2023-10-02 23:32] LABS: Bacteria 0 SEEN /hpf (None Seen); Mucous, Urine 0 SEEN /hpf (<or=2+); Red Blood Cells-Urine 0 SEEN /hpf (0-5); Squamous Epithelial Cells - UA 0 SEEN /hpf (5-10)
[2023-10-02 23:34] LABS: Color, Urine Yellow (Yellow); Glucose, Dipstick Normal (Normal); Ketone-Dipstick Negative (Negative); Leukocyte Esterase-Dipstick 500 /ul (Negative); Nitrite-Dipstick Negative (Negative); Occult Blood-Urine 25 /ul (Negative); Protein-Dipstick Negative (Negative); Urine Bilirubin Dipstick Negative (Negative); Urine Clarity Clear (Clear); Urine Urobilinogen Normal (Normal)
[2023-10-02 23:54] LABS: White Blood Cells 0-5 SEEN /hpf (0-5)
[2023-10-03] VITALS (21 sets, daily range): BP systolic 74–133; BP diastolic 35–84; PULSE 66–108; RESP 18–20; TEMP 36.2–36.7; O2SAT 92–99; BMI 34.7
--- NOTE | 2023-10-03 | FLU_PTH ---
PATHOLOGY RESULTS PATIENT: BLADIMIR KAUR LOC: [facility] U#:[id number] AGE/SX: 83/F ROOM: [facility] RE10/02/[address]: Dr. Ludwin Craft MD : 1940 BED: 1 DIS: 10/13/2023 SPEC #: [id number] RECD: 10/03/23 13:05 STATUS: ESTRADA RENATE #: [id number] SILVIA: 10/03/23 00:[address]: Frank Ham DEPT: CYTOLOGY RECD BY: Cassi Marie ENTERED: 10/04/23 08:52 SP TYPE: Fluid OTHR DR: MD Dr. Ludwin Garcia MD Dr. Victor Velasquez, MD Tissues: THORACIC FLUID Procedures: Special Stain Group II Surgery Specimen Level IV Cytospin Fluid HEADER OPERATION: Ultrasound-guided thoracentesis left PRE-OP DIAGNOSIS: Left pleural effusion TISSUE SUBMITTED: Thoracentesis fluid for cytology DIAGNOSIS CYTOLOGY Thoracentesis fluid for cytology (cytospin and cell block): Negative for malignant cells. See comment. JOSE GUADALUPE:christin 10/05/2023 COMMENT Clinical correlation and appropriate follow up are necessary. CYTOLOGY STUDY Slides are reviewed. CYTOLOGY GROSS Received is 85 ml of reddish-orange cloudy fluid labeled with the patient's name and and designated per the requisition as thoracentesis. Submitted for cytology preparation including cell block. / christin 10/04/2023 TC:5 CPT: 76563, 39809
[2023-10-03 05:44] LABS: Absolute Lymphocyte Count 1.51 X10^3/uL (0.83-4.51); Absolute Neutrophil Count 1.4 X10^3/uL (2.0-7.7); Basophil# 0.02 X10^3/uL; Basophil% 0.6 % (0-1); Hematocrit 37.1 % (37-47); Hemoglobin 11.8 g/dL (12.0-15.0); Lymphocyte # 1.51 X10^3/ul (0.83-4.51); Lymphocyte % 45.1 % (19-41); Mean Corp Hgb Conc 31.8 g/dL (32-36); Mean Corpuscular Hgb 32.2 pg (27.0-32.0); Mean Corpuscular Volume 101.1 fL (81-99); Mean Platelet Vol. 9.7 fl (6.2-12.0); Monocyte# 0.32 X10^3/uL; Monocyte% 9.6 % (0-10); NRBC Flagged by Analyzer 0 % (0-5); Neutrophil # 1.39 X10^3/uL (2.7-7.7); Neutrophil % 41.4 % (47-70); POSITIVE COUNT YES; POSITIVE MORPHOLOGY YES; Platelet Count 99 K/mm3 (150-450); RBC Distribution Width CV 18.1 % (11.6-14.6); RBC Distribution Width SD 67.1 fl (35.1-43.9); Red Blood Count 3.67 M/mm3 (4.2-5.4); White Blood Count 3.4 K/mm3 (4.4-11.0)
--- NOTE | 2023-10-03 05:55 | ECHOD_ITS ---
Reason For Study: PLEURAL EFFUSION Procedure This was a 2D Doppler, Color Flow transthoracic echocardiogram. The study was technically difficult. Due to heart arrhythmia (HR varied from 50 to 110 BPM) Exam performed S/P thorocentesis for left pleural effusion. Exam performed portable in patient room. Left Ventricle Normal left ventricle. The estimated ejection fraction is 55-60 %. Right Ventricle Normal right ventricle. Normal systolic function. Atria Normal left atrium. Normal right atrium. Mitral Valve The mitral valve is structurally normal. No prolapse or stenosis seen. Mild (1+) mitral valve insufficiency. Tricuspid Valve Normal tricuspid valve. Mild tricuspid valve insufficiency. Aortic Valve Normal aortic valve. Pulmonic Valve The pulmonic valve is not well visualized. Great Vessels Normal aortic root. Pericardium/Pleural No pericardial effusion. MMode/2D Measurements & Calculations LVIDd: 3.8 cm IVSd: 1.1 cm Ao root diam: 3.2 cm LVIDs: 2.5 cm LVPWd: 1.1 cm RVDd: 3.2 cm FS: 33.7 % LAV(MOD-bp): 45.4 ml LVAd ap4: 23.5 cm2 LVAd ap2: 20.1 cm2 LAV(MOD-bp) Indexed: 23.7 ml/m2 LVLd ap4: 7.7 cm LVLd ap2: 7.1 cm LAV(MOD-sp2): 43.3 ml EDV(MOD-sp4): 58.5 ml EDV(MOD-sp2): 48.0 ml LAV(MOD-sp4): 43.3 ml EDV(sp4-el): 60.4 ml EDV(sp2-el): 48.3 ml LVAs ap4: 12.5 cm2 LVAs ap2: 10.9 cm2 LVLs ap4: 5.9 cm LVLs ap2: 5.5 cm ESV(MOD-sp4): 25.2 ml ESV(MOD-sp2): 17.8 ml ESV(sp4-el): 22.5 ml ESV(sp2-el): 18.3 ml EF(MOD-sp4): 56.9 % EF(MOD-sp2): 63.0 % EF(sp4-el): 62.7 % SV(MOD-sp4): 33.3 ml SV(MOD-sp2): 30.2 ml SV(sp4-el): 37.8 ml LA dimension(2D): 3.6 cm LA A4 area: 16.8 cm2 RA A4 area: 13.4 cm2 TAPSE: 2.2 cm Doppler Measurements & Calculations MV E max lidya: 126.4 cm/sec Ao V2 max: 127.4 cm/sec LV V1 max: 103.8 cm/sec Ao max P.5 mmHg LV V1 max P.3 mmHg Ao V2 mean: 91.8 cm/sec LV V1 mean P.3 mmHg Ao mean P.7 mmHg LV V1 mean: 71.7 cm/sec Ao V2 VTI: 33.7 cm LV V1 VTI: 20.7 cm AV (velocity ratio): 0.61 PA V2 max: 79.5 cm/sec TR max lidya: 224.7 cm/sec PA V2 mean: 64.9 cm/sec TR max P.2 mmHg ECHO/Echo Complete Interpretation Summary The estimated ejection fraction is 55-60 %. Normal LV systolic function No previous study to compare Ordering Physician: Ludwin Craft Referring Physician: Sameer Cope Performed By: Rose Mary Wood RDCS, RVT
[2023-10-03 06:08] LABS: ALB/GLOB Ratio 0.5 RATIO (0.9-2.4); AST(SGOT) 82 U/L (15-37); Alanine Aminotransfer ALT/SGPT 37 U/L (13-56); Alkaline Phosphatase 101 U/L (45-117); Anion Gap 9 (5-15); BUN 19 mg/dL (7-18); BUN/Creat Ratio 16.4 RATIO (10-20); Calcium,Total 7.9 mg/dL (8.5-10.1); Chloride 107 mmol/L (98-107); Cholesterol 108 mg/dL (200); Creatinine, Serum 1.16 mg/dL (0.55-1.02); EST Glomerular Filtration Rate 48 mL/min (>60); Est Glom Filt Rate - Afr Amer 58 mL/min (>60); Estimated Creatinine Clearance 31.46 ml/min; Globulin 4.3 g/dL (2.2-4.2); Glucose 86 mg/dL (74-106); High Density Lipoprotein 22 mg/dL; LDH 405 U/L (84-246); Potassium 3.3 mmol/L (3.5-5.1); Protein, Total 6.3 g/dL (6.4-8.2); Sodium Level 145 mmol/L (136-145); Thyroid Stim Hormone (TSH) 6.69 uIU/mL (0.358-3.74); Triglycerides 89 mg/dL; Very Low Density Lipoprotein 18 mg/dL (5-40)
[2023-10-03 06:16] LABS: Differential Indicated SCAN CRITERIA MET
[2023-10-03 07:03] LABS: Bedside Glucose 85 mg/dL (74-106)
[2023-10-03 08:37] LABS: Anisocytosis 2+; Differential Comment SCANNED
[2023-10-03 08:38] LABS: Hypochromasia 1+; Microcytosis 1+; Platelet Estimate SLT DEC (ADEQ)
[2023-10-03] MEDS: Nystatin Powder 15gm Bottle 1 APPLIC TOPICAL ×2 (08:50→22:46)
[2023-10-03] MEDS: Metoprolol Tartrate 25 MG Tablet PO ×2 (08:50→22:43)
[2023-10-03 11:45] LABS: Bedside Glucose 153 mg/dL (74-106)
--- NOTE | 2023-10-03 12:10 | CASEMGMT ---
KATIE ROE Face to Face with patient for initial transition planning/care coordination assessment. RN JYOTHI introduced self and role at [facility]. Patient lying in bed, alert and oriented. Patient willing to participate in assessment and is able to answer all questions appropriately. Care providers, pharmacy, and demographics verified. Patient wishes to discharge home, will monitor for HHC at discharge pending therapy. Patient states she has no further needs or concerns at this time. CM to follow for discharge planning needs that may arise. 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 Patient states she is independent at home. Transportation: self, son DME/HHC: Patient has shower chair, cane, grab bars, walker, and cpap at home. Patient has been to [facility] in the past. No previous HHC. Disposition Plan: Patient to discharge home with family support and follow-up plans in place. Will monitor for HHC. Sera BISWAS, RN, CM
[2023-10-03] MEDS: Lidocaine 2% (20 ml mdv) 20 ML Vial INFILT (12:53)
--- NOTE | 2023-10-03 13:00 | RAD_ITS ---
STUDY: X-RAY CHEST REASON FOR EXAM: Female, 83 years old. Post thora TECHNIQUE: A PA inspiration and expiration views. COMPARISON: Comparison is made with prior study dated October 02, 2023. FINDINGS: The patient is status post left thoracentesis. No evidence of pneumothorax. Persistent volume loss of the left lower lobe. RAD/Chest Insp/Exp 2 View IMPRESSION: Status post left thoracentesis. No evidence of pneumothorax. Persistent volume loss in the left lower lobe. Electronically Signed: Leonard Beal MD at 13:23 EST ,
[2023-10-03 13:37] LABS: Cytology, Body Fluid / CSF SEE PATHOLOGY REPORT
--- NOTE | 2023-10-03 13:44 | NURSING ---
Pt returned to PCU following thoracentesis. Vital signs stable. Hematoma noted to Left upper back to thoracentesis site. Radiology called and POWER GENERATION EQUIPMENT REPAIRER up to the floor to apply pressure and change dressing. Will continue to monitor.
[2023-10-03 13:53] LABS: Body Fluid Mononuclear WBC # 0.337 10^3/uL; Body Fluid Mononuclear WBC % 96.2 %; Body Fluid Polynuclear WBC # 0.013 10^3/uL; Body Fluid Polynuclear WBC % 3.8 %; Body Fluid Total Cells Counted 0.372 10^3/ul; Red Cell Count/Body Fluid 0.012 10^6/ul
--- NOTE | 2023-10-03 13:54 | PRO.PCM_ITS ---
Procedure Report Date of Procedure: 10/03/23 Assessment & Plan Assessment/Plan (1) Pleural effusion, left: PLAN: PROCEDURE: Ultrasound Guided Thoracentesis ORDERING PROVIDER: Dr. Craft INDICATION: Female, 83 years old. Large left pleural effusion. PROVIDER: HARRIS Benson PROCEDURE: The risks, benefits, and alternatives to the procedure were explained to the patient. The specific risks of bleeding, infection, and pneumothorax requiring chest tube insertion were discussed and accepted. Written informed consent was obtained. The patient was placed in the sitting, upright position. Ultrasonographic evaluation of the bilateral lower pleural spaces was carried out. An adequate pocket was identified in the left lower pleural space.The overlying skin was prepped and draped in sterile fashion. 2% lidocaine was administered subcutaneously for local anesthesia. Under ultrasound guidance, a 5-Lithuanian thoracentesis needle/catheter system was advanced into the left posterior lower pleural fluid collection. 2070 ml of melissa ar yellow colored fluid was drained. 100 mL of this fluid was collected and sent to the laboratory for for analysis, as per requesting physician. The catheter was removed, and a sterile dressing was applied. The patient tolerated the procedure well. A chest x-ray was ordered. IMPRESSION: Successful ultrasound-guided thoracentesis of left pleural effusion. Procedures Radiology Radiology US Procedures: [id number] Thoracentesis
--- NOTE | 2023-10-03 13:55 | PN.HOSP_ITS ---
Subjective Subjective Doing well, she is little bit tachypneic but is not requiring any oxygen Objective Data Objective Data Vital Signs: Vital Signs Temp Pulse Resp BP Pulse Ox O2 Del Method O2 Flow Rate 97.1 F L 66 18 126/53 H 95 Nasal Cannula 2 10/03/23 13:35 10/03/23 13:35 10/03/23 13:35 10/03/23 13:35 10/03/23 13:35 10/03/23 13:35 10/03/23 13:35 Oxygen Flow Rate (L/min) 2 Oxygen Delivery Method Nasal Cannula Weight: 196 lb 3.382 oz Body Mass Index (BMI) 34.7 Intake & Output: Intake and Output for Last 24 Hours 10/02/23 10/03/23 10/04/23 03:59 03:59 03:59 Intake Total 1000 / 1000 400 / 400 Output Total 300 / 300 2360 / 2360 Balance 700 / 700 -1960 / -1960 Lab / Micro Data 10/03/23 03:55 10/03/23 03:55 Labs: Laboratory Results - last 24 hr 10/02/23 14:20: WBC 3.8 L, RBC 3.95 L, Hgb 13.0, Hct 40.4, MCV 102.3 H, MCH 32.9 H, MCHC 32.2, RDW Std Deviation 67.1 H, RDW Coeff of Katherine 18.0 H, Plt Count 106 L , MPV 9.7, Immature Gran % (Auto) 0.300, Neut % (Auto) 56.3, Lymph % (Auto) 32.1, [place] % (Auto) 9.2, Eos % (Auto) 1.6, Baso % (Auto) 0.5, Absolute Neuts (auto) 2.1, Absolute Lymphs (auto) 1.22, Nucleated RBC % 0, Anisocytosis 2+, Microcytosis 1+, Macrocytosis 1+, D-Dimer Quant (PE/DVT) 11.88 H*, Sodium 143, Potassium 3.1 L, Chloride 104, Carbon Dioxide 27.0, Anion Gap 12, BUN 20 H, Creatinine 1.39 H, Estim Creat Clear Calc 26.26, Est GFR (MDRD) Af Amer 47 L, Est GFR (MDRD) Non-Af 39 L, BUN/Creatinine Ratio 14.4, Glucose 110 H, Calcium 8.3 L, Troponin I High Sens 21, B-Natriuretic Peptide 151.3 H 10/02/23 16:43: Troponin I High Sens 15 10/02/23 16:44: Sodium 141, Potassium 3.1 L, Chloride 103, Carbon Dioxide 26.0, Anion Gap 12, BUN 21 H, Creatinine 1.38 H, Estim Creat Clear Calc 26.45, Est GFR (MDRD) Af Amer 47 L, Est GFR (MDRD) Non-Af 39 L, BUN/Creatinine Ratio 15.2, Glucose 112 H, Calcium 8.6, Phosphorus 2.7, Magnesium 1.7, Total Bilirubin 5.60 H 10/02/23 16:44: Total Bilirubin 5.10 H, Direct Bilirubin 2.23 H, AST 94 H 10/02/23 16:44: AST 84 H, ALT 43 10/02/23 16:44: ALT 40, Alkaline Phosphatase 121 H 10/02/23 16:44: Alkaline Phosphatase 109, Total Protein 7.3 10/02/23 16:44: Total Protein 6.7, Albumin 2.4 L 10/02/23 16:44: Albumin 2.2 L, Globulin 4.9 H 10/02/23 16:44: Globulin 4.5 H, Albumin/Globulin Ratio 0.5 L 10/02/23 20:34: B-Natriuretic Peptide 139.8 H 10/02/23 22:46: POC Glucose 76 10/02/23 23:15: Urine Color Yellow, Urine Clarity Clear, Urine pH 7.0, Ur Specific Atlas 1.010, Urine Protein Negative, Urine Glucose (UA) Normal, Urine Ketones Negative, Urine Occult Blood 25 H, Urine Nitrite Negative, Urine Bilirubin Negative, Urine Urobilinogen Normal, Ur Leukocyte Esterase 500 H, Urine RBC 0 SEEN, Urine WBC 0-5 SEEN, Ur Squamous Epith Cells 0 SEEN, Urine Bacteria 0 SEEN, Urine Mucus 0 SEEN 10/03/23 03:55: WBC 3.4 L, RBC 3.67 L, Hgb 11.8 L, Hct 37.1, MCV 101.1 H, MCH 32.2 H, MCHC 31.8 L, RDW Std Deviation 67.1 H, RDW Coeff of Katherine 18.1 H, Plt Count 99 L, MPV 9.7, Immature Gran % (Auto) 0.300, Neut % (Auto) 41.4 L, Lymph % (Auto) 45.1 H, [place] % (Auto) 9.6, Eos % (Auto) 3.0, Baso % (Auto) 0.6, Absolute Neuts (auto) 1.4 L, Absolute Lymphs (auto) 1.51, Nucleated RBC % 0, Differential Comment SCANNED, Platelet Estimate SLT DEC, Hypochromasia 1+, Anisocytosis 2+, Microcytosis 1+, Sodium 145, Potassium 3.3 L, Chloride 107, Carbon Dioxide 29.0, Anion Gap 9, BUN 19 H, Creatinine 1.16 H, Estim Creat Clear Calc 31.46, Est GFR (MDRD) Af Amer 58 L, Est GFR (MDRD) Non-Af 48 L, BUN/Creatinine Ratio 16.4, Glucose 86, Calcium 7.9 L, Total Bilirubin 4.90 H, AST 82 H, ALT 37, Alkaline Phosphatase 101, Lactate Dehydrogenase 405 H, Total Protein 6.3 L, Albumin 2.0 L , Globulin 4.3 H, Albumin/Globulin Ratio 0.5 L, Triglycerides 89, Cholesterol 108, LDL Cholesterol 68, VLDL Cholesterol 18, HDL Cholesterol 22 L, TSH 6.69 H 10/03/23 06:38: POC Glucose 85 10/03/23 11:16: POC Glucose 153 H 10/03/23 13:15: Fluid WBC 0.350, Fluid RBC 0.012, Fluid Tot Cell Count 0.372 H, Fld Polynuclear WBCs # 0.013, Fld Polynuclear WBCs % 3.8, Fluid Mononuclear WBCs 0.337, Fld Mononuclear WBCs % 96.2 Radiography Diagnostic Testing: Radiology Impression Chest X-Ray 10/02/23 14:15 IMPRESSION: Large left pleural effusion. Electronically Signed: Oc Oleary MD at 15:08 EST , Chest CTA 10/02/23 15:18 IMPRESSION: No demonstrated pulmonary embolism or arterial dissection. Large left effusion. Small right pleural effusion. Diffuse atelectasis of the left lung. Very minimal aeration of the left lung Ascites. There is diffuse subcutaneous edema. This can suggest anasarca when combined with pleural effusions and ascites. Electronically Signed: Oc Oleary MD at 16:15 EST , Chest X-Ray 10/03/23 13:00 IMPRESSION: Status post left thoracentesis. No evidence of pneumothorax. Persistent volume loss in the left lower lobe. Electronically Signed: Leonard Beal MD at 13:23 EST , Physical Exam Narrative General: Alert, Oriented x3, Cooperative, No apparent distress HEENT: Atraumatic, PERRLA, EOMI, Normocephalic Oral: Moist Mucosa Neck: Supple, No JVD Lungs: Diminished on the left, Normal air movement, No rhonchi, No wheeze, No rales, tachypneic Cardiovascular: Regular rate, Regular Rhythm, Normal S1, Normal S2, No murmurs Abdomen: Soft, Non Tender, distended, No Hepato-splenomegaly Extremities: Anasarca, Capillary Refill Less than 3 Seconds Skin: No rashes, No breakdown Musculoskeletal: No Tenderness to Palpation of Joints or Extremities Neurological: Cranial nerves II-XII grossly intact, Motor Exam 5/5 strength throughout, Sensory exam intact to light touch and pain Psych/Mental Status: Normal Affect, Appropriate Assessment & Plan Assessment/Plan (1) Pleural effusion, left: PLAN: Plan 1. Anasarca, subacute large left pleural effusion, small right pleural effusion, ascites exact etiology unclear: Patient is being admitted in PCU. Chest x-ray initially reviewed and shows large left pleural effusion almost to the apex. Ultrasound-guided therapeutic thoracocentesis ordered. Diagnostic labs ordered. Patient does not have leukocytosis but thrombocytopenia 106,000. DuoNeb as needed. BiPAP as needed for shortness of breath during the night and naps. 2D echo is ordered for suspicion of heart failure as patient having leg swelling 2. BNP ordered. 2 serial troponins are negative therefore ACS unlikely. Clinical history also not suggestive of recent URI or pneumonia. But if patient spikes fever will need antibiotic. D-dimer was elevated but CTA of chest was done which was negative for acute PE but again showed large left pleural effusion with diffuse atelectasis of left lung and minimal aeration, mild right pleural effusion, perihepatic ascites and diffuse subcutaneous edema. 10/03/2023: Plan for thoracentesis today, fluid studies orders are in. Will continue with diuresis 2. Hypertension: Blood pressure is in control. 3. Diabetes melitis type II: Glucose in BMP is 110. Accu-Chek is and cover with Hem-o-martell sliding scale. 4. Kidney dysfunction, unclear acute or chronic but probably CKD stage IIIb: Patient BUNs/creatinine elevated 20/1.39. In our record, last labs available is from 2015 when her BUNs/creatinine was 11/0.52. Patient had IV contrast but had 1 L normal saline given in the ED. For now, hold any diuretic or IV fluid. Reevaluate kidney function tomorrow AM. UA is ordered. Patient denies burning micturition or acute blood related symptoms. 10/03/2023: Renal function is improving we will monitor 5. Liver spot as per history: Details not available. Rest as mentioned above. Patient states she gets ultrasound for spotting her liver. Advised to continue follow-up with GI in [place]. Liver chemistry ordered. DVT: Lovenox Charges/Coding Visit Charges Inpatient E&M: 66406 Subs Hosp L2
[2023-10-03 14:14] LABS: Glucose, Body Fluid 120 mg/dL (40-70); LDH,Body Fluid 69 Units/L (Not Establ.); Protein, Body Fluid 1.1 g/dL (Not Establ.)
[2023-10-03 14:58] LABS: Auto B Fluid Analyzer BKGD Ct COUNTS W/IN LIMITS (W/IN LIMITS); Lymphocytes 84 %; Macrophages 10 %; Mesothelial Cells 1 %; Neutrophil (Segs) 5 %; Source- Body Fluid THORACENTESIS
[2023-10-03 14:59] LABS: Appearance/Body Fluid CLOUDY; Body Fluid QC Type(s) BF1Q; Color/Body Fluid RED
[2023-10-03 17:56] LABS: Bedside Glucose 100 mg/dL (74-106)
[2023-10-03 23:06] LABS: Bedside Glucose 145 mg/dL (74-106)
[2023-10-04] VITALS (7 sets, daily range): BP systolic 114–129; BP diastolic 67–96; PULSE 74–96; RESP 16–18; TEMP 36.2–36.6; O2SAT 94–99; BMI 34.2
[2023-10-04 06:06] LABS: Absolute Lymphocyte Count 1.02 X10^3/uL (0.83-4.51); Absolute Neutrophil Count 2.6 X10^3/uL (2.0-7.7); Basophil# 0.02 X10^3/uL; Basophil% 0.5 % (0-1); Eosinophil# 0.11 X10^3/uL; Eosinophils% 2.7 % (0-5); Hematocrit 36.6 % (37-47); Hemoglobin 11.7 g/dL (12.0-15.0); Lymphocyte # 1.02 X10^3/ul (0.83-4.51); Lymphocyte % 24.9 % (19-41); Mean Corpuscular Hgb 32.2 pg (27.0-32.0); Mean Corpuscular Volume 100.8 fL (81-99); Mean Platelet Vol. 9.3 fl (6.2-12.0); Monocyte% 7.3 % (0-10); NRBC Flagged by Analyzer 0 % (0-5); Neutrophil # 2.62 X10^3/uL (2.7-7.7); Neutrophil % 64.1 % (47-70); POSITIVE COUNT YES; POSITIVE MORPHOLOGY YES; Platelet Count 76 K/mm3 (150-450); RBC Distribution Width CV 18.3 % (11.6-14.6); RBC Distribution Width SD 65.2 fl (35.1-43.9); Red Blood Count 3.63 M/mm3 (4.2-5.4); White Blood Count 4.1 K/mm3 (4.4-11.0)
[2023-10-04 06:22] LABS: Differential Indicated SCAN CRITERIA MET
[2023-10-04 06:28] LABS: ALB/GLOB Ratio 0.4 RATIO (0.9-2.4); AST(SGOT) 70 U/L (15-37); Alanine Aminotransfer ALT/SGPT 37 U/L (13-56); Albumin, Serum 1.7 g/dL (3.2-5.0); Alkaline Phosphatase 92 U/L (45-117); Anion Gap 4 (5-15); BUN 18 mg/dL (7-18); BUN/Creat Ratio 16.5 RATIO (10-20); Calcium,Total 7.8 mg/dL (8.5-10.1); Chloride 108 mmol/L (98-107); Creatinine, Serum 1.09 mg/dL (0.55-1.02); EST Glomerular Filtration Rate 51 mL/min (>60); Est Glom Filt Rate - Afr Amer 62 mL/min (>60); Estimated Creatinine Clearance 33.48 ml/min; Glucose 105 mg/dL (74-106); Potassium 3.2 mmol/L (3.5-5.1); Protein, Total 5.7 g/dL (6.4-8.2); Sodium Level 142 mmol/L (136-145)
[2023-10-04 07:09] LABS: Bedside Glucose 87 mg/dL (74-106)
[2023-10-04 08:15] LABS: Anisocytosis 2+; Differential Comment SCANNED; Hypochromasia 1+; Macrocytosis 1+; Microcytosis 1+; Platelet Estimate MOD DEC (ADEQ)
[2023-10-04] MEDS: Nystatin Powder 15gm Bottle 1 APPLIC TOPICAL ×2 (09:13→20:55)
[2023-10-04] MEDS: Metoprolol Tartrate 25 MG Tablet PO ×2 (09:13→20:50)
[2023-10-04] MEDS: Furosemide 40 MG/4 ML Vial IV (09:18)
[2023-10-04] MEDS: Potassium Chloride Oral Tablet 20 MEQ 40 MEQ PO (11:28)
[2023-10-04 11:42] LABS: Bedside Glucose 124 mg/dL (74-106)
--- NOTE | 2023-10-04 12:38 | PCM.PN.HOSP ---
Subjective Subjective Doing well, no issues overnight. She is having some soreness at the site of her thoracentesis Objective Data Objective Data Vital Signs: Vital Signs Temp Pulse Resp BP Pulse Ox O2 Del Method O2 Flow Rate 97.7 F L 87 18 126/96 H 97 Room Air 2 10/04/23 09:12 10/04/23 09:13 10/04/23 09:12 10/04/23 09:13 10/04/23 09:12 10/04/23 09:27 10/03/23 13:45 Oxygen Flow Rate (L/min) 2 Oxygen Delivery Method Room Air Weight: 193 lb 5.526 oz Body Mass Index (BMI) 34.2 Intake & Output: Intake and Output for Last 24 Hours 10/03/23 10/04/23 10/05/23 03:59 03:59 03:59 Intake Total 1000 / 1000 800 / 800 Output Total 300 / 300 2360 / 2360 200 / 200 Balance 700 / 700 -1560 / -1560 -200 / -200 Lab / Micro Data 10/04/23 05:35 10/04/23 05:35 Labs: Laboratory Results - last 24 hr 10/03/23 13:15: Fluid Source THORACENTESIS, Fluid Color RED, Fluid Appearance CLOUDY, Fluid WBC 0.350, Fluid RBC 0.012, Fluid Tot Cell Count 0.372 H, Fld Polynuclear WBCs # 0.013, Fld Polynuclear WBCs % 3.8, Fluid Mononuclear WBCs 0.337, Fld Mononuclear WBCs % 96.2, Fluid Neutrophils 5, Fluid Lymphocytes 84, Fluid Macrophages 10, Fld Mesothelial Cells 1, Fl Pathologist Comment May follow, Fluid Glucose 120 H, Fluid Total Protein 1.1, Fluid LDH 69, Fluid Comment 2 SEE COMMENT 10/03/23 16:16: POC Glucose 100 10/03/23 22:45: POC Glucose 145 H 10/04/23 05:35: WBC 4.1 L, RBC 3.63 L, Hgb 11.7 L, Hct 36.6 L, MCV 100.8 H, MCH 32.2 H, MCHC 32.0, RDW Std Deviation 65.2 H, RDW Coeff of Katherine 18.3 H, Plt Count 76 L, MPV 9.3, Immature Gran % (Auto) 0.500, Neut % (Auto) 64.1, Lymph % (Auto) 24.9, [place] % (Auto) 7.3, Eos % (Auto) 2.7, Baso % (Auto) 0.5, Absolute Neuts (auto) 2.6, Absolute Lymphs (auto) 1.02, Nucleated RBC % 0, Differential Comment SCANNED, Platelet Estimate MOD DEC, Hypochromasia 1+, Anisocytosis 2+, Microcytosis 1+, Macrocytosis 1+, Sodium 142, Potassium 3.2 L, Chloride 108 H, Carbon Dioxide 30.0, Anion Gap 4 L, BUN 18, Creatinine 1.09 H, Estim Creat Clear Calc 33.48, Est GFR (MDRD) Af Amer 62, Est GFR (MDRD) Non-Af 51 L, BUN/Creatinine Ratio 16.5, Glucose 105, Calcium 7.8 L, Total Bilirubin 4.20 H, AST 70 H, ALT 37, Alkaline Phosphatase 92, Total Protein 5.7 L, Albumin 1.7 L, Globulin 4.0, Albumin/Globulin Ratio 0.4 L 10/04/23 06:49: POC Glucose 87 10/04/23 11:10: POC Glucose 124 H Micro: Microbiology 10/03/23 13:15 Fluid - Pleural (Lung) Body Fluid Culture - Preliminary No growth-Final to follow 10/02/23 23:15 Urine, Random Urine Culture - Preliminary GNR lactose medical pathologist Radiography Diagnostic Testing: Radiology Impression Echocardiogram 10/03/23 05:55 Interpretation Summary The estimated ejection fraction is 55-60 %. Normal LV systolic function No previous study to compare Ordering Physician: Ludwin Craft Referring Physician: Sameer Cope Performed By: Rose Mary Wood, RAIMUNDO, RVT Chest X-Ray 10/03/23 13:00 IMPRESSION: Status post left thoracentesis. No evidence of pneumothorax. Persistent volume loss in the left lower lobe. Electronically Signed: Leonard Beal MD at 13:23 EST , Physical Exam Narrative General: Alert, Oriented x3, Cooperative, No apparent distress HEENT: Atraumatic, PERRLA, EOMI, Normocephalic Oral: Moist Mucosa Neck: Supple, No JVD Lungs: Diminished on the left, Normal air movement, No rhonchi, No wheeze, No rales Cardiovascular: Regular rate, Regular Rhythm, Normal S1, Normal S2, No murmurs Abdomen: Soft, Non Tender, distended, No Hepato-splenomegaly Extremities: Anasarca, Capillary Refill Less than 3 Seconds Skin: No rashes, No breakdown Musculoskeletal: No Tenderness to Palpation of Joints or Extremities Neurological: Motor Exam 5/5 strength throughout, Sensory exam intact to light touch and pain Psych/Mental Status: Normal Affect, Appropriate Assessment & Plan Assessment/Plan (1) Pleural effusion, left: PLAN: Plan 1. Anasarca, subacute large left pleural effusion, small right pleural effusion, ascites exact etiology unclear: Patient is being admitted in PCU. Chest x-ray initially reviewed and shows large left pleural effusion almost to the apex. Ultrasound-guided therapeutic thoracocentesis ordered. Diagnostic labs ordered. Patient does not have leukocytosis but thrombocytopenia 106,000. DuoNeb as needed. BiPAP as needed for shortness of breath during the night and naps. 2D echo is ordered for suspicion of heart failure as patient having leg swelling 2. BNP ordered. 2 serial troponins are negative therefore ACS unlikely. Clinical history also not suggestive of recent URI or pneumonia. But if patient spikes fever will need antibiotic. D-dimer was elevated but CTA of chest was done which was negative for acute PE but again showed large left pleural effusion with diffuse atelectasis of left lung and minimal aeration, mild right pleural effusion, perihepatic ascites and diffuse subcutaneous edema. 10/03/2023: Plan for thoracentesis today, fluid studies orders are in. Will continue with diuresis 10/04/2023: We will continue with IV diuresis today x 1 and monitor renal function, lab work demonstrates a transudative effusion, echo shows normal systolic function but does not comment on diastolic function and she does also have a low albumin but liver function is stable 2. Hypertension: Blood pressure is in control. 3. Diabetes melitis type II: Glucose in BMP is 110. Accu-Chek is and cover with Hem-o-martell sliding scale. 4. Kidney dysfunction, unclear acute or chronic but probably CKD stage IIIb: Patient BUNs/creatinine elevated 20/1.39. In our record, last labs available is from 2015 when her BUNs/creatinine was 11/0.52. Patient had IV contrast but had 1 L normal saline given in the ED. For now, hold any diuretic or IV fluid. Reevaluate kidney function tomorrow AM. UA is ordered. Patient denies burning micturition or acute blood related symptoms. 10/03/2023: Renal function is improving we will monitor 5. Liver spot as per history: Details not available. Rest as mentioned above. Patient states she gets ultrasound for spotting her liver. Advised to continue follow-up with GI in [place]. Liver chemistry ordered. It is unclear whether the ascites is new as she is being followed by GI at [place]. Would recommend outpatient follow-up with her home certified health education specialist DVT: Elsi Charges/Coding Visit Charges Inpatient E&M: 12195 Subs Hosp L2
--- NOTE | 2023-10-04 14:44 | CASEMGMT ---
Patient has a Healthcare Power of Biomedical Manager and a Healthcare Living Will. Patient is aware they are not on file at [facility] and to bring in copies. Kasia GORDILLO
--- NOTE | 2023-10-04 15:07 | EKG12_ITS ---
Test Reason : Blood Pressure : / mmHG Vent. Rate : 095 BPM Atrial Rate : 095 BPM P-R Int : 172 ms QRS Dur : 078 ms QT Int : 382 ms P-R-T Axes : -02 000 032 degrees QTc Int : 480 ms Normal sinus rhythm Low voltage QRS Cannot rule out Anterior infarct , age undetermined Abnormal ECG Confirmed by MELLY BRUCE, MAYA ([id number]), editor trade journal [employer] ([id number]) on 10/06/2023 10:50:13 AM Referred By: Confirmed By:MAYA PICKARD MD
[2023-10-04 16:22] LABS: Bedside Glucose 131 mg/dL (74-106)
[2023-10-04 16:42] LABS: Free T3 1.6 pg/mL (2.18-3.98); T4 Free Direct 1.43 ng/dL (0.76-1.46)
[2023-10-04 21:20] LABS: Bedside Glucose 172 mg/dL (74-106)
[2023-10-05] VITALS (7 sets, daily range): BP systolic 118–129; BP diastolic 72–85; PULSE 68–96; RESP 16–18; TEMP 36.3–36.4; O2SAT 92–99; BMI 34.2
[2023-10-05 06:20] LABS: Absolute Lymphocyte Count 1.36 X10^3/uL (0.83-4.51); Absolute Neutrophil Count 1.8 X10^3/uL (2.0-7.7); Basophil# 0.01 X10^3/uL; Basophil% 0.3 % (0-1); Eosinophils% 2.7 % (0-5); Hematocrit 37.4 % (37-47); Hemoglobin 11.7 g/dL (12.0-15.0); Lymphocyte # 1.36 X10^3/ul (0.83-4.51); Lymphocyte % 37.3 % (19-41); Mean Corp Hgb Conc 31.3 g/dL (32-36); Mean Corpuscular Hgb 31.9 pg (27.0-32.0); Mean Corpuscular Volume 101.9 fL (81-99); Mean Platelet Vol. 9.8 fl (6.2-12.0); Monocyte# 0.38 X10^3/uL; Monocyte% 10.4 % (0-10); NRBC Flagged by Analyzer 0 % (0-5); Neutrophil # 1.79 X10^3/uL (2.7-7.7); POSITIVE COUNT YES; POSITIVE MORPHOLOGY YES; Platelet Count 67 K/mm3 (150-450); RBC Distribution Width SD 66.6 fl (35.1-43.9); Red Blood Count 3.67 M/mm3 (4.2-5.4); White Blood Count 3.7 K/mm3 (4.4-11.0)
[2023-10-05 06:36] LABS: Differential Indicated SCAN CRITERIA MET
[2023-10-05 06:52] LABS: Bedside Glucose 102 mg/dL (74-106)
[2023-10-05 06:54] LABS: Anion Gap 3 (5-15); BUN 19 mg/dL (7-18); BUN/Creat Ratio 17.6 RATIO (10-20); Chloride 108 mmol/L (98-107); Creatinine, Serum 1.08 mg/dL (0.55-1.02); EST Glomerular Filtration Rate 52 mL/min (>60); Est Glom Filt Rate - Afr Amer 63 mL/min (>60); Estimated Creatinine Clearance 33.79 ml/min; Glucose 94 mg/dL (74-106); Potassium 3.5 mmol/L (3.5-5.1); Sodium Level 140 mmol/L (136-145)
[2023-10-05 07:27] LABS: Anisocytosis 2+; Differential Comment SCANNED; Platelet Estimate MKD DEC (ADEQ)
[2023-10-05] MEDS: Levothyroxine 50 MCG Tablet PO (10:12)
[2023-10-05] MEDS: Furosemide 40 MG/4 ML Vial IV (10:12)
[2023-10-05] MEDS: Metoprolol Tartrate 25 MG Tablet PO ×2 (10:13→20:56)
[2023-10-05] MEDS: 0.9% Saline Lock 10 ML Syringe IV (10:13)
[2023-10-05] MEDS: Nystatin Powder 15gm Bottle 1 APPLIC TOPICAL ×2 (10:14→20:56)
[2023-10-05 10:56] LABS: Pathologist Comment/Body Fluid Reviewed
[2023-10-05 11:39] LABS: Bedside Glucose 119 mg/dL (74-106)
--- NOTE | 2023-10-05 13:15 | PCM.PN.HOSP ---
Subjective Subjective Doing well, no issues overnight. Still having some swelling but breathing is better. Having some diarrhea issues and lab work was ordered yesterday however he remains uncollected unclear why Objective Data Objective Data Vital Signs: Vital Signs Temp Pulse Resp BP Pulse Ox O2 Del Method O2 Flow Rate 97.4 F L 89 16 128/85 H 94 Room Air 2 10/05/23 10:06 10/05/23 10:13 10/05/23 10:06 10/05/23 10:13 10/05/23 10:06 10/05/23 10:06 10/03/23 13:45 Oxygen Flow Rate (L/min) 2 Oxygen Delivery Method Room Air Weight: 193 lb 9.054 oz Body Mass Index (BMI) 34.2 Intake & Output: Intake and Output for Last 24 Hours 10/04/23 10/05/23 10/06/23 03:59 03:59 03:59 Intake Total 800 / 800 1020 / 1020 Output Total 2360 / 2360 1003 / 1003 Balance -1560 / -1560 Lab / Micro Data 10/05/23 05:25 10/05/23 05:25 Labs: Laboratory Results - last 24 hr 10/03/23 13:15: Fl Pathologist Comment Reviewed 10/04/23 05:35: Free T4 1.43, Free T3 pg/dL 1.6 L 10/04/23 16:00: POC Glucose 131 H 10/04/23 20:58: POC Glucose 172 H 10/05/23 05:25: WBC 3.7 L, RBC 3.67 L, Hgb 11.7 L, Hct 37.4, MCV 101.9 H, MCH 31.9, MCHC 31.3 L, RDW Std Deviation 66.6 H, RDW Coeff of Katherine 18.0 H, Plt Count 67 L, MPV 9.8, Immature Gran % (Auto) 0.300, Neut % (Auto) 49.0, Lymph % (Auto) 37.3, [place] % (Auto) 10.4 H, Eos % (Auto) 2.7, Baso % (Auto) 0.3, Absolute Neuts (auto) 1.8 L, Absolute Lymphs (auto) 1.36, Nucleated RBC % 0, Differential Comment SCANNED, Platelet Estimate MKD DEC, Anisocytosis 2+, Sodium 140, Potassium 3.5, Chloride 108 H, Carbon Dioxide 29.0, Anion Gap 3 L, BUN 19 H, Creatinine 1.08 H, Estim Creat Clear Calc 33.79, Est GFR (MDRD) Af Amer 63, Est GFR (MDRD) Non-Af 52 L, BUN/Creatinine Ratio 17.6, Glucose 94, Calcium 8.0 L 10/05/23 06:25: POC Glucose 102 10/05/23 11:15: POC Glucose 119 H Micro: Microbiology 10/03/23 13:15 Fluid - Pleural (Lung) Gram Stain - Final 10/03/23 13:15 Fluid - Pleural (Lung) Body Fluid Culture - Preliminary No growth-Final to follow 10/03/23 13:15 Fluid - Pleural (Lung) Anaerobic Culture - Preliminary No growth in 48 hours. 10/02/23 23:15 Urine, Random Urine Culture - Final Klebsiella pneumoniae sp pneum Physical Exam Narrative General: Alert, Oriented x3, Cooperative, No apparent distress HEENT: Atraumatic, PERRLA, EOMI, Normocephalic Oral: Moist Mucosa Neck: Supple, No JVD Lungs: Diminished on the left, Normal air movement, No rhonchi, No wheeze, No rales Cardiovascular: Regular rate, Regular Rhythm, Normal S1, Normal S2, No murmurs Abdomen: Soft, Non Tender, distended, No Hepato-splenomegaly Extremities: Anasarca, Capillary Refill Less than 3 Seconds Skin: No rashes, No breakdown Musculoskeletal: No Tenderness to Palpation of Joints or Extremities Neurological: Motor Exam 5/5 strength throughout, Sensory exam intact to light touch and pain Psych/Mental Status: Normal Affect, Appropriate Assessment & Plan Assessment/Plan (1) Pleural effusion, left: PLAN: Plan 1. Anasarca, subacute large left pleural effusion, small right pleural effusion, ascites exact etiology unclear: Patient is being admitted in PCU. Chest x-ray initially reviewed and shows large left pleural effusion almost to the apex. Ultrasound-guided therapeutic thoracocentesis ordered. Diagnostic labs ordered. Patient does not have leukocytosis but thrombocytopenia 106,000. DuoNeb as needed. BiPAP as needed for shortness of breath during the night and naps. 2D echo is ordered for suspicion of heart failure as patient having leg swelling 2. BNP ordered. 2 serial troponins are negative therefore ACS unlikely. Clinical history also not suggestive of recent URI or pneumonia. But if patient spikes fever will need antibiotic. D-dimer was elevated but CTA of chest was done which was negative for acute PE but again showed large left pleural effusion with diffuse atelectasis of left lung and minimal aeration, mild right pleural effusion, perihepatic ascites and diffuse subcutaneous edema. 10/03/2023: Plan for thoracentesis today, fluid studies orders are in. Will continue with diuresis 10/04/2023: We will continue with IV diuresis today x 1 and monitor renal function, lab work demonstrates a transudative effusion, echo shows normal systolic function but does not comment on diastolic function and she does also have a low albumin but liver function is stable 10/05/2023: We will continue with daily diuresis stool studies are also pending 2. Hypertension: Blood pressure is in control. 3. Diabetes melitis type II: Glucose in BMP is 110. Accu-Chek is and cover with Hem-o-martell sliding scale. 4. Kidney dysfunction, unclear acute or chronic but probably CKD stage IIIb: Patient BUNs/creatinine elevated 20/1.39. In our record, last labs available is from 2015 when her BUNs/creatinine was 11/0.52. Patient had IV contrast but had 1 L normal saline given in the ED. For now, hold any diuretic or IV fluid. Reevaluate kidney function tomorrow AM. UA is ordered. Patient denies burning micturition or acute blood related symptoms. 10/03/2023: Renal function is improving we will monitor 5. Liver spot as per history: Details not available. Rest as mentioned above. Patient states she gets ultrasound for spotting her liver. Advised to continue follow-up with GI in [place]. Liver chemistry ordered. It is unclear whether the ascites is new as she is being followed by GI at [place]. Would recommend outpatient follow-up with her home midlevel provider DVT: Lovenox Charges/Coding Visit Charges Inpatient E&M: 85265 Subs Hosp L2
[2023-10-05 17:36] LABS: Bedside Glucose 146 mg/dL (74-106)
[2023-10-05 21:26] LABS: Bedside Glucose 125 mg/dL (74-106)
[2023-10-06] VITALS (8 sets, daily range): BP systolic 115–133; BP diastolic 71–77; PULSE 70–95; RESP 12–19; TEMP 36.2–36.6; O2SAT 97–100; BMI 34.4
[2023-10-06 05:10] LABS: Absolute Lymphocyte Count 1.51 X10^3/uL (0.83-4.51); Absolute Neutrophil Count 2.1 X10^3/uL (2.0-7.7); Basophil# 0.03 X10^3/uL; Basophil% 0.7 % (0-1); Eosinophil# 0.12 X10^3/uL; Eosinophils% 2.9 % (0-5); Hematocrit 38.4 % (37-47); Hemoglobin 11.9 g/dL (12.0-15.0); Lymphocyte # 1.51 X10^3/ul (0.83-4.51); Lymphocyte % 36.7 % (19-41); Mean Corpuscular Hgb 31.6 pg (27.0-32.0); Mean Corpuscular Volume 101.9 fL (81-99); Mean Platelet Vol. 10.3 fl (6.2-12.0); Monocyte# 0.36 X10^3/uL; Monocyte% 8.8 % (0-10); NRBC Flagged by Analyzer 0 % (0-5); Neutrophil # 2.07 X10^3/uL (2.7-7.7); Neutrophil % 50.4 % (47-70); POSITIVE COUNT YES; POSITIVE MORPHOLOGY YES; Platelet Count 73 K/mm3 (150-450); RBC Distribution Width SD 66.4 fl (35.1-43.9); Red Blood Count 3.77 M/mm3 (4.2-5.4); White Blood Count 4.1 K/mm3 (4.4-11.0)
[2023-10-06 05:23] LABS: Differential Indicated SCAN CRITERIA MET
[2023-10-06 05:33] LABS: Anion Gap 6 (5-15); BUN 19 mg/dL (7-18); BUN/Creat Ratio 19.7 RATIO (10-20); Calcium,Total 7.4 mg/dL (8.5-10.1); Chloride 110 mmol/L (98-107); Creatinine, Serum 0.97 mg/dL (0.55-1.02); EST Glomerular Filtration Rate 59 mL/min (>60); Est Glom Filt Rate - Afr Amer 71 mL/min (>60); Estimated Creatinine Clearance 37.63 ml/min; Glucose 93 mg/dL (74-106); Potassium 3.8 mmol/L (3.5-5.1); Sodium Level 145 mmol/L (136-145)
[2023-10-06] MEDS: Levothyroxine 50 MCG Tablet PO (06:01)
[2023-10-06 06:20] LABS: Anisocytosis 2+; Differential Comment SCANNED; Platelet Estimate MOD DEC (ADEQ)
[2023-10-06 06:46] LABS: Bedside Glucose 90 mg/dL (74-106)
--- NOTE | 2023-10-06 10:20 | CASEMGMT ---
KATIE ROE NOTE: KATIE ROE to room. Introduced self and role. Pt declines need for HHC or OP therapy @ discharge. She was made aware, if she changes her mind once returning home, to discuss this w/her PCP. She voices understanding. Pt states her son lives next door and states, He can take care of me . Pt denies having other discharge planning needs/concerns at this time. James BISWAS RN, CM
[2023-10-06] MEDS: 0.9% Saline Lock 10 ML Syringe IV (11:17)
[2023-10-06] MEDS: Furosemide 40 MG/4 ML Vial IV (11:17)
[2023-10-06] MEDS: Metoprolol Tartrate 25 MG Tablet PO ×2 (11:17→21:43)
[2023-10-06] MEDS: Nystatin Powder 15gm Bottle 1 APPLIC TOPICAL ×2 (11:18→21:44)
[2023-10-06 11:44] LABS: Bedside Glucose 107 mg/dL (74-106)
--- NOTE | 2023-10-06 15:20 | PCM.PN.HOSP ---
Subjective Subjective Doing well, breathing is much improved. Lower extremity edema Objective Data Objective Data Vital Signs: Vital Signs Temp Pulse Resp BP Pulse Ox O2 Del Method O2 Flow Rate 97.2 F L 95 12 115/77 99 Room Air 2 10/06/23 14:42 10/06/23 14:42 10/06/23 14:42 10/06/23 14:42 10/06/23 14:42 10/06/23 14:42 10/03/23 13:45 Oxygen Flow Rate (L/min) 2 Oxygen Delivery Method Room Air Weight: 194 lb 3.636 oz Body Mass Index (BMI) 34.4 Intake & Output: Intake and Output for Last 24 Hours 10/05/23 10/06/23 10/07/23 03:59 03:59 03:59 Intake Total 1020 / 1020 240 / 240 Output Total 1003 / 1003 350 / 350 250 / 250 Balance -350 / -350 -10 / -10 Lab / Micro Data 10/06/23 04:20 10/06/23 04:20 Labs: Laboratory Results - last 24 hr 10/05/23 16:14: POC Glucose 146 H 10/05/23 20:41: POC Glucose 125 H 10/06/23 04:20: WBC 4.1 L, RBC 3.77 L, Hgb 11.9 L, Hct 38.4, MCV 101.9 H, MCH 31.6, MCHC 31.0 L, RDW Std Deviation 66.4 H, RDW Coeff of Katherine 18.0 H, Plt Count 73 L, MPV 10.3, Immature Gran % (Auto) 0.500, Neut % (Auto) 50.4, Lymph % (Auto) 36.7, [place] % (Auto) 8.8, Eos % (Auto) 2.9, Baso % (Auto) 0.7, Absolute Neuts (auto) 2.1, Absolute Lymphs (auto) 1.51, Nucleated RBC % 0, Differential Comment SCANNED, Platelet Estimate MOD DEC, Anisocytosis 2+, Sodium 145, Potassium 3.8, Chloride 110 H, Carbon Dioxide 29.0, Anion Gap 6, BUN 19 H, Creatinine 0.97, Estim Creat Clear Calc 37.63, Est GFR (MDRD) Af Amer 71, Est GFR (MDRD) Non-Af 59 L, BUN/Creatinine Ratio 19.7, Glucose 93, Calcium 7.4 L 10/06/23 06:04: POC Glucose 90 10/06/23 11:15: POC Glucose 107 H Micro: Microbiology 10/03/23 13:15 Fluid - Pleural (Lung) Gram Stain - Final 10/03/23 13:15 Fluid - Pleural (Lung) Body Fluid Culture - Preliminary No growth-Final to follow 10/03/23 13:15 Fluid - Pleural (Lung) Anaerobic Culture - Preliminary No growth in 48 hours. 10/05/23 15:40 Stool C. difficile GDH Antigen & Toxins - Final 10/05/23 15:40 Stool C. difficile DNA Amplification - Final 10/05/23 15:40 Stool Enteric Bacteriology - Final 10/02/23 23:15 Urine, Random Urine Culture - Final Klebsiella pneumoniae sp pneum Physical Exam Narrative General: Alert, Oriented x3, Cooperative, No apparent distress HEENT: Atraumatic, PERRLA, EOMI, Normocephalic Oral: Moist Mucosa Neck: Supple, No JVD Lungs: Diminished on the left, Normal air movement, No rhonchi, No wheeze, No rales Cardiovascular: Regular rate, Regular Rhythm, Normal S1, Normal S2, No murmurs Abdomen: Soft, Non Tender, distended, No Hepato-splenomegaly Extremities: Anasarca, Capillary Refill Less than 3 Seconds Skin: No rashes, No breakdown Musculoskeletal: No Tenderness to Palpation of Joints or Extremities Neurological: Motor Exam 5/5 strength throughout, Sensory exam intact to light touch and pain Psych/Mental Status: Normal Affect, Appropriate Assessment & Plan Assessment/Plan (1) Pleural effusion, left: PLAN: Plan 1. Anasarca, subacute large left pleural effusion, small right pleural effusion, ascites exact etiology unclear: Patient is being admitted in PCU. Chest x-ray initially reviewed and shows large left pleural effusion almost to the apex. Ultrasound-guided therapeutic thoracocentesis ordered. Diagnostic labs ordered. Patient does not have leukocytosis but thrombocytopenia 106,000. DuoNeb as needed. BiPAP as needed for shortness of breath during the night and naps. 2D echo is ordered for suspicion of heart failure as patient having leg swelling 2. BNP ordered. 2 serial troponins are negative therefore ACS unlikely. Clinical history also not suggestive of recent URI or pneumonia. But if patient spikes fever will need antibiotic. D-dimer was elevated but CTA of chest was done which was negative for acute PE but again showed large left pleural effusion with diffuse atelectasis of left lung and minimal aeration, mild right pleural effusion, perihepatic ascites and diffuse subcutaneous edema. 10/03/2023: Plan for thoracentesis today, fluid studies orders are in. Will continue with diuresis 10/04/2023: We will continue with IV diuresis today x 1 and monitor renal function, lab work demonstrates a transudative effusion, echo shows normal systolic function but does not comment on diastolic function and she does also have a low albumin but liver function is stable 10/05/2023: We will continue with daily diuresis stool studies are also pending 10/06/2023: Continue with scheduled IV diuresis stool studies demonstrated positive antigen and positive DNA for C. difficile but no active toxin production she states that her stools have become firmer and she is not having as frequent bowel movements 2. Hypertension: Blood pressure is in control. 3. Diabetes melitis type II: Glucose in BMP is 110. Accu-Chek is and cover with Hem-o-martell sliding scale. 4. Kidney dysfunction, unclear acute or chronic but probably CKD stage IIIb: Patient BUNs/creatinine elevated 20/1.39. In our record, last labs available is from 2016 when her BUNs/creatinine was 11/0.52. Patient had IV contrast but had 1 L normal saline given in the ED. For now, hold any diuretic or IV fluid. Reevaluate kidney function tomorrow AM. UA is ordered. Patient denies burning micturition or acute blood related symptoms. 10/03/2023: Renal function is improving we will monitor 5. Liver spot as per history: Details not available. Rest as mentioned above. Patient states she gets ultrasound for spotting her liver. Advised to continue follow-up with GI in [place]. Liver chemistry ordered. It is unclear whether the ascites is new as she is being followed by GI at [place]. Would recommend outpatient follow-up with her home catering and events manager DVT: Lovenox Charges/Coding Visit Charges Inpatient E&M: 78196 Subs Hosp L2
[2023-10-06 17:37] LABS: Bedside Glucose 116 mg/dL (74-106)
[2023-10-06 22:24] LABS: Bedside Glucose 124 mg/dL (74-106)
[2023-10-07] VITALS (8 sets, daily range): BP systolic 104–127; BP diastolic 73–101; PULSE 71–100; RESP 16–18; TEMP 36.3–36.5; O2SAT 97–100; BMI 34.3
--- NOTE | 2023-10-07 00:15 | EKG12_ITS ---
Test Reason : CP Blood Pressure : / mmHG Vent. Rate : 100 BPM Atrial Rate : 101 BPM P-R Int : 000 ms QRS Dur : 080 ms QT Int : 376 ms P-R-T Axes : 000 003 039 degrees QTc Int : 485 ms Accelerated Junctional rhythm Low voltage QRS Borderline ECG When compared with ECG of 04-OCT-2023 15:46, Current undetermined rhythm precludes rhythm comparison, needs review Confirmed by MELLY BRUCE, MAYA ([id number]), non linear editor RAOUL MOREAU ([id number]) on 10/07/2023 2:09:40 PM Referred By: Jara Confirmed By:MAYA PICKARD MD
[2023-10-07] MEDS: Nitroglycerin (INPATIENT USE) 0.4 MG TAB.SUBL 0.400000000000000022 MG SL ×2 (00:34→04:15)
[2023-10-07] MEDS: Acetaminophen 325 MG Tablet 650 MG PO (04:20)
--- NOTE | 2023-10-07 04:55 | RAD_ITS ---
EXAM: XR CHEST, 1 VIEW CLINICAL INDICATION: chest pain, reeval effusion TECHNIQUE: Frontal view of the chest. COMPARISON: 10/03/2023. FINDINGS: LUNGS AND PLEURAL SPACES: Persistent large left pleural effusion. Atelectasis of the left lower lobe. No pneumothorax. HEART: Unremarkable. Cardiac silhouette not enlarged. MEDIASTINUM: Central airways and mediastinal contour are unremarkable. BONES/JOINTS: Unremarkable. No acute fracture. SOFT TISSUES: Unremarkable. RAD/Chest 1 View (Portable) IMPRESSION: 1. Persistent large left pleural effusion. 2. Atelectasis of the left lower lobe. Electronically Signed: Sourav Galicia MD at 6:32 EST ,
[2023-10-07 05:16] LABS: Anion Gap 8 (5-15); BUN 19 mg/dL (7-18); BUN/Creat Ratio 19.2 RATIO (10-20); Calcium,Total 7.5 mg/dL (8.5-10.1); Chloride 108 mmol/L (98-107); Creatinine, Serum 0.99 mg/dL (0.55-1.02); EST Glomerular Filtration Rate 57 mL/min (>60); Est Glom Filt Rate - Afr Amer 69 mL/min (>60); Estimated Creatinine Clearance 36.87 ml/min; Glucose 107 mg/dL (74-106); Potassium 3.5 mmol/L (3.5-5.1); Sodium Level 143 mmol/L (136-145)
[2023-10-07 05:24] LABS: Troponin-I HS 14 pg/mL (3.0-54.0)
[2023-10-07] MEDS: Levothyroxine 50 MCG Tablet PO (06:07)
[2023-10-07 06:49] LABS: Bedside Glucose 90 mg/dL (74-106)
[2023-10-07 06:57] LABS: Troponin-I HS 12 pg/mL (3.0-54.0)
[2023-10-07] MEDS: Metoprolol Tartrate 25 MG Tablet PO ×2 (10:24→22:20)
[2023-10-07] MEDS: Miconazole Nitrate 43 GM Bottle 1 APPLIC TOPICAL ×2 (10:25→22:20)
[2023-10-07] MEDS: Furosemide 40 MG/4 ML Vial IV ×2 (10:25→17:11)
[2023-10-07 11:30] LABS: Troponin-I HS 16 pg/mL (3.0-54.0)
[2023-10-07 11:57] LABS: Bedside Glucose 72 mg/dL (74-106)
--- NOTE | 2023-10-07 14:27 | PN.HOSP_ITS ---
Subjective Subjective Did not sleep well overnight, had some chest pain. Chest x-ray demonstrated left pleural effusion which had previously been drained EKG and troponins were unremarkable Objective Data Objective Data Vital Signs: Vital Signs Temp Pulse Resp BP Pulse Ox O2 Del Method O2 Flow Rate 97.7 F L 81 16 127/73 H 97 Room Air 2 10/07/23 10:24 10/07/23 10:24 10/07/23 10:24 10/07/23 10:24 10/07/23 10:24 10/07/23 10:24 10/03/23 13:45 Oxygen Flow Rate (L/min) 2 Oxygen Delivery Method Room Air Weight: 194 lb 0.108 oz Body Mass Index (BMI) 34.3 Intake & Output: Intake and Output for Last 24 Hours 10/06/23 10/07/23 10/08/23 03:59 03:59 03:59 Intake Total 360 / 360 Output Total 350 / 350 250 / 250 300 / 300 Balance -350 / -350 110 / 110 -300 / -300 Lab / Micro Data 10/06/23 04:20 10/07/23 04:10 Labs: Laboratory Results - last 24 hr 10/03/23 13:15: Miscellaneous Cytology SEE PATHOLOGY REPORT 10/06/23 16:51: POC Glucose 116 H 10/06/23 21:38: POC Glucose 124 H 10/07/23 04:10: Sodium 143, Potassium 3.5, Chloride 108 H, Carbon Dioxide 27.0, Anion Gap 8, BUN 19 H, Creatinine 0.99, Estim Creat Clear Calc 36.87, Est GFR (MDRD) Af Amer 69, Est GFR (MDRD) Non-Af 57 L, BUN/Creatinine Ratio 19.2, Glucose 107 H, Calcium 7.5 L, Troponin I High Sens 14 10/07/23 06:06: POC Glucose 90 10/07/23 06:27: Troponin I High Sens 12 10/07/23 11:00: Troponin I High Sens 16 10/07/23 11:35: POC Glucose 72 L Micro: Microbiology 10/03/23 13:15 Fluid - Pleural (Lung) Gram Stain - Final 10/03/23 13:15 Fluid - Pleural (Lung) Body Fluid Culture - Final No growth aerobically. 10/03/23 13:15 Fluid - Pleural (Lung) Anaerobic Culture - Preliminary No growth in 48 hours. 10/05/23 15:40 Stool C. difficile GDH Antigen & Toxins - Final 10/05/23 15:40 Stool C. difficile DNA Amplification - Final 10/05/23 15:40 Stool Enteric Bacteriology - Final 10/02/23 23:15 Urine, Random Urine Culture - Final Klebsiella pneumoniae sp pneum Radiography Diagnostic Testing: Radiology Impression Chest X-Ray 10/07/23 04:55 IMPRESSION: 1. Persistent large left pleural effusion. 2. Atelectasis of the left lower lobe. Electronically Signed: Sourav Galicia MD at 6:32 EST , Physical Exam Narrative General: Alert, Oriented x3, Cooperative, No apparent distress HEENT: Atraumatic, PERRLA, EOMI, Normocephalic Oral: Moist Mucosa Neck: Supple, No JVD Lungs: Diminished on the left, Normal air movement, No rhonchi, No wheeze, No rales Cardiovascular: Regular rate, Regular Rhythm, Normal S1, Normal S2, No murmurs Abdomen: Soft, Non Tender, distended, No Hepato-splenomegaly Extremities: Anasarca, Capillary Refill Less than 3 Seconds Skin: No rashes, No breakdown Musculoskeletal: No Tenderness to Palpation of Joints or Extremities Neurological: Motor Exam 5/5 strength throughout, Sensory exam intact to light touch and pain Psych/Mental Status: Normal Affect, Appropriate Assessment & Plan Assessment/Plan (1) Pleural effusion, left: PLAN: Plan 1. Anasarca, subacute large left pleural effusion, small right pleural effusion, ascites exact etiology unclear: Patient is being admitted in PCU. Chest x-ray initially reviewed and shows large left pleural effusion almost to the apex. Ultrasound-guided therapeutic thoracocentesis ordered. Diagnostic labs ordered. Patient does not have leukocytosis but thrombocytopenia 106,000. DuoNeb as needed. BiPAP as needed for shortness of breath during the night and naps. 2D echo is ordered for suspicion of heart failure as patient having leg swelling 2. BNP ordered. 2 serial troponins are negative therefore ACS unlikely. Clinical history also not suggestive of recent URI or pneumonia. But if patient spikes fever will need antibiotic. D-dimer was elevated but CTA of chest was done which was negative for acute PE but again showed large left pleural effusion with diffuse atelectasis of left lung and minimal aeration, mild right pleural effusion, perihepatic ascites and diffuse subcutaneous edema. 10/03/2023: Plan for thoracentesis today, fluid studies orders are in. Will continue with diuresis 10/04/2023: We will continue with IV diuresis today x 1 and monitor renal function, lab work demonstrates a transudative effusion, echo shows normal systolic function but does not comment on diastolic function and she does also have a low albumin but liver function is stable 10/05/2023: We will continue with daily diuresis stool studies are also pending 10/06/2023: Continue with scheduled IV diuresis stool studies demonstrated positive antigen and positive DNA for C. difficile but no active toxin production she states that her stools have become firmer and she is not having as frequent bowel movements 10/07/2023: She had another episode of loose bowel movements today so we will just empirically start her on p.o. vancomycin and will increase her IV diuresis to twice daily dosing. Chest pain workup was unremarkable unfortunately chest x-ray redemonstrates the left pleural effusion though she states that she is breathing well and does not feel like she had the pleural effusion like she did the last time. It is unclear whether or not her pleural effusion is due to abdominal ascites from liver disease or from a cardiac origin 2. Hypertension: Blood pressure is in control. 3. Diabetes melitis type II: Glucose in BMP is 110. Accu-Chek is and cover with Hem-o-martell sliding scale. 4. Kidney dysfunction, unclear acute or chronic but probably CKD stage IIIb: Patient BUNs/creatinine elevated 20/1.39. In our record, last labs available is from 2016 when her BUNs/creatinine was 11/0.52. Patient had IV contrast but had 1 L normal saline given in the ED. For now, hold any diuretic or IV fluid. Reevaluate kidney function tomorrow AM. UA is ordered. Patient denies burning micturition or acute blood related symptoms. 10/03/2023: Renal function is improving we will monitor 5. Liver spot as per history: Details not available. Rest as mentioned above. Patient states she gets ultrasound for spotting her liver. Advised to continue follow-up with GI in [place]. Liver chemistry ordered. It is unclear whether the ascites is new as she is being followed by GI at [place]. Would recommend outpatient follow-up with her home structural technician 6. Hypothyroidism ? TSH was elevated to 6.69 and while T4 was normal T3 was low indicating difficulties with peripheral conversion so we will continue with 50 of Synthroid DVT: Lovenox Charges/Coding Visit Charges Inpatient E&M: 32411 Subs Hosp L2
[2023-10-07] MEDS: Vancomycin 125 MG/5 ML Susp PO.SYRINGE PO ×2 (17:11→23:32)
[2023-10-07 17:40] LABS: Bedside Glucose 122 mg/dL (74-106)
[2023-10-07 23:43] LABS: Bedside Glucose 131 mg/dL (74-106)
[2023-10-08 01:03] VITALS: BMI 33.9
[2023-10-08 04:03] VITALS: BP 104/49; PULSE 84; RESP 18; TEMP 36.3; O2SAT 98
[2023-10-08] MEDS: Vancomycin 125 MG/5 ML Susp PO.SYRINGE PO ×4 (06:51→23:42)
[2023-10-08] MEDS: Levothyroxine 50 MCG Tablet PO (06:51)
[2023-10-08 07:00] LABS: Absolute Lymphocyte Count 1.21 X10^3/uL (0.83-4.51); Absolute Neutrophil Count 1.8 X10^3/uL (2.0-7.7); Basophil# 0.02 X10^3/uL; Basophil% 0.6 % (0-1); Eosinophil# 0.11 X10^3/uL; Eosinophils% 3.1 % (0-5); Hematocrit 38.1 % (37-47); Hemoglobin 12.4 g/dL (12.0-15.0); Lymphocyte # 1.21 X10^3/ul (0.83-4.51); Lymphocyte % 34.2 % (19-41); Mean Corp Hgb Conc 32.5 g/dL (32-36); Mean Corpuscular Hgb 32.5 pg (27.0-32.0); Mean Corpuscular Volume 99.7 fL (81-99); Mean Platelet Vol. 10.5 fl (6.2-12.0); Monocyte# 0.38 X10^3/uL; Monocyte% 10.7 % (0-10); NRBC Flagged by Analyzer 0.6 % (0-5); Neutrophil % 50.8 % (47-70); POSITIVE COUNT YES; Platelet Count 82 K/mm3 (150-450); RBC Distribution Width CV 17.9 % (11.6-14.6); RBC Distribution Width SD 64.7 fl (35.1-43.9); Red Blood Count 3.82 M/mm3 (4.2-5.4); White Blood Count 3.5 K/mm3 (4.4-11.0)
[2023-10-08 07:04] LABS: Differential Indicated SCAN CRITERIA MET
[2023-10-08 07:14] LABS: Bedside Glucose 95 mg/dL (74-106)
[2023-10-08 07:32] LABS: ALB/GLOB Ratio 0.4 RATIO (0.9-2.4); AST(SGOT) 70 U/L (15-37); Alanine Aminotransfer ALT/SGPT 37 U/L (13-56); Albumin, Serum 1.7 g/dL (3.2-5.0); Alkaline Phosphatase 109 U/L (45-117); Anion Gap 7 (5-15); BUN 18 mg/dL (7-18); BUN/Creat Ratio 18.3 RATIO (10-20); Chloride 107 mmol/L (98-107); Creatinine, Serum 0.98 mg/dL (0.55-1.02); EST Glomerular Filtration Rate 58 mL/min (>60); Est Glom Filt Rate - Afr Amer 70 mL/min (>60); Estimated Creatinine Clearance 37.24 ml/min; Globulin 4.1 g/dL (2.2-4.2); Glucose 111 mg/dL (74-106); Potassium 3.3 mmol/L (3.5-5.1); Protein, Total 5.8 g/dL (6.4-8.2); Sodium Level 141 mmol/L (136-145)
[2023-10-08 09:03] VITALS: BP 130/83; PULSE 77; RESP 16; TEMP 36.3; O2SAT 99
[2023-10-08 09:11] VITALS: PULSE 77
[2023-10-08] MEDS: Metoprolol Tartrate 25 MG Tablet PO ×2 (09:11→21:32)
[2023-10-08] MEDS: Miconazole Nitrate 43 GM Bottle 1 APPLIC TOPICAL ×2 (09:13→21:32)
[2023-10-08] MEDS: Furosemide 40 MG/4 ML Vial IV ×2 (09:20→17:49)
[2023-10-08] MEDS: 0.9% Saline Lock 10 ML Syringe IV (09:21)
--- NOTE | 2023-10-08 10:52 | PCM.PN.HOSP ---
Subjective Subjective Doing well, denies any significant shortness of breath or chest pain continues to have multiple bowel movements Objective Data Objective Data Vital Signs: Vital Signs Temp Pulse Resp BP Pulse Ox O2 Del Method O2 Flow Rate 97.4 F L 77 16 130/83 H 99 Room Air 2 10/08/23 09:03 10/08/23 09:11 10/08/23 09:03 10/08/23 09:03 10/08/23 09:03 10/08/23 09:30 10/03/23 13:45 Oxygen Flow Rate (L/min) 2 Oxygen Delivery Method Room Air Weight: 191 lb 5.78 oz Body Mass Index (BMI) 33.9 Intake & Output: Intake and Output for Last 24 Hours 10/07/23 10/08/23 10/09/23 03:59 03:59 03:59 Intake Total 360 / 360 Output Total 250 / 250 750 / 750 300 / 300 Balance 110 / 110 -750 / -750 -300 / -300 Lab / Micro Data 10/08/23 06:32 10/08/23 06:32 Labs: Laboratory Results - last 24 hr 10/07/23 11:00: Troponin I High Sens 16 10/07/23 11:35: POC Glucose 72 L 10/07/23 17:10: POC Glucose 122 H 10/07/23 22:15: POC Glucose 131 H 10/08/23 06:32: WBC 3.5 L, RBC 3.82 L, Hgb 12.4, Hct 38.1, MCV 99.7 H, MCH 32.5 H, MCHC 32.5, RDW Std Deviation 64.7 H, RDW Coeff of Katherine 17.9 H, Plt Count 82 L, MPV 10.5, Immature Gran % (Auto) 0.600, Neut % (Auto) 50.8, Lymph % (Auto) 34.2, [facility] % (Auto) 10.7 H, Eos % (Auto) 3.1, Baso % (Auto) 0.6, Absolute Neuts (auto) 1.8 L, Absolute Lymphs (auto) 1.21, Nucleated RBC % 0.6, Sodium 141, Potassium 3.3 L, Chloride 107, Carbon Dioxide 27.0, Anion Gap 7, BUN 18, Creatinine 0.98, Estim Creat Clear Calc 37.24, Est GFR (MDRD) Af Amer 70, Est GFR (MDRD) Non-Af 58 L, BUN/Creatinine Ratio 18.3, Glucose 111 H, Calcium 8.0 L, Total Bilirubin 4.50 H, AST 70 H, ALT 37, Alkaline Phosphatase 109, Total Protein 5.8 L, Albumin 1.7 L, Globulin 4.1, Albumin/Globulin Ratio 0.4 L 10/08/23 06:51: POC Glucose 95 Micro: Microbiology 10/03/23 13:15 Fluid - Pleural (Lung) Gram Stain - Final 10/03/23 13:15 Fluid - Pleural (Lung) Body Fluid Culture - Final No growth aerobically. 10/03/23 13:15 Fluid - Pleural (Lung) Anaerobic Culture - Final No growth in 5 days. 10/05/23 15:40 Stool C. difficile GDH Antigen & Toxins - Final 10/05/23 15:40 Stool C. difficile DNA Amplification - Final 10/05/23 15:40 Stool Enteric Bacteriology - Final 10/02/23 23:15 Urine, Random Urine Culture - Final Klebsiella pneumoniae sp pneum Physical Exam Narrative General: Alert, Oriented x3, Cooperative, No apparent distress HEENT: Atraumatic, PERRLA, EOMI, Normocephalic Oral: Moist Mucosa Neck: Supple, No JVD Lungs: Diminished on the left, Normal air movement, No rhonchi, No wheeze, No rales Cardiovascular: Regular rate, Regular Rhythm, Normal S1, Normal S2, No murmurs Abdomen: Soft, Non Tender, distended, No Hepato-splenomegaly Extremities: Anasarca, Capillary Refill Less than 3 Seconds Skin: No rashes, No breakdown Musculoskeletal: No Tenderness to Palpation of Joints or Extremities Neurological: Motor Exam 5/5 strength throughout, Sensory exam intact to light touch and pain Psych/Mental Status: Normal Affect, Appropriate Assessment & Plan Assessment/Plan (1) Pleural effusion, left: PLAN: Plan 1. Anasarca, subacute large left pleural effusion, small right pleural effusion, ascites exact etiology unclear: Patient is being admitted in PCU. Chest x-ray initially reviewed and shows large left pleural effusion almost to the apex. Ultrasound-guided therapeutic thoracocentesis ordered. Diagnostic labs ordered. Patient does not have leukocytosis but thrombocytopenia 106,000. DuoNeb as needed. BiPAP as needed for shortness of breath during the night and naps. 2D echo is ordered for suspicion of heart failure as patient having leg swelling 2. BNP ordered. 2 serial troponins are negative therefore ACS unlikely. Clinical history also not suggestive of recent URI or pneumonia. But if patient spikes fever will need antibiotic. D-dimer was elevated but CTA of chest was done which was negative for acute PE but again showed large left pleural effusion with diffuse atelectasis of left lung and minimal aeration, mild right pleural effusion, perihepatic ascites and diffuse subcutaneous edema. 10/03/2023: Plan for thoracentesis today, fluid studies orders are in. Will continue with diuresis 10/04/2023: We will continue with IV diuresis today x 1 and monitor renal function, lab work demonstrates a transudative effusion, echo shows normal systolic function but does not comment on diastolic function and she does also have a low albumin but liver function is stable 10/05/2023: We will continue with daily diuresis stool studies are also pending 10/06/2023: Continue with scheduled IV diuresis stool studies demonstrated positive antigen and positive DNA for C. difficile but no active toxin production she states that her stools have become firmer and she is not having as frequent bowel movements 10/07/2023: She had another episode of loose bowel movements today so we will just empirically start her on p.o. vancomycin and will increase her IV diuresis to twice daily dosing. Chest pain workup was unremarkable unfortunately chest x-ray redemonstrates the left pleural effusion though she states that she is breathing well and does not feel like she had the pleural effusion like she did the last time. It is unclear whether or not her pleural effusion is due to abdominal ascites from liver disease or from a cardiac origin 10/08/2023: We will continue with aggressive diuresis with twice daily IV Lasix of 40 mg, given the continued distention and left pleural effusion we may need to proceed with a paracentesis followed by thoracentesis to completely resolve her fluid issues, unfortunately this will not happen until Tuesday 2. Hypertension: Blood pressure is in control. 3. Diabetes melitis type II: Glucose in BMP is 110. Accu-Chek is and cover with Hem-o-martell sliding scale. 4. Kidney dysfunction, unclear acute or chronic but probably CKD stage IIIb: Patient BUNs/creatinine elevated 05/11.39. In our record, last labs available is from 2015 when her BUNs/creatinine was 11/0.52. Patient had IV contrast but had 1 L normal saline given in the ED. For now, hold any diuretic or IV fluid. Reevaluate kidney function tomorrow AM. UA is ordered. Patient denies burning micturition or acute blood related symptoms. 10/03/2023: Renal function is improving we will monitor 5. Liver spot as per history: Details not available. Rest as mentioned above. Patient states she gets ultrasound for spotting her liver. Advised to continue follow-up with GI in [place]. Liver chemistry ordered. It is unclear whether the ascites is new as she is being followed by GI at [place]. 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 Hypothyroidism ? TSH was elevated to 6.69 and while T4 was normal T3 was low indicating difficulties with peripheral conversion so we will continue with 50 of Synthroid 7. C. difficile ? Denies any significant abdominal pain however testing did come back positive for PCR and antigen and she is continue to have bowel movements that are loose so we will proceed with treatment for 10 days with p.o. vancomycin DVT: Lovenox Charges/Coding Visit Charges Inpatient E&M: 72785 Subs Hosp L2
[2023-10-08 11:37] LABS: Bedside Glucose 105 mg/dL (74-106)
[2023-10-08 15:43] VITALS: BP 125/87; PULSE 95; RESP 16; TEMP 36.3; O2SAT 88
[2023-10-08 16:06] LABS: Bedside Glucose 129 mg/dL (74-106)
[2023-10-08] MEDS: Potassium Chloride Oral Tablet 20 MEQ 40 MEQ PO (17:49)
[2023-10-08 21:30] VITALS: BP 124/83; PULSE 98; RESP 18; TEMP 36.4; O2SAT 97
[2023-10-08 21:32] VITALS: BP 124/83; PULSE 98
[2023-10-08 22:02] LABS: Bedside Glucose 166 mg/dL (74-106)
[2023-10-09] VITALS (7 sets, daily range): BP systolic 106–130; BP diastolic 56–79; PULSE 72–100; RESP 16–18; TEMP 36.1–36.4; O2SAT 94–96; BMI 33.8
[2023-10-09] MEDS: Levothyroxine 50 MCG Tablet PO (06:12)
[2023-10-09] MEDS: Vancomycin 125 MG/5 ML Susp PO.SYRINGE PO ×4 (06:12→23:41)
[2023-10-09 06:41] LABS: Bedside Glucose 98 mg/dL (74-106)
[2023-10-09 07:22] LABS: ALB/GLOB Ratio 0.4 RATIO (0.9-2.4); AST(SGOT) 67 U/L (15-37); Alanine Aminotransfer ALT/SGPT 36 U/L (13-56); Albumin, Serum 1.6 g/dL (3.2-5.0); Alkaline Phosphatase 101 U/L (45-117); Anion Gap 4 (5-15); BUN 19 mg/dL (7-18); BUN/Creat Ratio 18.4 RATIO (10-20); Calcium,Total 7.8 mg/dL (8.5-10.1); Chloride 108 mmol/L (98-107); Creatinine, Serum 1.03 mg/dL (0.55-1.02); EST Glomerular Filtration Rate 55 mL/min (>60); Est Glom Filt Rate - Afr Amer 66 mL/min (>60); Estimated Creatinine Clearance 35.44 ml/min; Glucose 112 mg/dL (74-106); Magnesium 1.4 mg/dL (1.6-2.6); Phosphorus 2.8 mg/dL (2.5-4.9); Potassium 3.5 mmol/L (3.5-5.1); Protein, Total 5.6 g/dL (6.4-8.2); Sodium Level 141 mmol/L (136-145)
--- NOTE | 2023-10-09 09:28 | PN.HOSP_ITS ---
Subjective Subjective Doing well, no issues overnight. Still with abdominal distention Objective Data Objective Data Vital Signs: Vital Signs Temp Pulse Resp BP Pulse Ox O2 Del Method O2 Flow Rate 97.5 F L 72 18 106/56 L 95 CPAP 2 10/09/23 03:30 10/09/23 03:30 10/09/23 03:30 10/09/23 03:30 10/09/23 03:30 10/09/23 03:30 10/03/23 13:45 Oxygen Flow Rate (L/min) 2 Oxygen Delivery Method CPAP Weight: 191 lb 2.252 oz Body Mass Index (BMI) 33.8 Intake & Output: Intake and Output for Last 24 Hours 10/08/23 10/09/23 10/10/23 03:59 03:59 03:59 Intake Total 480 / 480 75 / 75 Output Total 750 / 750 750 / 750 200 / 200 Balance -750 / -750 -270 / -270 -125 / -125 Lab / Micro Data 10/08/23 06:32 10/09/23 06:35 Labs: Laboratory Results - last 24 hr 10/08/23 11:13: POC Glucose 105 10/08/23 15:40: POC Glucose 129 H 10/08/23 21:27: POC Glucose 166 H 10/09/23 06:11: POC Glucose 98 10/09/23 06:35: Sodium 141, Potassium 3.5, Chloride 108 H, Carbon Dioxide 29.0, Anion Gap 4 L, BUN 19 H, Creatinine 1.03 H, Estim Creat Clear Calc 35.44, Est GFR (MDRD) Af Amer 66, Est GFR (MDRD) Non-Af 55 L, BUN/Creatinine Ratio 18.4, Glucose 112 H, Calcium 7.8 L, Phosphorus 2.8, Magnesium 1.4 L, Total Bilirubin 4.10 H, AST 67 H, ALT 36, Alkaline Phosphatase 101, Total Protein 5.6 L, Albumin 1.6 L, Globulin 4.0, Albumin/Globulin Ratio 0.4 L Micro: Microbiology 10/03/23 13:15 Fluid - Pleural (Lung) Gram Stain - Final 10/03/23 13:15 Fluid - Pleural (Lung) Body Fluid Culture - Final No growth aerobically. 10/03/23 13:15 Fluid - Pleural (Lung) Anaerobic Culture - Final No growth in 5 days. 10/05/23 15:40 Stool C. difficile GDH Antigen & Toxins - Final 10/05/23 15:40 Stool C. difficile DNA Amplification - Final 10/05/23 15:40 Stool Enteric Bacteriology - Final 10/02/23 23:15 Urine, Random Urine Culture - Final Klebsiella pneumoniae sp pneum Physical Exam Narrative General: Alert, Oriented x3, Cooperative, No apparent distress HEENT: Atraumatic, PERRLA, EOMI, Normocephalic Oral: Moist Mucosa Neck: Supple, No JVD Lungs: Diminished on the left, Normal air movement, No rhonchi, No wheeze, No rales Cardiovascular: Regular rate, Regular Rhythm, Normal S1, Normal S2, No murmurs Abdomen: Soft, Non Tender, distended, No Hepato-splenomegaly Extremities: Anasarca, Capillary Refill Less than 3 Seconds Skin: No rashes, No breakdown Musculoskeletal: No Tenderness to Palpation of Joints or Extremities Neurological: Motor Exam 5/5 strength throughout, Sensory exam intact to light touch and pain Psych/Mental Status: Normal Affect, Appropriate Assessment & Plan Assessment/Plan (1) Pleural effusion, left: PLAN: Plan With current 1. Anasarca, subacute large left pleural effusion, small right pleural effusion, ascites exact etiology unclear: Patient is being admitted in PCU. Chest x-ray initially reviewed and shows large left pleural effusion almost to the apex. Ultrasound-guided therapeutic thoracocentesis ordered. Diagnostic labs ordered. Patient does not have leukocytosis but thrombocytopenia 106,000. DuoNeb as needed. BiPAP as needed for shortness of breath during the night and naps. 2D echo is ordered for suspicion of heart failure as patient having leg swelling 2. BNP ordered. 2 serial troponins are negative therefore ACS unli hiral. Clinical history also not suggestive of recent URI or pneumonia. But if patient spikes fever will need antibiotic. D-dimer was elevated but CTA of chest was done which was negative for acute PE but again showed large left pleural effusion with diffuse atelectasis of left lung and minimal aeration, mild right pleural effusion, perihepatic ascites and diffuse subcutaneous edema. 10/03/2023: Plan for thoracentesis today, fluid studies orders are in. Will continue with diuresis 10/04/2023: We will continue with IV diuresis today x 1 and monitor renal function, lab work demonstrates a transudative effusion, echo shows normal systolic function but does not comment on diastolic function and she does also have a low albumin but liver function is stable 10/05/2023: We will continue with daily diuresis stool studies are also pending 10/06/2023: Continue with scheduled IV diuresis stool studies demonstrated positive antigen and positive DNA for C. difficile but no active toxin productio n she states that her stools have become firmer and she is not having as frequent bowel movements 10/07/2023: She had another episode of loose bowel movements today so we will just empirically start her on p.o. vancomycin and will increase her IV diuresis to twice daily dosing. Chest pain workup was unremarkable unfortunately chest x-ray redemonstrates the left pleural effusion though she states that she is breathing well and does not feel like she had the pleural effusion like she did the last time. It is unclear whether or not her pleural effusion is due to abdominal ascites from liver disease or from a cardiac origin 10/08/2023: We will continue with aggressive diuresis with twice daily IV Lasix of 40 mg, given the continued distention and left pleural effusion we may need to proceed with a paracentesis followed by thoracentesis to completely resolve her fluid issues, unfortunately this will not happen until Tuesday10/09/2023: No change interventions 2. Hypertension: Blood pressure is in control. 3. Diabetes melitis type II: Glucose in BMP is 110. Accu-Chek is and cover wi th Hem-o-martell sliding scale. 4. Kidney dysfunction, unclear acute or chronic but probably CKD stage IIIb: Patient BUNs/creatinine elevated 20/1.39. In our record, last labs available is from 2015 when her BUNs/creatinine was 11/0.52. Patient had IV contrast but had 1 L normal saline given in the ED. For now, hold any diuretic or IV fluid. Reevaluate kidney function tomorrow AM. UA is ordered. Patient denies burning micturition or acute blood related symptoms. 10/03/2023: Renal function is improving we will monitor 5. Liver spot as per history: Details not available. Rest as mentioned above. Patient states she gets ultrasound for spotting her liver. Advised to continue follow-up with GI in [place]. Liver chemistry ordered. It is unclear whether the ascites is new as she is being followed by GI at [place]. 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 Hypothyroidism ? TSH was elevated to 6.69 and while T4 was normal T3 was low indicating diffic ulties with peripheral conversion so we will continue with 50 of Synthroid 7. C. difficile ? Denies any significant abdominal pain however testing did come back positive for PCR and antigen and she is continue to have bowel movements that are loose so we will proceed with treatment for 10 days with p.o. vancomycin DVT: Lovenox Charges/Coding Visit Charges Inpatient E&M: 41545 Subs Hosp L2
[2023-10-09] MEDS: Metoprolol Tartrate 25 MG Tablet PO ×2 (09:48→21:44)
[2023-10-09] MEDS: Furosemide 40 MG/4 ML Vial IV ×2 (10:52→18:10)
[2023-10-09] MEDS: Magnesium Sulfate 4gm/100mL 4 GM/100 ML IV.SOLN. IV (10:52)
[2023-10-09] MEDS: 0.9% Saline Lock 10 ML Syringe IV ×2 (10:54→18:10)
[2023-10-09 11:24] LABS: Bedside Glucose 98 mg/dL (74-106)
[2023-10-09 16:46] LABS: Bedside Glucose 155 mg/dL (74-106)
[2023-10-09] MEDS: Benzonatate 100 MG Capsule PO (21:42)
[2023-10-09] MEDS: Miconazole Nitrate 43 GM Bottle 1 APPLIC TOPICAL (21:42)
[2023-10-09] MEDS: Insulin Lispro 100 UNIT/ML INSULN.PEN SC (21:43)
[2023-10-09 22:49] LABS: Bedside Glucose 181 mg/dL (74-106)
[2023-10-10] MEDS: Acetaminophen 325 MG Tablet 650 MG PO (03:11)
[2023-10-10] MEDS: Benzonatate 100 MG Capsule PO ×2 (03:11→20:23)
[2023-10-10 03:45] VITALS: BP 132/81; PULSE 99; RESP 20; TEMP 36.3; O2SAT 95
[2023-10-10 03:52] VITALS: BMI 33.7
[2023-10-10] MEDS: Levothyroxine 50 MCG Tablet PO (06:13)
[2023-10-10] MEDS: Vancomycin 125 MG/5 ML Susp PO.SYRINGE PO ×4 (06:13→23:05)
[2023-10-10 06:40] LABS: Bedside Glucose 125 mg/dL (74-106)
[2023-10-10 07:09] LABS: ALB/GLOB Ratio 0.4 RATIO (0.9-2.4); AST(SGOT) 75 U/L (15-37); Alanine Aminotransfer ALT/SGPT 37 U/L (13-56); Albumin, Serum 1.6 g/dL (3.2-5.0); Alkaline Phosphatase 126 U/L (45-117); Anion Gap 6 (5-15); BUN 20 mg/dL (7-18); BUN/Creat Ratio 19.6 RATIO (10-20); Calcium,Total 7.9 mg/dL (8.5-10.1); Chloride 107 mmol/L (98-107); Creatinine, Serum 1.02 mg/dL (0.55-1.02); EST Glomerular Filtration Rate 55 mL/min (>60); Est Glom Filt Rate - Afr Amer 67 mL/min (>60); Estimated Creatinine Clearance 35.78 ml/min; Glucose 136 mg/dL (74-106); Potassium 3.1 mmol/L (3.5-5.1); Protein, Total 5.6 g/dL (6.4-8.2); Sodium Level 139 mmol/L (136-145)
[2023-10-10 08:14] VITALS: BP 154/88; PULSE 62; RESP 18; TEMP 36.3; O2SAT 95
[2023-10-10] MEDS: Metoprolol Tartrate 25 MG Tablet PO ×2 (08:14→20:23)
[2023-10-10] MEDS: Potassium Chloride Oral Tablet 20 MEQ 40 MEQ PO (08:15)
[2023-10-10] MEDS: Miconazole Nitrate 43 GM Bottle 1 APPLIC TOPICAL ×2 (08:15→20:23)
[2023-10-10] MEDS: 0.9% Saline Lock 10 ML Syringe IV ×2 (08:23→18:05)
[2023-10-10] MEDS: Furosemide 40 MG/4 ML Vial IV ×2 (08:23→18:05)
--- NOTE | 2023-10-10 09:12 | PN.HOSP_ITS ---
Subjective Subjective Had a bit of a rough night last night secondary to a cough. She is still coughing but not hypoxic Objective Data Objective Data Vital Signs: Vital Signs Temp Pulse Resp BP Pulse Ox O2 Del Method O2 Flow Rate 97.4 F L 62 18 154/88 H 95 Room Air 2 10/10/23 08:14 10/10/23 08:14 10/10/23 08:14 10/10/23 08:14 10/10/23 08:14 10/10/23 08:32 10/03/23 13:45 Oxygen Flow Rate (L/min) 2 Oxygen Delivery Method Room Air Weight: 190 lb 11.198 oz Body Mass Index (BMI) 33.7 Intake & Output: Intake and Output for Last 24 Hours 10/09/23 10/10/23 10/11/23 03:59 03:59 03:59 Intake Total 480 / 480 679.58 / 679.58 150 / 150 Output Total 750 / 750 200 / 200 Balance -270 / -270 479.58 / 479.58 150 / 150 Lab / Micro Data 10/08/23 06:32 10/10/23 05:30 Labs: Laboratory Results - last 24 hr 10/09/23 10:57: POC Glucose 98 10/09/23 15:51: POC Glucose 155 H 10/09/23 21:35: POC Glucose 181 H 10/10/23 05:30: Sodium 139, Potassium 3.1 L, Chloride 107, Carbon Dioxide 26.0, Anion Gap 6, BUN 20 H, Creatinine 1.02, Estim Creat Clear Calc 35.78, Est GFR (MDRD) Af Amer 67, Est GFR (MDRD) Non-Af 55 L, BUN/Creatinine Ratio 19.6, Glucose 136 H, Calcium 7.9 L, Total Bilirubin 3.70 H, AST 75 H, ALT 37, Alkaline Phosphatase 126 H, Total Protein 5.6 L, Albumin 1.6 L, Globulin 4.0, Albumin/Globulin Ratio 0.4 L 10/10/23 06:12: POC Glucose 125 H Micro: Microbiology 10/03/23 13:15 Fluid - Pleural (Lung) Gram Stain - Final 10/03/23 13:15 Fluid - Pleural (Lung) Body Fluid Culture - Final No growth aerobically. 10/03/23 13:15 Fluid - Pleural (Lung) Anaerobic Culture - Final No growth in 5 days. 10/05/23 15:40 Stool C. difficile GDH Antigen & Toxins - Final 10/05/23 15:40 Stool C. difficile DNA Amplification - Final 10/05/23 15:40 Stool Enteric Bacteriology - Final 10/02/23 23:15 Urine, Random Urine Culture - Final Klebsiella pneumoniae sp pneum Physical Exam Narrative General: Alert, Oriented x3, Cooperative, No apparent distress HEENT: Atraumatic, PERRLA, EOMI, Normocephalic Oral: Moist Mucosa Neck: Supple, No JVD Lungs: Diminished on the left, Normal air movement, No rhonchi, No wheeze, No rales Cardiovascular: Regular rate, Regular Rhythm, Normal S1, Normal S2, No murmurs Abdomen: Soft, Non Tender, distended, No Hepato-splenomegaly Extremities: Anasarca, Capillary Refill Less than 3 Seconds Skin: No rashes, No breakdown Musculoskeletal: No Tenderness to Palpation of Joints or Extremities Neurological: Motor Exam 5/5 strength throughout, Sensory exam intact to light touch and pain Psych/Mental Status: Normal Affect, Appropriate Assessment & Plan Assessment/Plan (1) Pleural effusion, left: PLAN: Plan With current 1. Anasarca, subacute large left pleural effusion, small right pleural effusion, ascites exact etiology unclear: Patient is being admitted in PCU. Chest x-ray initially reviewed and shows large left pleural effusion almost to the apex. Ultrasound-guided therapeutic thoracocentesis ordered. Diagnostic labs ordered. Patient does not have leukocytosis but thrombocytopenia 106,000. DuoNeb as needed. BiPAP as needed for shortness of breath during the night and naps. 2D echo is ordered for suspicion of heart failure as patient having leg swelling 2. BNP ordered. 2 serial troponins are negative therefore ACS unlikely. Clinical history also not suggestive of recent URI or pneumonia. But if patient spikes fever will need antibiotic. D-dimer was elevated but CTA of chest was done which was negative for acute PE but again showed large left pleural effusion with diffuse atelectasis of left lung and minimal aeration, mild right pleural effusion, perihepatic ascites and diffuse subcutaneous edema. 10/03/2023: Plan for thoracentesis today, fluid studies orders are in. Will continue with diuresis 10/04/2023: We will continue with IV diuresis today x 1 and monitor renal function, lab work demonstrates a transudative effusion, echo shows normal systolic function but does not comment on diastolic function and she does also have a low albumin but liver function is stable 10/05/2023: We will continue with daily diuresis stool studies are also pending 10/06/2023: Continue with scheduled IV diuresis stool studies demonstrated positive antigen and positive DNA for C. difficile but no active toxin production she states that her stools have become firmer and she is not having as frequent bowel movements 10/07/2023: She had another episode of loose bowel movements today so we will just empirically start her on p.o. vancomycin and will increase her IV diuresis to twice daily dosing. Chest pain workup was unremarkable unfortunately chest x-ray redemonstrates the left pleural effusion though she states that she is breathing well and does not feel like she had the pleural effusion like she did the last time. It is unclear whether or not her pleural effusion is due to abdominal ascites from liver disease or from a cardiac origin 10/08/2023: We will continue with aggressive diuresis with twice daily IV Lasix of 40 mg, given the continued distention and left pleural effusion we may need to proceed with a paracentesis followed by thoracentesis to completely resolve her fluid issues, unfortunately this will not happen until Tuesday10/09/2023: No change interventions 10/10/2023: Awaiting for thoracentesis and paracentesis tomorrow, continue with Lasix as her kidney functions handling it in and she is dropping weight 2. Hypertension: Blood pressure is in control. 3. Diabetes melitis type II: Glucose in BMP is 110. Accu-Chek is and cover with Hem-o-martell sliding scale. 4. Kidney dysfunction, unclear acute or chronic but probably CKD stage IIIb: Patient BUNs/creatinine elevated 20/1.39. In our record, last labs available is from 2016 when her BUNs/creatinine was 11/0.52. Patient had IV contrast but had 1 L normal saline given in the ED. For now, hold any diuretic or IV fluid. Reevaluate kidney function tomorrow AM. UA is ordered. Patient denies burning micturition or acute blood related symptoms. 10/03/2023: Renal function is improving we will monitor 5. Liver spot as per history: Details not available. Rest as mentioned above. Patient states she gets ultrasound for spotting her liver. Advised to continue follow-up with GI in [place]. Liver chemistry ordered. It is unclear whether the ascites is new as she is being followed by GI at [place]. Would recommend outpatient follow-up with her home licensed guide 6. Hypothyroidism ? TSH was elevated to 6.69 and while T4 was normal T3 was low indicating difficulties with peripheral conversion so we will continue with 50 of Synthroid 7. C. difficile ? Denies any significant abdominal pain however testing did come back positive for PCR and antigen and she is continue to have bowel movements that are loose so we will proceed with treatment for 10 days with p.o. vancomycin DVT: Lovenox Charges/Coding Visit Charges Inpatient E&M: 87699 Subs Hosp L2
[2023-10-10 11:45] LABS: Bedside Glucose 133 mg/dL (74-106)
[2023-10-10 15:46] VITALS: BP 145/92; PULSE 93; RESP 18; TEMP 36.1; O2SAT 98
[2023-10-10] MEDS: Insulin Lispro 100 UNIT/ML INSULN.PEN SC (15:48)
[2023-10-10 18:16] LABS: Bedside Glucose 179 mg/dL (74-106)
[2023-10-10 20:23] VITALS: BP 136/94; PULSE 100; RESP 18; TEMP 36.8; O2SAT 94
[2023-10-10 21:17] LABS: Bedside Glucose 168 mg/dL (74-106)
[2023-10-11] VITALS (12 sets, daily range): BP systolic 96–131; BP diastolic 62–86; PULSE 64–102; RESP 16–22; TEMP 36.1–36.7; O2SAT 94–98; BMI 33.6
--- NOTE | 2023-10-11 | IMM_PTH ---
PATHOLOGY RESULTS PATIENT: BLADIMIR KAUR LOC: [facility] U#:[id number] AGE/SX: 83/F ROOM: [facility] RE10/02/[address]: Dr. Ludwin Craft MD : 1940 BED: 1 DIS: 10/13/2023 SPEC #: [id number] RECD: 10/13/23 11:52 STATUS: ESTRADA REQ #: [id number] SILVIA: 10/11/23 00:[address]: Frank Ham DEPT: IMMUNOHISTOCHEMISTRY RECD BY: Mirian López ENTERED: 10/13/23 11:54 SP TYPE: IMMUNO OTHR DR: MD Dr. Ludwin Garcia MD Dr. Victor Velasquez, MD Tissues: PARACENTESIS FLUID Procedures: NAPSIN A (add) Orion Ret (add) CD45 (add) CK20 (add) CK5-6 (add) CK7 (add) CK8 (add) KI-67 (add) P53 (add) MO (add) TTF1 (add) Pankeratin (add) P40 (add) CDX2 (add) CD68 (ADD) ER (initial) S-100 (add) PHYSICIAN & [place] [id number] SPECIMEN INFORMATION: Tissue Source: Paracentesis fluid Clinical Info: Ascites Specimen Number: [id number] CPT code: 55899, 30053 x16 METHODOLOGY: Deparaffinized sections of prefer/formalin-fixed tissue or PAP/DQ stained slides are incubated with monoclonal/polyclonal antibodies/oligonucleotide probes. Localization is made via biotin free immunoperoxidase method. Appropriate controls are performed and reacted as expected. Results on target cell population are indicated in the following table: RESULTS: ANTIBODY / CLONE RESULT ER (6F11) negative MO (1E2) negative AE1-3 (AE1/AE3/PCK26) positive CK7 (OV-TL12/30) positive CK8 (47maxcE60) positive CK20 (KS20.8) negative CDX2 ([id number]) negative CD45 (RP2/18) positive, background cells S-100 (4C4.9) negative CALRET (polyclonal) positive CK5-6 (D5 & 1684) positive P40 (BC28) negative P53 (DO-7) negative, null pattern Ki-67 (30-9) positive, low CD68 (KP-1) negative TTF-1 (8G7G3/1) negative Napsin A (Rabbit Polyclonal) negative These tests were developed and their performance characteristics determined by [facility]. They may not have been cleared or approved by the U.S. Food and Drug Administration. The FDA has determined that such clearance or approval is not necessary. The above immunohistochemical/dualISH markers are ordered and reviewed by the Pathologist. INTERPRETATION: Paracentesis fluid (cell block): No evidence of malignancy. AM:christin 10/18/2023
--- NOTE | 2023-10-11 | FLU_PTH ---
PATHOLOGY RESULTS PATIENT: BLADIMIR KAUR LOC: [facility] U#:[id number] AGE/SX: 83/F ROOM: [facility] RE10/02/[address]: Dr. Ludwin Craft MD : 1940 BED: 1 DIS: 10/13/2023 SPEC #: [id number] RECD: 10/11/23 14:15 STATUS: ESTRADA DEWITT #: [id number] SILVIA: 10/11/23 00:[address]: Frank Ham DEPT: CYTOLOGY RECD BY: Cassi Marie ENTERED: 10/12/23 08:35 SP TYPE: Fluid OTHR DR: MD Dr. Ludwin Garcia MD Dr. Victor Velasquez, MD Tissues: PARACENTESIS FLUID Procedures: Special Stain Group II Surgery Specimen Level IV Cytospin Fluid HEADER OPERATION: Paracentesis PRE-OP DIAGNOSIS: Ascites TISSUE SUBMITTED: Paracentesis fluid for cytology DIAGNOSIS CYTOLOGY Paracentesis fluid for cytology (cytospin and cell block): Negative for malignant cells COMMENT Immunohistochemistry ([id number]) supports the above diagnosis. Mucin stain with matched control is negative. Case has been reviewed in consultation with Dr. Sherwood who concurs with the above diagnosis. IDC:SJ CYTOLOGY STUDY Slides are reviewed. CYTOLOGY GROSS Received is 75 ml of reddish-orange cloudy fluid labeled with the patient's name and and designated per the requisition as paracentesis. Submitted for cytology preparation including cell block. / christin 10/12/2023 TC:5 CPT: 99161, 40737 , 16389
[2023-10-11] MEDS: Vancomycin 125 MG/5 ML Susp PO.SYRINGE PO ×3 (05:46→17:18)
[2023-10-11] MEDS: Levothyroxine 50 MCG Tablet PO (05:46)
[2023-10-11 06:03] LABS: Absolute Lymphocyte Count 1.64 X10^3/uL (0.83-4.51); Absolute Neutrophil Count 2.2 X10^3/uL (2.0-7.7); Basophil# 0.03 X10^3/uL; Basophil% 0.7 % (0-1); Eosinophil# 0.12 X10^3/uL; Eosinophils% 2.7 % (0-5); Hematocrit 40.8 % (37-47); Hemoglobin 12.9 g/dL (12.0-15.0); Lymphocyte # 1.64 X10^3/ul (0.83-4.51); Lymphocyte % 36.9 % (19-41); Mean Corp Hgb Conc 31.6 g/dL (32-36); Mean Corpuscular Hgb 31.8 pg (27.0-32.0); Mean Corpuscular Volume 100.5 fL (81-99); Mean Platelet Vol. 10.2 fl (6.2-12.0); Monocyte# 0.46 X10^3/uL; Monocyte% 10.3 % (0-10); NRBC Flagged by Analyzer 0.7 % (0-5); Neutrophil # 2.18 X10^3/uL (2.7-7.7); POSITIVE COUNT YES; POSITIVE MORPHOLOGY YES; Platelet Count 88 K/mm3 (150-450); RBC Distribution Width CV 17.8 % (11.6-14.6); RBC Distribution Width SD 65.4 fl (35.1-43.9); Red Blood Count 4.06 M/mm3 (4.2-5.4); White Blood Count 4.5 K/mm3 (4.4-11.0)
[2023-10-11 06:09] LABS: Differential Indicated SCAN CRITERIA MET
[2023-10-11 06:24] LABS: Anisocytosis 2+; Differential Comment SCANNED; Macrocytosis 1+
[2023-10-11 06:26] LABS: ALB/GLOB Ratio 0.4 RATIO (0.9-2.4); AST(SGOT) 98 U/L (15-37); Alanine Aminotransfer ALT/SGPT 48 U/L (13-56); Albumin, Serum 1.8 g/dL (3.2-5.0); Alkaline Phosphatase 133 U/L (45-117); Anion Gap 3 (5-15); BUN 22 mg/dL (7-18); BUN/Creat Ratio 19.6 RATIO (10-20); Calcium,Total 8.3 mg/dL (8.5-10.1); Chloride 109 mmol/L (98-107); Creatinine, Serum 1.12 mg/dL (0.55-1.02); EST Glomerular Filtration Rate 50 mL/min (>60); Est Glom Filt Rate - Afr Amer 60 mL/min (>60); Estimated Creatinine Clearance 32.59 ml/min; Globulin 4.7 g/dL (2.2-4.2); Glucose 121 mg/dL (74-106); Potassium 3.5 mmol/L (3.5-5.1); Protein, Total 6.5 g/dL (6.4-8.2); Sodium Level 138 mmol/L (136-145)
[2023-10-11] MEDS: Benzonatate 100 MG Capsule PO (06:48)
[2023-10-11 07:01] LABS: Bedside Glucose 99 mg/dL (74-106)
[2023-10-11] MEDS: Metoprolol Tartrate 25 MG Tablet PO ×2 (08:45→22:05)
[2023-10-11] MEDS: Miconazole Nitrate 43 GM Bottle 1 APPLIC TOPICAL ×2 (08:46→22:04)
[2023-10-11] MEDS: 0.9% Saline Lock 10 ML Syringe IV ×2 (08:46→10:58)
--- NOTE | 2023-10-11 10:33 | PN.HOSP_ITS ---
Subjective Subjective Starting to feel little bit more short of breath, awaiting thoracentesis and paracentesis Objective Data Objective Data Vital Signs: Vital Signs Temp Pulse Resp BP Pulse Ox O2 Del Method O2 Flow Rate 97.4 F L 72 18 128/86 H 95 Room Air 2 10/11/23 08:44 10/11/23 08:45 10/11/23 08:44 10/11/23 08:44 10/11/23 08:44 10/11/23 08:44 10/03/23 13:45 Oxygen Flow Rate (L/min) 2 Oxygen Delivery Method Room Air Weight: 190 lb 0.615 oz Body Mass Index (BMI) 33.6 Intake & Output: Intake and Output for Last 24 Hours 10/10/23 10/11/23 10/12/23 03:59 03:59 03:59 Intake Total 679.58 / 679.58 510 / 510 Output Total 200 / 200 Balance 479.58 / 479.58 510 / 510 Lab / Micro Data 10/11/23 05:40 10/11/23 05:40 Labs: Laboratory Results - last 24 hr 10/10/23 10:59: POC Glucose 133 H 10/10/23 15:44: POC Glucose 179 H 10/10/23 20:19: POC Glucose 168 H 10/11/23 05:40: WBC 4.5, RBC 4.06 L, Hgb 12.9, Hct 40.8, MCV 100.5 H, MCH 31.8, MCHC 31.6 L, RDW Std Deviation 65.4 H, RDW Coeff of Katherine 17.8 H, Plt Count 88 L, MPV 10.2, Immature Gran % (Auto) 0.400, Neut % (Auto) 49.0, Lymph % (Auto) 36.9, [place] % (Auto) 10.3 H, Eos % (Auto) 2.7, Baso % (Auto) 0.7, Absolute Neuts (auto) 2.2, Absolute Lymphs (auto) 1.64, Nucleated RBC % 0.7, Differential Comment SCANNED, Anisocytosis 2+, Macrocytosis 1+, Sodium 138, Potassium 3.5, Chloride 109 H, Carbon Dioxide 26.0, Anion Gap 3 L, BUN 22 H, Creatinine 1.12 H, Estim Creat Clear Calc 32.59, Est GFR (MDRD) Af Amer 60, Est GFR (MDRD) Non-Af 50 L, BUN/Creatinine Ratio 19.6, Glucose 121 H, Calcium 8.3 L, Total Bilirubin 4.20 H, AST 98 H, ALT 48, Alkaline Phosphatase 133 H, Total Protein 6.5, Albumin 1.8 L, Globulin 4.7 H, Albumin/Globulin Ratio 0.4 L 10/11/23 06:42: POC Glucose 99 Micro: Microbiology 10/03/23 13:15 Fluid - Pleural (Lung) Gram Stain - Final 10/03/23 13:15 Fluid - Pleural (Lung) Body Fluid Culture - Final No growth aerobically. 10/03/23 13:15 Fluid - Pleural (Lung) Anaerobic Culture - Final No growth in 5 days. 10/05/23 15:40 Stool C. difficile GDH Antigen & Toxins - Final 10/05/23 15:40 Stool C. difficile DNA Amplification - Final 10/05/23 15:40 Stool Enteric Bacteriology - Final 10/02/23 23:15 Urine, Random Urine Culture - Final Klebsiella pneumoniae sp pneum Physical Exam Narrative General: Alert, Oriented x3, Cooperative, No apparent distress HEENT: Atraumatic, PERRLA, EOMI, Normocephalic Oral: Moist Mucosa Neck: Supple, No JVD Lungs: Diminished on the left, Normal air movement, No rhonchi, No wheeze, No rales Cardiovascular: Regular rate, Regular Rhythm, Normal S1, Normal S2, No murmurs Abdomen: Soft, Non Tender, distended, No Hepato-splenomegaly Extremities: Anasarca, Capillary Refill Less than 3 Seconds Skin: No rashes, No breakdown Musculoskeletal: No Tenderness to Palpation of Joints or Extremities Neurological: Motor Exam 5/5 strength throughout, Sensory exam intact to light touch and pain Psych/Mental Status: Normal Affect, Appropriate Assessment & Plan Assessment/Plan (1) Pleural effusion, left: PLAN: Plan With current 1. Anasarca, subacute large left pleural effusion, small right pleural effusion, ascites exact etiology unclear: Patient is being admitted in PCU. Chest x-ray initially reviewed and shows large left pleural effusion almost to the apex. Ultrasound-guided therapeutic thoracocentesis ordered. Diagnostic labs ordered. Patient does not have leukocytosis but thrombocytopenia 106,000. DuoNeb as needed. BiPAP as needed for shortness of breath during the night and naps. 2D echo is ordered for suspicion of heart failure as patient having leg swelling 2. BNP ordered. 2 serial troponins are negative therefore ACS unlikely. Clinical history also not suggestive of recent URI or pneumonia. But if patient spikes fever will need antibiotic. D-dimer was elevated but CTA of chest was done which was negative for acute PE but again showed large left pleural effusion with diffuse atelectasis of left lung and minimal aeration, mild right pleural effusion, perihepatic ascites and diffuse subcutaneous edema. 10/03/2023: Plan for thoracentesis today, fluid studies orders are in. Will continue with diuresis 10/04/2023: We will continue with IV diuresis today x 1 and monitor renal function, lab work demonstrates a transudative effusion, echo shows normal systolic function but does not comment on diastolic function and she does also have a low albumin but liver function is stable 10/05/2023: We will continue with daily diuresis stool studies are also pending 10/06/2023: Continue with scheduled IV diuresis stool studies demonstrated positive antigen and positive DNA for C. difficile but no active toxin production she states that her stools have become firmer and she is not having as frequent bowel movements 10/07/2023: She had another episode of loose bowel movements today so we will just empirically start her on p.o. vancomycin and will increase her IV diuresis to twice daily dosing. Chest pain workup was unremarkable unfortunately chest x-ray redemonstrates the left pleural effusion though she states that she is breathing well and does not feel like she had the pleural effusion like she did the last time. It is unclear whether or not her pleural effusion is due to abdominal ascites from liver disease or from a cardiac origin 10/08/2023: We will continue with aggressive diuresis with twice daily IV Lasix of 40 mg, given the continued distention and left pleural effusion we may need to proceed with a paracentesis followed by thoracentesis to completely resolve her fluid issues, unfortunately this will not happen until Tuesday10/09/2023: No change interventions 10/10/2023: Awaiting for thoracentesis and paracentesis tomorrow, continue with Lasix as her kidney functions handling it in and she is dropping weight 10/11/2023: Thora and para today, continue with Lasix 2. Hypertension: Blood pressure is in control. 3. Diabetes melitis type II: Glucose in BMP is 110. Accu-Chek is and cover with Hem-o-martell sliding scale. 4. Kidney dysfunction, unclear acute or chronic but probably CKD stage IIIb: Patient BUNs/creatinine elevated 20/1.39. In our record, last labs available is from 2015 when her BUNs/creatinine was 11/0.52. Patient had IV contrast but had 1 L normal saline given in the ED. For now, hold any diuretic or IV fluid. Reevaluate kidney function tomorrow AM. UA is ordered. Patient denies burning micturition or acute blood related symptoms. 10/03/2023: Renal function is improving we will monitor 5. Liver spot as per history: Details not available. Rest as mentioned above. Patient states she gets ultrasound for spotting her liver. Advised to continue follow-up with GI in [place]. Liver chemistry ordered. It is unclear whether the ascites is new as she is being followed by GI at [place]. 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 Hypothyroidism ? TSH was elevated to 6.69 and while T4 was normal T3 was low indicating difficulties with peripheral conversion so we will continue with 50 of Synthroid 7. C. difficile ? Denies any significant abdominal pain however testing did come back positive for PCR and antigen and she is continue to have bowel movements that are loose so we will proceed with treatment for 10 days with p.o. vancomycin DVT: Lovenox Charges/Coding Visit Charges Inpatient E&M: 05310 Subs Hosp L2
[2023-10-11 10:53] LABS: Magnesium 1.9 mg/dL (1.6-2.6); Phosphorus 3.7 mg/dL (2.5-4.9)
[2023-10-11] MEDS: Furosemide 40 MG/4 ML Vial IV ×2 (10:58→17:18)
[2023-10-11] MEDS: Insulin Lispro 100 UNIT/ML INSULN.PEN SC (11:39)
[2023-10-11 11:59] LABS: Bedside Glucose 175 mg/dL (74-106)
[2023-10-11] MEDS: Lidocaine 2% (20 ml mdv) 20 ML Vial INFILT (13:38)
--- NOTE | 2023-10-11 14:12 | PCM.OP.PRO ---
Procedure Report Date of Procedure: 10/11/23 Assessment & Plan Assessment/Plan (1) Ascites: QUALIFIERS: Ascites type: other type Qualified Code(s): R18.8 - Other ascites PLAN: PROCEDURE: Ultrasound guided paracentesis ORDERING PROVIDER: Dr. Ham INDICATION: Female, 83 years old. Ascites. PROVIDER: HARRIS Benson TECHNIQUE: The risks, benefits, and alternatives to the procedure were explained to the patient. The specific risks of bleeding, infection, and damage to bowel were detailed and accepted. Witnessed informed consent was obtained. The abdomen was ultrasonographically surveyed. An appropriate pocket of fluid was identified in the left lower quadrant. The skin was prepped with Betadine swabs and sterile field established. 2% lidocaine was used for local anesthetic. Aspiration while anesthetizing the insertion track revealed the return of cloudy yellow ascitic fluid. Using ultrasound guidance, the peritoneal cavity was accessed with a 5-Kiswahili paracentesis needle/catheter system. The trocar was removed. A total of 3100 ml of cloudy yellow colored fluid was removed from the peritoneal cavity. 100 mL of this fluid was sent to the laboratory for analysis, as per requesting physician. The catheter was removed and a sterile dressing was applied. The procedure was well tolerated. IMPRESSION: Successful ultrasound-guided paracentesis with left lower quadrant access site. Procedures Radiology Radiology US Procedures: [id number] Paracentesis
[2023-10-11 14:32] LABS: Body Fluid Mononuclear WBC % 91.5 %; Body Fluid Polynuclear WBC # 0.028 10^3/uL; Body Fluid Polynuclear WBC % 8.5 %; Body Fluid Total Cells Counted 0.377 10^3/ul; White Blood Count/Body Fluid 0.328 10^3/uL
[2023-10-11 14:56] LABS: Glucose, Body Fluid 220 mg/dL (40-70); LDH,Body Fluid 46 Units/L (Not Establ.); Protein, Body Fluid 0.6 g/dL (Not Establ.)
--- NOTE | 2023-10-11 14:58 | CASEMGMT ---
Discharge Planning A list of HH providers including quality and resource use data and consistent with the patient's preferred geographic region, medical needs, and insurance network was created in [employer] Guide.? This list was provided to the RN JYOTHI. Tahmina Duron, Discharge Planning Asst.
[2023-10-11 15:37] LABS: Lymphocytes 54 %; Macrophages 18 %; Mesothelial Cells 14 %; Monocytes 4 %; Neutrophil (Segs) 10 %
[2023-10-11 15:38] LABS: Appearance/Body Fluid CLOUDY; Auto B Fluid Analyzer BKGD Ct COUNTS W/IN LIMITS (W/IN LIMITS); Color/Body Fluid YELLOW; Source- Body Fluid PERITONEAL FLUID
[2023-10-11 15:39] LABS: Body Fluid QC Type(s) BF1Q,BF2Q; Red Cell Count/Body Fluid 1375 /mm3
--- NOTE | 2023-10-11 15:50 | CASEMGMT ---
KATIE ROE NOTE: KATIE ROE to room to f/u re: discharge planning. Pt states she still wishes to discharge home and feels that she will be safe @ home. Pt states would be interested in HHC. Pt provided w/HHC list that was prepared by Tahmina senior program planner. Pt states she has no preference of HHC agency. [facility] and referral made w/Saritha. Tahmina senior program planner, also to send out referrals to other in-network agencies via [employer]. James BISWAS RN, CM
--- NOTE | 2023-10-11 17:19 | CASEMGMT ---
Addendum entered by Tahmina Duron 10/12/23 12:27: Patient has been accepted by [facility], soc 10/14/23. KATIE CM updated. Tahmina Duron, Discharge Planning Asst. Original Note: Discharge Planning HH referral sent to [facility], and [facility]. Tahmina Duron, Discharge Planning Asst.
[2023-10-11 17:33] LABS: Bedside Glucose 149 mg/dL (74-106)
[2023-10-11 22:41] LABS: Bedside Glucose 183 mg/dL (74-106)
[2023-10-12] VITALS (13 sets, daily range): BP systolic 54–116; BP diastolic 27–79; PULSE 68–102; RESP 16–20; TEMP 36.1–36.8; O2SAT 93–98; BMI 25.7
[2023-10-12] MEDS: Vancomycin 125 MG/5 ML Susp PO.SYRINGE PO ×5 (00:19→23:37)
[2023-10-12] MEDS: Menthol/Lanolin/Calamine/Znox 113 GM Tube 1 APPLIC TOPICAL ×3 (01:15→23:23)
[2023-10-12] MEDS: Levothyroxine 50 MCG Tablet PO (05:26)
[2023-10-12] MEDS: Benzonatate 100 MG Capsule PO (06:10)
[2023-10-12 06:36] LABS: Anion Gap 6 (5-15); BUN 20 mg/dL (7-18); BUN/Creat Ratio 18.5 RATIO (10-20); Calcium,Total 7.7 mg/dL (8.5-10.1); Chloride 109 mmol/L (98-107); Creatinine, Serum 1.08 mg/dL (0.55-1.02); EST Glomerular Filtration Rate 52 mL/min (>60); Est Glom Filt Rate - Afr Amer 63 mL/min (>60); Estimated Creatinine Clearance 33.79 ml/min; Glucose 130 mg/dL (74-106); Potassium 3.1 mmol/L (3.5-5.1); Sodium Level 142 mmol/L (136-145)
[2023-10-12 06:37] LABS: Bedside Glucose 111 mg/dL (74-106)
[2023-10-12] MEDS: Lidocaine 2% (20 ml mdv) 20 ML Vial INFILT (08:20)
--- NOTE | 2023-10-12 08:30 | PRO.PCM_ITS ---
Procedure Report Date of Procedure: 10/12/23 Assessment & Plan Assessment/Plan (1) Pleural effusion, left: PLAN: PROCEDURE: Ultrasound Guided Thoracentesis ORDERING PROVIDER: Dr. Ham INDICATION: Female, 83 years old. Left pleural effusion. PROVIDER: HARRIS Benson PROCEDURE: The risks, benefits, and alternatives to the procedure were explained to the patient. The specific risks of bleeding, infection, and pneumothorax requiring chest tube insertion were discussed and accepted. Written informed consent was obtained. The patient was placed in the sitting, upright position. Ultrasonographic evaluation of the bilateral lower pleural spaces was carried out. An adequate pocket was identified in the left lower pleural space.The overlying skin was prepped and draped in sterile fashion. 2% lidocaine was administered subcutaneously for local anesthesia. Under ultrasound guidance, a 5-New Zealander thoracentesis needle/catheter system was advanced into the left posterior lower pleural fluid collection. 1150 ml of clear yellow colored fluid was drained. The patient did have significant coughing during the procedure, so suction pressure was decreased. However, patient continued to cough, complaining of dizziness, and became hypotensive. So despite some fluid still being present on ultrasound, the catheter was removed, and a sterile dressing was applied. The patient was positioned semi- Fowlers in bed and a chest x-ray was ordered. IMPRESSION: Successful ultrasound-guided thoracentesis of left pleural effusion. Procedures Radiology Radiology US Procedures: [id number] Thoracentesis
--- NOTE | 2023-10-12 08:35 | RAD_ITS ---
EXAM: XR CHEST, 2 VIEWS CLINICAL INDICATION: immediately post thoracentesis TECHNIQUE: Frontal and lateral views of the chest. COMPARISON: 10/07/2023. FINDINGS: LUNGS AND PLEURAL SPACES: No pneumothorax following thoracentesis. Moderately large left pleural effusion persists with only minimal change. Compressive atelectasis in the bottom half of the left lung is unchanged. Normal right lung. HEART: Unremarkable. Normal cardiac size. MEDIASTINUM: Central airways and mediastinal contour are unremarkable. BONES/JOINTS: Unremarkable. No acute fracture. SOFT TISSUES: Unremarkable. RAD/Chest Insp/Exp 2 View IMPRESSION: 1. Minimal decrease in large volume left pleural effusion following thoracentesis no pneumothorax. 2. Persistent compressive atelectasis in the bottom half of the left lung. 3. No significant interval change. Electronically Signed: Manuel Villasenor MD at 8:51 EST ,
[2023-10-12] MEDS: Albumin Human 25% (100 mL) 25 GM/100 ML BAG IV (10:40)
[2023-10-12] MEDS: Miconazole Nitrate 43 GM Bottle 1 APPLIC TOPICAL ×2 (10:46→23:24)
[2023-10-12] MEDS: Insulin Lispro 100 UNIT/ML INSULN.PEN SC ×3 (11:52→23:36)
[2023-10-12 12:14] LABS: Bedside Glucose 204 mg/dL (74-106)
--- NOTE | 2023-10-12 12:37 | CASEMGMT ---
KATIE ROE NOTE: Per Tahmina, corporate event planner, [facility] able to accept pt w/SOC slated for Tuesday. Pt made aware and voices appreciation. She feels safe to discharge home and denies having any other discharge planning needs/concerns. James JUNGN RN CM
--- NOTE | 2023-10-12 14:49 | PN.HOSP_ITS ---
Subjective Subjective Had a thoracentesis today and had a liter out, she had 3-1/2 L out yesterday from her paracentesis. She was hypotensive during the procedure and does not feel well today. She was given 25 g of albumin Objective Data Objective Data Vital Signs: Vital Signs Temp Pulse Resp BP Pulse Ox O2 Del Method O2 Flow Rate 97.8 F 96 18 105/67 94 Room Air 2 10/12/23 09:05 10/12/23 09:05 10/12/23 09:05 10/12/23 09:05 10/12/23 09:05 10/12/23 09:05 10/03/23 13:45 Oxygen Flow Rate (L/min) 2 Oxygen Delivery Method Room Air Weight: 145 lb 8.081 oz Body Mass Index (BMI) 25.7 Intake & Output: Intake and Output for Last 24 Hours 10/11/23 10/12/23 10/13/23 03:59 03:59 03:59 Intake Total 510 / 510 850 / 850 420 / 420 Output Total 3250 / 3250 1150 / 1150 Balance 510 / 510 -2400 / -2400 -730 / -730 Lab / Micro Data 10/11/23 05:40 10/12/23 05:56 Labs: Laboratory Results - last 24 hr 10/11/23 13:32: Fluid Source PERITONEAL FLUID, Fluid Color YELLOW, Fluid Appearance CLOUDY, Fluid WBC 0.328, Fluid RBC 1375, Fluid Tot Cell Count 0.377 H , Fld Polynuclear WBCs # 0.028, Fld Polynuclear WBCs % 8.5, Fluid Mononuclear WBCs 0.300, Fld Mononuclear WBCs % 91.5, Fluid Neutrophils 10, Fluid Lymphocytes 54, Fluid Monocytes 4, Fluid Macrophages 18, Fld Mesothelial Cells 14, Fl Pathologist Comment May follow, Fluid Glucose 220 H, Fluid Total Protein 0.6, Fluid LDH 46, Fluid Comment 2 SEE COMMENT 10/11/23 17:14: POC Glucose 149 H 10/11/23 22:01: POC Glucose 183 H 10/12/23 05:56: Sodium 142, Potassium 3.1 L, Chloride 109 H, Carbon Dioxide 27.0, Anion Gap 6, BUN 20 H, Creatinine 1.08 H, Estim Creat Clear Calc 33.79, Est GFR (MDRD) Af Amer 63, Est GFR (MDRD) Non-Af 52 L, BUN/Creatinine Ratio 18.5, Glucose 130 H, Calcium 7.7 L 10/12/23 06:14: POC Glucose 111 H 10/12/23 11:51: POC Glucose 204 H Micro: Microbiology 10/03/23 13:15 Fluid - Pleural (Lung) Gram Stain - Final 10/03/23 13:15 Fluid - Pleural (Lung) Body Fluid Culture - Final No growth aerobically. 10/03/23 13:15 Fluid - Pleural (Lung) Anaerobic Culture - Final No growth in 5 days. 10/05/23 15:40 Stool C. difficile GDH Antigen & Toxins - Final 10/05/23 15:40 Stool C. difficile DNA Amplification - Final 10/05/23 15:40 Stool Enteric Bacteriology - Final 10/02/23 23:15 Urine, Random Urine Culture - Final Klebsiella pneumoniae sp pneum Radiography Diagnostic Testing: Radiology Impression Chest X-Ray 10/12/23 08:35 IMPRESSION: 1. Minimal decrease in large volume left pleural effusion following thoracentesis no pneumothorax. 2. Persistent compressive atelectasis in the bottom half of the left lung. 3. No significant interval change. Electronically Signed: Manuel Villasenor MD at 8:51 EST , Physical Exam Narrative General: Alert, Oriented x3, Cooperative, No apparent distress, appears more fatigued today HEENT: Atraumatic, PERRLA, EOMI, Normocephalic Oral: Moist Mucosa Neck: Supple, No JVD Lungs: Diminished, Normal air movement, No rhonchi, No wheeze, No rales Cardiovascular: Regular rate, Regular Rhythm, Normal S1, Normal S2, No murmurs Abdomen: Soft, Non Tender, nondistended, No Hepato-splenomegaly Extremities: Anasarca, Capillary Refill Less than 3 Seconds Skin: No rashes, No breakdown Musculoskeletal: No Tenderness to Palpation of Joints or Extremities Neurological: Motor Exam 5/5 strength throughout, Sensory exam intact to light touch and pain Psych/Mental Status: Normal Affect, Appropriate Assessment & Plan Assessment/Plan (1) Pleural effusion, left: PLAN: Plan With current 1. Anasarca, subacute large left pleural effusion, small right pleural effusion, ascites exact etiology unclear: Patient is being admitted in PCU. Chest x-ray initially reviewed and shows large left pleural effusion almost to the apex. Ultrasound-guided therapeutic thoracocentesis ordered. Diagnostic labs ordered. Patient does not have leukocytosis but thrombocytopenia 106,000. DuoNeb as needed. BiPAP as needed for shortness of breath during the night and naps. 2D echo is ordered for suspicion of heart failure as patient having leg swelling 2. BNP ordered. 2 serial troponins are negative therefore ACS unlikely. Clinical history also not suggestive of recent URI or pneumonia. But if patient spikes fever will need antibiotic. D-dimer was elevated but CTA of chest was done which was negative for acute PE but again showed large left pleural effusion with diffuse atelectasis of left lung and minimal aeration, mild right pleural effusion, perihepatic ascites and diffuse subcutaneous edema. 10/03/2023: Plan for thoracentesis today, fluid studies orders are in. Will continue with diuresis 10/04/2023: We will continue with IV diuresis today x 1 and monitor renal function, lab work demonstrates a transudative effusion, echo shows normal systolic function but does not comment on diastolic function and she does also have a low albumin but liver function is stable 10/05/2023: We will continue with daily diuresis stool studies are also pending 10/06/2023: Continue with scheduled IV diuresis stool studies demonstrated positive antigen and positive DNA for C. difficile but no active toxin production she states that her stools have become firmer and she is not having as frequent bowel movements 10/07/2023: She had another episode of loose bowel movements today so we will just empirically start her on p.o. vancomycin and will increase her IV diuresis to twice daily dosing. Chest pain workup was unremarkable unfortunately chest x-ray redemonstrates the left pleural effusion though she states that she is breathing well and does not feel like she had the pleural effusion like she did the last time. It is unclear whether or not her pleural effusion is due to abdominal ascites from liver disease or from a cardiac origin 10/08/2023: We will continue with aggressive diuresis with twice daily IV Lasix of 40 mg, given the continued distention and left pleural effusion we may need to proceed with a paracentesis followed by thoracentesis to completely resolve her fluid issues, unfortunately this will not happen until Tuesday10/09/2023: No change interventions 10/10/2023: Awaiting for thoracentesis and paracentesis tomorrow, continue with Lasix as her kidney functions handling it in and she is dropping weight 10/11/2023: Thora and para today, continue with Lasix 10/12/2023: Paracentesis yesterday with with around 3 L of fluid removed, fluid albumin is still pending to do an SA-AG eval, thoracentesis today removed a little bit over a liter she was given a dose of 25 g of albumin given hypotension after the procedure and and just not feeling well we will hold off on her IV Lasix today and transition her to oral Lasix, her home dose is 20 mg we will increase this to 40 mg and will restart her Aldactone tomorrow 2. Hypertension: Blood pressure is in control. 3. Diabetes melitis type II: Glucose in BMP is 110. Accu-Chek is and cover w ith Hem-o-martell sliding scale. 4. Kidney dysfunction, unclear acute or chronic but probably CKD stage IIIb: Patient BUNs/creatinine elevated 20/1.39. In our record, last labs available is from 2015 when her BUNs/creatinine was 11/0.52. Patient had IV contrast but had 1 L normal saline given in the ED. For now, hold any diuretic or IV fluid. Reevaluate kidney function tomorrow AM. UA is ordered. Patient denies burning micturition or acute blood related symptoms. 10/03/2023: Renal function is improving we will monitor 5. Liver spot as per history: Details not available. Rest as mentioned above. Patient states she gets ultrasound for spotting her liver. Advised to continue follow-up with GI in [place]. Liver chemistry ordered. It is unclear whether the ascites is new as she is being followed by GI at [place]. 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 Hypothyroidism ? TSH was elevated to 6.69 and while T4 was normal T3 was low indicating diffi culties with peripheral conversion so we will continue with 50 of Synthroid ? She will need outpatient evaluation for dose adjustment on discharge 7. C. difficile ? Denies any significant abdominal pain however testing did come back positive for PCR and antigen and she is continue to have bowel movements that are loose so we will proceed with treatment for 10 days with p.o. vancomycin DVT: Lovenox Charges/Coding Visit Charges Inpatient E&M: 04061 Subs Hosp L2
[2023-10-12 17:47] LABS: Bedside Glucose 179 mg/dL (74-106)
--- NOTE | 2023-10-12 20:33 | CPS ---
Pt set up with own bipap machine for the night.
[2023-10-12] MEDS: Metoprolol Tartrate 25 MG Tablet PO (23:24)
[2023-10-13 00:46] LABS: Bedside Glucose 222 mg/dL (74-106)
[2023-10-13 03:32] VITALS: BMI 32.1
[2023-10-13 06:03] LABS: Absolute Lymphocyte Count 1.28 X10^3/uL (0.83-4.51); Absolute Neutrophil Count 2.1 X10^3/uL (2.0-7.7); Basophil# 0.02 X10^3/uL; Basophil% 0.5 % (0-1); Eosinophil# 0.07 X10^3/uL; Eosinophils% 1.8 % (0-5); Hematocrit 35.5 % (37-47); Hemoglobin 11.4 g/dL (12.0-15.0); Lymphocyte # 1.28 X10^3/ul (0.83-4.51); Lymphocyte % 33.4 % (19-41); Mean Corp Hgb Conc 32.1 g/dL (32-36); Mean Corpuscular Hgb 32.1 pg (27.0-32.0); Mean Platelet Vol. 10.3 fl (6.2-12.0); Monocyte# 0.32 X10^3/uL; Monocyte% 8.4 % (0-10); NRBC Flagged by Analyzer 0 % (0-5); Neutrophil # 2.13 X10^3/uL (2.7-7.7); Neutrophil % 55.6 % (47-70); POSITIVE COUNT YES; Platelet Count 78 K/mm3 (150-450); RBC Distribution Width CV 17.6 % (11.6-14.6); RBC Distribution Width SD 63.7 fl (35.1-43.9); Red Blood Count 3.55 M/mm3 (4.2-5.4); White Blood Count 3.8 K/mm3 (4.4-11.0)
[2023-10-13 06:15] VITALS: BP 106/77; PULSE 92; RESP 18; TEMP 36.8; O2SAT 97
[2023-10-13] MEDS: Levothyroxine 50 MCG Tablet PO (06:24)
[2023-10-13] MEDS: Vancomycin 125 MG/5 ML Susp PO.SYRINGE PO ×2 (06:24→11:36)
[2023-10-13 07:01] LABS: Anion Gap 3 (5-15); BUN 22 mg/dL (7-18); BUN/Creat Ratio 23.4 RATIO (10-20); Calcium,Total 8.3 mg/dL (8.5-10.1); Chloride 109 mmol/L (98-107); Creatinine, Serum 0.94 mg/dL (0.55-1.02); EST Glomerular Filtration Rate 61 mL/min (>60); Est Glom Filt Rate - Afr Amer 73 mL/min (>60); Estimated Creatinine Clearance 38.83 ml/min; Glucose 134 mg/dL (74-106); Potassium 2.8 mmol/L (3.5-5.1); Sodium Level 140 mmol/L (136-145)
[2023-10-13 07:10] LABS: Bedside Glucose 102 mg/dL (74-106)
--- NOTE | 2023-10-13 08:13 | DCINST_ITS ---
Discharge Instructions Diet Discharge Diet: No restrictions Activity Discharge Activity: Return to Normal Activity Weight Bearing Status: Weight bearing as tolerated Dressing / Incision Call your doctor if you observe: Fever of 101 or Higher, Coldness, Increased Pain, Numbness or Tingling, Change in Color, Inability to urinate, Inability to have a bowel movement, Shortness of breath, Dizziness, Fainting spells, Swelling in the ankles, Chest pain, Prolonged hiccupping, Increased palpitations (irregular heartbeat) and Calf discomfort Follow Up Care When: IN 2 WEEKS Test Results: Test results from this visit will be discussed in further detail at your follow- up appointment, if applicable. Discharge Plan Admission Admit Date/Time: 10/02/23 18:29 Attending Provider: Ludwin Craft Primary Care Provider: Sameer Cope Consulting Providers: Ludwin Craft; Juan Goodson; Frank Ham Instructions Patient Instructions: JENNIFER RN Thoracentesis Dc Additional Instructions / Restrictions: Continue to follow-up with GI in [place]. Discharge Orders/Prescriptions Prescriptions: New furosemide 40 mg Tablet 40 mg PO DAILY 30 Days Qty: 30 2RF vancomycin [Firvanq] 25 mg/mL Recon Soln 125 mg PO Q6 10 Days Qty: 200 0RF levothyroxine 25 mcg tablet 25 mcg PO DAILY Qty: 30 2RF Continued metformin 500 MG tablet 500 mg PO BIDCM Patient Comments: DIABETES metoprolol tartrate 25 mg tablet 25 mg PO BID omeprazole 20 mg capsule,delayed release(DR/EC) 20 mg PO DAILY Patient Comments: TAKE 1 CAPSULE BY MOUTH ONCE DAILY 30 MINUTES BEFORE BREAKFAST Changed spironolactone 50 mg tablet 75 mg PO DAILY 30 Days Qty: 45 2RF Patient Comments: TAKE 1 TABLET BY MOUTH ONCE DAILY Rx Instructions: Hold if serum potassium more than 5.0. Discontinued furosemide 20 mg tablet 20 mg PO DAILY Referrals / Follow Up: Sameer Cope MD [Primary Care Provider] - Within 2 Weeks Thu Leggett MD [Med Staff - Consulting] - Within 1 Month (For CKD) Disposition Disposition (needs filled in before D/C Order can be placed): Home Health Service
[2023-10-13 10:15] VITALS: BP 116/61; PULSE 85; RESP 16; TEMP 36.4; O2SAT 98
[2023-10-13 10:20] VITALS: BP 116/61; PULSE 85
[2023-10-13] MEDS: Menthol/Lanolin/Calamine/Znox 113 GM Tube 1 APPLIC TOPICAL (10:20)
[2023-10-13] MEDS: Furosemide 40 MG Tablet PO (10:20)
[2023-10-13] MEDS: Metoprolol Tartrate 25 MG Tablet PO (10:20)
[2023-10-13] MEDS: Spironolactone 50 MG Tablet PO ×2 (10:21→13:21)
[2023-10-13] MEDS: Miconazole Nitrate 43 GM Bottle 1 APPLIC TOPICAL (10:21)
[2023-10-13] MEDS: Insulin Lispro 100 UNIT/ML INSULN.PEN SC (11:35)
[2023-10-13 11:57] LABS: Bedside Glucose 233 mg/dL (74-106)
[2023-10-13 12:08] LABS: Albumin, Body Fluid 0.3 g/dL (Not Estab.)
--- NOTE | 2023-10-13 12:30 | DS.PCM_ITS ---
Providers Date of Admission: 10/02/23 Date of Discharge: 10/13/23 Primary Care Physician: Dr. Sameer Cope MD Reason For Visit: LARGE LEFT EFFUSION Diagnosis Discharge Diagnosis (1) Pleural effusion, left: Status: Acute Code(s): J90 - Pleural effusion, not elsewhere classified Plan This 83-year-old female being admitted for progressive worsening shortness of breath for 1 week most likely due to large left pleural effusion. 1. Anasarca, subacute large left pleural effusion, small right pleural effusion, ascites exact etiology unclear: Patient is being admitted in PCU. Chest x-ray initially reviewed and shows large left pleural effusion almost to the apex. Ultrasound-guided therapeutic thoracocentesis ordered. Diagnostic labs ordered. Patient does not have leukocytosis but thrombocytopenia 106,000. DuoNeb as needed. BiPAP as needed for shortness of breath during the night and naps. D-dimer was elevated but CTA of chest was done which was negative for acute PE but again showed large left pleural effusion with diffuse atelectasis of left lung and minimal aeration, mild right pleural effusion, perihepatic ascites and diffuse subcutaneous edema. 10/13 patient had thoracocentesis twice which was transudative in nature. 2D echo shows normal systolic function. Patient was treated with IV Lasix and spironolactone. Patient again had refill of pleural effusion and required paracentesis and thoracocentesis both. IV albumin was given. Patient discharged on furosemide 40 mg daily and spironolactone dose increased to 75 mg daily as patient had low potassium/hypokalemia. Advised to continue follow-up with GI in [place]. 2. C. difficile infection/colitis: Patient had episodes of loose bowel movement. Stool for C. difficile was positive for A/P antigen but negative for toxin. Vancomycin 125 mg 4 times daily started with prescription given to complete a course of total of 2 weeks. Asymptomatic bacteriuria: Hypertension: Blood pressure is in control. 3. Diabetes melitis type II: Glucose in BMP is 110. Accu-Chek is and cover with Hem-o-martell sliding scale. 4. CKD stage IIIb: Patient BUNs/creatinine elevated 20/1.39. In our record, last labs available is from 2015 when her BUNs/creatinine was 11/0.52. Patient had IV contrast but had 1 L normal saline given in the ED. For now, hold any diuretic or IV fluid. Patient denies burning micturition or acute blood related symptoms. Asymptomatic bacteriuria Klebsiella: Patient urine culture shows Klebsiella pneumoniae more than 100,000 colonies but patient does not have acute symptoms of lower urinary tract symptoms or dysuria. Follow-up with nephrology as an outpatient. 5. Liver spot as per history: Details not available. Rest as mentioned above. Patient states she gets ultrasound for spotting her liver. Advised to continue follow-up with GI in [place]. Liver chemistry ordered. DVT prophylaxis: Enoxaparin 30 mg subcu daily adjusted to creatinine clearance. Living will/advanced directive/end of life care: Patient does have living will or advanced directive. Patient's son near the bedside is power of document review attorney for health. After discussion of benefits/risks procedures involved with full code, DNR CC arrest and DNR CC, the patient opted for full code and wants to try intubation or all possible resuscitation but if it is prolonged on ventilator or irreversible or terminal, convert to DNR CC arrest Patient does want artificial life support including intubation, tube feed, pamela tilator and/chest compression, central venous catheter, vasopressor and DC shock if needed Discharge medication reconciliation done. Discharge follow-up instructions completed. Discharge process discussed with the patient and all questions were answered to patient's satisfaction. Follow with PCP in 1 to 2 weeks Total time spent, exact 35 minutes on discharge meds reconciliation, examinatio n, coordination of care with nurses and ancillary staff, review of imaging and blood test and discussion with the patient on follow-up instructions. Laboratory Results 10/02/23 14:20: WBC 3.8 L, RBC 3.95 L, Hgb 13.0, Hct 40.4, MCV 102.3 H, MCH 32.9 H, MCHC 32.2, RDW Std Deviation 67.1 H, RDW Coeff of Katherine 18.0 H, Plt Count 106 L , MPV 9.7, Immature Gran % (Auto) 0.300, Neut % (Auto) 56.3, Lymph % (Auto) 32.1, Davis % (Auto) 9.2, Eos % (Auto) 1.6, Baso % (Auto) 0.5, Absolute Neuts (auto) 2.1, Absolute Lymphs (auto) 1.22, Nucleated RBC % 0, Anisocytosis 2+, Microcytosis 1+, Macrocytosis 1+, D-Dimer Quant (PE/DVT) 11.88 H*, Sodium 143, Potassium 3.1 L, Chloride 104, Carbon Dioxide 27.0, Anion Gap 12, BUN 20 H, Creatinine 1.39 H, Estim Creat Clear Calc 26.26, Est GFR (MDRD) Af Amer 47 L, Est GFR (MDRD) Non-Af 39 L, BUN/Creatinine Ratio 14.4, Glucose 110 H, Calcium 8.3 L, Troponin I High Sens 21 10/02/23 16:43: Troponin I High Sens 15 Clinical Impression(s) from Imaging Studies Chest X-Ray 10/02/23 14:15 IMPRESSION: Large left pleural effusion. Electronically Signed: Oc Oleary MD at 15:08 EST Reading Location ID and State: [facility] / [place] , Service support , Chest CTA 10/02/23 15:18 IMPRESSION: No demonstrated pulmonary embolism or arterial dissection. Large left effusion. Small right pleural effusion. Diffuse atelectasis of the left lung. Very minimal aeration of the left lung Ascites. There is diffuse subcutaneous edema. This can suggest anasarca when combined with pleural effusions and ascites. Medications at Discharge Home Medications metformin 500 mg tablet 500 mg PO BIDCM DIABETTES 07/30/16 metoprolol tartrate 25 mg tablet 25 mg PO BID BP 10/02/23 omeprazole 20 mg capsule,delayed release 20 mg PO DAILY GERD 10/03/23 furosemide 40 mg tablet 40 mg PO DAILY 30 days #30 tabs 10/13/23 levothyroxine 25 mcg tablet 25 mcg PO DAILY #30 tabs 10/13/23 spironolactone 50 mg tablet 75 mg (1.5 x 50 mg) PO DAILY BP/DIURETIC 30 days #45 tabs 10/13/23 vancomycin 25 mg/mL oral solution (Firvanq) 125 mg (5 mL) PO Q6 10 days #200 mL 10/13/23 Physical Exam Narrative The patient had repeat thoracocentesis on 10/12 and paracentesis on 10/11. At rest, no short of breath. Physical exam: General: Alert, Oriented x3, Cooperative HEENT: Bilateral hard of hearing. Atraumatic, PERRLA, EOMI, Normocephalic Oral: No Gingival or Mucosal Lesions/ Ulcerations Neck: Supple, No JVD, Negative Carotid Bruits Lungs: Air entry diminished on left side. No crepitation/rhonchi. Cardiovascular: Regular rate, Regular Rhythm, Normal S1, Normal S2, No murmurs Abdomen: Status post paracentesis. Mild ascites bowel Sounds Present, Soft, Non Tender, Non-Distended : No renal angle tenderness. No suprapubic tenderness. Extremities: Bilateral leg edema, 1+, Capillary Refill Less than 3 Seconds Skin: No rashes, No breakdown Musculoskeletal: No Tenderness to Palpation of Joints or Extremities Neurological: Cranial nerves II-XII grossly intact, DTR 2+/4. No acute focal neurological deficit. Psych/Mental Status: Flat affect. Weight / BMI Weight Weight: 181 lb 10.574 oz Body Mass Index (BMI) 32.1 ABG / Lab / Microbiology Data 10/13/23 05:11 10/13/23 05:11 Laboratory: Laboratory Results - last 24 hr 10/11/23 13:32: Fluid Albumin 0.3 10/12/23 17:25: POC Glucose 179 H 10/12/23 23:34: POC Glucose 222 H 10/13/23 05:11: WBC 3.8 L, RBC 3.55 L, Hgb 11.4 L, Hct 35.5 L, MCV 100.0 H, MCH 32.1 H, MCHC 32.1, RDW Std Deviation 63.7 H, RDW Coeff of Katherine 17.6 H, Plt Count 78 L, MPV 10.3, Immature Gran % (Auto) 0.300, Neut % (Auto) 55.6, Lymph % (Auto) 33.4, Davis % (Auto) 8.4, Eos % (Auto) 1.8, Baso % (Auto) 0.5, Absolute Neuts (auto) 2.1, Absolute Lymphs (auto) 1.28, Nucleated RBC % 0, Sodium 140, Potassium 2.8 L, Chloride 109 H, Carbon Dioxide 28.0, Anion Gap 3 L, BUN 22 H, Creatinine 0.94, Estim Creat Clear Calc 38.83, Est GFR (MDRD) Af Amer 73, Est GFR (MDRD) Non-Af 61, BUN/Creatinine Ratio 23.4 H, Glucose 134 H, Calcium 8.3 L 10/13/23 06:37: POC Glucose 102 10/13/23 11:32: POC Glucose 233 H Microbiology: Microbiology 10/03/23 13:15 Fluid - Pleural (Lung) Gram Stain - Final 10/03/23 13:15 Fluid - Pleural (Lung) Body Fluid Culture - Final No growth aerobically. 10/03/23 13:15 Fluid - Pleural (Lung) Anaerobic Culture - Final No growth in 5 days. 10/05/23 15:40 Stool C. difficile GDH Antigen & Toxins - Final 10/05/23 15:40 Stool C. difficile DNA Amplification - Final 10/05/23 15:40 Stool Enteric Bacteriology - Final 10/02/23 23:15 Urine, Random Urine Culture - Final Klebsiella pneumoniae sp pneum D/C Instructions Discharge Diet: No restrictions Weight Bearing Status: Weight bearing as tolerated Call your doctor if you observe: Fever of 101 or Higher, Coldness, Increased Pain, Numbness or Tingling, Change in Color, Inability to urinate, Inability to have a bowel movement, Shortness of breath, Dizziness, Fainting spells, Swelling in the ankles, Chest pain, Prolonged hiccupping, Increased palpitations (irregular heartbeat) and Calf discomfort When: IN 2 WEEKS Meaningful Use Info Meaningful Use Diagnoses (Choose all that apply): None applicable Discharge Plan Admission Admit Date/Time: 10/02/23 18:29 Attending Provider: Ludwin Craft Primary Care Provider: Sameer Cope Consulting Providers: Ludwin Craft; Juan Goodson; Frank Ham Instructions Patient Instructions: RAD RN Thoracentesis Dc Additional Instructions / Restrictions: Continue to follow-up with GI in [place]. Discharge Orders/Prescriptions Prescriptions: New furosemide 40 mg Tablet 40 mg PO DAILY 30 Days Qty: 30 2RF vancomycin [Firvanq] 25 mg/mL Recon Soln 125 mg PO Q6 10 Days Qty: 200 0RF levothyroxine 25 mcg tablet 25 mcg PO DAILY Qty: 30 2RF Continued metformin 500 MG tablet 500 mg PO BIDCM Patient Comments: DIABETES metoprolol tartrate 25 mg tablet 25 mg PO BID omeprazole 20 mg capsule,delayed release(DR/EC) 20 mg PO DAILY Patient Comments: TAKE 1 CAPSULE BY MOUTH ONCE DAILY 30 MINUTES BEFORE BREAKFAST Changed spironolactone 50 mg tablet 75 mg PO DAILY 30 Days Qty: 45 2RF Patient Comments: TAKE 1 TABLET BY MOUTH ONCE DAILY Rx Instructions: Hold if serum potassium more than 5.0. Discontinued furosemide 20 mg tablet 20 mg PO DAILY Referrals / Follow Up: Thu Leggett MD [Med Staff - Consulting] - Within 1 Month (For CKD) Sameer Cope MD [Primary Care Provider] - Within 2 Weeks Disposition Disposition (needs filled in before D/C Order can be placed): Home Health Service Charges/Coding Visit Charges Inpatient E&M: 75502 Disch Hosp >30min
--- NOTE | 2023-10-13 12:38 | CASEMGMT ---
Discharge Planning Discharge instructions faxed to [facility]. Tahmina Duron, Discharge Planning Asst.
[2023-10-13 12:45] LABS: Pathologist Comment/Body Fluid Reviewed
[2023-10-13 13:27] VITALS: BP 117/67; PULSE 96; RESP 18; TEMP 36.3; O2SAT 96
--- NOTE | 2023-10-13 14:51 | NURSING ---
1430 PT'S SON CALLED FOR GROUNDS/MAINTENANCE SPECIALIST. DC INSTRUCTIONS WENT OVER PHONE IN DETAIL WITH AND NO QUESTIONS VOICED. PT ALSO GIVEN SAME INSTRUCTIONS. PT DRESSED AND UP IN CHAIR WITH ALL BELONGINGS PACKED AND WITH PT
--- NOTE | 2023-10-13 16:27 | PHA.DC.MR.R ---
Pharmacy [place] Med Reconciliation Pharmacy Service has performed discharge medication reconciliation for this patient. Medication education papers prepared, patient discharged before I was able to vocational guidance counselor. This [facility] asked RN JYOTHI if vancomycin pricing was okay, she was going to call. The patient's discharge medication list was reviewed for discrepancies and discrepancies were resolved. Medications at Discharge Home Medications metformin 500 mg tablet 500 mg PO BIDCM DIABETTES 07/30/16 metoprolol tartrate 25 mg tablet 25 mg PO BID BP 10/02/23 omeprazole 20 mg capsule,delayed release 20 mg PO DAILY GERD 10/03/23 furosemide 40 mg tablet 40 mg PO DAILY 30 days #30 tabs 10/13/23 levothyroxine 25 mcg tablet 25 mcg PO DAILY #30 tabs 10/13/23 liraglutide 0.6 mg/0.1 mL (18 mg/3 mL) subcutaneous pen injector (Victoza 2-Johnny) mg subcut DIABETES 10/13/23 spironolactone 50 mg tablet 100 mg (2 x 50 mg) PO DAILY BP/DIURETIC 30 days #60 tabs 10/13/23 vancomycin 25 mg/mL oral solution (Firvanq) 125 mg (5 mL) PO Q6 10 days #200 mL 10/13/23
--- NOTE | 2023-10-13 16:28 | CASEMGMT ---
Addendum entered by Kina Morrison 10/13/23 17:30: Rx for Vanco capsules have been e-scribed to [facility] pharmacy. Call placed to Nallely @ [facility]. She states the capsules also require a prior auth. She applied the Good Rx card and cost is $73. Call placed to pt's son, Mc, and he was made aware of cost and states this is affordable. He states he has picked up the other new medications @ [facility], but states he is able to go back to [facility] this evening to pick up truck driver the vanco. Call placed back to Nallely @ [facility] and she was made aware. She states she will get it ready for pick up truck driver this evening. Original Note: ?KATIE ROE note: Pt discharged home on Vanco/firvanq liquid. KATIE ROE called for serna check, cost is $126.10, as prior auth required.? Prior-auth initiated nani/Wiliam @ and requested it be expedited.? He said it may take up to 24 hrs, but he stated most likely determination will be sooner.? ?Ref #: [id number] Call placed to [facility] to let them know PA initiated for Firvanq. She states they do not have this in stock and will need to order it in and the earliest it would be in is tomorrow around noon. She states they do have vanco capsules in stock. Dr Craft made aware of above and states he will go ahead and do vanco capsules. James BISWAS RN, CM
[2023-10-18 16:09] LABS: Amylase Body Fluid 42 U/L (.); pH, Body Fluid 11254 7.5 (Not Estab.)
== END 2023-10-13 15:27 | disposition home health service (06) | DRG 187 ==
LOC: ED 17:46 → PCU 18:55
PROVIDERS: Family Medicine; Internal Medicine; Admitting Provider Internal Medicine; Emergency Provider Emergency Medicine; PCP Internal Medicine; Visit Provider Internal Medicine
DX: J90 Pleural effusion, not elsewhere classified (principal); R18.8 Other ascites; A04.72 Enterocolitis due to Clostridium difficile, not specified as recurrent; E11.22 Type 2 diabetes mellitus with diabetic chronic kidney disease; N18.32 Chronic kidney disease, stage 3b; E03.9 Hypothyroidism, unspecified; I12.9 Hypertensive chronic kidney disease with stage 1 through stage 4 chronic kidney disease, or unspecified chronic kidney disease; K76.89 Other specified diseases of liver; E87.6 Hypokalemia; I95.81 Postprocedural hypotension; R82.71 Bacteriuria; Z79.82 Long term (current) use of aspirin; Z79.84 Long term (current) use of oral hypoglycemic drugs; Z79.899 Other long term (current) drug therapy
CPT/HCPCS: 32555; 36415; 49083; 71045; 71046; 71275; 80048; 80053; 80061; 80076; 81001; 82042; 82150; 82945; 82962; 83615; 83735; 83880; 83986; 84100; 84157; 84439; 84443; 84481; 84484; 85025; 85379; 87070; 87075; 87077; 87086; 87088; 87186; 87205; 87493; 87506; 88108; 88305; 88313; 88341; 88342; 89050; 93005; 93306; 94640; 94668; 97110; 97116; 97162; 97166; 97530; 97535; 97802; 99285; P9047; Q9967; A4216; J1940

== ENCOUNTER 2023-10-19 12:48 | Inpatient (IN) | payer MEDICARE, SELFPAY ==
[2023-10-19] VITALS (14 sets, daily range): BP systolic 111–145; BP diastolic 64–93; PULSE 73–100; RESP 14–22; TEMP 35.6–36.8; O2SAT 93–97; BMI 32.3; BMI 31.3
--- NOTE | 2023-10-19 13:38 | ED.VIS.DYS ---
HPI History of Present Illness Chief Complaint: Shortness of Breath Narrative Narrative: History and physical is limited secondary to patient condition/shortness of breath. Patient presents with her son for increasing shortness of breath. He relates history that she was brought in a few weeks ago for shortness of breath. She was found to have a left-sided pleural effusion that was very large. He states that she had a thoracentesis. Additionally, she has history of nonalcoholic cirrhosis, and had a paracentesis and fluid drained from her abdomen as well. He states that her left lung had to be drained a second time. She was sent home after the second thoracentesis and has been home for approximately 1 week. She has had increasing shortness of breath over the last few days. She had a follow-up appointment with her primary care provider, Dr. Cope, who sent her back to the emergency department because of decreased breath sounds on her left side with suspicion of reaccumulation of her pleural effusion. Patient denies any fever or chills, no nausea or vomiting, no other symptoms. Her son confirms this, and was concerned about the pleural effusion because he states that they are unsure as to where the fluid is coming from . [facility] Medical History Ascites DM2 (diabetes mellitus, type 2) HTN (hypertension) Pleural effusion, left Home Medications metformin 500 mg tablet 500 mg PO BIDCM DIABETTES 07/30/16 [History Last Taken 10/19/23] metoprolol tartrate 25 mg tablet 25 mg PO BID BLOOD PRESSURE 10/02/23 [History Last Taken 10/19/23] furosemide 40 mg tablet 40 mg PO DAILY FLUID 30 days #30 tabs 10/13/23 [Rx Last Taken 10/19/23] levothyroxine 25 mcg tablet 25 mcg PO DAILY THYROID #30 tabs 10/13/23 [Rx Last Taken 10/19/23] liraglutide 0.6 mg/0.1 mL (18 mg/3 mL) subcutaneous pen injector (Victoza 2-Johnny) 1.2 mg subcut DAILY DIABETES 10/13/23 [History Last Taken 10/19/23] spironolactone 50 mg tablet 100 mg (2 x 50 mg) PO DAILY BP/DIURETIC 30 days #60 tabs 10/13/23 [Rx Last Taken 10/19/23] vancomycin 125 mg capsule (Vancocin) 125 mg PO Q6H ANTIBIOTIC 10 days #40 caps 10/13/23 [Rx Last Taken 10/19/23] Allergy/AdvReac Type Severity Reaction Status Date / Time No Known Allergies Allergy Verified 10/19/23 12:58 Surgical History H/O: hysterectomy History of bilateral knee replacement Social History household members: none housing: house Smoking Status: Never smoker ROS ROS ED ROS Narrative Constitutional: No fever, no chills. HEENT: No sore throat. No neck pain. No loss of vision. No rhinorrhea. Cardiovascular: No chest pain. No palpitations. No pedal edema. Respiratory: Today cough, positive increasing dyspnea on exertion and shortness of breath. Creased breath sounds left according to patient's primary care provider. Abdominal: No abdominal pain. No nausea. No vomiting. Genitourinary: No dysuria. No hematuria. Musculoskeletal: No myalgias. No arthralgias. Neurologic: No headaches. No dizziness. No lightheadedness. Skin: No rash. No change in color. Psychiatric: No depression. No anxiety. EXAM Physical Exam Narrative Exam Narrative: Afebrile. Vital signs noted. HEENT: Normocephalic. Atraumatic. PERRL, EOMI. Neck soft and supple. No point tenderness or step off. Cardiovascular: Regular rate and rhythm. No murmurs, rubs, or gallops appreciated. Respiratory: Decreased breath sounds left lung. Moving a good amount of air. Intermittent tachypnea. Gastrointestinal: Abdomen soft, nontender, with normoactive bowel sounds. No rebound or guarding. Neurological: Awake. Alert. Nonfocal, nonlateralizing. Skin: No rash. Normal color. No pallor. Musculoskeletal: No pedal edema. Full range of motion extremities. Const Vital Signs: 10/19/23 12:49 10/19/23 13:35 10/19/23 13:37 Temperature 96.1 F L Temperature Source Temporal Pulse Rate 100 73 Respiratory Rate 14 22 H Respiratory Effort Short of Breath Respiratory Pattern Tachypnea Blood Pressure 145/87 H Blood Pressure Mean 106 Pulse Ox 95 94 Oxygen Delivery Method Room Air Room Air Room Air 10/19/23 13:38 10/19/23 15:00 10/19/23 14:51 Temperature 98.2 F Temperature Source Temporal Pulse Rate 93 79 Respiratory Rate 20 H 19 H Respiratory Effort Respiratory Pattern Blood Pressure 115/90 H 115/90 H Blood Pressure Mean 98 98 Pulse Ox 94 93 Oxygen Delivery Method Room Air Room Air 10/19/23 16:00 10/19/23 16:00 10/19/23 16:30 Temperature 98 F Temperature Source Temporal Pulse Rate 92 92 85 Respiratory Rate 22 H 22 H 18 Respiratory Effort Respiratory Pattern Blood Pressure 128/93 H 128/93 H 134/87 H Blood Pressure Mean 104 104 102 Pulse Ox 95 95 96 Oxygen Delivery Method Room Air MDM MDM MDM Narrative Medical decision making narrative: I reviewed the patient's prior records. She did have a left-sided pleural effusion that was very large, almost to the apex. With her history of hypertension and diabetes, and NAIR, I will obtain a CBC and CMP. She is not necessarily more confused according to her son, but I will add an ammonia level. Chest x-ray in 1 view will be obtained. Currently she is 94 to 95% on room air. While she does not have an official diagnosis of CHF, she is on furosemide and spironolactone. Her son mentions something about her having to see a crushed stone grader for her kidney disease. EKG was obtained and interpreted by myself independently as a rate controlled atrial fibrillation at [address] changes. No STEMI. I reviewed her laboratory work and she has a normal white count of 6.1, hemoglobin normal at 12.0, hematocrit 38.8, with platelet low at 122. This is a chronic thrombocytopenia for her, but improved over previous results. I reviewed her CMP which is significant for a chloride of 109, and creatinine elevated at 2.56. This is a new kidney injury. As it was normal previously. Glucose is appropriately elevated at 151 with a normal anion gap of 5. AST is slightly elevated at 93 with ALT 57 consistent with her reported NAIR. Her son states that she has been more drowsy and sleepy so I did obtain an ammonia which is slightly elevated at 34. I will defer lactulose for now. High-sensitivity troponin is 24 and BNP also normal. Chest x-ray in 1 view interpreted by myself shows reaccumulation of the fluid on the left side with almost total opacification of the left lung field. I did review her CTA and there was no obstructing mass noted. At this point in time, given her acute kidney injury and reaccumulation of fluid, I discussed the patient with Dr. Briana Gabriel for admission. They were told of the possibility of her requiring transfer to a place that has CT surgery as she has rapidly reaccumulated fluid in her left lung field. I discussed the patient with Dr. Briana Gabriel, and after discussion with the family it was felt that she would need a more definitive place. That has CT surgery available for more of a definitive type treatment for her large pleural effusion. I discussed patient with the [facility] transfer line states that it would most likely be 3 to 4 days before an open bed is available. At this point in time, patient will be signed out to the oncoming physician, Dr. Mat Palacio to continue speaking with the transfer line and speaking with the hospitalist to be put on a waiting list at [facility]. Then afterwards, she will be admitted here under observation as she awaits a bed. Patient is in stable condition. History & Record Review Discussion w/independent historian: Patient and Family (Son) Additional record(s) reviewed:: Prior inpatient record, Prior ED visit and Prior labs Lab Data Attestation: I reviewed the patient's lab results. Labs: Laboratory Results - last 24 hr 10/19/23 10/19/23 13:55 14:22 WBC 6.1 RBC 3.76 L Hgb 12.0 Hct 38.8 MCV 103.2 H MCH 31.9 MCHC 30.9 L RDW Std Deviation 73.4 H RDW Coeff of Katherine 19.9 H Plt Count 122 L MPV 9.4 Immature Gran % (Auto) 0.500 Neut % (Auto) 64.8 Lymph % (Auto) 21.5 [place] % (Auto) 10.3 H Eos % (Auto) 2.1 Baso % (Auto) 0.8 Absolute Neuts (auto) 4.0 Absolute Lymphs (auto) 1.32 Nucleated RBC % 0 Differential Comment SCANNED Anisocytosis 2+ Microcytosis 1+ Macrocytosis 1+ Sodium 139 Potassium 3.6 Chloride 109 H Carbon Dioxide 25.0 Anion Gap 5 BUN 37 H Creatinine 2.56 H Estim Creat Clear Calc 14.26 Est GFR (MDRD) Af Amer 23 L Est GFR (MDRD) Non-Af 19 L BUN/Creatinine Ratio 14.5 Glucose 151 H Calcium 9.2 Total Bilirubin 4.50 H AST 93 H ALT 57 H Alkaline Phosphatase 131 H Ammonia 34.0 H Troponin I High Sens 24 B-Natriuretic Peptide 92.5 Total Protein 7.0 Albumin 2.4 L Globulin 4.6 H Albumin/Globulin Ratio 0.5 L Radiography Diagnostic Testing: Clinical Impression(s) from Imaging Studies Chest X-Ray 10/19/23 14:04 IMPRESSION: Complete opacification of the left hemithorax concerning for increased large left pleural effusion with collapse or consolidation of the left lung. Centrally obstructing mass not excluded. Electronically Signed: Trina Villanueva MD at 15:03 EST , Discharge Plan Dx/Rx/DC Orders Clinical Impression: Acute kidney injury, Pleural effusion, left, Increased ammonia level Disposition Disposition: Acute Care Hospital [facility]
--- NOTE | 2023-10-19 14:04 | RAD_ITS ---
HISTORY: Shortness of breath, left pleural effusion. TECHNIQUE: XR Chest 1 View. COMPARISON: 10/12/2023. FINDINGS: CARDIOMEDIASTINAL BORDERS: Cardiac silhouette and mediastinal contour obscured and shifted to the right by large left pleural effusion. LUNGS/PLEURA: Complete opacification of the left hemithorax. OSSEOUS STRUCTURES: Degenerative change. RAD/Chest 1 View (Portable) IMPRESSION: Complete opacification of the left hemithorax concerning for increased large left pleural effusion with collapse or consolidation of the left lung. Centrally obstructing mass not excluded. Electronically Signed: Trina Villanueva MD at 15:03 EST ,
[2023-10-19 14:20] LABS: Absolute Lymphocyte Count 1.32 X10^3/uL (0.83-4.51); Basophil# 0.05 X10^3/uL; Basophil% 0.8 % (0-1); Eosinophil# 0.13 X10^3/uL; Eosinophils% 2.1 % (0-5); Hematocrit 38.8 % (37-47); Lymphocyte # 1.32 X10^3/ul (0.83-4.51); Lymphocyte % 21.5 % (19-41); Mean Corp Hgb Conc 30.9 g/dL (32-36); Mean Corpuscular Hgb 31.9 pg (27.0-32.0); Mean Corpuscular Volume 103.2 fL (81-99); Mean Platelet Vol. 9.4 fl (6.2-12.0); Monocyte# 0.63 X10^3/uL; Monocyte% 10.3 % (0-10); NRBC Flagged by Analyzer 0 % (0-5); Neutrophil # 3.97 X10^3/uL (2.7-7.7); Neutrophil % 64.8 % (47-70); POSITIVE MORPHOLOGY YES; Platelet Count 122 K/mm3 (150-450); RBC Distribution Width CV 19.9 % (11.6-14.6); RBC Distribution Width SD 73.4 fl (35.1-43.9); Red Blood Count 3.76 M/mm3 (4.2-5.4); White Blood Count 6.1 K/mm3 (4.4-11.0)
[2023-10-19 14:22] LABS: Differential Indicated SCAN CRITERIA MET
[2023-10-19 14:37] LABS: Anisocytosis 2+; Differential Comment SCANNED; Macrocytosis 1+; Microcytosis 1+
[2023-10-19 14:39] LABS: ALB/GLOB Ratio 0.5 RATIO (0.9-2.4); AST(SGOT) 93 U/L (15-37); Alanine Aminotransfer ALT/SGPT 57 U/L (13-56); Albumin, Serum 2.4 g/dL (3.2-5.0); Alkaline Phosphatase 131 U/L (45-117); Anion Gap 5 (5-15); BUN 37 mg/dL (7-18); BUN/Creat Ratio 14.5 RATIO (10-20); Calcium,Total 9.2 mg/dL (8.5-10.1); Chloride 109 mmol/L (98-107); Creatinine, Serum 2.56 mg/dL (0.55-1.02); EST Glomerular Filtration Rate 19 mL/min (>60); Est Glom Filt Rate - Afr Amer 23 mL/min (>60); Estimated Creatinine Clearance 14.26 ml/min; Globulin 4.6 g/dL (2.2-4.2); Glucose 151 mg/dL (74-106); Potassium 3.6 mmol/L (3.5-5.1); Sodium Level 139 mmol/L (136-145); Troponin-I HS 24 pg/mL (3.0-54.0)
[2023-10-19 14:40] LABS: BNP,B-Type NATRIURETIC PEPTIDE 92.5 pg/mL (0-100)
--- NOTE | 2023-10-19 16:48 | NURSING ---
CALLED [facility] ABOUT TRANSFER. 4 DAYS OUT. FAXED FACESHEET
--- NOTE | 2023-10-19 17:42 | NURSING ---
CALLED [facility]. THEIR HOSPITALIST HASN'T CALLED THE TRANSFER LINE BACK YET.
--- NOTE | 2023-10-19 19:45 | PCM.HP.STD ---
[facility] - General General Date of Admission: 10/19/23 Date of Service: 10/19/23 Chief Complaint: SOB and Confusion. HPI Narrative BLADIMIR BONDS, is a 83 F with a past medical history of essential hypertension, hypothyroidism, obesity; with BMI of 32.3 this admission, DM-2; of unknown control on Metformin plus Liraglutide and history of NAIR; with cirrhosis causing ascites and recurrent Left pleural effusion with resent thoracentesis a few weeks ago who presents to [facility] ER complaining of SOB and confusion. Ms. Bonds is not a fully-reliable historian at this time so information was gathered from chart, medical staff and computer. According to her son her symptoms are very similar to her previous admission for SOB before she underwent thoracentesis of the Left lung. She also had a paracentesis done a that time along with a second thoracentesis of her Left lung due to rapid reaccumulation. She has been getting progressively worse over the past week since she got back home with severe dyspnea with minimal exertion. She denies associated fever, chills, nausea, vomiting or other significant symptomatology. In the ER she was noted to have a massive Left pleural effusion almost to the apex likely due to NAIR with cirrhosis complicated by laboratory evidence of severe acute kidney injury with serum creatinine of 2.56 mg/dL and BUN of 37 mg/dL present on admission (up from her baseline serum creatinine of 0.94 mg/dL and BUN of 22 mg/dL 1 week ago) along with hyperammonemia of 34 present on admission with clinical evidence of mild hepatic encephalopathy and she was then admitted to the PCU for ongoing care until a bed becomes available at her tertiary care center for a stay that is expected to be greater than 48 hours. [facility] Medical History Ascites DM2 (diabetes mellitus, type 2) HTN (hypertension) Pleural effusion, left Home Medications metformin 500 mg tablet 500 mg PO BIDCM DIABETTES 07/30/16 [History Last Taken 10/19/23] metoprolol tartrate 25 mg tablet 25 mg PO BID BLOOD PRESSURE 10/02/23 [History Last Taken 10/19/23] furosemide 40 mg tablet 40 mg PO DAILY FLUID 30 days #30 tabs 10/13/23 [Rx Last Taken 10/19/23] levothyroxine 25 mcg tablet 25 mcg PO DAILY THYROID #30 tabs 10/13/23 [Rx Last Taken 10/19/23] liraglutide 0.6 mg/0.1 mL (18 mg/3 mL) subcutaneous pen injector (Victoza 2-Johnny) 1.2 mg subcut DAILY DIABETES 10/13/23 [History Last Taken 10/19/23] spironolactone 50 mg tablet 100 mg (2 x 50 mg) PO DAILY BP/DIURETIC 30 days #60 tabs 10/13/23 [Rx Last Taken 10/19/23] vancomycin 125 mg capsule (Vancocin) 125 mg PO Q6H ANTIBIOTIC 10 days #40 caps 10/13/23 [Rx Last Taken 10/19/23] Allergy/AdvReac Type Severity Reaction Status Date / Time No Known Allergies Allergy Verified 10/19/23 12:58 Surgical History H/O: hysterectomy History of bilateral knee replacement Social History household members: none housing: house Smoking Status: Never smoker ROS ROS Narrative Review of systems: Constitutional: Patient denies fevers or chills. Eyes: Patient denies visual changes or discharge from eyes. ENT: Patient denies runny nose, sore throat or ear pain. Cardiovascular: Patient denies chest pain, palpitations or pedal edema. Respiratory: Patient admits to severe dyspnea on exertion. Abdominal: Patient denies abdominal pain, nausea, vomiting, constipation or diarrhea. Genitourinary: Patient denies dysuria, hematuria or urinary frequency. Musculoskeletal: Patient denies any arthralgias or myalgias. Neurologic: Patient admits to mild confusion but denies headache, paresthesias or focal neurologic deficits. Integumentary: Patient denies abscess or rash. Psychiatric: Patient denies uncontrolled depression or anxiety. Allergic: Patient denies lip swelling, tongue swelling or urticaria. Hematologic: Patient denies easy bleeding or easy bruisability. 14 point review of systems otherwise negative except for positives noted above in HPI. Vital Signs Vital Signs Vital Signs: 10/19/23 12:49 10/19/23 13:35 10/19/23 13:37 Temperature 96.1 F L Temperature Source Temporal Pulse Rate 100 73 Respiratory Rate 14 22 H Respiratory Effort Short of Breath Respiratory Pattern Tachypnea Blood Pressure 145/87 H Blood Pressure Mean 106 Pulse Ox 95 94 Oxygen Delivery Method Room Air Room Air Room Air 10/19/23 13:38 10/19/23 15:00 10/19/23 14:51 Temperature 98.2 F Temperature Source Temporal Pulse Rate 93 79 Respiratory Rate 20 H 19 H Respiratory Effort Respiratory Pattern Blood Pressure 115/90 H 115/90 H Blood Pressure Mean 98 98 Pulse Ox 94 93 Oxygen Delivery Method Room Air Room Air 10/19/23 16:00 10/19/23 16:00 10/19/23 16:30 Temperature 98 F Temperature Source Temporal Pulse Rate 92 92 85 Respiratory Rate 22 H 22 H 18 Respiratory Effort Respiratory Pattern Blood Pressure 128/93 H 128/93 H 134/87 H Blood Pressure Mean 104 104 102 Pulse Ox 95 95 96 Oxygen Delivery Method Room Air 10/19/23 17:00 10/19/23 17:00 10/19/23 18:00 Temperature 98.1 F 98 F Temperature Source Temporal Temporal Pulse Rate 97 97 84 Respiratory Rate 20 H 20 H 17 Respiratory Effort Respiratory Pattern Blood Pressure 119/80 119/80 111/64 Blood Pressure Mean 93 93 79 Pulse Ox 96 96 95 Oxygen Delivery Method Room Air 10/19/23 18:00 10/19/23 19:00 10/19/23 19:00 Temperature 98 F Temperature Source Temporal Pulse Rate 83 Respiratory Rate 17 Respiratory Effort Respiratory Pattern Blood Pressure 111/64 115/78 115/78 Blood Pressure Mean 79 90 90 Pulse Ox 95 Oxygen Delivery Method Room Air Weight Weight: 182 lb 8.684 oz Body Mass Index (BMI) 32.3 Physical Exam Const alert, no apparent distress and average body habitus General Appearance: cooperative Orientation / Consciousness: confused HEENT normocephalic, head/scalp atraumatic, hearing grossly normal bilaterally and moist oral mucous membranes HEENT Narrative: Patient noted to have very poor dentition. Eyes PERRL and EOMs intact bilaterally Neck no lymphadenopathy and supple Resp Resp Narrative: Patient has minimal breath sounds over the left lung but clear to auscultation on the right. Cardio regular rate and regular rhythm GI normal to inspection, nondistended, normoactive bowel sounds, soft to palpation, non-tender and non-distended Extremity normal to inspection, full ROM and no clubbing, cyanosis or edema Skin Skin Narrative: Patient has no evidence of rash at this time. Neuro CN's II-XII intact bilaterally, moves all extremities and no focal motor deficits Sensorium / Orientation: awake, alert, oriented to person and oriented to place Speech: speech normal Motor Exam: strength 5/5 throughout Psych affect normal Results Medical Records Data Attestation: I reviewed the patient's medical records Lab / Micro Data Attestation: I reviewed the patient's lab results. 10/20/23 05:30 10/20/23 05:30 Labs: Laboratory Results - last 24 hr 10/19/23 13:55: WBC 6.1, RBC 3.76 L, Hgb 12.0, Hct 38.8, MCV 103.2 H, MCH 31.9, MCHC 30.9 L, RDW Std Deviation 73.4 H, RDW Coeff of Katherine 19.9 H, Plt Count 122 L, MPV 9.4, Immature Gran % (Auto) 0.500, Neut % (Auto) 64.8, Lymph % (Auto) 21.5, [place] % (Auto) 10.3 H, Eos % (Auto) 2.1, Baso % (Auto) 0.8, Absolute Neuts (auto) 4.0, Absolute Lymphs (auto) 1.32, Nucleated RBC % 0, Differential Comment SCANNED, Anisocytosis 2+, Microcytosis 1+, Macrocytosis 1+, Sodium 139, Potassium 3.6, Chloride 109 H, Carbon Dioxide 25.0, Anion Gap 5, BUN 37 H, Creatinine 2.56 H, Estim Creat Clear Calc 14.26, Est GFR (MDRD) Af Amer 23 L, Est GFR (MDRD) Non-Af 19 L, BUN/Creatinine Ratio 14.5, Glucose 151 H, Calcium 9.2, Total Bilirubin 4.50 H, AST 93 H, ALT 57 H, Alkaline Phosphatase 131 H, Troponin I High Sens 24, B-Natriuretic Peptide 92.5, Total Protein 7.0, Albumin 2.4 L, Globulin 4.6 H, Albumin/Globulin Ratio 0.5 L 10/19/23 14:22: Ammonia 34.0 H Imagaing Radiology Impression Chest X-Ray 10/19/23 14:04 IMPRESSION: Complete opacification of the left hemithorax concerning for increased large left pleural effusion with collapse or consolidation of the left lung. Centrally obstructing mass not excluded. 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 Massive left-sided pleural effusion; recurrent with acute hypoxic respiratory insufficiency - Admit to PCU until a bed becomes available at tertiary care center. Give IV Albumin and then give IV Lasix to mobilize fluid along with supplemental potassium and magnesium. Finally, we will consult pulmonary to see this patient on-rounds in the AM along with patient being set up for thoracentesis at IR in the AM with the help of both appreciated in advance. 2. NAIR; with cirrhosis likely causing #1 - Continue supportive care and monitor for improvement. Patient will likely need VATS or TIPS procedure at a tertiary care center which is why she was requiring transfer. 3. Severe acute kidney injury; with serum creatinine of 2.56 mg/dL and BUN of 37 mg/dL present on admission compounding #1 & #2 - Give IV Albumin to expand intravascular volume and minimize risk of worsening effusion and ascites noted above. Avoid potentially nephrotoxic medications. Recheck BMP in the a.m. to track response to therapy. 4. Mild hyperammonemia of 34 present on admission consistent with suspected mild hepatic encephalopathy adding the pathology of #1 - #3 - Start lactulose and recheck ammonia level in the AM. 5. Chronic moderate thrombocytopenia of 122 present on admission - Check CBC daily to ensure continued stability. 6. Essential hypertension - Hold scheduled antihypertensives 7. Hypothyroidism - Resume Synthroid and check TSH. 8. Obesity; with BMI of 32.3 this admission - Weight loss will be recommended. 9. DM-2; of unknown control on Metformin plus Liraglutide - Stop Metformin as it is relatively contraindicated with creatinine > 1.6 mg/dL. Check FSBS q. AC/HS plus SSI. 10. DVT prophylaxis - Lovenox 30 mg sq daily plus SCD's. Total time: Approximately 55 minutes. Charges/Coding Visit Charges Inpatient E&M: 35091 Init Hosp L2
[2023-10-19 20:40] LABS: Magnesium 2.1 mg/dL (1.6-2.6)
[2023-10-19] MEDS: Lactated Ringers 1,000 ML 50 ML IV (21:46)
--- OUTSIDE RECORDS SUMMARY | 2023-10-19 22:03 | XMS RPT_ITS | CCD ---
Author Name Unknown Address [address] [facility] [address] [place] [address] Organization [facility] Care Team Providers Care Contract Consultant Name Role Phone RUBÉN WERNER) Unavailable Unavailable [...] BRUCE, Sameer Parks Primary Care Provider [phone] Allie BRUCE, Sameer Parks Primary Care Provider [phone] Allie BRUCE, Sameer Parks Primary Care Provider [phone] SAMEER KELLEY Primary Care Unavailable SAMEER KELLEY Attending Unavailable SAMEER KELLEY Referring Unavailable SAMEER KELLEY Primary Care Unavailable SAMEER KELLEY Referring Unavailable SAMEER KELLEY Primary Care Unavailable SAMEER KELLEY Attending Unavailable SAMEER KELLEY Referring Unavailable SAMEER KELLEY Primary Care Unavailable SAMEER KELLEY Referring Unavailable SAMEER KELLEY Primary Care Unavailable SAMEER KELLEY Primary Care Unavailable DELMY FERMIN Attending Unavailable SAMEER KELLEY Primary Care Unavailable SAMEER KELLEY Referring Unavailable DELMY FERMIN Referring Unavailable SAMEER KELLEY Primary Care Unavailable ALLIE, SAMEER Parks Primary Care Unavailable DELMY FERMIN Referring Unavailable ALLIE, SAMEER Parks Primary Care Unavailable ALLIE, SAMEER Parks Primary Care Unavailable ALLIE, SAMEER Parks Referring Unavailable ALLIE, SAMEER Parks Attending Unavailable KELLEY, SAMEER Parks Referring Unavailable KELLEY, SAMEER Parks Primary Care Unavailable KELLEY, SAMEER Parks Primary Care Unavailable KELLEY, SAMEER Parks Referring Unavailable KELLEY, SAMEER Parks Primary Care Unavailable ALLIE, SAMEER Parks Referring Unavailable Medications Current Medications Medication Drug Class(es) [...] Chest pain; Translations: [Chest pain, unspecified] Onset: 12-09-2022 Episodic Other disorders of stomach and duodenum [...] 89.36 kg Sameer Kelley MD Work Phone: [facility] 09-02-2023 15:51-0500 Diastolic blood pressure 70 mm[Hg] Sameer Kelley MD Work Phone: [facility] 09-02-2023 15:51-0500 Heart rate 78 /min Sameer Kelley MD Work Phone: [facility] 09-02-2023 15:51-0500 Respiratory rate 16 /min Sameer Kelley MD Work Phone: [facility] 09-02-2023 15:51-0500 SaO2% (BldA) [Mass fraction] 100 % Sameer Kelley MD Work Phone: [facility] 09-02-2023 15:51-0500 Systolic blood pressure 116 mm[Hg] Sameer Kelley MD Work Phone: [facility] 01-24-2023 12:49-0400 Body weight 80.74 kg Delmy Fermin APRN.TANK OFFICER Work Phone: [facility] 01-24-2023 12:49-0400 Diastolic blood pressure 78 mm[Hg] Delmy Fermin APRN.TANK OFFICER Work Phone: [facility] 01-24-2023 12:49-0400 Heart rate 76 /min Delmy Fermin APRN.TANK OFFICER Work Phone: [facility] 01-24-2023 12:49-0400 SaO2% (BldA) [Mass fraction] 99 % Delmy Fermin APRN.TANK OFFICER Work Phone: [facility] 01-24-2023 12:49-0400 Systolic blood pressure 134 mm[Hg] Delmy Fermin APRTREVOR Work Phone: [facility] 12-09-2022 17:12-0500 Body height 157.5 cm Sameer Kelley MD Work Phone: [facility] 12-09-2022 17:12-0500 Body temperature 97.7 [degF] Sameer Kelley MD Work Phone: [facility] 12-09-2022 17:12-0500 Body weight 78.47 kg Sameer Kelley MD Work Phone: [facility] 12-09-2022 17:12-0500 Diastolic blood pressure 62 mm[Hg] Sameer Kelley MD Work Phone: [facility] 12-09-2022 17:12-0500 Heart rate 96 /min Sameer Kelley MD Work Phone: [facility] 12-09-2022 17:12-0500 Respiratory rate 16 /min Sameer Kelley MD Work Phone: [facility] 12-09-2022 17:12-0500 SaO2% (BldA) [Mass fraction] 98 % Sameer Kelley MD Work Phone: [facility] 12-09-2022 17:12-0500 Systolic blood pressure 124 mm[Hg] Sameer Kelley MD Work Phone: [facility] 06-07-2022 14:02-0400 Diastolic blood pressure 64 mm[Hg] Sameer Kelley MD Work Phone: [facility] 06-07-2022 14:02-0400 Systolic blood pressure 124 mm[Hg] Sameer Kelley MD Work Phone: [facility] 06-07-2022 13:37-0400 Body temperature 97 [degF] Sameer Kelley MD Work Phone: [facility] 06-07-2022 13:37-0400 Body weight 78.93 kg Sameer Kelley MD Work Phone: [facility] 06-07-2022 13:37-0400 Heart rate 68 /min Sameer Kelley MD Work Phone: [facility] 06-07-2022 13:37-0400 Respiratory rate 12 /min Sameer Kelley MD Work Phone: [facility] 04-23-2022 16:35-0400 Body temperature 98.91 [degF] Delmy Painter DIALYSIS REGISTERED NURSE.TANK OFFICER Work Phone: [facility] 04-23-2022 16:35-0400 Body weight 82.37 kg Delmy Painter DIALYSIS REGISTERED NURSE.TANK OFFICER Work Phone: [facility] 04-23-2022 16:35-0400 Diastolic blood pressure 80 mm[Hg] Delmy Painter DIALYSIS REGISTERED NURSE.TANK OFFICER Work Phone: [facility] 04-23-2022 16:35-0400 Heart rate 115 /min Delmy Painter DIALYSIS REGISTERED NURSE.TANK OFFICER Work Phone: [facility] 04-23-2022 16:35-0400 Respiratory rate 20 /min Delmy Painter DIALYSIS REGISTERED NURSE.TANK OFFICER Work Phone: [facility] 04-23-2022 16:35-0400 SaO2% (BldA) [Mass fraction] 98 % Delmy Painter DIALYSIS REGISTERED NURSE.TANK OFFICER Work Phone: [facility] 04-23-2022 16:35-0400 Systolic blood pressure 150 mm[Hg] Delmy Painter DIALYSIS REGISTERED NURSE.TANK OFFICER Work Phone: [facility] Encounters Encounter Date Encounter Type Care Provider Facility Start: 09-02-2023 End: 09-03-2023 ambulatory SAMEER KELLEY Facility:[facility] Start: 09-02-2023 End: 09-02-2023 Patient encounter procedure Sameer Kelley MD Work Phone: [facility] Procedures Date Procedure Procedure Detail Performing Clinician Start: 09-02-2023 Hycrete COVI D-19 VACCINE (2023-24 SEASON) AGE 12+ YR Sameer Kelley MD Work Phone: Start: 09-02-2023 INFLUENZA VACCINE, P RSV FREE, AGE 65+ YR, HIGH DOSE, QUADRIVALENT (FLUZONE HIGH-DOSE) Sameer Kelley MD Work Phone: Start: 02-10-2023 Echo tthrc r-t 2d w/wom-mode compl spec&colr d Delmy Fermin DIALYSIS REGISTERED NURSE.TANK OFFICER Work Phone: Start: 02-10-2023 Duplex scan extracra nial art compl bi study Delmy Fermin DIALYSIS REGISTERED NURSE.TANK OFFICER Work Phone: Start: 01-06-2023 Us abdominal real ti me w/image documentation Lux Mendoza MD Work Phone: Start: 12-09-2022 Ecg routine ecg w/le ast 12 lds i&r only [facility] Provider Start: 12-09-2022 INFLUENZA SEASONAL QUADRIVALENT HIGH DOSE AGE 65+ Sameer Kelley MD Work Phone: Start: 06-07-2022 [facility] COVI D-19 VACCINE, AGE 12+ YR (LEA TOP) Sameer Kelley MD Work Phone: Start: 02-25-2022 Us abdominal real ti me w/image documentation Lux Mendoza MD Work Phone: Start: 12-07-2021 Adult depression scr eening assessment Us 1 Work Phone: Plan of Treatment Date Care Activity Detail Author Start: 06-03-2024 Hepatitis B screening Urine Albumin:Creatinine Ratio [facility] Start: 05-31-2024 Hepatitis B surface antibody level LDL Cholesterol [facility] Start: 02-20-2024 Hemoglobin A1c/Hemoglobin.total in Blood HbA1C [facility] Start: 12-09-2023 3 comp foot exam completed DIABETIC FOOT EXAM [facility] Start: 12-09-2023 ANNUAL PCP TEAM CHRONIC DISEASE VISIT ANNUAL PCP TEAM CHRONIC DISEASE VISIT [facility] Start: 12-09-2023 BP CONTROLLED (<130/80) BP CONTROLLED (<130/80) [facility] Start: 12-03-2023 End: 03-03-2024 Comprehensive metabolic 2000 panel - Serum or Plasma COMP METABOLIC PANEL Lab Routine Cirrhosis of liver without ascites, unspecified hepatic cirrhosis type (HCC) Expected: 12/03/2023, Expires: 03/03/2024 [facility] Work Phone: Immunizations Immunization Date Immunization Notes Care Provider Fa cili 09-02-2023 COVID-19 vaccine, ag e 12+ yr, season ([facility]) Sameer Kelley MD Work Phone: [facility] 09-02-2023 influenza (HD-IIV4) vaccine, age 65+ yr, high dose, quadrivalent, PF (FLUZONE HIGH-DOSE) Sameer Kelley MD Work Phone: [facility] 12-09-2022 influenza, high-dose , quadrivalent vaccine (FLUZONE HIGH DOSE QUADRIVALENT) Sameer Kelley MD Work Phone: [facility] Work Phone: 12-09-2022 influenza virus vacc ine, unspecified formulation Us 2 Work Phone: [facility] 06-07-2022 COVID-19 vaccine, ag e 12+ yr ([facility] [facility] LEA TOP) Sameer Kelley MD Work Phone: [facility] Work Phone: 01-18-2022 pneumococcal (PCV20) vaccine, 20 valent (PREVNAR 20) Sameer Kelley MD Work Phone: [facility] Work Phone: 08-26-2021 influenza, high-dose , quadrivalent vaccine (FLUZONE HIGH DOSE QUADRIVALENT) Us 1 Work Phone: [facility] Work Phone: 02-24-2021 COVID-19 vaccine, fu ll dose (MODERNA) Us 1 Work Phone: [facility] Work Phone: 10-15-2020 influenza, high-dose , quadrivalent vaccine (FLUZONE HIGH DOSE QUADRIVALENT) Us 1 Work Phone: [facility] Work Phone: 12-18-2019 hepatitis A and hepatitis B vaccine Us 1 Work Phone: [facility] Work Phone: 09-04-2019 hepatitis A and hepatitis B vaccine Us 1 Work Phone: [facility] Work Phone: 09-04-2019 influenza, high dose seasonal, preservative-free Us 1 Work Phone: [facility] Work Phone: 08-24-2018 hepatitis B vaccine, adult dosage Us 1 Work Phone: [facility] Work Phone: 06-27-2018 influenza, high dose seasonal, preservative-free Us 1 Work Phone: [facility] Work Phone: 03-01-2018 hepatitis B vaccine, adult dosage Us 1 Work Phone: [facility] 01-23-2018 hepatitis B vaccine, adult dosage Us 1 Work Phone: [facility] Work Phone: 06-23-2017 influenza, high dose seasonal, preservative-free Us 1 Work Phone: [facility] 09-29-2016 influenza, high dose seasonal, preservative-free Us 1 Work Phone: [facility] 08-18-2016 influenza, seasonal, injectable, preservative free Us 1 Work Phone: [facility] Work Phone: 12-26-2014 pneumococcal conjuga te vaccine, 13 valent Us 1 Work Phone: [facility] 07-11-2013 influenza virus vacc ine, unspecified formulation Us 1 Work Phone: [facility] 07-31-2009 influenza virus vacc ine, unspecified formulation Us 1 Work Phone: [facility] 08-29-2008 influenza virus vacc ine, unspecified formulation Us 1 Work Phone: [facility] Work Phone: 04-23-2008 tetanus and diphther ia toxoids, adsorbed, preservative free, for adult use (2 Lf of tetanus toxoid and 2 Lf of diphtheria toxoid) Us 1 Work Phone: [facility] Work Phone: 10-24-2007 pneumococcal polysaccharide vaccine, 23 valent Us 1 Work Phone: [facility] Work Phone: 08-17-2006 influenza virus vacc ine, unspecified formulation Us 1 Work Phone: [facility] Work Phone: Payers Date Payer Category Payer Unknown [id number] 2021 Unknown ANTHEM BLUE CROS S AND BLUE SHIELD ANTHEM MEDIBLUE HMO [id number] 2021-Present [phone] [address] [place] [address] HMO [id number] 2021 Unknown HOSPITAL/MEDICAL GENERIC MEDICAL GENERIC [id number] 2021-Present [phone] [address] [place] [address] Indemnity [id number] 2021 Unknown [id number] 2021 Unknown [id number] 1940 Unknown [id number] 1940 Unknown [id number] Medicare [id number] Social History Date Type Detail Facility Start: 06-07-2022 Tobacco smoking stat us NHIS Ex-smoker [facility] Work Phone: End: 10-17-1962 History of tobacco use Current smoker [facility] Work Phone: Start: 12-07-2021 End: 06-03-2023 Alcohol intake Current drinker of alcohol (finding) [facility] Start: 12-07-2021 End: 12-09-2022 History SDOH Alcohol Frequency 2 [facility] Start: 03-18-2021 End: 12-07-2021 History SDOH Alcohol Std Drinks 1 [facility] Start: 12-07-2021 History SDOH Alcohol Comment 1 glass of wine per year [facility] Start: 12-07-2021 History SDOH Social Connections Phone 5 [facility] Start: 03-18-2021 End: 12-07-2021 History SDOH Social Connections Get Together 4 [facility] Start: 12-07-2021 End: 12-09-2022 History SDOH Social Connections Confucianism 3 [facility] Start: 03-18-2021 Education 15 [facility] Start: 1940 Sex Assigned At Female C [facility] Start: 04-13-2022 End: 06-07-2022 Exposure to SARS-CoV-2 (event) Not sure [facility] End: 10-17-1962 History of tobacco use Cigarette Smoker [facility] Work Phone: Start: 06-07-2022 Tobacco use and exposure Smoke less tobacco non-user [facility] Work Phone: Start: 06-07-2022 Tobacco Comment quit 40 yrs ago [facility] Start: 09-21-2020 End: 12-07-2021 History of Social function [facility] Work Phone: Start: 09-21-2020 End: 12-07-2021 Social connection and isolation panel [facility] Work Phone: Do you belong to any clubs or organizations such as jainism groups, unions, fraternal or athletic groups, or school groups? No [facility] Work Phone: Are you now , , , , never or living with a partner? [facility] Work Phone: How often to you hav e a drink containing alcohol? Monthly or less [facility] Work Phone: How many standard dr inks containing alcohol do you have on a typical day? 1 or 2 [facility] Work Phone: How often do you hav e 6 or more drinks on 1 occasion? Less than monthly [facility] Work Phone: How hard is it for y ou to pay for the very basics like food, housing, medical care, and heating Not very hard [facility] Adult Depression Screening Assessment 0 [facility] Work Phone: Do you feel stress - tense, restless, nervous, or anxious, or unable to sleep at night because your mind is troubled all the time - these days [OSQ] Not at all [facility] Work Phone: (I/We) worried wheth er (my/our) food would run out before (I/we) got money to buy more. Never true [facility] Start: 04-12-2021 Gender identity Identifies as female gender (finding) [facility] Do you belong to any clubs or organizations such as jainism groups, unions, fraternal or athletic groups, or school groups? Yes [facility] How often to you hav e a drink containing alcohol? Never [facility] Medical Equipment Procedure Code Equipment Code Equipment Origin al Text Equipment Identifier Dates Start: 08-26-2021 End: 06-03-2023 Clinical Notes 01-23-2019 to 10-18-2023 Sameer Kelley MD - 09/02/2023 4:07 PM ESTTelephone Encounter - Kathia Pedraza APRN.CNP - 05/23/2023 2:39 PM EDTTelephone Encounter - Liss Coto LPN - 05/23/2023 2:03 PM EDTPatient Instructions Note Date & Type Note Facility 10-18-2023 Note HNO ID: [id number] Author: Liss Coto LPN Service: ? Author Type: LICENSED NURSE Type: Progress Notes Filed: 10/18/2023 4:05 PM Note Text: Message left again for pt to return call to a nurse to complete TCM notes. [facility] 10-14-2023 Note Patient Outreach (IN TMWS) GARRETTCARMINA Medina ([id number]) 1940 F Date Time Provider Department 10/14/23 SAMERE KELLEY INTMWS During your visit today, we recorded the following information about you: Liss Coto LPN 10/18/2023 4:05 PM Signed Pt has been scheduled to see pcp 10/19/23 at 1120 am. Message left for p tto return call to a nurse to complete TCM notes. Liss Coto LPN 10/18/2023 4:05 PM Signed Message left again for pt to return call to a nurse to complete TCM notes. Allergies As of Date: 10/14/2023 (No Known Allergies) Date Reviewed: 09/02/2023 Reviewed by: Wendy Gupta LPN - Fully Assessed Reason for Visit: Transition Of Care [4074] Prescriptions as of 10/18/2023 - furosemide (LASIX) 20 mg tablet Take 1 tablet by mouth once daily. - liraglutide (VICTOZA) 0.6 mg/ 0.1 ml subcutaneous pen injector Inject 1.2 mg subcutaneously once daily. - metoprolol tartrate, short acting, (LOPRESSOR) 25 mg tablet Take 1 tablet by mouth twice daily. - insulin needles, DISPOSABLE, (PEN NEEDLE) 31 gauge x 5/16 1 Each once daily. - metFORMIN (GLUCOPHAGE) 500 mg tablet Take 1 tablet by mouth twice daily with meals. - blood sugar diagnostic (BLOOD GLUCOSE TEST) test strip Test blood sugar(s) 2 times daily. Dx: Type 2 DM - Controlled E11.9 Insulin: Yes - CPAP Service machine. Settings changed in office 5 - 13 cm H2O, Send heated tubing (WILLIAM) suitable mask per pt preference (nasal pillow), chin strap, head gear, humidity, heated tubing, filters, lifetime supplies. G47.33 JAYDA - CALCIUM + D 600 MG-200 UNIT TAB Take one(1) tablet daily. 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 Author Type: LICENSED NURSE Type: Progress Notes Filed: 10/18/2023 4:05 PM Note Text: Pt has been scheduled to see pcp 10/19/23 at 1120 am. Message left for p tto return call to a nurse to complete TCM notes. [facility] 09-02-2023 Note HNO ID: [id number] Author: Sameer Kelley MD Service: ? Author Type: Physician Type: Progress Notes Filed: 09/04/2023 11:24 AM Note Text: This note was created using Protenus. Subjective Carmina Bonds is a 83 year old female. We were concerned about cognitive decline last visit, but she was dealing with significant stressors. She felt she was managing okay. She still managed her bills and finances. She still drove. She had confusion coordinating her medications, and was doing better now that [facility] was packaging them. We stopped her [...] vaccination - IC (more content not included)... [facility] 09-02-2023 History of Presen t illness Narrative This note was created using NoteWriter. Subjective Carmina Bonds is a 83 year old female. We were concerned about cognitive decline last visit, but she was dealing with significant stressors. She felt she was managing okay. She still managed her bills and finances. She still drove. She had confusion coordinating her medications, and was doing better now that [facility] was packaging them. We stopped her [...] vaccine - ICD9: V04.89, ICD10: Z23 - [facility] COVID-19 VACCINE (2022- SEASON) AGE 12+ YR 7. Cirrhosis of liver without ascites, unspecified hepatic cirrhosis type (HCC) - ICD9: 571.5, ICD10: K74.60 Followed by GI. - COMP METABOLIC PANEL Smaeer Kelley MD documented in this encounter [facility] 06-03-2023 Note HNO ID: [id number] Author: Sameer Kelley MD Service: ? Author Type: Physician Type: Progress Notes Filed: 06/03/2023 3:00 PM Note Text: This note was created using BountyJobsriter. Elma Bonds is a 82 year old female with son. She lived alone and inconsistencies in medications were noted. We are now sending prescriptions to [facility] for packaging. Overall condition is consistent with [...] Abs Lymph 1.00 - 4.00 k/uL 2.08 Fajardo% % 10.5 Abs Fajardo <0.87 k/uL 0.45 Eosin% % 2.3 Abs Eosin <0.46 k/uL 0.10 Baso% % 0.5 Abs Baso <0.11 k/uL <0.03 Immature Gran % % 0.2 IMMATURE GRANS (ABS) <0.10 k/uL <0.03 NRBC /100 WBC 0.0 Absolute nRBC <0.01 k/uL <0.01 DTYPE Auto Protein, Total 6.3 - 8.0 g/dL 6.8 Albumin 3.9 - 4.9 g/dL 3.4 (L) (more content not included)... [facility] 05-23-2023 Miscellaneous Notes The following approved medication requests have been transmitted electronically. Requested Prescriptions Signed Prescriptions Disp Refills liraglutide (VICTOZA) 0.6 mg/ 0.1 ml subcutaneous pen injector 2 Each 5 Sig: Inject 1.2 mg subcutaneously once daily. Authorizing Provider: KATHIA PEDRAZA APRN.TRICE Called pt again and she needed the victoza to [facility]. She will review everything else at 06/03/23 appt. Sw spoke with both patient and patient son. Patient reports that she used her last victoza pen last night. Wanting to know status of refill on Victoza. Ruben notes that she will send message to Dr. Kelley to see what status of patient victoza refill. Patient son and Sw discussed [facility]. Patient had told this Sw to talk with son about pre pill pack. Mc notes that his plan is to bring patient to her appt on 06/[address] Kelley with her medications. Mc states that the plan was to then update medications in system and send information to [facility] to see about pre pill pack. Mc notes that he feels that patient would benefit from the pre pill pack. Mc also notes that the nurse he spoke with noted that [facility] would do home delivery to [place]. Sw called and left patient message to [...] to forward this msg to our social services designee as well to help them get started with maybe getting her medications set up with [facility]. Pt verbalizes understanding. Pt also concerned [...] and his mom about using something like [facility] to help them out with her medications. Pt also concerned about finding a new extracting machine operator. She had an appt on 06/07. Spoke with son Fabian and encouraged for him to come with her to next appt, bring a copy of her medications and BP's. Appt changed to 06/03 to accomodate his schedule. documented in this encounter [facility] 03-24-2023 Miscellaneous Notes Patient has been identified [...] Radha Mendoza LPN documented in this encounter [facility] 03-16-2023 Miscellaneous Notes Called and left detailed message on verified VM giving the below results. Malika Jaime RN ----- Message from Delmy Fermin APRN.TANK OFFICER sent at 03/16/2023 9:35 AM EDT ----- Please call patient and notify her of lab results. TSH within normal limits. Thank you! documented in this encounter [facility] 02-11-2023 Miscellaneous Notes Left detailed message on son's identified voicemail to inform. Results also on mychart result note. Elizabeth Shaw ----- Message from Delmy Fermin APRN.TANK OFFICER sent at 02/11/2023 12:52 PM EDT ----- Please call patient and notify her of results. Echo looks good. Normal LV function, EF 63%, normal chamber sizes, mild aortic stenosis. Thank you! Spoke with patient's child Fabian about test results. Fabian verbalizes understanding, will relay msg to patient. Hemalatha Wiseman LPN ----- Message from Delmy Fermin APRN.TANK OFFICER sent at 02/10/2023 9:55 AM EDT ----- Please call patient and notify her of carotid US results. No significant blockage on either side. Thank you! documented in this encounter [facility] 02-11-2023 Miscellaneous Notes Please call patient and notify her of results. Echo looks good. Normal LV function, EF 63%, normal chamber sizes, mild aortic stenosis. Thank you! documented in this encounter [facility] 02-10-2023 Miscellaneous Notes Please call patient and notify her of carotid US results. No significant blockage on either side. Thank you! documented in this encounter [facility] 02-09-2023 Miscellaneous Notes Called and left detailed [...] evaluation. Thank you! documented in this encounter [facility] 01-24-2023 Note HNO ID: [id number] Author: Trina Troy RN Service: ? Author Type: Registered Nurse Type: Progress Notes Filed: 01/24/2023 1:40 PM Note Text: EVENT MONITOR DISPOSABLE PATCH INSTRUCTIONS Patient Name: Carmina Bonds [facility] Number: [id number] Skin prepped and cleansed with alcohol Patch secured to prepped area Monitor Activated Serial #: [id number] Patient Instructed: Prescribed order timeframe Bathing guidelines Usage of event button and diary documentation Return of monitor at the end of prescribed order Call with problems [phone] or [phone]. [phone] Patient expresses a good understanding of instructions Trina Troy RN [facility] 01-24-2023 Note HNO ID: [id number] Author: Delmy Fermin APRN.TRICE Service: ? Author Type: Nurse Practitioner Type: Progress Notes Filed: 01/24/2023 1:40 PM Note Text: [facility] ([facility]) [address] [facility] [id number] OUTPATIENT VISIT January 24, 2023 1:00 PM [...] carcinoma (BCC) of skin 06/27/2018 Dr. Najera, [facility]. Internal hemorrhoids without mention of complication Lumbago Chronic low back pain Mild cognitive impairment 12/07/2021 Mitral valve disorders(424.0) 09/20/2006 MVP with regurgitation Nocturnal hypoxemia 01/23/2019 JAYDA (obstructive sleep apnea) DME [facility] Other dyspnea and respiratory abnormality Reactive airway [...] Mother Coronary Artery Disease Mother Heart Father IA Diabetes Brother None Brother None Sister Emphysema Paternal Grandmother Di (more content not included)... [facility] 01-24-2023 Note HNO ID: [id number] Author: Kailyn Gilliland MD Service: Cardiovascular Surgery Author Type: Physician Type: Procedures Filed: 02/08/2023 1:34 PM Note Text: Patient Name: Carmina Bonds : 1940 Ordering Provider: DELMY FERMIN Indication: R06.09 Other forms of dyspnea Type of Monitor: Extended Monitoring-Zio Patch Enrollment Dates: 01/24/2023-01/31/2023 [facility] 01-24-2023 History of Presen t illness Narrative EVENT MONITOR DISPOSABLE PATCH INSTRUCTIONS Patient Name: Carmina Bonds [facility] Number: [id number] Skin prepped and cleansed with alcohol Patch secured to prepped area Monitor Activated Serial #: [id number] Patient Instructed: Prescribed order timeframe Bathing guidelines Usage of event button and diary documentation Return of monitor at the end of prescribed order Call with problems [phone] or [phone]. [phone] Patient expresses a good understanding of instructions Trina Troy RN Images from the original note were not included. [facility] ([facility]) [address] [facility] [id number] OUTPATIENT VISIT January 24, 2023 1:00 PM [...] carcinoma (BCC) of skin 06/27/2018 Dr. Najera, [facility]. Internal hemorrhoids without mention of [...] Mother Coronary Artery Disease Mother Heart Father IA Diabetes Brother None Brother None Sister Emphysema [...] injection (DEFINITY) INTRAVENOUS DIRECTED PRN Delmy Fermin APRN.CNP sodium chloride 0.9 % (flush) 10 mL (BD POSIFLUSH) 10 mL INTRAVENOUS DIRECTED PRN Delmy Fermin APRN.TRICE Review of Systems Constitutional: Positive for malaise/fatigue. [...] ALLAN/Murmur -noted on exam, most recent echocardiogram 2015 without significant valve disease. Moderate LVH -repeat [...] 2023, 12:50 PM documented in this encounter [facility] 01-24-2023 Instructions Delmy Fermin APRN.TANK OFFICER - 01/24/2023 1:15 PM EDT Heart Disease in Women Is heart disease a problem for women? Heart disease is the leading cause of of [place] women. More women from heart disease than [...] disease. You can get more information from: [place] [facility] Kfsvmkhjvgr2-123-EBK-USA-1 ( )www.heart.org Developed by [employer]. Published by [employer]. Copyright 2014 [employer] and/or one of its subsidiaries. All rights reserved. documented in this encounter [facility] 01-06-2023 Note HNO ID: [id number] Author: Marivel Dailey RDMS Service: ? Author Type: Batch Room Technician Type: Progress Notes Filed: 01/06/2023 1:42 PM [...] Dailey RDMS January 06, 2023 1:42 PM [facility] 01-06-2023 History of Presen t illness Narrative [...] 2023 1:42 PM documented in this encounter [facility] 12-23-2022 Note HNO ID: [id number] Author: Raoul Nam (Formula X[employer]) Service: ? Author Type: ? Type: Progress Notes Filed: 12/23/2022 12:54 PM Note Text: Carmina Bonds is identified through a medication adherence outreach initiative based on pharmacy claims data from [employer] (insurer) for Non-insulin DM medication(s). Patient is reviewed 12/23/22 due to medication adherence concerns with the following medications (name, strength, sig): Victoza 18mg/3ml; Inject 1.2 mg daily. Per reconcile dispense, last fill date and days supply: Filled 12/15/22 for 30 day supply Outcome of review/outreach: (choose outcome source and status) - Filled before Next fill date per reconcile dispense Raoul Nam (Formula XO) [facility] 12-23-2022 Note Patient Outreach ([facility]) CARMINA BONDS ([id number]) 1940 F Date Time Provider Department 12/23/22 SAMEER KELLEY During your visit today, we recorded the following information about you: Raoul Nam ([employer]) 12/23/2022 12:54 PM Signed Carmina Bonds is identified through a medication adherence outreach initiative based on pharmacy claims data from [employer] (insurer) for Non-insulin DM medication(s). Patient is reviewed 12/23/22 due to medication adherence concerns with the following medications (name, strength, sig): Victoza 18mg/3ml; Inject 1.2 mg daily. Per reconcile dispense, last fill date and days supply: Filled 12/15/22 for 30 day supply Outcome of review/outreach: (choose outcome source and status) - Filled before Next fill date per reconcile dispense Raoul Nam (Formula XO) Allergies As of Date: 12/23/2022 (No Known [...] impairment [G31.84] 12/07/2021 Encounter Status:Closed by BERTA ([employer])RAOUL on 12/23/22 [facility] 12-09-2022 Note HNO ID: [id number] Author: Sameer Kelley MD Service: ? Author Type: Physician Type: Progress Notes Filed: 12/09/2022 6:42 PM Note Text: This note was created using Shakater. Elma Bonds is a 82 year old [...] % 5.5 Estima (more content not included)... [facility] 12-09-2022 Note HNO ID: [id number] Author: Sameer Kelley MD Service: ? Author Type: Physician Type: Progress Notes Filed: 12/09/2022 6:42 PM Note Text: Carmina Bonds is a 82 year old female here for a Medicare Subsequent Annual Wellness Visit Health Risk Assessment In general, health is: Good Concerns with balance:Not at all Concerns with teeth or dentures:Not at all Concerns with sexual function:Not at all Curlew anxious, stressed, angry, irritable, lonely, isolated, or [...] - General Outside specialists seen: Dr. Lux Mendoza, [facility] Gastroenterology. Dr. Cristian Parra, ophthalmology. [...] and Tdap at pharmacy - Depression screening [facility] 12-09-2022 Instructions Sameer Kelley MD - 12/09/2022 6:04 PM EST VACCINES TO GET AT YOUR PHARMACY SHINGRIX VACCINE(1 of 2) Never done DTAP,TDAP,TD(1 - Tdap) due on 04/24/2008 COVID-19 VACCINE(4 - Booster for Moderna series) due on 08/02/2022 COPY OF YOUR ADVANCED DIRECTIVE FOR YOUR FILE HERE. documented in this encounter [facility] 12-09-2022 History of Presen t illness Narrative This note was created using Pro[employer]us. Elma Bonds is a 82 year old [...] all Concerns with sexual function:Not at all Curlew anxious, stressed, angry, irritable, lonely, isolated, or [...] - General Outside specialists seen: Dr. Lux Mendoza, [facility] Gastroenterology. Dr. Cristian Parra, ophthalmology. [...] - Depression screening documented in this encounter [facility] 06-07-2022 History of Presen t illness Narrative This note was created using [employer]us. Elma Bonds is a 81 year old [...] Abs Lymph 1.00 - 4.00 k/uL 1.06 Fajardo% % 8.5 Abs Fajardo <0.87 k/uL 0.24 Eosin% % 3.2 Abs [...] vaccine - ICD9: V04.89, ICD10: Z23 - PFIZER-BIONTEtherpad COVID-19 VACCINE, AGE 12+ YR (LEA TOP) 5. JAYDA (obstructive sleep apnea) - ICD9: 327.23, ICD10: G47.33 Patient using and benefiting from nightly CPAP use. Sameer Kelley MD documented in this encounter [facility] 05-17-2022 Miscellaneous Notes rx from January says [...] formulary meds available : NO Insurance Company: [employer] phone number: [phone] Patient insurance ID number: [id number] Radha Mendoaz LPN Patient said she tests twice daily. documented in this encounter [facility] 04-23-2022 Instructions Delmy Painter APRN.[facility] - 04/23/2022 4:43 PM EDT Beginning Home [...] to your local emergency facility: Notify the wet and dry sugar bin operator that you are seeking care for [...] be around others. documented in this encounter [facility] 04-23-2022 History of Presen t illness Narrative This note was created using Protenus. Subjective Carmina Bonds is a 81 year [...] history is provided by the patient. No spanish medical interpreter was used. URI There is no chest [...] depressed mood 06/23/2010 +Partner relationship issues, the [facility] Cervicogenic headache 01/20/2019 Cirrhosis of liver [...] carcinoma (BCC) of skin 06/27/2018 Dr. Najera, [facility]. Internal hemorrhoids without mention of [...] Mother Coronary Artery Disease Mother Heart Father IA Diabetes Brother None Brother None Sister Emphysema [...] having symptoms since last Tuesday. 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 Colon cancer screening 06/03/2017 8 Overview: Added automatically from request for surgery [id number] Dysphagia 06/03/2017 01/23/2018 Overview: Added automatically from request for surgery [id number] Urgency incontinence 01/13/2011 01/23/2018 Urinary frequency 01/13/2011 [...] of this encounter (statuses as of 04/23/2022) [facility] History of Past illness Narrative* Problem Noted Date Resolved Date Nocturnal hypoxemia 01/23/2019 09/04/2019 Cervicogenic headache 01/20/2019 09/04/2019 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 Colon cancer screening 06/03/2017 8 Overview: Added automatically from request for surgery [id number] Dysphagia 06/03/2017 01/23/2018 Overview: Added automatically from request for surgery [id number] Urgency incontinence 01/13/2011 01/23/2018 Urinary frequency 01/13/2011 [...] of this encounter (statuses as of 05/17/2022) [facility] History of Past illness Narrative* Problem Noted Date Resolved Date Nocturnal hypoxemia 01/23/2019 09/04/2019 Cervicogenic headache 01/20/2019 09/04/2019 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 Colon cancer screening 06/03/2017 8 Overview: Added automatically from request for surgery [id number] Dysphagia 06/03/2017 01/23/2018 Overview: Added automatically from request for surgery [id number] Urgency incontinence 01/13/2011 01/23/2018 Urinary frequency 01/13/2011 [...] of this encounter (statuses as of 06/07/2022) [facility] History of Past illness Narrative* Problem Noted Date Resolved Date Nocturnal hypoxemia 01/23/2019 09/04/2019 Cervicogenic headache 01/20/2019 09/04/2019 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 Colon cancer screening 06/03/2017 8 Overview: Added automatically from request for surgery [id number] Dysphagia 06/03/2017 01/23/2018 Overview: Added automatically from request for surgery [id number] 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 [...] of this encounter (statuses as of 12/10/2022) [facility] History of Past illness Narrative* Problem Noted Date Resolved Date Nocturnal hypoxemia 01/23/2019 09/04/2019 Cervicogenic headache 01/20/2019 09/04/2019 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 Colon cancer screening 06/03/2017 8 Overview: Added automatically from request for surgery [id number] Dysphagia 06/03/2017 01/23/2018 Overview: Added automatically from request for surgery [id number] 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 [...] of this encounter (statuses as of 01/24/2023) [facility] History of Past illness Narrative* Problem Noted Date Resolved Date Nocturnal hypoxemia 01/23/2019 09/04/2019 Cervicogenic headache 01/20/2019 09/04/2019 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 Colon cancer screening 06/03/2017 8 Overview: Added automatically from request for surgery [id number] Dysphagia 06/03/2017 01/23/2018 Overview: Added automatically from request for surgery [id number] 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 [...] of this encounter (statuses as of 02/09/2023) [facility] History of Past illness Narrative* Problem Noted Date Resolved Date Nocturnal hypoxemia 01/23/2019 09/04/2019 Cervicogenic headache 01/20/2019 09/04/2019 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 Colon cancer screening 06/03/2017 8 Overview: Added automatically from request for surgery [id number] Dysphagia 06/03/2017 01/23/2018 Overview: Added automatically from request for surgery [id number] 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 [...] of this encounter (statuses as of 02/11/2023) [facility] History of Past illness Narrative* Problem Noted Date Resolved Date Nocturnal hypoxemia 01/23/2019 09/04/2019 Cervicogenic headache 01/20/2019 09/04/2019 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 Colon cancer screening 06/03/2017 8 Overview: Added automatically from request for surgery [id number] Dysphagia 06/03/2017 01/23/2018 Overview: Added automatically from request for surgery [id number] 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 [...] of this encounter (statuses as of 02/11/2023) [facility] History of Past illness Narrative* Problem Noted Date Resolved Date Nocturnal hypoxemia 01/23/2019 09/04/2019 Cervicogenic headache 01/20/2019 09/04/2019 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 Colon cancer screening 06/03/2017 8 Overview: Added automatically from request for surgery [id number] Dysphagia 06/03/2017 01/23/2018 Overview: Added automatically from request for surgery [id number] 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 [...] of this encounter (statuses as of 02/12/2023) [facility] History of Past illness Narrative* Problem Noted Date Resolved Date Nocturnal hypoxemia 01/23/2019 09/04/2019 Cervicogenic headache 01/20/2019 09/04/2019 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 Colon cancer screening 06/03/2017 8 Overview: Added automatically from request for surgery [id number] Dysphagia 06/03/2017 01/23/2018 Overview: Added automatically from request for surgery [id number] 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 [...] of this encounter (statuses as of 03/25/2023) [facility] History of Past illness Narrative* Problem Noted Date Resolved Date Nocturnal hypoxemia 01/23/2019 09/04/2019 Cervicogenic headache 01/20/2019 09/04/2019 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 Colon cancer screening 06/03/2017 8 Overview: Added automatically from request for surgery [id number] Dysphagia 06/03/2017 01/23/2018 Overview: Added automatically from request for surgery [id number] 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 [...] of this encounter (statuses as of 03/16/2023) [facility] History of Past illness Narrative* Problem Noted Date Diagnosed Date Resolved Date Nocturnal hypoxemia 01/23/2019 09/04/20 Cervicogenic headache 01/20/20192018 Nodular regenerative hyperplasia of liver 08/25/2017 01/23/2018 Colon cancer screening 06/03/201701/23 Overview: Added automatically from request for surgery [id number] Dysphagia 06/03/2017 01/23/2018 Overview: Added automatically from request for surgery [id number] 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 [...] of this encounter (statuses as of 05/24/2023) [facility] History of Past illness Narrative* Problem Noted Date Diagnosed Date Resolved Date Nocturnal hypoxemia 01/23/2019 09/04/20 19 Cervicogenic headache 01/20/20192018 Nodular regenerative hyperplasia of liver 08/25/2017 01/23/2018 Colon cancer screening 06/03/201701/23 Overview: Added automatically from request for surgery [id number] Dysphagia 06/03/2017 01/23/2018 Overview: Added automatically from request for surgery [id number] 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 [...] of this encounter (statuses as of 08/21/2023) [facility] History of Past illness Narrative* Problem Noted Date Diagnosed Date Resolved Date Nocturnal hypoxemia 01/23/2019 09/04/20 19 Cervicogenic headache 01/20/20192018 Nodular regenerative hyperplasia of liver 08/25/2017 01/23/2018 Colon cancer screening 06/03/201701/23 Overview: Added automatically from request for surgery [id number] Dysphagia 06/03/2017 01/23/2018 Overview: Added automatically from request for surgery [id number] 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 [...] of this encounter (statuses as of 09/04/2023) [facility] Diagnosis Viral illness- Primary Unspecified viral infection, in conditions classified elsewhere and of unspecified site Exposure to COVID-19 virus [facility] Diagnosis Controlled type 2 diabetes mellitus without complication, without long-term current use of insulin (HCC)- Primary Essential hypertension Unspecified essential hypertension Cirrhosis of liver without ascites, unspecified hepatic cirrhosis type (HCC) Need for COVID-19 vaccine JAYDA (obstructive sleep apnea) Obstructive sleep apnea (adult) (pediatric) [facility] Diagnosis Medicare annual wellness visit, subsequent- [...] Unspecified essential hypertension [facility] Diagnosis ALLAN (dyspnea on exertion)- Primary Other dyspnea and respiratory abnormality Chest pain, unspecified type Fatigue, unspecified type Palpitations Lightheadedness Dizziness and giddiness Essential hypertension Unspecified essential hypertension Hyperlipidemia, unspecified hyperlipidemia type Controlled type 2 diabetes mellitus without complication, without long-term current use of insulin (HCC) Obesity, Class I, BMI 30-34.9 Obesity, unspecified [facility] Lightheadedness Dizziness and giddiness [facility] Diagnosis ALLAN (dyspnea on exertion) Other dyspnea and respiratory abnormality Fatigue, unspecified type Palpitations [facility] Diagnosis Controlled type 2 diabetes mellitus without complication, without long-term current use of insulin (HCC) [facility] Diagnosis Controlled type 2 diabetes mellitus without complication, without long-term current use of insulin (HCC) [facility] Diagnosis Mild cognitive impairment- Primary Mild cognitive impairment, so stated Need for influenza vaccination Need for prophylactic vaccination and inoculation against influenza Edema, unspecified type Abnormal weight gain Type 2 diabetes mellitus with diabetic nephropathy, without long-term current use of insulin (HCC) Need for COVID-19 vaccine Cirrhosis of liver without ascites, unspecified hepatic cirrhosis type (HCC) documented in this encounter [facility] for referral (narrative)* Outpatient Procedure (Routine) - Authorized Specialty Diagnoses / Procedures Referred By Contac t Referred To Contact [facility] [place] Diagnoses Lightheadedness Procedures US CAROTID ARTERIES ESTHELA VAS LAB DUPLEX SCAN EXTRACRANIAL ART COMPL BI STUDY Delmy Fermin APRN.CNP [address] [place] [address] Fax: [facility] [address] [place] [address] Referral ID Status Reason Start Date Expiration Date Visits Requested Visits Authorized [id number] Authorized Auto-Generat ed Referral 01/24/2023 01/24/2024 1 1 * Outpatient Procedure (Routine) - Authorized Specialty Diagnoses / Procedures Referred By Contac t Referred To Contact [facility] [place] Diagnoses ALLAN (dyspnea on exertion) Fatigue, unspecified type Palpitations Procedures ECHO ECHO TTHRC R-T 2D W/WOM-MODE COMPL SPEC&COLR D Delmy Fermin APRN.TANK OFFICER [address] [place] [address] [facility] [address] [place] [address] Referral ID Status Reason Start Date Expiration Date Visits Requested Visits Authorized [id number] Authorized Auto-Generat ed Referral 01/24/2023 01/24/2024 1 1 [facility] for visit Narrative* Outpatient Procedure (Routine) - Closed Specialty Diagnoses / Procedures Referred By Contac t Referred To Contact [facility] Diagnoses Lightheadedness Procedures US CAROTID ARTERIES ESTHELA VAS LAB DUPLEX SCAN EXTRACRANIAL ART COMPL BI STUDY Delmy Fermin APRN.CNP [address] [place] [address] Fax: [facility] [address] [place] [address] Referral ID Status Reason Start Date Expiration Date V isits Requested Visits Authorized [id number] Closed Auto-Generate d Referral 01/24/2023 01/24/2024 1 1 [facility] Outpatient Procedure (Routine) - Closed Specialty Diagnoses / Procedures Referred By Contac t Referred To Contact [facility] [place] Diagnoses ALLAN (dyspnea on exertion) Fatigue, unspecified type Palpitations Procedures ECHO ECHO TTHRC R-T 2D W/WOM-MODE COMPL SPEC&COLR D Letha Delmy E, DIALYSIS REGISTERED NURSE.TANK OFFICER [address] [place] [address] [facility] [place] [id number] [place] [id number] Referral ID Status Reason Start Date Expiration Date V isits Requested Visits Authorized [id number] Closed Auto-Generate d Referral 01/24/2023 01/24/2024 1 1 [facility] Summary Purpose Family History No Family History Records FoundNo Family History Records FoundNo Family History Records FoundNo Family History Records FoundNo Family History Records FoundNo Family History Records FoundNo Family History Records FoundNo Family History Records Found Advance Directives No Advanced Directives Records FoundDocuments on File Type Date Recorded 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 Advance Directive(s) 06/15/2017 10:37 AM Reason for Referral Specialty Diagnoses / Procedures Referred By Contac t Referred To Contact Cardiology Diagnoses Chest pain, unspecified type Procedures CONSULT TO CARDIOLOGY OFFICE/OUTPATIENT [facility] MDM 60-74 MINUTES Sameer Kelley MD [address] [place] [id number] Referral ID Status Reason Start Date Expiration Date Visits Requested Visits Authorized [id number] Pending Review PCP Requested Referral 12/09/2022 12/09/2023 1 1 Specialty Diagnoses / Procedures Referred By Contac t Referred To Contact [facility] [place] Diagnoses Chest pain, unspecified type Procedures ECG COMPLETE ECG ROUTINE ECG W/LEAST 12 LDS W/I&R Sameer Kelley MD [address] [place] [id number] [facility] [address] [place] [address] Referral ID Status Reason Start Date Expiration Date V isits Requested Visits Authorized [id number] Closed Auto-Generate d Referral 12/09/2022 12/09/2023 1 1 Additional Source Comments INFORMATION SOURCE (unrecogn ized section and content) DATE CREATED AUTHOR AUTHOR'S ORGANIZ ATION 03/22/2019 [facility] ([place]) DATE CREATED AUTHOR AUTHOR'S ORGANIZ ATION 09/11/2020 [facility] DATE CREATED AUTHOR AUTHOR'S ORGANIZ ATION 12/13/2020 [facility] DATE CREATED AUTHOR AUTHOR'S ORGANIZ ATION 08/16/2021 [facility] DATE CREATED AUTHOR AUTHOR'S ORGANIZ ATION 12/03/2021 [facility] DATE CREATED AUTHOR AUTHOR'S ORGANIZ ATION 03/27/2023 [facility] DATE CREATED AUTHOR AUTHOR'S ORGANIZ ATION 10/19/2023 [facility] Source Comments (unrecognize d section and content) In the event this informatio n is protected by the Federal Confidentiality of Alcohol and Drug Abuse Patient Records regulations: The Federal rules restrict any use of the information to criminally investigate or prosecute any alcohol or drug abuse patient.[facility] the event this information is protected by the Federal Confidentiality of Alcohol and Drug Abuse Patient Records regulations: The Federal rules restrict any use of the information to criminally investigate or prosecute any alcohol or drug abuse patient.[facility] the event this information is protected by the Federal Confidentiality of Alcohol and Drug Abuse Patient Records regulations: The Federal rules restrict any use of the information to criminally investigate or prosecute any alcohol or drug abuse patient.[facility] the event this information is protected by the Federal Confidentiality of Alcohol and Drug Abuse Patient Records regulations: The Federal rules restrict any use of the information to criminally investigate or prosecute any alcohol or drug abuse patient.[facility] the event this information is protected by the Federal Confidentiality of Alcohol and Drug Abuse Patient Records regulations: The Federal rules restrict any use of the information to criminally investigate or prosecute any alcohol or drug abuse patient.[facility] the event this information is protected by the Federal Confidentiality of Alcohol and Drug Abuse Patient Records regulations: The Federal rules restrict any use of the information to criminally investigate or prosecute any alcohol or drug abuse patient.[facility] the event this information is protected by the Federal Confidentiality of Alcohol and Drug Abuse Patient Records regulations: The Federal rules restrict any use of the information to criminally investigate or prosecute any alcohol or drug abuse patient.[facility] the event this information is protected by the Federal Confidentiality of Alcohol and Drug Abuse Patient Records regulations: The Federal rules restrict any use of the information to criminally investigate or prosecute any alcohol or drug abuse patient.[facility] the event this information is protected by the Federal Confidentiality of Alcohol and Drug Abuse Patient Records regulations: The Federal rules restrict any use of the information to criminally investigate or prosecute any alcohol or drug abuse patient.[facility] the event this information is protected by the Federal Confidentiality of Alcohol and Drug Abuse Patient Records regulations: The Federal rules restrict any use of the information to criminally investigate or prosecute any alcohol or drug abuse patient.[facility] the event this information is protected by the Federal Confidentiality of Alcohol and Drug Abuse Patient Records regulations: The Federal rules restrict any use of the information to criminally investigate or prosecute any alcohol or drug abuse patient.[facility] the event this information is protected by the Federal Confidentiality of Alcohol and Drug Abuse Patient Records regulations: The Federal rules restrict any use of the information to criminally investigate or prosecute any alcohol or drug abuse patient.[facility] the event this information is protected by the Federal Confidentiality of Alcohol and Drug Abuse Patient Records regulations: The Federal rules restrict any use of the information to criminally investigate or prosecute any alcohol or drug abuse patient.[facility] the event this information is protected by the Federal Confidentiality of Alcohol and Drug Abuse Patient Records regulations: The Federal rules restrict any use of the information to criminally investigate or prosecute any alcohol or drug abuse patient.[facility] the event this information is protected by the Federal Confidentiality of Alcohol and Drug Abuse Patient Records regulations: The Federal rules restrict any use of the information to criminally investigate or prosecute any alcohol or drug abuse patient.[facility] Reason for Visit (unrecogniz ed section and content) Specialty Diagnoses / Procedures Referred By Masha woodard Referred To Contact Radiology / RADIO ULTRA [facility] Diagnoses unspecified cirrhosis of liver Procedures US ABDOMEN COMPLETE Self Radio [facility] [address] [place] [address] Referral ID Status Reason Start Date Expiration Date Visits Requested Visits Authorized [id number] Closed Financial Clearance Required - OON Payor OON Notification Letter Patient Cleared - Admin/Panel Lay Up Worker/D irector advise to proceed or did not respond 01/06/2023 04/06/2023 1 1 Reason Comments Sore Throat chills, [place], can't sl eep x 3 days Reason Comments Insurance Authorization Freestyle test s trips Reason Comments F/U 6 months Reason Onset Date Comments Medicare Wellness Exam Immunizations 12/09/2022 Flu vaccination Reason Comments Consult Chest Pain Shortness of Breath Specialty Diagnoses / Procedures Referred By Masha woodard Referred To Contact Cardiology Diagnoses Chest pain, unspecified type Procedures CONSULT TO CARDIOLOGY OFFICE/OUTPATIENT NEW HIGH MDM 60-74 MINUTES OFFICE/OUTPATIENT NEW MODERATE MDM 45-59 MINUTES Sameer Kelley MD [address] [place] [address] [place] [address] Referral ID Status Reason Start Date Expiration Date V isits Requested Visits Authorized [id number] Closed PCP Requested Referral Financial Clearance Required - OON Payor Patient Cleared - INN Insurance Found 12/09/2022 12/09/2023 1 1 Reason Comments Results Reason Onset Date Comments Refill Request 03/24/2023 Reason Comments Medication Problem Reason Onset Date Comments Recheck 3 month follow u p Immunizations 09/02/2023 Flu vaccination Care Teams (unrecognized sec tion and content) Contract Consultant Relationship Specialty Start Date End Date Sameer Kelley MD [address] [place] [address] PCP - General 08/23/07 Contract Consultant Relationship Specialty Start Date End Date Sameer Kelley MD [address] [place] [address] PCP - General 08/23/07 Contract Consultant Relationship Specialty Start Date End Date Sameer Kelley MD [facility] [place] [address] PCP - General 08/23/07 Contract Consultant Relationship Specialty Start Date End Date Sameer Kelley MD [facility] [place] [address] PCP - General 08/23/07 Contract Consultant Relationship Specialty Start Date End Date Sameer Kelley MD [facility] [place] [address] PCP - General 08/23/07 Contract Consultant Relationship Specialty Start Date End Date Sameer Kelley MD [facility] [place] [address] PCP - General 08/23/07 Contract Consultant Relationship Specialty Start Date End Date Sameer Kelley MD [address] [place] [address] PCP - General 08/23/07 Contract Consultant Relationship Specialty Start Date End Date Sameer Kelley MD [facility] [place] [address] PCP - General 08/23/07 Contract Consultant Relationship Specialty Start Date End Date Sameer Kelley MD [address] [place] [address] PCP - General 08/23/07 Contract Consultant Relationship Specialty Start Date End Date Sameer Kelley MD [address] [place] [address] PCP - General 08/23/07 Contract Consultant Relationship Specialty Start Date End Date Sameer Kelley MD [address] [place], [place] [id number] PCP - General 08/23/07 Contract Consultant Relationship Specialty Start Date End Date Sameer Kelley MD [address] [place], [place] [address] PCP [facility] 08/23/07 FOR RECORDS PERTAINING TO PATIENTS WHO [...] BE BASED ON THE PRIMARY CLINICAL RECORDS. [facility] [employer] [facility]. provides no warranty or guarantee of the accuracy or completeness of information in this document.
--- OUTSIDE RECORDS SUMMARY | 2023-10-19 22:14 | XMS RPT_ITS | CCD ---
Author Name Unknown Address [address] [facility] [address] [place] [address] Organization [facility] Care Team Providers Care Airconditioning Drafting Officer Name Role Phone RUBÉN WERNER) Unavailable Unavailable [...] BRUCE, Sameer Parks Primary Care Provider [phone] Allie BRUCE, Sameer Parks Primary Care Provider [phone] Allie BRUCE, Sameer Parks Primary Care Provider [phone] SAMEER KELLEY Primary Care Unavailable SAMEER KELLEY [...] 89.36 kg Sameer Kelley MD Work Phone: [facility] 09-02-2023 15:51-0500 Diastolic blood pressure 70 mm[Hg] Sameer Kelley MD Work Phone: [facility] 09-02-2023 15:51-0500 Heart rate 78 /min Sameer Kelley MD Work Phone: [facility] 09-02-2023 15:51-0500 Respiratory rate 16 /min Sameer Kelley MD Work Phone: [facility] 09-02-2023 15:51-0500 SaO2% (BldA) [Mass fraction] 100 % Sameer Kelley MD Work Phone: [facility] 09-02-2023 15:51-0500 Systolic blood pressure 116 mm[Hg] Sameer Kelley MD Work Phone: [facility] 01-24-2023 12:49-0400 Body weight 80.74 kg Delmy Fermin APRN.ADMINISTRATIVE SERVICES DIRECTOR Work Phone: [facility] 01-24-2023 12:49-0400 Diastolic blood pressure 78 mm[Hg] Delmy Fermin APRN.ADMINISTRATIVE SERVICES DIRECTOR Work Phone: [facility] 01-24-2023 12:49-0400 Heart rate 76 /min Delmy Fermin APRN.ADMINISTRATIVE SERVICES DIRECTOR Work Phone: [facility] 01-24-2023 12:49-0400 SaO2% (BldA) [Mass fraction] 99 % Delmy Fermin APRN.ADMINISTRATIVE SERVICES DIRECTOR Work Phone: [facility] 01-24-2023 12:49-0400 Systolic blood pressure 134 mm[Hg] Delmy Fermin APRTREVOR Work Phone: [facility] 12-09-2022 17:12-0500 Body height 157.5 cm Sameer Kelley MD Work Phone: [facility] 12-09-2022 17:12-0500 Body temperature 97.7 [degF] Sameer Kelley MD Work Phone: [facility] 12-09-2022 17:12-0500 Body weight 78.47 kg Sameer Kelley MD Work Phone: [facility] 12-09-2022 17:12-0500 Diastolic blood pressure 62 mm[Hg] Sameer Kelley MD Work Phone: [facility] 12-09-2022 17:12-0500 Heart rate 96 /min Sameer Kelley MD Work Phone: [facility] 12-09-2022 17:12-0500 Respiratory rate 16 /min Sameer Kelley MD Work Phone: [facility] 12-09-2022 17:12-0500 SaO2% (BldA) [Mass fraction] 98 % Sameer Kelley MD Work Phone: [facility] 12-09-2022 17:12-0500 Systolic blood pressure 124 mm[Hg] Sameer Kelley MD Work Phone: [facility] 06-07-2022 14:02-0400 Diastolic blood pressure 64 mm[Hg] Sameer Kelley MD Work Phone: [facility] 06-07-2022 14:02-0400 Systolic blood pressure 124 mm[Hg] Sameer Kelley MD Work Phone: [facility] 06-07-2022 13:37-0400 Body temperature 97 [degF] Sameer Kelley MD Work Phone: [facility] 06-07-2022 13:37-0400 Body weight 78.93 kg Sameer Kelley MD Work Phone: [facility] 06-07-2022 13:37-0400 Heart rate 68 /min Sameer Kelley MD Work Phone: [facility] 06-07-2022 13:37-0400 Respiratory rate 12 /min Sameer Kelley MD Work Phone: [facility] 04-23-2022 16:35-0400 Body temperature 98.91 [degF] Delmy Painter VENEER JOINER.ADMINISTRATIVE SERVICES DIRECTOR Work Phone: [facility] 04-23-2022 16:35-0400 Body weight 82.37 kg Delmy Painter VENEER JOINER.ADMINISTRATIVE SERVICES DIRECTOR Work Phone: [facility] 04-23-2022 16:35-0400 Diastolic blood pressure 80 mm[Hg] Delmy Painter VENEER JOINER.ADMINISTRATIVE SERVICES DIRECTOR Work Phone: [facility] 04-23-2022 16:35-0400 Heart rate 115 /min Delmy Painter VENEER JOINER.ADMINISTRATIVE SERVICES DIRECTOR Work Phone: [facility] 04-23-2022 16:35-0400 Respiratory rate 20 /min Delmy Painter VENEER JOINER.ADMINISTRATIVE SERVICES DIRECTOR Work Phone: [facility] 04-23-2022 16:35-0400 SaO2% (BldA) [Mass fraction] 98 % Delmy Painter VENEER JOINER.ADMINISTRATIVE SERVICES DIRECTOR Work Phone: [facility] 04-23-2022 16:35-0400 Systolic blood pressure 150 mm[Hg] Delmy Painter VENEER JOINER.ADMINISTRATIVE SERVICES DIRECTOR Work Phone: [facility] Encounters Encounter Date Encounter Type Care Provider Facility Start: 09-02-2023 End: 09-03-2023 ambulatory SAMEER KELLEY Facility:[facility] Start: 09-02-2023 End: 09-02-2023 Patient encounter procedure Sameer Kelley MD Work Phone: [facility] Procedures Date Procedure Procedure Detail Performing Clinician Start: 09-02-2023 [employer] COVI D-19 VACCINE (2023-24 SEASON) AGE 12+ YR Sameer Kelley MD Work Phone: Start: 09-02-2023 INFLUENZA VACCINE, P RSV FREE, AGE 65+ YR, HIGH DOSE, QUADRIVALENT (FLUZONE HIGH-DOSE) Sameer Kelley MD Work Phone: Start: 02-10-2023 Echo tthrc r-t 2d w/wom-mode compl spec&colr d Delmy Fermin VENEER JOINER.ADMINISTRATIVE SERVICES DIRECTOR Work Phone: Start: 02-10-2023 Duplex scan extracra nial art compl bi study Delmy Fermin VENEER JOINER.ADMINISTRATIVE SERVICES DIRECTOR Work Phone: Start: 01-06-2023 Us abdominal real ti me w/image documentation Lux Mendoza MD Work Phone: Start: 12-09-2022 Ecg routine ecg w/le ast 12 lds i&r only [facility] Provider Start: 12-09-2022 INFLUENZA SEASONAL QUADRIVALENT HIGH DOSE AGE 65+ Sameer Kelley MD Work Phone: Start: 06-07-2022 [employer] COVI D-19 VACCINE, AGE 12+ YR (LEA TOP) Sameer Kelley MD Work Phone: Start: 02-25-2022 Us abdominal real ti me w/image documentation Lux Mendoza MD Work Phone: Start: 12-07-2021 Adult depression scr eening assessment Us 1 Work Phone: Plan of Treatment Date Care Activity Detail Author Start: 06-03-2024 Hepatitis B screening Urine Albumin:Creatinine Ratio [facility] Start: 05-31-2024 Hepatitis B surface antibody level LDL Cholesterol [facility] Start: 02-20-2024 Hemoglobin A1c/Hemoglobin.total in Blood HbA1C [facility] Start: 12-09-2023 3 comp foot exam completed DIABETIC FOOT EXAM [facility] Start: 12-09-2023 ANNUAL PCP TEAM CHRONIC DISEASE VISIT ANNUAL PCP TEAM CHRONIC DISEASE VISIT [facility] Start: 12-09-2023 BP CONTROLLED (<130/80) BP CONTROLLED (<130/80) [facility] Start: 12-03-2023 End: 03-03-2024 Comprehensive metabolic 2000 panel - Serum or Plasma COMP METABOLIC PANEL Lab Routine Cirrhosis of liver without ascites, unspecified hepatic cirrhosis type (HCC) Expected: 12/03/2023, Expires: 03/03/[address] [facility] Work Phone: Immunizations Immunization Date Immunization Notes Care Provider Fa cili 09-02-2023 COVID-19 vaccine, ag e 12+ yr, season ([employer]) Sameer Kelley MD Work Phone: [facility] 09-02-2023 influenza (HD-IIV4) vaccine, age 65+ yr, high dose, quadrivalent, PF (FLUZONE HIGH-DOSE) Sameer Kelley MD Work Phone: [facility] 12-09-2022 influenza, high-dose , quadrivalent vaccine (FLUZONE HIGH DOSE QUADRIVALENT) Sameer Kelley MD Work Phone: [facility] Work Phone: 12-09-2022 influenza virus vacc ine, unspecified formulation Us 2 Work Phone: [facility] 06-07-2022 COVID-19 vaccine, ag e 12+ yr ([employer] - LEA TOP) Sameer Kelley MD Work Phone: [facility] Work Phone: 01-18-2022 pneumococcal (PCV20) vaccine, 20 valent (PREVNAR 20) Sameer Kelley MD Work Phone: [facility] Work Phone: 08-26-2021 influenza, high-dose , quadrivalent vaccine (FLUZONE HIGH DOSE QUADRIVALENT) Us 1 Work Phone: [facility] Work Phone: 02-24-2021 COVID-19 vaccine, fu ll dose (MODERNA) Us 1 Work Phone: [facility] Work Phone: 10-15-2020 influenza, high-dose , quadrivalent vaccine (FLUZONE HIGH DOSE QUADRIVALENT) Us 1 Work Phone: [facility] Work Phone: 12-18-2019 hepatitis A and hepatitis B vaccine Us 1 Work Phone: [facility] Work Phone: 09-04-2019 hepatitis A and hepatitis B vaccine Us 1 Work Phone: [facility] Work Phone: 09-04-2019 influenza, high dose seasonal, preservative-free Us 1 Work Phone: [facility] Work Phone: 08-24-2018 hepatitis B vaccine, adult dosage Us 1 Work Phone: [facility] Work Phone: 06-27-2018 influenza, high dose seasonal, preservative-free Us 1 Work Phone: [facility] Work Phone: 03-01-2018 hepatitis B vaccine, adult dosage Us 1 Work Phone: [facility] 01-23-2018 hepatitis B vaccine, adult dosage Us 1 Work Phone: [facility] Work Phone: 06-23-2017 influenza, high dose seasonal, preservative-free Us 1 Work Phone: [facility] 09-29-2016 influenza, high dose seasonal, preservative-free Us 1 Work Phone: [facility] 08-18-2016 influenza, seasonal, injectable, preservative free Us 1 Work Phone: [facility] Work Phone: 12-26-2014 pneumococcal conjuga te vaccine, 13 valent Us 1 Work Phone: [facility] 07-11-2013 influenza virus vacc ine, unspecified formulation Us 1 Work Phone: [facility] 07-31-2009 influenza virus vacc ine, unspecified formulation Us 1 Work Phone: [facility] 08-29-2008 influenza virus vacc ine, unspecified formulation Us 1 Work Phone: [facility] Work Phone: 04-23-2008 tetanus and diphther ia toxoids, adsorbed, preservative free, for adult use (2 Lf of tetanus toxoid and 2 Lf of diphtheria toxoid) Us 1 Work Phone: [facility] Work Phone: 10-24-2007 pneumococcal polysaccharide vaccine, 23 valent Us 1 Work Phone: [facility] Work Phone: 08-17-2006 influenza virus vacc ine, unspecified formulation Us 1 Work Phone: [facility] Work Phone: Payers Date Payer Category Payer Unknown [id number] 2021 Unknown ANTHEM BLUE CROS S AND BLUE SHIELD ANTHEM MEDIBLUE HMO [id number] 2021-Present [phone] [address] [place] [address] HMO [id number] 2021 Unknown HOSPITAL/MEDICAL GENERIC MEDICAL GENERIC [id number] 2021-Present [phone] [address] [place] [address] Indemnity [id number] 2021 Unknown [id number] 2021 Unknown [id number] 1940 Unknown [id number] 1940 Unknown [id number] Medicare [id number] Social History Date Type Detail Facility Start: 06-07-2022 Tobacco smoking stat us NHIS Ex-smoker [facility] Work Phone: End: 10-17-1962 History of tobacco use Current smoker [facility] Work Phone: Start: 12-07-2021 End: 06-03-2023 Alcohol intake Current drinker of alcohol (finding) [facility] Start: 12-07-2021 End: 12-09-2022 History SDOH Alcohol Frequency 2 [facility] Start: 03-18-2021 End: 12-07-2021 History SDOH Alcohol Std Drinks 1 [facility] Start: 12-07-2021 History SDOH Alcohol Comment 1 glass of wine per year [facility] Start: 12-07-2021 History SDOH Social Connections Phone 5 [facility] Start: 03-18-2021 End: 12-07-2021 History SDOH Social Connections Get Together 4 [facility] Start: 12-07-2021 End: 12-09-2022 History SDOH Social Connections Faith 3 [facility] Start: 03-18-2021 Education 15 [facility] Start: 1940 Sex Assigned At Female C [facility] Start: 04-13-2022 End: 06-07-2022 Exposure to SARS-CoV-2 (event) Not sure [facility] End: 10-17-1962 History of tobacco use Cigarette Smoker [facility] Work Phone: Start: 06-07-2022 Tobacco use and exposure Smoke less tobacco non-user [facility] Work Phone: Start: 06-07-2022 Tobacco Comment quit 40 yrs ago [facility] Start: 09-21-2020 End: 12-07-2021 History of Social function [facility] Work Phone: Start: 09-21-2020 End: 12-07-2021 Social connection and isolation panel [facility] Work Phone: Do you belong to any clubs or organizations such as yazdanism groups, unions, fraternal or athletic groups, or school groups? No [facility] Work Phone: Are you now , , , , never or living with a partner? [facility] Work Phone: How often to you hav e a drink containing alcohol? Monthly or less [facility] Work Phone: How many standard dr inks containing alcohol do you have on a typical day? 1 or 2 [facility] Work Phone: How often do you hav e 6 or more drinks on 1 occasion? Less than monthly [facility] Work Phone: How hard is it for y ou to pay for the very basics like food, housing, medical care, and heating Not very hard [facility] Adult Depression Screening Assessment 0 [facility] Work Phone: Do you feel stress - tense, restless, nervous, or anxious, or unable to sleep at night because your mind is troubled all the time - these days [OSQ] Not at all [facility] Work Phone: (I/We) worried wheth er (my/our) food would run out before (I/we) got money to buy more. Never true [facility] Start: 04-12-2021 Gender identity Identifies as female gender (finding) [facility] Do you belong to any clubs or organizations such as yazdanism groups, unions, fraternal or athletic groups, or school groups? Yes [facility] How often to you hav e a drink containing alcohol? Never [facility] Medical Equipment Procedure Code Equipment Code Equipment Origin al Text Equipment Identifier Dates Start: 08-26-2021 End: 06-03-2023 Clinical Notes 01-23-2019 to 10-18-2023 Sameer Kelley MD - 09/02/2023 4:07 PM ESTTelephone Encounter - Kathia Pedraza APRN.CNP - 05/23/2023 2:39 PM EDTTelephone Encounter - Liss Coto LPN - 05/23/2023 2:03 PM EDTPatient Instructions Note Date & Type Note Facility 10-18-2023 Note HNO ID: [id number] Author: Liss Coto LPN Service: ? Author Type: LICENSED NURSE Type: Progress Notes Filed: 10/18/2023 4:05 PM Note Text: Message left again for pt to return call to a nurse to complete TCM notes. [facility] 10-14-2023 Note Patient Outreach (IN TMWS) GARRETTCARMINA Medina ([id number]) 1940 F Date Time Provider Department 10/14/23 SAMEER KELLEY INTMWS During your visit today, we [...] Known Allergies) Date Reviewed: 09/02/2023 Reviewed by: Wedny Gupta LPN - Fully Assessed Reason for [...] Encounter Status:Closed by LISS COTO on 10/18/23 [facility] 10-14-2023 Note HNO ID: [id number] Author: Liss Coto LPN Service: ? Author Type: LICENSED NURSE Type: Progress Notes Filed: 10/18/2023 4:05 PM Note Text: Pt has been scheduled to see pcp 10/19/23 at 1120 am. Message left for p tto return call to a nurse to complete TCM notes. [facility] 09-02-2023 Note HNO ID: [id number] Author: Sameer Kelley MD Service: ? Author Type: Physician Type: Progress Notes Filed: 09/04/2023 11:24 AM Note Text: This note was created using [employer]. Subjective Carmina Bonds is a 83 year old female. We were concerned about cognitive decline last visit, but she was dealing with significant stressors. She felt she was managing okay. She still managed her bills and finances. She still drove. She had confusion coordinating her medications, and was doing better now that [facility] pharmacy was packaging them. We stopped [...] vaccination - IC (more content not included)... [facility] 09-02-2023 History of Presen t [...] medications, and was doing better now that [facility] pharmacy was packaging them. We stopped [...] vaccine - ICD9: V04.89, ICD10: Z23 - [employer] COVID-19 VACCINE (2022- SEASON) AGE 12+ YR 7. Cirrhosis of liver without ascites, unspecified hepatic cirrhosis type (HCC) - ICD9: 571.5, ICD10: K74.60 Followed by GI. - COMP METABOLIC PANEL Sameer Kelley MD documented in this encounter [facility] 06-03-2023 Note HNO ID: [id number] Author: Sameer Kelley MD Service: ? Author Type: Physician Type: Progress Notes Filed: 06/03/2023 3:00 PM Note Text: This note was created using [employer]. Elma Bonds is a 82 year old female with son. She lived alone and inconsistencies in medications were noted. We are now sending prescriptions to [facility] for packaging. Overall condition is consistent [...] Abs Lymph 1.00 - 4.00 k/uL 2.08 Inyo% % 10.5 Abs Inyo <0.87 k/uL 0.45 Eosin% % 2.3 Abs Eosin <0.46 k/uL 0.10 Baso% % 0.5 Abs Baso <0.11 k/uL <0.03 Immature Gran % % 0.2 IMMATURE GRANS (ABS) <0.10 k/uL <0.03 NRBC /100 WBC 0.0 Absolute nRBC <0.01 k/uL <0.01 DTYPE Auto Protein, Total 6.3 - 8.0 g/dL 6.8 Albumin 3.9 - 4.9 g/dL 3.4 (L) (more content not included)... [facility] 05-23-2023 Miscellaneous Notes The following approved medication requests have been transmitted electronically. Requested Prescriptions Signed Prescriptions Disp Refills liraglutide (VICTOZA) 0.6 mg/ 0.1 ml subcutaneous pen injector 2 Each 5 Sig: Inject 1.2 mg subcutaneously once daily. Authorizing Provider: KATHIA PEDRAZA APRN.TRICE Called pt again and she needed the victoza to [facility]. She will review everything else at 06/03/23 appt. Sw spoke with both patient and patient son. Patient reports that she used her last victoza pen last night. Wanting to know status of refill on Victoza. Ruben notes that she will send message to Dr. Kelley to see what status of patient victoza refill. Patient son and Sw discussed [facility]. Patient had told this Sw to talk with son about pre pill pack. Mc notes that his plan is to bring patient to her appt on 06/[address] Kelley with her medications. Mc states that the plan was to then update medications in system and send information to [facility] to see about pre pill pack. Mc notes that he feels that patient would benefit from the pre pill pack. Mc also notes that the nurse he spoke with noted that [facility] would do home delivery to [facility]. Sw called and left patient message to [...] going to forward this msg to our school social worker as well to help them get started with maybe getting her medications set up with [facility]. Pt verbalizes understanding. Pt also concerned [...] and his mom about using something like [facility] pharmacy to help them out with her medications. Pt also concerned about finding a new independent sales representative. She had an appt on 06/07. Spoke with son Fabian and encouraged for him to come with her to next appt, bring a copy of her medications and BP's. Appt changed to 06/03 to accomodate his schedule. documented in this encounter [facility] 03-24-2023 Miscellaneous Notes Patient has been [...] Radha Mendoza LPN documented in this encounter [facility] 03-16-2023 Miscellaneous Notes Called and left detailed message on verified VM giving the below results. Malika Jaime RN ----- Message from Delmy Fermin APRN.ADMINISTRATIVE SERVICES DIRECTOR sent at 03/16/2023 9:35 AM EDT ----- Please call patient and notify her of lab results. TSH within normal limits. Thank you! documented in this encounter [facility] 02-11-2023 Miscellaneous Notes Left detailed message on son's identified voicemail to inform. Results also on mychart result note. Elizabeth Shaw ----- Message from Delmy Fermin APRN.ADMINISTRATIVE SERVICES DIRECTOR sent at 02/11/2023 12:52 PM EDT ----- Please call patient and notify her of results. Echo looks good. Normal LV function, EF 63%, normal chamber sizes, mild aortic stenosis. Thank you! Spoke with patient's child Fabian about test results. Fabian verbalizes understanding, will relay msg to patient. Hemalatha Wiseman LPN ----- Message from Delmy Fermin APRN.ADMINISTRATIVE SERVICES DIRECTOR sent at 02/10/2023 9:55 AM EDT ----- Please call patient and notify her of carotid US results. No significant blockage on either side. Thank you! documented in this encounter [facility] 02-11-2023 Miscellaneous Notes Please call patient and notify her of results. Echo looks good. Normal LV function, EF 63%, normal chamber sizes, mild aortic stenosis. Thank you! documented in this encounter [facility] 02-10-2023 Miscellaneous Notes Please call patient and notify her of carotid US results. No significant blockage on either side. Thank you! documented in this encounter [facility] 02-09-2023 Miscellaneous Notes Called and left [...] evaluation. Thank you! documented in this encounter [facility] 01-24-2023 Note HNO ID: [id number] Author: Trina Troy RN Service: ? Author Type: Registered Nurse Type: Progress Notes Filed: 01/24/2023 1:40 PM Note Text: EVENT MONITOR DISPOSABLE PATCH INSTRUCTIONS Patient Name: Carmina Bonds [facility] Number: [id number] Skin prepped and cleansed with alcohol Patch secured to prepped area Monitor Activated Serial #: [id number] Patient Instructed: Prescribed order timeframe Bathing guidelines Usage of event button and diary documentation Return of monitor at the end of prescribed order Call with problems [phone] or [phone]. [phone] Patient expresses a good understanding of instructions Trina Troy RN [facility] 01-24-2023 Note HNO ID: [id number] Author: Delmy Fermin APRN.TRICE Service: ? Author Type: Nurse Practitioner Type: Progress Notes Filed: 01/24/2023 1:40 PM Note Text: [facility] ([facility]) [address] [facility] [address] OUTPATIENT VISIT January 24, 2023 1:00 PM [...] carcinoma (BCC) of skin 06/27/2018 Dr. Najera, [facility] D[facility]at[facility]. Internal hemorrhoids without mention of complication Lumbago Chronic low back pain Mild cognitive impairment 12/07/2021 Mitral valve disorders(424.0) 09/20/2006 MVP with regurgitation Nocturnal hypoxemia 01/23/2019 JAYDA (obstructive sleep apnea) DME [facility] [place] Other dyspnea and respiratory abnormality Reactive airway [...] Mother Coronary Artery Disease Mother Heart Father [place] Diabetes Brother None Brother None Sister Emphysema Paternal Grandmother Di (more content not included)... [facility] 01-24-2023 Note HNO ID: [id number] Author: Kailyn Gilliland MD Service: Cardiovascular Surgery Author Type: Physician Type: Procedures Filed: 02/08/2023 1:34 PM Note Text: Patient Name: Carmina Bonds : 1940 Ordering Provider: DELMY FERMIN Indication: R06.09 Other forms of dyspnea Type of Monitor: Extended Monitoring-[employer]io Patch Enrollment Dates: 01/24/2023-01/31/2023 [facility] 01-24-2023 History of Presen t illness Narrative EVENT MONITOR DISPOSABLE PATCH INSTRUCTIONS Patient Name: Carmina Bonds [facility] Number: [id number] Skin prepped and cleansed with alcohol Patch secured to prepped area Monitor Activated Serial #: [id number] Patient Instructed: Prescribed order timeframe Bathing guidelines Usage of event button and diary documentation Return of monitor at the end of prescribed order Call with problems [phone] or [phone]. [phone] Patient expresses a good understanding of instructions Trina Troy RN Images from the original note were not included. [facility] ([facility]) [address] [facility] [id number] OUTPATIENT VISIT January 24, 2023 1:00 PM [...] carcinoma (BCC) of skin 06/27/2018 Dr. Najera, [facility] D[facility]. Internal hemorrhoids without mention [...] Mother Coronary Artery Disease Mother Heart Father [place] Diabetes Brother None Brother None Sister Emphysema [...] 2023, 12:50 PM documented in this encounter [facility] 01-24-2023 Instructions Delmy Fermin APRN.ADMINISTRATIVE SERVICES DIRECTOR - 01/24/2023 1:15 PM EDT Heart Disease in Women Is heart disease a problem for women? Heart disease is the leading cause of of [place] women. More women from heart disease than [...] disease. You can get more information from: [place] [facility] Vuyxvscfcpi0-290-UHJ-USA-1 ( )www.heart.org Developed by [employer]. Published by [employer]. Copyright 2014 [employer] and/or one of its subsidiaries. All rights reserved. documented in this encounter [facility] 01-06-2023 Note HNO ID: [id number] Author: Marivel Dailey RDMS Service: ? Author Type: Hearing Officer Type: Progress Notes Filed: 01/06/2023 1:42 PM [...] Dailey RDMS January 06, 2023 1:42 PM [facility] 01-06-2023 History of Presen t [...] 2023 1:42 PM documented in this encounter [facility] 12-23-2022 Note HNO ID: [id number] Author: Raoul Nam (VIVA) Service: ? Author Type: ? Type: Progress Notes Filed: 12/23/2022 12:54 PM Note Text: Carmina Bonds is identified through a medication adherence outreach initiative based on pharmacy claims data from [employer] (insurer) for Non-insulin DM medication(s). Patient is reviewed 12/23/22 due to medication adherence concerns with the following medications (name, strength, sig): Victoza 18mg/3ml; Inject 1.2 mg daily. Per reconcile dispense, last fill date and days supply: Filled 12/15/22 for 30 day supply Outcome of review/outreach: (choose outcome source and status) - Filled before Next fill date per reconcile dispense Raoul Nam (VIVA) [facility] 12-23-2022 Note Patient Outreach ([facility]) CARMINA BONDS ([id number]) 1940 F Date Time Provider Department 12/23/22 SAMEER KELLEY During your visit today, we recorded the following information about you: Raoul Nam (VIVA) 12/23/2022 12:54 PM Signed Carmina Bonds is identified through a medication adherence outreach initiative based on pharmacy claims data from [employer] (insurer) for Non-insulin DM medication(s). Patient is reviewed 12/23/22 due to medication adherence concerns with the following medications (name, strength, sig): Victoza 18mg/3ml; Inject 1.2 mg daily. Per reconcile dispense, last fill date and days supply: Filled 12/15/22 for 30 day supply Outcome of review/outreach: (choose outcome source and status) - Filled before Next fill date per reconcile dispense Raoul Nam (VIVA) Allergies As of Date: 12/23/2022 (No Known [...] impairment [G31.84] 12/07/2021 Encounter Status:Closed by BERTA ([employer])RAOUL on 12/23/22 [facility] 12-09-2022 Note HNO ID: [id number] Author: Sameer Kelley MD Service: ? Author Type: Physician Type: Progress Notes Filed: 12/09/2022 6:42 PM Note Text: This note was created using [employer]ter. Elma Bonds is a 82 year old [...] % 5.5 Estima (more content not included)... [facility] 12-09-2022 Note HNO ID: [id number] Author: Sameer Kelley MD Service: ? Author Type: Physician Type: Progress Notes Filed: 12/09/2022 6:42 PM Note Text: Carmina Bonds is a 82 year old female here for a Medicare Subsequent Annual Wellness Visit Health Risk Assessment In general, health is: Good Concerns with balance:Not at all Concerns with teeth or dentures:Not at all Concerns with sexual function:Not at all [place] anxious, stressed, angry, irritable, lonely, isolated, or [...] General Outside specialists seen: Dr. Lux Mendoza, [facility]enter[facility]. Dr. Cristian Parra, ophthalmology. Medical/Family history [...] and Tdap at pharmacy - Depression screening [facility] 12-09-2022 Instructions Sameer Kelley MD - 12/09/2022 6:04 PM EST VACCINES TO GET AT YOUR PHARMACY SHINGRIX VACCINE(1 of 2) Never done DTAP,TDAP,TD(1 - Tdap) due on 04/24/2008 COVID-19 VACCINE(4 - Booster for Moderna series) due on 08/02/2022 COPY OF YOUR ADVANCED DIRECTIVE FOR YOUR FILE HERE. documented in this encounter [facility] 12-09-2022 History of Presen t illness Narrative This note was created using [employer]. Elma Bonds is a 82 year old [...] all Concerns with sexual function:Not at all [place] anxious, stressed, angry, irritable, lonely, isolated, or [...] General Outside specialists seen: Dr. Lux Mendoza, [facility]astroenter[facility]. Dr. Cristian Parra, ophthalmology. Medical/Family history [...] - Depression screening documented in this encounter [facility] 06-07-2022 History of Presen t illness Narrative This note was created using [employer]. Elma Bonds is a 81 year old [...] Abs Lymph 1.00 - 4.00 k/uL 1.06 Inyo% % 8.5 Abs Inyo <0.87 k/uL 0.24 Eosin% % 3.2 Abs [...] vaccine - ICD9: V04.89, ICD10: Z23 - [employer] COVID-19 VACCINE, AGE 12+ YR (LEA TOP) 5. JAYDA (obstructive sleep apnea) - ICD9: 327.23, ICD10: G47.33 Patient using and benefiting from nightly CPAP use. Sameer Kelley MD documented in this encounter [facility] 05-17-2022 Miscellaneous Notes rx from January [...] formulary meds available : NO Insurance Company: [employer] phone number: [phone] Patient insurance ID number: [id number] Radha Mendoza LPN Patient said she tests twice daily. documented in this encounter [facility] 04-23-2022 Instructions Delmy Painter APRN.[facility] - 04/23/2022 4:43 PM EDT Beginning [...] to your local emergency facility: Notify the power cleaner operator that you are seeking care for [...] be around others. documented in this encounter [facility] 04-23-2022 History of Presen t illness Narrative This note was created using [employer]. Subjective Carmina Bonds is a 81 year [...] history is provided by the patient. No english as a second language instructor was used. URI There is no chest [...] depressed mood 06/23/2010 +Partner relationship issues, the [facility] Cervicogenic headache 01/20/2019 Cirrhosis of [...] carcinoma (BCC) of skin 06/27/2018 Dr. Najera, [facility]at[facility]. Internal hemorrhoids without mention [...] Mother Coronary Artery Disease Mother Heart Father [place] Diabetes Brother None Brother None Sister Emphysema [...] Delmy Painter APRN.CNP documented in this encounter [facility] 02-25-2022 History of Presen t illness [...] IV DATA: Not applicable SIGNED BY: Delmy Wooadrd RDMS RVT February 25, 2022 11:06 AM documented in this encounter [facility] documented as of this encounter (statuses as of 02/26/2022) [facility] History of Past illness Narrative* Problem Noted Date Resolved Date Nocturnal hypoxemia 01/23/2019 09/04/2019 Cervicogenic headache 01/20/2019 09/04/2019 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 Colon cancer screening 06/03/2017 8 Overview: Added automatically from request for surgery [id number] Dysphagia 06/03/2017 01/23/2018 Overview: Added automatically from request for surgery [id number] Urgency incontinence 01/13/2011 01/23/2018 Urinary frequency 01/13/2011 [...] of this encounter (statuses as of 04/23/2022) [facility] History of Past illness Narrative* Problem Noted Date Resolved Date Nocturnal hypoxemia 01/23/2019 09/04/2019 Cervicogenic headache 01/20/2019 09/04/2019 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 Colon cancer screening 06/03/2017 8 Overview: Added automatically from request for surgery [id number] Dysphagia 06/03/2017 01/23/2018 Overview: Added automatically from request for surgery [id number] Urgency incontinence 01/13/2011 01/23/2018 Urinary frequency 01/13/2011 [...] of this encounter (statuses as of 05/17/2022) [facility] History of Past illness Narrative* Problem Noted Date Resolved Date Nocturnal hypoxemia 01/23/2019 09/04/2019 Cervicogenic headache 01/20/2019 09/04/2019 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 Colon cancer screening 06/03/2017 8 Overview: Added automatically from request for surgery [id number] Dysphagia 06/03/2017 01/23/2018 Overview: Added automatically from request for surgery [id number] Urgency incontinence 01/13/2011 01/23/2018 Urinary frequency 01/13/2011 [...] of this encounter (statuses as of 06/07/2022) [facility] History of Past illness Narrative* Problem Noted Date Resolved Date Nocturnal hypoxemia 01/23/2019 09/04/2019 Cervicogenic headache 01/20/2019 09/04/2019 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 Colon cancer screening 06/03/2017 8 Overview: Added automatically from request for surgery [id number] Dysphagia 06/03/2017 01/23/2018 Overview: Added automatically from request for surgery [id number] 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 [...] of this encounter (statuses as of 12/10/2022) [facility] History of Past illness Narrative* Problem Noted Date Resolved Date Nocturnal hypoxemia 01/23/2019 09/04/2019 Cervicogenic headache 01/20/2019 09/04/2019 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 Colon cancer screening 06/03/2017 8 Overview: Added automatically from request for surgery [id number] Dysphagia 06/03/2017 01/23/2018 Overview: Added automatically from request for surgery [id number] 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 [...] of this encounter (statuses as of 01/24/2023) [facility] History of Past illness Narrative* Problem Noted Date Resolved Date Nocturnal hypoxemia 01/23/2019 09/04/2019 Cervicogenic headache 01/20/2019 09/04/2019 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 Colon cancer screening 06/03/2017 8 Overview: Added automatically from request for surgery [id number] Dysphagia 06/03/2017 01/23/2018 Overview: Added automatically from request for surgery [id number] 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 [...] of this encounter (statuses as of 02/09/2023) [facility] History of Past illness Narrative* Problem Noted Date Resolved Date Nocturnal hypoxemia 01/23/2019 09/04/2019 Cervicogenic headache 01/20/2019 09/04/2019 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 Colon cancer screening 06/03/2017 8 Overview: Added automatically from request for surgery [id number] Dysphagia 06/03/2017 01/23/2018 Overview: Added automatically from request for surgery [id number] 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 [...] of this encounter (statuses as of 02/11/2023) [facility] History of Past illness Narrative* Problem Noted Date Resolved Date Nocturnal hypoxemia 01/23/2019 09/04/2019 Cervicogenic headache 01/20/2019 09/04/2019 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 Colon cancer screening 06/03/2017 8 Overview: Added automatically from request for surgery [id number] Dysphagia 06/03/2017 01/23/2018 Overview: Added automatically from request for surgery [id number] 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 [...] of this encounter (statuses as of 02/11/2023) [facility] of Past illness Narrative* Problem Noted Date Resolved Date Nocturnal hypoxemia 01/23/2019 09/04/2019 Cervicogenic headache 01/20/2019 09/04/2019 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 Colon cancer screening 06/03/2017 8 Overview: Added automatically from request for surgery [id number] Dysphagia 06/03/2017 01/23/2018 Overview: Added automatically from request for surgery [id number] 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 [...] of this encounter (statuses as of 02/12/2023) [facility] History of Past illness Narrative* Problem Noted Date Resolved Date Nocturnal hypoxemia 01/23/2019 09/04/2019 Cervicogenic headache 01/20/2019 09/04/2019 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 Colon cancer screening 06/03/2017 8 Overview: Added automatically from request for surgery [id number] Dysphagia 06/03/2017 01/23/2018 Overview: Added automatically from request for surgery [id number] 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 [...] of this encounter (statuses as of 03/25/2023) [facility] of Past illness Narrative* Problem Noted Date Resolved Date Nocturnal hypoxemia 01/23/2019 09/04/2019 Cervicogenic headache 01/20/2019 09/04/2019 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 Colon cancer screening 06/03/2017 8 Overview: Added automatically from request for surgery [id number] Dysphagia 06/03/2017 01/23/2018 Overview: Added automatically from request for surgery [id number] 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 [...] of this encounter (statuses as of 03/16/2023) [facility] History of Past illness Narrative* Problem Noted Date Diagnosed Date Resolved Date Nocturnal hypoxemia 01/23/2019 09/04/20 Cervicogenic headache 01/20/20192018 Nodular regenerative hyperplasia of liver 08/25/2017 01/23/2018 Colon cancer screening 06/03/201701/23 Overview: Added automatically from request for surgery [id number] Dysphagia 06/03/2017 01/23/2018 Overview: Added automatically from request for surgery [id number] 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 [...] of this encounter (statuses as of 05/24/2023) [facility] History of Past illness Narrative* Problem Noted Date Diagnosed Date Resolved Date Nocturnal hypoxemia 01/23/2019 09/04/20 19 Cervicogenic headache 01/20/20192018 Nodular regenerative hyperplasia of liver 08/25/2017 01/23/2018 Colon cancer screening 06/03/201701/23 Overview: Added automatically from request for surgery [id number] Dysphagia 06/03/2017 01/23/2018 Overview: Added automatically from request for surgery [id number] 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 [...] of this encounter (statuses as of 08/21/2023) [facility] History of Past illness Narrative* Problem Noted Date Diagnosed Date Resolved Date Nocturnal hypoxemia 01/23/2019 09/04/20 19 Cervicogenic headache 01/20/20192018 Nodular regenerative hyperplasia of liver 08/25/2017 01/23/2018 Colon cancer screening 06/03/201701/23 Overview: Added automatically from request for surgery [id number] Dysphagia 06/03/2017 01/23/2018 Overview: Added automatically from request for surgery [id number] 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 [...] of this encounter (statuses as of 09/04/2023) [facility] Diagnosis Viral illness- Primary Unspecified viral [...] (pediatric) [facility] Diagnosis Medicare annual wellness visit, subsequent- [...] hypertension [facility] Diagnosis ALLAN (dyspnea on exertion)- Primary Other dyspnea and respiratory abnormality Chest pain, unspecified type Fatigue, unspecified type Palpitations Lightheadedness Dizziness and giddiness Essential hypertension Unspecified essential hypertension Hyperlipidemia, unspecified hyperlipidemia type Controlled type 2 diabetes mellitus without complication, without long-term current use of insulin (HCC) Obesity, Class I, BMI 30-34.9 Obesity, unspecified [facility] Lightheadedness Dizziness and giddiness [facility] Diagnosis ALLAN (dyspnea on exertion) Other dyspnea and respiratory abnormality Fatigue, unspecified type Palpitations [facility] Diagnosis Controlled type 2 diabetes mellitus without complication, without long-term current use of insulin (HCC) [facility] Diagnosis Controlled type 2 diabetes mellitus without complication, without long-term current use of insulin (HCC) [facility] Diagnosis Mild cognitive impairment- Primary Mild cognitive impairment, so stated Need for influenza vaccination Need for prophylactic vaccination and inoculation against influenza Edema, unspecified type Abnormal weight gain Type 2 diabetes mellitus with diabetic nephropathy, without long-term current use of insulin (HCC) Need for COVID-19 vaccine Cirrhosis of liver without ascites, unspecified hepatic cirrhosis type (HCC) documented in this encounter [facility] for referral (narrative)* Outpatient Procedure (Routine) - Authorized Specialty Diagnoses / Procedures Referred By Contac t Referred To Contact [facility] Diagnoses Lightheadedness Procedures US CAROTID ARTERIES ESTHELA VAS LAB DUPLEX SCAN EXTRACRANIAL ART COMPL BI STUDY Delmy Fermin APRN.CNP [address] [place] [address] Fax: [facility] [place] [address] [place] [address] Referral ID Status Reason Start Date Expiration Date Visits Requested Visits Authorized [id number] Authorized Auto-Generat ed Referral 01/24/2023 01/24/2024 1 1 * Outpatient Procedure (Routine) - Authorized Specialty Diagnoses / Procedures Referred By Contac t Referred To Contact [facility] Diagnoses ALLAN (dyspnea on exertion) Fatigue, unspecified type Palpitations Procedures ECHO ECHO TTHRC R-T 2D W/WOM-MODE COMPL SPEC&COLR D Delmy Fermin APRN.ADMINISTRATIVE SERVICES DIRECTOR [address] [place] [address] [facility] [place] [address] [place] [address] Referral ID Status Reason Start Date Expiration Date Visits Requested Visits Authorized [id number] Authorized Auto-Generat ed Referral 01/24/2023 01/24/2024 1 1 [facility] for visit Narrative* Outpatient Procedure (Routine) - Closed Specialty Diagnoses / Procedures Referred By Contac t Referred To Contact [facility] Diagnoses Lightheadedness Procedures US CAROTID ARTERIES ESTHELA VAS LAB DUPLEX SCAN EXTRACRANIAL ART COMPL BI STUDY Delmy Fermin APRN.CNP [address] [place] [address] Fax: [facility] [place] [address] [place] [address] Referral ID Status Reason Start Date Expiration Date V isits Requested Visits Authorized [id number] Closed Auto-Generate d Referral 01/24/2023 01/24/2024 1 1 [facility]* Outpatient Procedure (Routine) - Closed Specialty Diagnoses / Procedures Referred By Contac t Referred To Contact [facility] Diagnoses ALLAN (dyspnea on exertion) Fatigue, unspecified type Palpitations Procedures ECHO ECHO TTHRC R-T 2D W/WOM-MODE COMPL SPEC&COLR D Letha Delmy E, VENEER JOINER.ADMINISTRATIVE SERVICES DIRECTOR [address] [place] [address] [facility] [place] [id number] [place] [id number] Referral ID Status Reason Start Date Expiration Date V isits Requested Visits Authorized [id number] Closed Auto-Generate d Referral 01/24/2023 01/24/2024 1 1 [facility] Summary Purpose Family History No Family History Records FoundNo Family History Records FoundNo Family History Records FoundNo Family History Records FoundNo Family History Records FoundNo Family History Records FoundNo Family History Records FoundNo Family History Records Found Advance Directives No Advanced Directives Records FoundDocuments on File Type Date Recorded Patient Non Destructive Tester Expl anation Advance Directive(s) 06/15/2017 10:37 AM Reason for Referral Specialty Diagnoses / Procedures Referred By Contac t Referred To Contact Cardiology Diagnoses Chest pain, unspecified type Procedures CONSULT TO CARDIOLOGY OFFICE/OUTPATIENT [facility] MDM 60-74 MINUTES Sameer Kelley MD [address] [place] [address] Referral ID Status Reason Start Date Expiration Date Visits Requested Visits Authorized [id number] Pending Review PCP Requested Referral 12/09/2022 12/09/2023 1 1 Specialty Diagnoses / Procedures Referred By Contac t Referred To Contact [facility] Diagnoses Chest pain, unspecified type Procedures ECG COMPLETE ECG ROUTINE ECG W/LEAST 12 LDS W/I&R Sameer Kelley MD [address] [place] [address] [facility] [place] [address] [place] [address] Referral ID Status Reason Start Date Expiration Date V isits Requested Visits Authorized [id number] Closed Auto-Generate d Referral 12/09/2022 12/09/2023 1 1 Additional Source Comments INFORMATION SOURCE (unrecogn ized section and content) DATE CREATED AUTHOR AUTHOR'S ORGANIZ ATION 03/22/2019 [facility] ([place]) DATE CREATED AUTHOR AUTHOR'S ORGANIZ ATION 09/11/2020 [facility] DATE CREATED AUTHOR AUTHOR'S ORGANIZ ATION 12/13/2020 [facility] DATE CREATED AUTHOR AUTHOR'S ORGANIZ ATION 08/16/2021 [facility] DATE CREATED AUTHOR AUTHOR'S ORGANIZ ATION 12/03/2021 [facility] DATE CREATED AUTHOR AUTHOR'S ORGANIZ ATION 03/27/2023 [facility] DATE CREATED AUTHOR AUTHOR'S ORGANIZ ATION 10/19/2023 [facility] Source Comments (unrecognize d section and content) In the event this informatio n is protected by the Federal Confidentiality of Alcohol and Drug Abuse Patient Records regulations: The Federal rules restrict any use of the information to criminally investigate or prosecute any alcohol or drug abuse patient.[facility] the event this information is protected by the Federal Confidentiality of Alcohol and Drug Abuse Patient Records regulations: The Federal rules restrict any use of the information to criminally investigate or prosecute any alcohol or drug abuse patient.[facility] Hospital[facility] the event this information is protected by the Federal Confidentiality of Alcohol and Drug Abuse Patient Records regulations: The Federal rules restrict any use of the information to criminally investigate or prosecute any alcohol or drug abuse patient.[facility] Hospital[facility] the event this information is protected by the Federal Confidentiality of Alcohol and Drug Abuse Patient Records regulations: The Federal rules restrict any use of the information to criminally investigate or prosecute any alcohol or drug abuse patient.[facility] Hospital[facility] the event this information is protected by the Federal Confidentiality of Alcohol and Drug Abuse Patient Records regulations: The Federal rules restrict any use of the information to criminally investigate or prosecute any alcohol or drug abuse patient.[facility] Hospital[facility] the event this information is protected by the Federal Confidentiality of Alcohol and Drug Abuse Patient Records regulations: The Federal rules restrict any use of the information to criminally investigate or prosecute any alcohol or drug abuse patient.[facility] Hospital[facility] the event this information is protected by the Federal Confidentiality of Alcohol and Drug Abuse Patient Records regulations: The Federal rules restrict any use of the information to criminally investigate or prosecute any alcohol or drug abuse patient.[facility] HospitalIn the event this information is protected by the Federal Confidentiality of Alcohol and Drug Abuse Patient Records regulations: The Federal rules restrict any use of the information to criminally investigate or prosecute any alcohol or drug abuse patient.[facility] HospitalIn the event this information is protected by the Federal Confidentiality of Alcohol and Drug Abuse Patient Records regulations: The Federal rules restrict any use of the information to criminally investigate or prosecute any alcohol or drug abuse patient.[facility] HospitalIn the event this information is protected by the Federal Confidentiality of Alcohol and Drug Abuse Patient Records regulations: The Federal rules restrict any use of the information to criminally investigate or prosecute any alcohol or drug abuse patient.[facility] HospitalIn the event this information is protected by the Federal Confidentiality of Alcohol and Drug Abuse Patient Records regulations: The Federal rules restrict any use of the information to criminally investigate or prosecute any alcohol or drug abuse patient.[facility] HospitalIn the event this information is protected by the Federal Confidentiality of Alcohol and Drug Abuse Patient Records regulations: The Federal rules restrict any use of the information to criminally investigate or prosecute any alcohol or drug abuse patient.[facility] HospitalIn the event this information is protected by the Federal Confidentiality of Alcohol and Drug Abuse Patient Records regulations: The Federal rules restrict any use of the information to criminally investigate or prosecute any alcohol or drug abuse patient.[facility] HospitalIn the event this information is protected by the Federal Confidentiality of Alcohol and Drug Abuse Patient Records regulations: The Federal rules restrict any use of the information to criminally investigate or prosecute any alcohol or drug abuse patient.[facility] HospitalIn the event this information is protected by the Federal Confidentiality of Alcohol and Drug Abuse Patient Records regulations: The Federal rules restrict any use of the information to criminally investigate or prosecute any alcohol or drug abuse patient.[facility] Reason for Visit (unrecogniz ed section and content) Specialty Diagnoses / Procedures Referred By Masha woodard Referred To Contact Radiology / RADIO ULTRA [facility], [facility] Diagnoses unspecified cirrhosis of liver Procedures US ABDOMEN COMPLETE Self Radio Ultra [facility] [address] [place] [address] Referral ID Status Reason Start Date Expiration Date Visits Requested Visits Authorized [id number] Closed Financial Clearance Required - OON Payor OON Notification Letter Patient Cleared - Admin/Bait Man/D irector advise to proceed or did not [...] MODERATE MDM 45-59 MINUTES Sameer Kelley MD [address] [place] [address] [place] [address] Referral ID Status Reason Start Date Expiration Date V isits Requested Visits Authorized [id number] Closed PCP Requested Referral Financial Clearance Required - OON Payor Patient Cleared - INN Insurance Found 12/09/2022 12/09/2023 1 1 Reason Comments Results Reason Onset Date Comments Refill Request 03/24/2023 Reason Comments Medication Problem Reason Onset Date Comments Recheck 3 month follow u p Immunizations 09/02/2023 Flu vaccination Care Teams (unrecognized sec tion and content) Airconditioning Drafting Officer Relationship Specialty Start Date End Date Sameer Kelley MD [address] [facility] [place] [address] PCP - General 08/23/07 Airconditioning Drafting Officer Relationship Specialty Start Date End Date Sameer Kelley MD [address] [facility] [place] [address] PCP - General 08/23/07 Airconditioning Drafting Officer Relationship Specialty Start Date End Date Sameer Kelley MD [facility] [place] [address] PCP - General 08/23/07 Airconditioning Drafting Officer Relationship Specialty Start Date End Date Sameer Kelley MD [facility] [place] [address] PCP - General 08/23/07 Airconditioning Drafting Officer Relationship Specialty Start Date End Date Sameer Kelley MD [facility] [place] [address] PCP - General 08/23/07 Airconditioning Drafting Officer Relationship Specialty Start Date End Date Sameer Kelley MD [facility] [place] [address] PCP - General 08/23/07 Airconditioning Drafting Officer Relationship Specialty Start Date End Date Sameer Kelley MD [address] [facility] [place] [address] PCP - General 08/23/07 Airconditioning Drafting Officer Relationship Specialty Start Date End Date Sameer Kelley MD [facility] [place] [address] PCP - General 08/23/07 Airconditioning Drafting Officer Relationship Specialty Start Date End Date Sameer Kelley MD [address] [place] [address] PCP - General 08/23/07 Airconditioning Drafting Officer Relationship Specialty Start Date End Date Sameer Kelley MD [address] [place] [address] PCP - General 08/23/07 Airconditioning Drafting Officer Relationship Specialty Start Date End Date Sameer Kelley MD [address] [place], [place] [id number] PCP - General 08/23/07 Airconditioning Drafting Officer Relationship Specialty Start Date End Date Sameer eKlley MD [address] [place], [place] [id number] PCP [facility] 08/23/07 FOR RECORDS PERTAINING TO PATIENTS WHO [...] BE BASED ON THE PRIMARY CLINICAL RECORDS. [facility] [employer] [facility]. provides no warranty or guarantee of the accuracy or completeness of information in this document.
[2023-10-19] MEDS: Metoprolol Tartrate 25 MG Tablet PO (22:24)
[2023-10-19] MEDS: Albumin Human 25% (100 mL) 25 GM/100 ML BAG IV (22:27)
[2023-10-19 23:15] LABS: Bedside Glucose 84 mg/dL (74-106)
[2023-10-19 23:45] LABS: International Normalized Ratio 1.8; Prothrombin Time (Protime)PT. 21.4 SECONDS (11.7-14.9)
[2023-10-20] VITALS (20 sets, daily range): BP systolic 64–136; BP diastolic 27–85; PULSE 66–95; RESP 16–22; TEMP 36.1–36.8; O2SAT 88–100; BMI 31.4
[2023-10-20] MEDS: Vancomycin 125 MG/5 ML Susp PO.SYRINGE PO ×5 (00:09→23:49)
[2023-10-20] MEDS: Levothyroxine 25 MCG TABLET PO (05:08)
[2023-10-20 05:59] LABS: Absolute Lymphocyte Count 1.04 X10^3/uL (0.83-4.51); Absolute Neutrophil Count 1.9 X10^3/uL (2.0-7.7); Basophil# 0.02 X10^3/uL; Basophil% 0.6 % (0-1); Eosinophil# 0.15 X10^3/uL; Eosinophils% 4.3 % (0-5); Hematocrit 32.9 % (37-47); Hemoglobin 10.6 g/dL (12.0-15.0); Lymphocyte # 1.04 X10^3/ul (0.83-4.51); Lymphocyte % 29.9 % (19-41); Mean Corp Hgb Conc 32.2 g/dL (32-36); Mean Corpuscular Hgb 32.8 pg (27.0-32.0); Mean Corpuscular Volume 101.9 fL (81-99); Mean Platelet Vol. 9.4 fl (6.2-12.0); Monocyte# 0.33 X10^3/uL; Monocyte% 9.5 % (0-10); NRBC Flagged by Analyzer 0 % (0-5); Neutrophil # 1.94 X10^3/uL (2.7-7.7); Neutrophil % 55.7 % (47-70); POSITIVE MORPHOLOGY YES; Platelet Count 105 K/mm3 (150-450); RBC Distribution Width CV 19.3 % (11.6-14.6); RBC Distribution Width SD 71.1 fl (35.1-43.9); Red Blood Count 3.23 M/mm3 (4.2-5.4); White Blood Count 3.5 K/mm3 (4.4-11.0)
[2023-10-20 06:20] LABS: Differential Indicated SCAN CRITERIA MET
[2023-10-20 06:23] LABS: Anisocytosis 1+; Target Cells 1+
[2023-10-20 06:35] LABS: ALB/GLOB Ratio 0.7 RATIO (0.9-2.4); AST(SGOT) 67 U/L (15-37); Alanine Aminotransfer ALT/SGPT 45 U/L (13-56); Albumin, Serum 2.5 g/dL (3.2-5.0); Alkaline Phosphatase 107 U/L (45-117); Anion Gap 7 (5-15); BUN 37 mg/dL (7-18); BUN/Creat Ratio 16.4 RATIO (10-20); Calcium,Total 9.2 mg/dL (8.5-10.1); Chloride 109 mmol/L (98-107); Creatinine, Serum 2.25 mg/dL (0.55-1.02); EST Glomerular Filtration Rate 22 mL/min (>60); Est Glom Filt Rate - Afr Amer 27 mL/min (>60); Estimated Creatinine Clearance 16.22 ml/min; Globulin 3.6 g/dL (2.2-4.2); Glucose 92 mg/dL (74-106); Phosphorus 3.8 mg/dL (2.5-4.9); Potassium 3.2 mmol/L (3.5-5.1); Protein, Total 6.1 g/dL (6.4-8.2); Sodium Level 142 mmol/L (136-145); Thyroid Stim Hormone (TSH) 5.04 uIU/mL (0.358-3.74)
[2023-10-20 06:58] LABS: Bedside Glucose 87 mg/dL (74-106)
[2023-10-20] MEDS: Lidocaine 2% (20 ml mdv) 20 ML Vial INFILT (08:15)
--- NOTE | 2023-10-20 08:15 | RAD_ITS ---
HISTORY: post thora. TECHNIQUE: XR Chest 2 Views. COMPARISON: Prior day. FINDINGS: LINES/TUBES: None. CARDIOMEDIASTINAL BORDERS: Decreased rightward mediastinal shift. LUNGS/PLEURA: Improved aeration of the left upper lobe with decreased collapse or consolidation of the left lung. Moderate left pleural effusion or hydropneumothorax, decreased in size from prior. RAD/Chest Insp/Exp 2 View IMPRESSION: Improved aeration of the left upper lobe with decreased collapse or consolidation. Moderate left pleural effusion or hydropneumothorax, decreased in size from prior. Electronically Signed: Trina Villanueva MD at 9:13 EST ,
--- NOTE | 2023-10-20 08:59 | PN.HOSP_ITS ---
Reason for Visit Reason for Visit: Breathing well post thoracentesis. Objective Data Objective Data Vital Signs: Vital Signs Temp Pulse Resp BP Pulse Ox O2 Del Method 36.4 C L 95 18 108/73 90 Room Air 10/20/23 05:10 10/20/23 05:10 10/20/23 05:10 10/20/23 05:10 10/20/23 07:31 10/20/23 07:31 Oxygen Delivery Method Room Air Weight: 80.3 kg Body Mass Index (BMI) 31.4 Intake & Output: Intake and Output for Last 24 Hours 10/18/23 10/19/23 10/20/23 23:59 23:59 23:59 Intake Total 100 / 100 Balance 100 / 100 Lab / Micro Data 10/20/23 05:30 10/20/23 05:30 Labs: Laboratory Results - last 24 hr 10/19/23 13:55: WBC 6.1, RBC 3.76 L, Hgb 12.0, Hct 38.8, MCV 103.2 H, MCH 31.9, MCHC 30.9 L, RDW Std Deviation 73.4 H, RDW Coeff of Katherine 19.9 H, Plt Count 122 L, MPV 9.4, Immature Gran % (Auto) 0.500, Neut % (Auto) 64.8, Lymph % (Auto) 21.5, [place] % (Auto) 10.3 H, Eos % (Auto) 2.1, Baso % (Auto) 0.8, Absolute Neuts (auto) 4.0, Absolute Lymphs (auto) 1.32, Nucleated RBC % 0, Differential Comment SCANNED, Anisocytosis 2+, Microcytosis 1+, Macrocytosis 1+, Sodium 139, Potassium 3.6, Chloride 109 H, Carbon Dioxide 25.0, Anion Gap 5, BUN 37 H, Cre atinine 2.56 H, Estim Creat Clear Calc 14.26, Est GFR (MDRD) Af Amer 23 L, Est GFR (MDRD) Non-Af 19 L, BUN/Creatinine Ratio 14.5, Glucose 151 H, Calcium 9.2, Magnesium 2.1, Total Bilirubin 4.50 H, AST 93 H, ALT 57 H, Alkaline Phosphatase 131 H, Troponin I High Sens 24, B-Natriuretic Peptide 92.5, Total Protein 7.0, Albumin 2.4 L, Globulin 4.6 H, Albumin/Globulin Ratio 0.5 L 10/19/23 14:22: Ammonia 34.0 H 10/19/23 22:20: POC Glucose 84 10/19/23 23:14: PT 21.4 H, INR 1.8 10/20/23 05:30: WBC 3.5 L, RBC 3.23 L, Hgb 10.6 L, Hct 32.9 L, MCV 101.9 H, MCH 32.8 H, MCHC 32.2, RDW Std Deviation 71.1 H, RDW Coeff of Katherine 19.3 H, Plt Count 105 L, MPV 9.4, Immature Gran % (Auto) 0.000, Neut % (Auto) 55.7, Lymph % (Auto) 29.9, [place] % (Auto) 9.5, Eos % (Auto) 4.3, Baso % (Auto) 0.6, Absolute Neuts (auto) 1.9 L, Absolute Lymphs (auto) 1.04, Nucleated RBC % 0, Anisocytosis 1+, Target Cells 1+, Sodium 142, Potassium 3.2 L, Chloride 109 H, Carbon Dioxide 26.0, Anion Gap 7, BUN 37 H, Creatinine 2.25 H, Estim Creat Clear Calc 16.22, Est GFR (MDRD) Af Amer 27 L, Est GFR (MDRD) Non-Af 22 L, BUN/Creatinine Ratio 16.4, Glucose 92, Calcium 9.2, Phosphorus 3.8, Total Bilirubin 3.80 H, AST 67 H, ALT 45, Alkaline Phosphatase 107, Total Protein 6.1 L, Albumin 2.5 L, Globulin 3.6, Albumin/Globulin Ratio 0.7 L, TSH 5.04 H 10/20/23 06:27: POC Glucose 87 Radiography Diagnostic Testing: Radiology Impression Chest X-Ray 10/19/23 14:04 IMPRESSION: Complete opacification of the left hemithorax concerning for increased large left pleural effusion with collapse or consolidation of the left lung. Centrally obstructing mass not excluded. 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 * Thoracentesis ordered. * Pt accepted at [facility] to be evaluated by CTS for possible pleurodesis * pt received IV albumin and furosemide. * could consider palatization with Pleur-X catheter if pt and family do not wish to be overly aggressive in conjunction with palliative care/hospice. * Pt has thoracentesis on 10/20 that removed 1.97L. Had hypotension afterwards. NAIR; with cirrhosis * Additional indication for transfer is to be evaluated for TIPS * Resume spironolactone and furosemide when condition allows. * Given advanced age, doubt she would ever be considered for a liver xplant. PRACHI * Creatiine jumped from 0.94 on 10/13, to 2.56 on 10/19. Down today to 2.25. * Cannot rule out HRS * HLIV given pleural effusion. Mild hyperammonemia * 34 present on admission * Started on lactulose. thrombocytopenia * 122 present on admission down to 105. * Monitor for now * Likely due cirrhosis +/- splenomegaly Hypotension: * hold diuretics. * Start midodrine 5 TID * will give an additional dose of albumin (for total of 50g, so far.) Chronic conditions: * Essential hypertension - Hold scheduled antihypertensives * Hypothyroidism - Resume Synthroid. TSH elevated, but FT4 last month was WNL. No changes at this time. * Obesity; with BMI of 32.3 this admission - Weight loss will be recommended. * DM-2; of unknown control on Metformin plus Liraglutide - Stop Metformin given PRACHI. Check FSBS q. AC/HS plus SSI. DVT prophylaxis - Lovenox 30 mg sq daily plus SCD's. Charges/Coding Visit Charges Inpatient E&M: 51899 Subs Hosp L3
--- NOTE | 2023-10-20 09:14 | PRO.PCM_ITS ---
Procedure Report Date of Procedure: 10/20/23 Assessment & Plan Assessment/Plan (1) Pleural effusion, left: PLAN: PROCEDURE: Ultrasound Guided Thoracentesis ORDERING PROVIDER: Dr. Alvarez INDICATION: Female, 83 years old. Recurrent left pleural effusion. PROVIDER: HARRIS Benson PROCEDURE: The risks, benefits, and alternatives to the procedure were explained to the patient. The specific risks of bleeding, infection, and pneumothorax requiring chest tube insertion were discussed and accepted. Written informed consent was obtained. The patient was placed in the sitting, upright position. Ultrasonographic evaluation of the bilateral lower pleural spaces was carried out. An adequate pocket was identified in the left lower pleural space.The overlying skin was prepped and draped in sterile fashion. 2% lidocaine was administered subcutaneously for local anesthesia. Under ultrasound guidance, a 5-Vietnamese thoracentesis needle/catheter system was advanced into the left posterior lower pleural fluid collection. 1970 ml of dark yessica colored fluid was drained. The patient tolerated the procedure well, but did have hypotension with dizziness towards the end of the procedure. Consequently, the catheter was withdrawn, despite some remaining effusion. An OpSite was applied. And the patient was laid supine. A chest x-ray was ordered. IMPRESSION: Successful ultrasound-guided thoracentesis of left pleural effusion. Procedures Radiology Radiology US Procedures: 10188 Thoracentesis
[2023-10-20 11:00] LABS: LDH 338 U/L (84-246)
[2023-10-20 12:15] LABS: Bedside Glucose 123 mg/dL (74-106)
[2023-10-20] MEDS: Lactulose 20 GM/30 ML UDC PO (12:17)
[2023-10-20] MEDS: Midodrine HCl 5 MG Tablet 10 MG PO (12:45)
[2023-10-20] MEDS: Albumin Human 25% (100 mL) 25 GM/100 ML BAG IV (13:18)
--- NOTE | 2023-10-20 14:10 | CON.PCM.CC_ITS ---
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 Patient has had recurrent L sided pleural effusions since at least October 03, 2023 she had another thoracentesis on October 12 and again today. Per chart review effusion is transudative and most likely secondary to hepatic hydrothorax as patient also has ascites with a SAG of 1.5. ?Unfortunately limited options for recurrent hepatic hydrothorax. Patient will require treatment of underlying liver cirrhosis. If patient is not a candidate for liver transplant then Pleurx catheter can be considered as a palliative measure. Noted that she is going to be transferred out for further management of her recurrent pleural effusion ? At this time patient appears to have improved from a respiratory standpoint and she is satting well on 2 L.She underwent thoracentesis today with 1.97 L fluid removed ? Avoid volume overload. Careful diuresis as she has an PRACHI. ?Rest of care per primary HPI Consult Data Date of Consult: 10/20/23 HPI Narrative Reason for Consultation: Current pleural effusion HPI Narrative: BLADIMIR KAUR, is a 83 F past medical history of hypertension, hypothyroidism, obesity BMI 31, NAIR cirrhosis and debility. Patient presented with worsening shortness of breath. She found to have a large left pleural effusion. Patient herself is a poor historian unable to provide details of her chronic conditions. She reports that she now feels better after thoracentesis. Per chart review patient has had recurrent L sided pleural effusions since at least October 03, 2023 she had another thoracentesis on October 12 and again today. Per chart review effusion is transudative and most likely secondary to hepatic hydrothorax as patient also has ascites with a SAG of 1.5. The patient now appears in no respiratory distress. She is on 2 L nasal cannula. When I walked into her room she was lying down flat comfortably. SHe denied shortness of breath or cough. [facility] Medical History Ascites DM2 (diabetes mellitus, type 2) HTN (hypertension) Pleural effusion, left Home Medications metformin 500 mg tablet 500 mg PO BIDCM DIABETTES 07/30/16 [History Last Taken 10/19/23] metoprolol tartrate 25 mg tablet 25 mg PO BID BLOOD PRESSURE 10/02/23 [History Last Taken 10/19/23] furosemide 40 mg tablet 40 mg PO DAILY FLUID 30 days #30 tabs 10/13/23 [Rx Last Taken 10/19/23] levothyroxine 25 mcg tablet 25 mcg PO DAILY THYROID #30 tabs 10/13/23 [Rx Last Taken 10/19/23] liraglutide 0.6 mg/0.1 mL (18 mg/3 mL) subcutaneous pen injector (Victoza 2-Johnny) 1.2 mg subcut DAILY DIABETES 10/13/23 [History Last Taken 10/19/23] spironolactone 50 mg tablet 100 mg (2 x 50 mg) PO DAILY BP/DIURETIC 30 days #60 tabs 10/13/23 [Rx Last Taken 10/19/23] vancomycin 125 mg capsule (Vancocin) 125 mg PO Q6H ANTIBIOTIC 10 days #40 caps 10/13/23 [Rx Last Taken 10/19/23] Allergy/AdvReac Type Severity Reaction Status Date / Time No Known Allergies Allergy Verified 10/19/23 12:58 Surgical History H/O: hysterectomy History of bilateral knee replacement Social History household members: none housing: house Smoking Status: Never smoker ROS ROS Narrative Pertinent positives and pertinent negatives as noted in HPI. All other systems were reviewed and are negative Physical Exam Narrative General alert in no acute distress HEENT. Normocephalic atraumatic, pupils equal and reactive Respiratory reduced air entry worse on the left, no wheezing Cardiac S1-S2, regular rate and rhythm GI abdomen soft and nontender, slightly distended MSK bilateral lower extremity edema Skin no rashes Neuro moves all extremities, no dysarthria, no facial droop Lab / Micro Data 10/20/23 05:30 10/20/23 05:30 Labs: Laboratory Results - last 24 hr 10/19/23 13:55: WBC 6.1, RBC 3.76 L, Hgb 12.0, Hct 38.8, MCV 103.2 H, MCH 31.9, MCHC 30.9 L, RDW Std Deviation 73.4 H, RDW Coeff of Katherine 19.9 H, Plt Count 122 L, MPV 9.4, Immature Gran % (Auto) 0.500, Neut % (Auto) 64.8, Lymph % (Auto) 21.5, [place] % (Auto) 10.3 H, Eos % (Auto) 2.1, Baso % (Auto) 0.8, Absolute Neuts (auto) 4.0, Absolute Lymphs (auto) 1.32, Nucleated RBC % 0, Differential Comment SCANNED, Anisocytosis 2+, Microcytosis 1+, Macrocytosis 1+, Sodium 139, Potassium 3.6, Chloride 109 H, Carbon Dioxide 25.0, Anion Gap 5, BUN 37 H, Creatinine 2.56 H, Estim Creat Clear Calc 14.26, Est GFR (MDRD) Af Amer 23 L, E st GFR (MDRD) Non-Af 19 L, BUN/Creatinine Ratio 14.5, Glucose 151 H, Calcium 9.2, Magnesium 2.1, Total Bilirubin 4.50 H, AST 93 H, ALT 57 H, Alkaline Phosphatase 131 H, Troponin I High Sens 24, B-Natriuretic Peptide 92.5, Total Protein 7.0, Albumin 2.4 L, Globulin 4.6 H, Albumin/Globulin Ratio 0.5 L 10/19/23 14:22: Ammonia 34.0 H 10/19/23 22:20: POC Glucose 84 10/19/23 23:14: PT 21.4 H, INR 1.8 10/20/23 05:30: WBC 3.5 L, RBC 3.23 L, Hgb 10.6 L, Hct 32.9 L, MCV 101.9 H, MCH 32.8 H, MCHC 32.2, RDW Std Deviation 71.1 H, RDW Coeff of Katherine 19.3 H, Plt Count 105 L, MPV 9.4, Immature Gran % (Auto) 0.000, Neut % (Auto) 55.7, Lymph % (Auto) 29.9, [place] % (Auto) 9.5, Eos % (Auto) 4.3, Baso % (Auto) 0.6, Absolute Neuts (auto) 1.9 L, Absolute Lymphs (auto) 1.04, Nucleated RBC % 0, Anisocytosis 1+, Target Cells 1+, Sodium 142, Potassium 3.2 L, Chloride 109 H, Carbon Dioxide 26.0, Anion Gap 7, BUN 37 H, Creatinine 2.25 H, Estim Creat Clear Calc 16.22, Est GFR (MDRD) Af Amer 27 L, Est GFR (MDRD) Non-Af 22 L, BUN/Creatinine Ratio 16.4, Glucose 92, Calcium 9.2, Phosphorus 3.8, Total Bilirubin 3.80 H, AST 67 H, ALT 45, Alkaline Phosphatase 107, Lactate Dehydrogenase 338 H, Total Protein 6.1 L, Albumin 2.5 L, Globulin 3.6, Albumin/Globulin Ratio 0.7 L, TSH 5.04 H 10/20/23 06:27: POC Glucose 87 10/20/23 11:52: POC Glucose 123 H Imagaing Radiology Impression Chest X-Ray 10/19/23 14:04 IMPRESSION: Complete opacification of the left hemithorax concerning for increased large left pleural effusion with collapse or consolidation of the left lung. Centrally obstructing mass not excluded. Electronically Signed: Trina Villanueva MD at 15:03 EST , Chest X-Ray 10/20/23 08:15 IMPRESSION: Improved aeration of the left upper lobe with decreased collapse or consolidation. Moderate left pleural effusion or hydropneumothorax, decreased in size from prior. Electronically Signed: Trina Villanueva MD at 9:13 EST , Charges/Coding Visit Charges Inpatient E&M: 22294 Init Hosp L3
--- NOTE | 2023-10-20 15:05 | CASEMGMT ---
KATIE ROE chart review: patient was admitted 10/02-10/13/23 for large left effusion and cdiff. See assessment from 10/03/23. [facility] Patient returned to [facility] ed for SOB. Patient was admitted for massive left pleural effusion. KATIE ROE In to discuss readmission with patient. Patient states she was able to fill po vanco order and was taking medications as prescribed. Patient went to PCP and was sent to ED from [facility]. Patient is being transferred to [facility], awaiting bed.
[2023-10-20] MEDS: 0.9% Saline Lock 10 ML Syringe IV (15:43)
[2023-10-20 17:04] LABS: Bedside Glucose 134 mg/dL (74-106)
[2023-10-20] MEDS: Menthol/Lanolin/Calamine/Znox 113 GM Tube 1 APPLIC TOPICAL (21:52)
[2023-10-20] MEDS: Metoprolol Tartrate 25 MG Tablet PO (21:52)
[2023-10-20 23:30] LABS: Bedside Glucose 115 mg/dL (74-106)
[2023-10-21] VITALS (7 sets, daily range): BP systolic 113–130; BP diastolic 68–77; PULSE 60–94; RESP 16; TEMP 35.9–36.6; O2SAT 93–95; BMI 31.4
[2023-10-21] MEDS: Vancomycin 125 MG/5 ML Susp PO.SYRINGE PO ×3 (05:32→17:50)
[2023-10-21] MEDS: Levothyroxine 25 MCG TABLET PO (05:32)
[2023-10-21] MEDS: Menthol/Lanolin/Calamine/Znox 113 GM Tube 1 APPLIC TOPICAL ×3 (05:33→22:07)
[2023-10-21 07:00] LABS: Bedside Glucose 109 mg/dL (74-106)
[2023-10-21 07:18] LABS: Absolute Lymphocyte Count 1.02 X10^3/uL (0.83-4.51); Absolute Neutrophil Count 1.6 X10^3/uL (2.0-7.7); Basophil# 0.02 X10^3/uL; Basophil% 0.7 % (0-1); Eosinophil# 0.09 X10^3/uL; Hematocrit 32.6 % (37-47); Hemoglobin 10.5 g/dL (12.0-15.0); Lymphocyte # 1.02 X10^3/ul (0.83-4.51); Lymphocyte % 33.4 % (19-41); Mean Corp Hgb Conc 32.2 g/dL (32-36); Mean Corpuscular Volume 102.5 fL (81-99); Mean Platelet Vol. 9.9 fl (6.2-12.0); Monocyte% 9.8 % (0-10); NRBC Flagged by Analyzer 0 % (0-5); Neutrophil # 1.62 X10^3/uL (2.7-7.7); Neutrophil % 53.1 % (47-70); POSITIVE COUNT YES; POSITIVE MORPHOLOGY YES; Platelet Count 98 K/mm3 (150-450); RBC Distribution Width CV 19.5 % (11.6-14.6); Red Blood Count 3.18 M/mm3 (4.2-5.4); White Blood Count 3.1 K/mm3 (4.4-11.0)
[2023-10-21 07:23] LABS: Differential Indicated SCAN CRITERIA MET
[2023-10-21 07:54] LABS: ALB/GLOB Ratio 0.7 RATIO (0.9-2.4); AST(SGOT) 53 U/L (15-37); Alanine Aminotransfer ALT/SGPT 35 U/L (13-56); Albumin, Serum 2.3 g/dL (3.2-5.0); Alkaline Phosphatase 93 U/L (45-117); Anion Gap 6 (5-15); BUN 36 mg/dL (7-18); BUN/Creat Ratio 18.1 RATIO (10-20); Calcium,Total 8.8 mg/dL (8.5-10.1); Chloride 112 mmol/L (98-107); Creatinine, Serum 1.99 mg/dL (0.55-1.02); EST Glomerular Filtration Rate 26 mL/min (>60); Est Glom Filt Rate - Afr Amer 31 mL/min (>60); Estimated Creatinine Clearance 18.34 ml/min; Globulin 3.2 g/dL (2.2-4.2); Glucose 116 mg/dL (74-106); Potassium 3.1 mmol/L (3.5-5.1); Protein, Total 5.5 g/dL (6.4-8.2); Sodium Level 143 mmol/L (136-145)
--- NOTE | 2023-10-21 08:20 | NURSING ---
I spoke with Wilma at [facility] transfer line and she stated there are no beds at this time.
--- NOTE | 2023-10-21 08:33 | PN.HOSP_ITS ---
Subjective Subjective Breathing well now on room air. Objective Data Objective Data Vital Signs: Vital Signs Temp Pulse Resp BP Pulse Ox O2 Del Method O2 Flow Rate 36.6 C 84 16 114/71 95 Bi-pap 2 10/21/23 02:45 10/21/23 02:45 10/21/23 02:45 10/21/23 02:45 10/21/23 02:45 10/21/23 03:00 10/20/23 18:45 Oxygen Flow Rate (L/min) 2 Oxygen Delivery Method Bi-pap Weight: 80.3 kg Body Mass Index (BMI) 31.4 Intake & Output: Intake and Output for Last 24 Hours 10/19/23 10/20/23 10/21/23 23:59 23:59 23:59 Intake Total 1246.67 / 1246.67 Output Total 2119 / 2120 Balance -873.33 / -873.33 Lab / Micro Data 10/21/23 06:10 10/21/23 06:10 Labs: Laboratory Results - last 24 hr 10/20/23 05:30: Lactate Dehydrogenase 338 H 10/20/23 11:52: POC Glucose 123 H 10/20/23 16:44: POC Glucose 134 H 10/20/23 21:42: POC Glucose 115 H 10/21/23 06:10: WBC 3.1 L, RBC 3.18 L, Hgb 10.5 L, Hct 32.6 L, MCV 102.5 H, MCH 33.0 H, MCHC 32.2, RDW Std Deviation 72.0 H, RDW Coeff of Katherine 19.5 H, Plt Count 98 L, MPV 9.9, Immature Gran % (Auto) 0.000, Neut % (Auto) 53.1, Lymph % (Auto) 33.4, [place] % (Auto) 9.8, Eos % (Auto) 3.0, Baso % (Auto) 0.7, Absolute Neuts (auto) 1.6 L, Absolute Lymphs (auto) 1.02, Nucleated RBC % 0, Sodium 143, Potassium 3.1 L, Chloride 112 H, Carbon Dioxide 25.0, Anion Gap 6, BUN 36 H, Creatinine 1.99 H, Estim Creat Clear Calc 18.34, Est GFR (MDRD) Af Amer 31 L, Est GFR (MDRD) Non-Af 26 L, BUN/Creatinine Ratio 18.1, Glucose 116 H, Calcium 8.8, Total Bilirubin 3.60 H, AST 53 H, ALT 35, Alkaline Phosphatase 93, Total Protein 5.5 L, Albumin 2.3 L, Globulin 3.2, Albumin/Globulin Ratio 0.7 L 10/21/23 06:42: POC Glucose 109 H Radiography Diagnostic Testing: Radiology Impression Chest X-Ray 10/20/23 08:15 IMPRESSION: Improved aeration of the left upper lobe with decreased collapse or consolidation. Moderate left pleural effusion or hydropneumothorax, decreased in size from prior. Electronically Signed: Trina Vilalnueva MD at 9:13 EST , Physical Exam Const alert and no apparent distress Resp normal respiratory effort, no retractions, no use of accessory muscles and clear to auscultation bilaterally Resp Narrative: diminished BS bilaterally. 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 * Thoracentesis ordered. * Pt accepted at [facility] to be evaluated by CTS for possible pleurodesis * pt received IV albumin and furosemide. * could consider palatization with Pleur-X catheter if pt and family do not wish to be overly aggressive in conjunction with palliative care/hospice. * Pt has thoracentesis on 10/20 that removed 1.97L. Had hypotension afterwards. * Continue to hold diuretics given PRACHI NAIR; with cirrhosis * Additional indication for transfer is to be evaluated for TIPS * Resume spironolactone and furosemide when condition allows. * Given advanced age, doubt she would ever be considered for a liver xplant. PRACHI * Creatiine jumped from 0.94 on 10/13, to 2.56 on 10/19. Down today to 1.99 * Cannot rule out HRS * HLIV given pleural effusion. Mild hyperammonemia * 34 present on admission * Started on lactulose. thrombocytopenia * 122 present on admission down to 105. * Monitor for now * Likely due cirrhosis +/- splenomegaly Hypotension: * resolved. after 50g albumin and starting midodrine 5 TID Chronic conditions: * Essential hypertension - Hold scheduled antihypertensives * Hypothyroidism - Resume Synthroid. TSH elevated, but FT4 last month was WNL. N o changes at this time. * Obesity; with BMI of 32.3 this admission - Weight loss will be recommended. * DM-2; of unknown control on Metformin plus Liraglutide - Stop Metformin given PRACHI. Check FSBS q. AC/HS plus SSI. DVT prophylaxis - Lovenox 30 mg sq daily plus SCD's. Disposition: to [facility] when bed is available. Charges/Coding Visit Charges Inpatient E&M: 85835 Subs Hosp L2
[2023-10-21 09:04] LABS: Anisocytosis 1+
[2023-10-21] MEDS: Lactulose 20 GM/30 ML UDC PO (09:30)
[2023-10-21] MEDS: Midodrine HCl 5 MG Tablet 10 MG PO ×3 (09:30→17:50)
[2023-10-21] MEDS: Enoxaparin 30 MG/0.3 ML Syringe SC (09:30)
[2023-10-21] MEDS: Metoprolol Tartrate 25 MG Tablet PO ×2 (09:31→22:07)
[2023-10-21] MEDS: Potassium Chloride Oral Tablet 20 MEQ 60 MEQ PO (09:39)
[2023-10-21 12:23] LABS: Bedside Glucose 97 mg/dL (74-106)
[2023-10-21 18:20] LABS: Bedside Glucose 114 mg/dL (74-106)
[2023-10-21 22:52] LABS: Bedside Glucose 76 mg/dL (74-106)
[2023-10-22] MEDS: Vancomycin 125 MG/5 ML Susp PO.SYRINGE PO ×2 (00:25→06:29)
[2023-10-22 00:27] VITALS: BP 92/65; PULSE 90; RESP 16; TEMP 35.9; O2SAT 95
[2023-10-22 01:55] VITALS: BMI 30.2
[2023-10-22 04:00] VITALS: BP 100/72; PULSE 88; RESP 16; TEMP 36.4; O2SAT 97
[2023-10-22 06:00] VITALS: BP 133/71; PULSE 56; RESP 16; TEMP 35.9; O2SAT 93
[2023-10-22] MEDS: Levothyroxine 25 MCG TABLET PO (06:29)
[2023-10-22 07:10] LABS: Bedside Glucose 92 mg/dL (74-106)
--- NOTE | 2023-10-22 08:00 | DS.PCM_ITS ---
Providers Date of Admission: 10/19/23 Primary Care Physician: Dr. 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 * Thoracentesis ordered. * Pt accepted at [facility] to be evaluated by CTS for possible pleurodesis * pt received IV albumin and furosemide. * could consider palatization with Pleur-X catheter if pt and family do not wish to be overly aggressive in conjunction with palliative care/hospice. * Pt has thoracentesis on 10/20 that removed 1.97L. Had hypotension afterwards. * Continue to hold diuretics given PRACHI NAIR; with cirrhosis * Additional indication for transfer is to be evaluated for TIPS * Resume spironolactone and furosemide when condition allows. * Given advanced age, doubt she would ever be considered for a liver xplant. PRACHI * Creatiine jumped from 0.94 on 10/13, to 2.56 on 10/19. Down today to 1.99 * Cannot rule out HRS * HLIV given pleural effusion. Mild hyperammonemia * 34 present on admission * Started on lactulose. thrombocytopenia * 122 present on admission down to 105. * Monitor for now * Likely due cirrhosis +/- splenomegaly Hypotension: * resolved. after 50g albumin and starting midodrine 5 TID Chronic conditions: * Essential hypertension - Hold scheduled antihypertensives * Hypothyroidism - Resume Synthroid. TSH elevated, but FT4 last month was WNL. No changes at this time. * Obesity; with BMI of 32.3 this admission - Weight loss will be recommended. * DM-2; of unknown control on Metformin plus Liraglutide - Stop Metformin given PRACHI. Check FSBS q. AC/HS plus SSI. DVT prophylaxis - Lovenox 30 mg sq daily plus SCD's. Disposition: to [facility] today. Medications at Discharge Home Medications metformin 500 mg tablet 500 mg PO BIDCM DIABETTES 07/30/16 metoprolol tartrate 25 mg tablet 25 mg PO BID BLOOD PRESSURE 10/02/23 furosemide 40 mg tablet 40 mg PO DAILY FLUID 30 days #30 tabs 10/13/23 levothyroxine 25 mcg tablet 25 mcg PO DAILY THYROID #30 tabs 10/13/23 liraglutide 0.6 mg/0.1 mL (18 mg/3 mL) subcutaneous pen injector (Wazokutoza 2-Johnny) 1.2 mg subcut DAILY DIABETES 10/13/23 spironolactone 50 mg tablet 100 mg (2 x 50 mg) PO DAILY BP/DIURETIC 30 days #60 tabs 10/13/23 vancomycin 125 mg capsule (Vancocin) 125 mg PO Q6H ANTIBIOTIC 10 days #40 caps 10/13/23 albuterol sulfate 2.5 mg/3 mL (0.083 %) solution for nebulization 2.5 mg (3 mL) inhalation Q2H PRN PRN Shortness of Breath/Wheezing #0 mL 10/22/23 dextrose 50 % in water (D50W) See Protocol IV X1 PRN Hypoglycemia #0 mL 10/22/23 enoxaparin 30 mg/0.3 mL subcutaneous syringe 30 mg (0.3 mL) subcut DAILY #0 mL 10/22/23 glucagon 1 mg solution for injection (Glucagon Emergency Kit) 1 mg IM X1 PRN Hypoglycemia #0 ea 10/22/23 insulin lispro 100 unit/mL subcutaneous pen (Humalog KwikPen (U-100) Insulin) See Protocol subcut ACHS #0 mL 10/22/23 lactulose 20 gram/30 mL oral solution 20 g (30 mL) PO DAILY #0 mL 10/22/23 melatonin 3 mg tablet 3 mg PO QHS PRN PRN Insomnia #0 tabs 10/22/23 menthol 0.44 %-zinc oxide 20.6 % topical ointment (Calmoseptine) 1 applic topical TID #0 grams 10/22/23 midodrine 5 mg tablet 10 mg (2 x 5 mg) PO TIDCM #0 tabs 10/22/23 ondansetron HCl (PF) 4 mg/2 mL injection solution 4 mg (2 mL) IV Q8H PRN PRN NAUSEA/VOMITING #0 mL 10/22/23 Hospital Course Operations None Procedures Thoracentesis Summary of Care Provided Minutes Spent on Discharge: 32 Hospital Course: Patient presents with shortness of breath. Patient had a bijan out left lung due to pleural effusion. Patient underwent a thoracentesis that removed 2 L of fluids and her breathing improved significantly. Patient was recommended being transferred to tertiary facility with cardiothoracic surgery as this is was a rapid reaccumulation of her pleural effusion. Patient was stated at [facility] but was unable to be transferred until today. Patient be transferred there in stable condition. Did discuss with the patient today and that she has underlying cirrhosis and that she is not a candidate for a liver transplant given her advanced age. Did recommend that she and her family have further and discussions about the aggressiveness of care moving forward. Patient did have acute kidney injury which did not slowly improved. Her diu retics were held. She did have issues with hypotension. This seemed to improve after receiving total of 50 g of albumin as well as starting on midodrine 10 mg 3 times daily. Physical Exam Const alert and no apparent distress Resp Resp Narrative: Diminished air movement in the left lung clear. Weight / BMI Weight Weight: 77.5 kg Body Mass Index (BMI) 30.2 ABG / Lab / Microbiology Data 10/21/23 06:10 10/21/23 06:10 Laboratory: Laboratory Results - last 24 hr 10/21/23 06:10: Anisocytosis 1+ 10/21/23 12:05: POC Glucose 97 10/21/23 17:53: POC Glucose 114 H 10/21/23 22:15: POC Glucose 76 10/22/23 06:43: POC Glucose 92 D/C Instructions Discharge Diet: 6 Cup Fluid Restriction and 2000 mg Sodium Diet Meaningful Use Info Meaningful Use Diagnoses (Choose all that apply): None applicable Discharge Plan Admission Admit Date/Time: 10/19/23 20:13 Primary Reason for Your Visit: Pleural effusion Attending Provider: Anish Argueta Primary Care Provider: Sameer Cope Consulting Providers: Juan Alvarez; Keon Shafer; Fawad Lomas; Ian Diaz; Virgilio Hanley; Sujey Poe CONTROL OPERATOR [employer] Instructions Patient Instructions: JENNIFER RN Thoracentesis Dc Discharge Orders/Prescriptions Prescriptions: New albuterol sulfate 2.5 mg /3 mL (0.083 %) Solution For Nebulization 2.5 mg inhalation Q2H PRN PRN (Reason: Shortness of Breath/Wheezing) Qty: 0 0RF midodrine 5 mg Tablet 10 mg PO TIDCM Qty: 0 0RF melatonin 3 mg Tablet 3 mg PO QHS PRN PRN (Reason: Insomnia) Qty: 0 0RF Glucagon Emergency Kit (human) 1 mg Recon Soln 1 mg IM X1 PRN (Reason: Hypoglycemia) Qty: 0 0RF enoxaparin 30 mg/0.3 mL Syringe 30 mg subcut DAILY Qty: 0 0RF insulin lispro [Humalog KwikPen Insulin] 100 unit/mL Insulin Pen See Protocol subcut ACHS Qty: 0 0RF Protocol: 1. Sliding Scale Insulin Low Dosing Condition: 150-224 mg/dl = 1 unit Condition: 225-299 mg/dl = 2 units Condition: 300-374 mg/dl = 3 units Condition: 375-499 mg/dl = 4 units Condition: Greater than 449 call physician Protocol Text: - Use for Total Daily Dose of Insulin 15-27 units - Thin, elderly, renal patients LOW DOSING ALGORITHM dextrose 50 % in water (D50W) Syringe See Protocol IV X1 PRN (Reason: Hypoglycemia) Qty: 0 0RF Protocol: Hypoglycemic Protocol for D50W Protocol Text: UNABLE TO EAT/SWALLOW SAFELY, IS NPO, IS UNCONSCIOUS, AND DOES HAVE IV ACCESS 25 GM (50ML) FOR BLOOD GLUCOSE < 50 MG/DL 12.5 GM (25ML) FOR BLOOD GLUCOSE > 50MG/DL ondansetron HCl (PF) 4 mg/2 mL Solution 4 mg IV Q8H PRN PRN (Reason: NAUSEA/VOMITING) Qty: 0 0RF menthol-zinc oxide [Calmoseptine] 0.44-20.6 % Ointment 1 applic topical TID Qty: 0 0RF Protocol: *Topical Application Instructions APPLICATION INSTRUCTIONS: to buttocks lactulose 20 gram/30 mL Solution 20 g PO DAILY Qty: 0 0RF Continued metoprolol tartrate 25 mg tablet 25 mg PO BID levothyroxine 25 mcg tablet 25 mcg PO DAILY Qty: 30 2RF vancomycin [Vancocin] 125 mg capsule 125 mg PO Q6H 10 Days Qty: 40 0RF No Action metformin 500 MG tablet 500 mg PO BIDCM furosemide 40 mg Tablet 40 mg PO DAILY 30 Days Qty: 30 2RF spironolactone 50 mg tablet 100 mg PO DAILY 30 Days Qty: 60 2RF Rx Instructions: Hold if serum potassium more than 5.0. Victoza 2-Johnny 0.6 mg/0.1 mL (18 mg/3 mL) pen injector 1.2 mg SUBCUT DAILY Referrals / Follow Up: Sameer Cope MD [Primary Care Provider] - Disposition Disposition (needs filled in before D/C Order can be placed): Acute Care Hosp [facility] Charges/Coding Visit Charges Inpatient E&M: 70392 Disch Hosp >30min
[2023-10-22 08:07] VITALS: BP 134/66; PULSE 60; RESP 16; TEMP 36.2; O2SAT 93
[2023-10-22] MEDS: 0.9% Saline Lock 10 ML Syringe IV (08:11)
[2023-10-22 09:08] LABS: Anion Gap 4 (5-15); BUN 33 mg/dL (7-18); BUN/Creat Ratio 18.5 RATIO (10-20); Chloride 115 mmol/L (98-107); Creatinine, Serum 1.78 mg/dL (0.55-1.02); EST Glomerular Filtration Rate 29 mL/min (>60); Est Glom Filt Rate - Afr Amer 35 mL/min (>60); Glucose 102 mg/dL (74-106); Potassium 3.8 mmol/L (3.5-5.1); Sodium Level 144 mmol/L (136-145)
== END 2023-10-22 09:25 | disposition short-term general hospital (02) | DRG 432 ==
LOC: ED 14:42 → PCU 20:22
PROVIDERS: Internal Medicine; Admitting Provider Internal Medicine; Emergency Provider Emergency Medicine; PCP Internal Medicine
DX: K74.69 Other cirrhosis of liver (principal); K76.7 Hepatorenal syndrome; N17.9 Acute kidney failure, unspecified; J91.8 Pleural effusion in other conditions classified elsewhere; R18.8 Other ascites; D63.8 Anemia in other chronic diseases classified elsewhere; I95.9 Hypotension, unspecified; E11.9 Type 2 diabetes mellitus without complications; Z79.4 Long term (current) use of insulin; K76.82 Hepatic encephalopathy; E03.9 Hypothyroidism, unspecified; I10 Essential (primary) hypertension; D69.59 Other secondary thrombocytopenia; K75.81 Nonalcoholic steatohepatitis (NASH); Z68.32 Body mass index [BMI] 32.0-32.9, adult; R09.02 Hypoxemia; E66.9 Obesity, unspecified; Z79.84 Long term (current) use of oral hypoglycemic drugs; Z79.85 Long-term (current) use of injectable non-insulin antidiabetic drugs; Z79.899 Other long term (current) drug therapy
CPT/HCPCS: 32555; 36415; 71045; 71046; 80048; 80053; 82140; 82962; 83615; 83735; 83880; 84100; 84443; 84484; 85025; 85610; 93005; 97802; 99285; J7120; P9047; A4216